=== PATIENT | female | born 1945 | race Caucasian/White ===

== ENCOUNTER 2023-02-15 13:32 | Outpatient (OUT) | payer MEDICARE, SELFPAY ==
--- NOTE | 2023-02-15 | XR_ITS ---
The [address] [address] Patient Name: ALVARADO ROMERO MRN: [id number] date: 1945 Sex: F Assigned Patient Location: [facility] Current Patient Location: [facility] Accession/Order Number: [id number] Exam Date: 02/15/2023 14:03 Report Date: 02/15/2023 22:37 At the request of: RICHA FIGUEROA Procedure: XR foot RT min 3V PROCEDURE: XR foot RT min 3V HISTORY: RIGHT FOOT TOE GROWTH ; gross on second toe which rubs third toe COMPARISON: XR foot bilateral 05/25/2021 FINDINGS: BONES:Prior osteotomy and screw repair of first metatarsal and first proximal phalanx; no fracture or change in hardware alignment. Moderate degenerative changes of the second through 5th tarsal-metatarsal joints. Moderate degenerative changes of the first metatarsophalangeal joint. Moderate degenerative changes of the majority of the interphalangeal joints. SOFT TISSUES:Thickening medial to the first metatarsophalangeal joint. EFFUSION:None visible. OTHER: Negative. XR/XR foot RT min 3V IMPRESSION: 1. Stable surgical changes. 2. Multifocal degenerative joint disease. 3. Degenerative osseous spurring along lateral margin of the second distal interphalangeal joint which may contribute to a palpable lump of the second toe as described in patient's history. Electronically authenticated by: SMITH ORTEGA Date: 02/15/2023 22:37
== END 2023-02-15 13:33 | disposition home or self-care (01) ==
LOC: RAD 13:33
PROVIDERS: Visit Provider Podiatrist Foot & Ankle Surgery
DX: M79.674 Pain in right toe(s) (principal); M19.072 Primary osteoarthritis, left ankle and foot; M19.071 Primary osteoarthritis, right ankle and foot
CPT/HCPCS: 73630

== ENCOUNTER 2023-03-15 12:25 | Outpatient (OUT) | payer MEDICARE, SELFPAY ==
--- NOTE | 2023-03-15 12:28 | MR_ITS ---
The [address] [address] Patient Name: ALVARADO ROMERO MRN: [id number] date: 1945 Sex: F Assigned Patient Location: MRI Current Patient Location: MRI Accession/Order Number: [id number] Exam Date: 03/15/2023 12:40 Report Date: 03/15/2023 21:47 At the request of: RICHA FIGUEROA Procedure: MR foot RT wo con EXAM: MR foot RT wo con HISTORY: Second digit pain. COMPARISON: X-rays 02/15/2023 TECHNIQUE: Multiplanar, multi sequential MRI sequences were performed. FINDINGS: IMPRESSION: This study is limited as the only fluid sensitive fat saturation sequence was performed in the sagittal projection. Additionally, since this study was to evaluate for a neuroma, the patient should have been imaged in the prone position. The patient is status post first metatarsal head medial eminence resection. Screw is present within the first metatarsal and first proximal phalanx. The screws result in metallic susceptibility artifact through this region. Better visualized on the prior x-ray is approximately 5.74 mm of the first proximal phalanx screw threads within the medial subcutaneous soft tissues. Chronic lateral subluxation of the sesamoids. Poorly evaluated moderate degenerative changes tarsometatarsal articulations. No visualized fracture, dislocation, subluxation or osseous lesion. No joint effusions. Evaluation of the metatarsophalangeal joint plantar plates is nondiagnostic on this study. No abnormal intermetatarsal bursal fluid collections. Poorly evaluated thickening of the distal plantar aspect of the second metatarsophalangeal joint capsule (axial 14). This is not a location for a plantar intermetatarsal neuroma. The remainder of the intermetatarsal spaces exhibit no gross abnormality. The superficial subcutaneous soft tissues are free of edema, hematoma, mass or cyst. The visualized tendons exhibit no discrete thickening, tear, edema or tenosynovial collections. No abnormal bursal fluid collections. No muscle atrophy or fatty infiltration. Electronically authenticated by: ROLANDO CONTI Date: 03/15/2023 21:47
== END 2023-03-15 12:26 | disposition home or self-care (01) ==
LOC: MRI 12:26
PROVIDERS: Visit Provider Podiatrist Foot & Ankle Surgery
DX: G57.61 Lesion of plantar nerve, right lower limb (principal); D36.13 Benign neoplasm of peripheral nerves and autonomic nervous system of lower limb, including hip
CPT/HCPCS: 73718

== ENCOUNTER 2023-04-17 09:08 | Outpatient (OUT) | payer MEDICARE, SELFPAY ==
--- NOTE | 2023-04-17 09:12 | ECG_ITS ---
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
--- OUTSIDE RECORDS SUMMARY | 2023-04-17 09:12 | XMS_ITS | CCD ---
Author Name Unknown Address [address] [place] [address] Organization [facility] Care Team Providers Care Sales And Retail Management Recruiter Name Role Phone Jason Mcclelland Unavailable Steve Ortega Unavailable Della Vera Unavailable ALONDRA, DR PEGGY Turner Primary Care Unavailable RICHA FIGUEROA Consulting Unavailable RICHA FIGUEROA Attending Unavailable RICHA FIGUEROA Admitting Unavailable AMADO, DR ROLANDO Hemphill Consulting Unavailable SAMSADAYNA Attending Unavailable SAM, DAYNA Admitting Unavailable ALONDRA, DR PEGGY Turner Primary Care Unavailable RICHA FIGUEROA Consulting Unavailable SAMSA, DAYNA Consulting Unavailable AGUBOSIM, CLIFF Consulting Unavailable RACHEL, BRAD Consulting Unavailable DORKOSKIE, ESTEFANIA Consulting Unavailable KAMILLE, AMAR Consulting Unavailable JORDAN, DR SMITH Stearns Consulting Unavailable RICHA FIGUEROA Attending Unavailable RICHA FIGUEROA Admitting Unavailable RICHA FIGUEROA Consulting Unavailable JORDAN, DR SMITH Stearns Consulting Unavailable LESLYE GUIDRY Attending Unavailable CHAO, LESLYE Admitting Unavailable CHAO, LESLYE Consulting Unavailable ZIEBER, DR SMITH Stearns Consulting Unavailable CHAO, LESLYE Attending Unavailable CHAO, LESLYE Admitting Unavailable CHAO, LESLYE Consulting Unavailable CHAO, LESLYE Admitting Unavailable CHAO, LESLYE Attending Unavailable WEST, DR ROLANDO Hemphill Consulting Unavailable CHAO, LESLYE Consulting Unavailable CHAO, LESLYE Attending Unavailable CHAO, LESLYE Admitting Unavailable CHAO, LESLYE Admitting Unavailable ZIEBER, DR SMITH Stearns Consulting Unavailable CHAO, LESLYE Attending Unavailable CHAO, LESLYE Consulting Unavailable YUEER, DR SMITH Stearns Consulting Unavailable RICHA FIGUEROA Attending Unavailable RICHA FIGUEROA Admitting Unavailable RICHA FIGUEROA Consulting Unavailable HIGHLANDER, PETER D Attending Unavailable RICHA FIGUEROA Admitting Unavailable WEST, DR ROLANDO Hemphill Consulting Unavailable RICHA FIGUEROA Consulting Unavailable RICHA FIGUEROA Consulting Unavailable RICHA FIGUEROA Attending Unavailable HIGHLRICHA SINGER Admitting Unavailable Eisenstein, Ansley Attending Unavailable Eisenstein, Ansley Primary Care Unavailable Eisenstein, Ansley Admitting Unavailable Thomas CROSSBAR SWITCH ADJUSTER-TIMBER SPOTTER, Kary Mendoza Attending U namita Steele MD, Vee Sarabia Attending Sylwia lablaurel Thomas CROSSBAR SWITCH ADJUSTER-TIMBER SPOTTER, Kary Mendoza Attending U namita Steele MD, Vee Sarabia Attending Sylwia Steele MD, Vee Sarabia Attending Sylwia lable Thomas CROSSBAR SWITCH ADJUSTER-TIMBER SPOTTER, Kary Mendoza Attending U navailable Thomas CROSSBAR SWITCH ADJUSTER-TIMBER SPOTTER, Kary Mendoza Attending U navailable Thomas CROSSBAR SWITCH ADJUSTER-TIMBER SPOTTER, Kary Mendoza Attending U navailable Eisenstein, Ansley Primary Care Unavailable Eisenstein, Ansley Primary Care Unavailable NataprawiJune oconnell Attending Unavailable Triaprawira June Admitting Unavailable Eisenstein, Ansley Primary Care Unavailable Enrike Rosado Attending Unavailable Enrike Rosado Admitting Unavailable DebenedettiRomina Admitting Unavailable Eisenstein, Ansley Primary Care Unavailable Romina Vizcaino Attending Unavailable Eisenstein, Ansley Primary Care Unavailable ThomasKary M Attending Unavailable Thomas, Kary M Admitting Unavailable Eisenstein, Ansley Primary Care Unavailable Thomas, Kary M Admitting Unavailable Thomas, Kary M Attending Unavailable Eisenstein, Ansley Primary Care Unavailable Thomas, Kary M Admitting Unavailable Thomas, Kary M Attending Unavailable Eisenstein, Ansley Primary Care Unavailable Thomas, Kary M Admitting Unavailable Thomas, Kary M Attending Unavailable Eisenstein, Ansley Primary Care Unavailable ThomasKary M Attending Unavailable Eisenstein, Ansley Referring Unavailable Thomas, Kary M Admitting Unavailable VEE STEELE Attending Unavailable Eisenstein, Ansley Primary Care Unavailable VEE STEELE F Admitting Unavailable KINDVEE De Guzman Attending Unavailable VEE STEELE F Admitting Unavailable Eisenstein, Ansley Primary Care Unavailable Eisenstein, Ansley Primary Care Unavailable Nixon Rosas Attending Unavailable Nixon Rosas Admitting Unavailable Eisenstein, Ansley Primary Care Unavailable Heather, Ziad Attending Unavailable Heather, Ziad Admitting Unavailable [facility] Er, [place] Primary Care Unavailable ThomasKary lambert Admitting Unavailable ThomasKary lambert Attending [facility]available ThomasKary lambert M Attending Unavailable ThomasKary lambert M Admitting Unavailable VEE STEELE Attending Unavailable VEE STEELE Admitting Unavailable [facility] Primary Care Unavailable Allergies Allergy Classification Reported Allergen(s) Allergy Type Date of Onset Reaction(s) Facility (8 sources) Codeine; Translations: [codeine] Drug Allergy Unknown [facility] Repository (8 sources) Erythromycin; Translations: [erythromycin] Drug Allergy Unknown [facility] Repository (7 sources) penicillAMINE Drug Allergy Unknown [facility] Other (8 sources) predniSONE; Translations: [predniSONE] Drug Allergy 1 Unknown [facility] Repository (2 sources) Codeine Drug Allergy [facility] Repository (2 sources) Erythromycin Drug Allergy [facility] Repository (2 sources) Penicillin Drug Allergy [facility] Repository (2 sources) predniSONE Drug Allergy [facility] Repository (1 source) Penicillins; Translations: [penicillins] Propensity to adverse reactions to drug (disorder) [facility] Repository Medications Current Medications Medication Drug Class(es) Dates Sig (Normalized) Sig (Original) alendronic acid 70 mg oral tablet (7 sources) Bisphosphonate Alendronate Sodi um 70 MG Oral for 84 Days Active amLODIPine 5 mg oral tablet (7 sources) Dihydropyridine Calcium Channel Drake amLODIPine Besylate 5 MG Oral for 90 Days Active carvedilol 12.5 mg oral tablet (7 sources) alpha-Adrenergic Drake, beta-Adrenergic Drake Carvedilol 12.5 MG Oral for 90 Days Active clopidogrel 75 mg oral tablet (7 sources) P2Y12 Platelet Inhibitor Clopidogrel Bisulfate 75 MG Oral for 90 Days Active enalapril maleate 20 mg oral tablet (7 sources) Angiotensin Converting Enzyme Inhibitor Enalapril Maleate 20 MG Oral for 90 Days Active levothyroxine sodium 0.025 mg oral tablet (7 sources) l-Thyroxine Levothyroxine So dium 25 MCG Oral for 90 Days Active LORazepam 0.5 mg oral tablet (7 sources) Benzodiazepine LORazepam 0.5 MG Oral for 60 Days Active meloxicam 15 mg oral tablet (7 sources) Nonsteroidal Anti-inflammatory Drug Meloxicam 15 MG O ral for 30 Days Active nortriptyline 25 mg oral capsule (7 sources) Tricyclic Antidepressant Nortriptyline HCl 25 MG Oral for 90 Days Active ondansetron 4 mg oral tablet (7 sources) Serotonin-3 Receptor Antagonist Ondansetron HCl 4 MG Oral for 10 Days Active simvastatin 20 mg oral tablet (7 sources) HMG-CoA Reductase Inhibitor Simvastatin 20 MG Oral for 90 Days Active Simvastatin 20 M G Oral for 90 Days Active Completed/Discontinued Medications Medication Drug Class(es) Dates Sig (Normalized) Sig (Original) triamcinolone acetonide 40 mg/ml injectable suspension (5 sources) Corticosteroid Start: 09-20-2021 Kenalog-40 Sep, 40 mg Problems Active Problems Problem Classification Problem Date Documented Date Episodic/Chronic Acquired foot deformities (10 sources) Hallux valgus (acquired), left foot; Translations: [Other hammer toe(s) (acquired), left foot] Onset: 04-04-2021 Chronic Asthma (1 source) Unspecified asthma, uncomplicated; Translations: [UNSPECIFIED ASTHMA UNCOMPLICATED] Onset: 04-23-2021 Chronic Diverticulosis and diverticulitis (7 sources) Diverticulosis of sigmoid colon; Translations: [Sigmoid diverticulosis] Chronic Essential hypertension (2 sources) Essential (primary) hypertension; Translations: [ESSENTIAL PRIMARY HYPERTENSION] Onset: 04-23-2021 Chronic Hemorrhoids (7 sources) Internal hemorrhoids; Translations: [Internal hemorrhoids] Episodic Other nervous system disorders (6 sources) Chronic pain; Translations: [Other chronic pain] Chronic Other nervous system disorders (4 sources) Other chronic pain Onset: 09-20-2021 Resolved: 11-29-2021 Chronic Spondylosis; intervertebral disc disorders; other back problems (12 sources) Cervical spondylosis without myelopathy; Translations: [Spondylosis without myelopathy or radiculopathy, cervical region] Onset: 09-01-2021 Resolved: 11-29-2021 Chronic Spondylosis; intervertebral disc disorders; other back problems (19 sources) Cervico-occipital neuralgia; Translations: [Occipital neuralgia] Onset: 09-01-2021 Resolved: 11-29-2021 Episodic Thyroid disorders (1 source) Hypothyroidism, unspecified; Translations: [HYPOTHYROIDISM UNSPECIFIED] Onset: 04-23-2021 Chronic Unclassified (1 source) CONTACT W/AND (SUSP) EXPOS COVID-19; Translations: [CONTACT W/AND (SUSP) EXPOS COVID-19] Onset: 04-15-2021 Past or Other Problems Problem Classification Problem Date Documented Da te Episodic/Chronic E Codes: Adverse effects of medical drugs (1 source) Adverse effect of other opioids, initial encounter; Translations: [ADVERSE EFF OTH OPIOIDS INITIAL ENC] Onset: 04-23-2021 Episodic Other aftercare (1 source) ocean transportation intermediary (current) use of antithrombotics/a ntiplatelets; Translations: [HALFWAY ANTITHROMBOT/ANTI PLATLETS] Onset: 04-23-2021 Episodic Other aftercare (1 source) Other usp (current) drug therapy; Translations: [OTH HALFWAY CURRENT DRUG THERAPY] Onset: 04-23-2021 Episodic Other circulatory disease (1 source) Personal history of transient ischemic attack (TIA), and cerebral infarction without residual deficits; Translations: [PERS HX TIA AND CI NO RESID DEFICIT] Onset: 04-23-2021 Episodic Other connective tissue disease (5 sources) Pain in left foot; Translations: [PAIN IN LEFT FOOT] Onset: 05-31-2021 Episodic Other connective tissue disease (4 sources) Pain in right foot; Translations: [PAIN IN RIGHT FOOT] Onset: 05-25-2021 Episodic Other gastrointestinal disorders (1 source) Drug induced constipation; Translations: [DRUG INDUCED CONSTIPATION] Onset: 04-23-2021 Episodic Other non-traumatic joint disorders (1 source) Other specified joint disorders, left ankle and foot; Translations: [OTHER SPEC JOINT D/O LT ANKLE FOOT] Onset: 04-23-2021 Episodic Results Test Name Value Interpretation Reference Range Facility Outside Recordson 03-22-2023 Outside Records [id number]-08-2023 Outside Records [id number] [facility] Progress Note - Provideron 1 05-09-2022 Progress Note - Provider [id number]#[id number] [facility] Coding Summaryon 03-01-2023 Coding Summary HTMLBase 64 CumhhlvmTDj6aSw+PGhlYWQ +TG0GWPGkL22ufBSpfQ8iN8 NMTElOSywgQVBQTElOSyIgb wHxLA2apHWcEBLt IC8+QK5vRLQiAtzrvOXrv0H 5yQM6O67kka7oYSvgbEV9YP NqOuLhkmvjb0xtoRq2XBmjH mluOyBt UAKlrV03MJA7yT83Ix35lFX xdVWwd4usbOg4XmNlRGPoQB C8zClxQVcla9KqFJCtH94tt XIuj3R2 UEYlpRlrePSsYiRkrYV8zX2 bSEkborxgz9pqasjnEhx7cb 46vBQvp2A2nBX8A8WvjhS0N GJvbGQg TflzoZXInY7qnqhgd4sxjqp rCaGmPZUxLGc6NJj7GMJrwA erNoCrKJ97ZSN2BXKwbvPmI 2FsLWFs pHbeOdQ8i0U7Sh3SF5XJXwz tT4WWHWWDSJedlJU+PC90cj 16M0ImHnpkNoc1URNqLZM5v JS1dX8z OOXbCTtqs5I3qJR3J8ZnvtB yol6fz1aaFLEwVDhlI71ohL Qep1L3EZWudMA8LHJvhDoxO iBzaG93 Oyc+ZXIioMzjl0BoOqqkh5g et7fdpGh1FzucRJQynyYaiN zjUTH8n3JtBo7eYCIprJU3j AH6sA6f IhRwBpV9AUcuS494SgEplTX oNwmyW52xE2EiaUL+PHRyPj d5PFZkfBpaKC3fD9PnCIWfr mctbGVm wRgsWV1yLDSxygosYPQayV1 qYCUgD7a6BgGaGhR4VNzvG4 BpZMTqmqojSa43yS1yIdObI jT2MAtm S4KcegN6FOFvwMJfWUheXQH 7J17pb5V6JMVvJKDbTXV8aK I7mN0gbEkbingdqDHlyIcpf mVydGlj SUriZImwX338YUXxrOahUvC vZGluZyBEYXRlOiAgMTEvMj kvMjAyMzwvdGQ+TWIaYPB5i WxlPSAn fWYkKUvhMv0nxDxenJqeAX1 kPCFkyugbQTPaaU1lABIwmJ QpzZefEU4qKSXwwqnxc037M iAxMHB0 JLOctGZxJ5GimH9uJyCyRNR sLJUpH4OzuHChZQuxP883TA qmCpF9HOUugfSdL6WpOTOsc WduOiB0 y3N1Gz1Oo4ZdlizvE9VjuJW xBxJxDcppHVz2I0OgFsbokN I+OI26UMSqOG33QEd2BCG7r WxlPSdi IPHuB9VldL6gHxGySXEfGCQ kOyc+PHRhYmxlIHdpZHRoPS fpCCChOqJqtRqkZN3gEi4bL GVyLWNv zHwdiWSeXfTpx0lhHBDsUSu tWR5hdVopI2SksDH1CXElt1 n2St46H64kJ1DznRA+PGNvb GE7kTO3 nF1cRjPxWnJ8PHuyE311PcR abHBqTfimk1xuy8pkaZe4Rx O8PTKikiRrxPvhBIW1l5QeC b72C04u IHdpZHRoPSIxNSUiIHZhbGl pxm6wfB1eWj6+LZPuoWP0xR Q7zY3tNuCoFvQ7USirN434I nRvcCIv Fishm7chl9rruOj7NdKvIWC zhnFraAruFIF8n9DyFh93P5 NsdUdev7XdBqq1rr80bLXvk 6K2pJD4 R8GoNLDsytvacZSisRmlNG7 gVQRmydtaLYBdzW3sLREqS7 v2YyBhMtC8AWvcI3VezyB6V GJvbGQg WHWjrSDDhQ4aodwdj5ziugm dCaOyCSAuQTk4DKk5VHMpvR jmJxZiBLE5KzH6UMG0dQGhi K9ciNcp jwjmvC9gUkw+OEQ3sZCimAX QYR7vFrhspYM+KUPlIOB9wQ hjGVwbKDPiwF2hEJCzS5u1K iAwLjA1 XUsoI3JkzpQ7HGZmyIPiLME keLUFyH5bhwqkc4nztubfIi DjMYKbXJs4JHx4QKNteWqoE iBsZWZ0 QrX6XLF7gKSerB9wpKavoav umT9zNbf+ChottNuhXAF1DS m8A4PyYhc4ATKhoAcqAS5xj GFkZGlu Pi6ndQbxqBiiAU6zLXEwaob sv461JwCsy9dhYSXgnSCbPK xdZPK0E86wq9B4UCPgRSIoN XY4kCZ0 bN0giEyjptlaiYPrdGryrbM tqGufAUtuCEepM622DBUeuJ jvXzZxZUx0G6RmPxr1XZSwe FfdQK3d qQRuIUxoXh2dnXlyrOzoHH1 oWPWpmtupi592BaFyx4dsCK BplXBjHJlxKRI7Z58jv9J5U CMwMDAw WLP4uQP1dC7syFbpdwtxfMR mdDsgdmVydGljYWwtYWxpZ2 92YXBisZpxVuIuePw0W8FsA pk2OFCl mAzpXH4cyFOkOYssNd5ioXq ihMpcDI4oDHYnawxpu482Iq Zud2diRKXbvYLvMNrzKBC9M 48rv2W6 QNBzIFBiKAZ1rRU8gX2fuEx nbjogbGVmdDsgdmVydGljYW dlIJylQ907DVOqgNryLwCbc GllbnQg VXfeKRz0C9CjWmzedDJ+PC9 3VEJtDV70ySSzoREdl3pupJ o3SeUeLRYpKJH8bIomXSoso 3JkZXIt B58cdOEot8J7RHWzfHloyJT iCmSmmJY3bJ6nDBqmvfhvy0 vilmcmSwrjv6lnlf25pU58K 29sIHdp ZHRoPSIzMCUiIHZhbGlnbj0 zgG3nWk3+ENOzrFR0sYQ7pD 0cZOVoThW2RQcmK885GkYeo CIvPjxj p0abw4iguMt3ZuI9CNMpdnI uiEklKGR1g4FjWq78X57tOD dpZHRoPSIyMCUiIHZhbGlnb p5tpC8x Ii8+FBEcnSG2cFA3iV6lJrR jMiT6UZncL812DeMwfBJePh niR31nQ2DrqBB+UXHnKyh5H CBzdHls MH7ezUVnXGfrVs1cGAY9FyL uVeDgHEfsP5TmFIXhxbdyua vhpJE1KBMkHOTxeA18Fv1fl DogMTBw sSFNqK7gkktqm3jwtkaaUkR vKQDdQGc7UUu1BRWmkZsfBe PqMSZ4OeW6IIV0lQBtaY4ol Glnbjog bY8bS8YvCXXiowdcAr42tU3 rMyXcKyS4YEkpTwh+V0hJVF QaMSIYYSjEIFABQRi7M4DxH aw9XDHr xZmqFF4rhFOeOKbrPa4iqBn fgPffCQ8rBUCgqedlCXQbpY 7pRUEuyXZafPewML5wDMIik dyja376 VaNiSVV2WQPapUDxR6MiaT7 dWkMwCRBhHYCmL8UsdKToTK snW329ZKtdCuJ5NBDgsbPfC 2FsLWFs wAyaOsC7n1K5Bk7fQY0kOM8 kMGX2HS88ED76uZLug9G3tY H5W7KwHXWikzaodyiawEQ3Z DAuMDUw oA77fYFbOJcjFe1rf1Y9h43 4BXIjCOKtfO10Wx0ovTbqDM WagHQXtM5jdavvg6tzyvkrH zAwMDAw BXv1HIu7FDZtyYayHyEmCRQ 0OfB0PTC5tUOzhN0bdIiofw tkuX5nUjx+DoQjQPExnvM4I 0IvOyg7 WLTnbGkvMS7sbPQwZEpqSb5 coNgklUgmOW2xAVUejqowIQ HrvH3hDUHyrCGcaYggDZ8iQ TBpbjtm v430GfQhNCU5JAVmfZVgU9D zwR0wNoEgCJRlXHPuN5PfaO VtOOnbC483YNakAwM1UHMdr vEsH3Qc NQEptTohZkC2f1M2Jt2ORN0 KSHU7T9YaAma8AEKhiOdxBP 6puWEuGKwhLx0woXsmoGndA N5kMFHb znxiDJDixG7dXJOedEWuwCy pWZ0tDFZciiosf570MgLeSQ S9ASXxjEIzH1HmaK4oCdUmI DAwMDAw M2ZseTByJUurY971SNwlGtR 0NFRknbCwA2JeAAWqxCpkWv H0o1Q7Ve5PBJnweUI+PC90c r16P4Pc MmorRju4SYSzQGE0oDD3oG9 fXBYeWPuxs3C8rAE3O8Wcvx Axpn4pz7ueXWHkXQidB64hi OKyy1T8 OFRptFO0ZHNpeQriLjWgoT5 3Oyc+IJFsyPjvn5UbJmahm3 uln8warUk4VjUbPHOxshScz WduPSJ0 w6MaIy23U22dINujLYXrCPI rIEFjMTRjhIpmav3vtZ5xTd 8+JNRndZC0xYG7kV0zXwFyM xW9NCeh W435HjUinFZfSzmyx0zoc3e lsVn1QuWnREBbtjZdySaeEH G3b5BjDw65C8LbiHdkl8DbV tc8th51 tWOfu7N4kQS6F5JuUVYudne icNNejSanLH6pUMFcvkakFU QvzY3kGACgL5z7GeGaSfQ7G IkwI6Sw mbI5VAEyfOCpMJXsgNIAiZ1 zxgsux3hmhkcsUtQfZVZeIN c1NJd5QBScpFeoSfKaDMM3B iM8UGJ5 cYCxnV8nnKlrbrcyuR0zAzd +VSz3f3sapBNcKV9idJC6ZF 90CL66fQGqh2K2mSN1O1AjV GRpbmct hhtkxKC4VAGxCKLokX03Eu4 aaWwoPc8dEGXnRZQ7SNVljM KrN9QalQ8lKgOvKOBdWGIqP 3RleHQt MShsA336CCuhJcP3LNLxdyQ iV3EbQDBhjChvTsR2l9I6Jk 2EBW34TQ78GZ15nEHuu3D9p BG9H3Tw RWNqupbddfetzSO7LEGcTTP zcA76Ib3wmPpbLg4sWWNyDQ C2PQLmeKSsQ9WnlQ7wWyWoY DAwMDAw A6FvyZYhEUeaE870GRjqUqE 6HTLkkxLcL6DxEVLkoIxmWr D8f4Z2La0XWm50BJ69GZ02o LSeg6S8 hWR6D5LoUOHuwzvpiaduqPI 9ANByHRFofF28Iq1jcZguXe 7mUDHzIDI8WGJvfXPaI1Svf W3hUcOs EBRuYWEoL5DbrYTsPYjgL13 6KMzxZqU0CEHrjwZkW3LnWS FauWfyUjG4c1J3In2XGAlne ws5S3Wq PjwvdHI+HZ85NPToBI20iNP xvVHld7nvhYn2OsVuGLVtGA J2cIemAErxz4JgMJMqY83wt HWmd0K9 IGN (more content not included)... [facility] Coding Summaryon 02-08-2023 Coding Summary HTMLBase 64 WieqworeKOc2aNs+PGhlYWQ +IF1YLJQfG53jvOPdfH5jT7 NMTElOSywgQVBQTElOSyIgb oUvXM2gvOZgYBFu IC8+FF6xPWBaIregwUZjx0Q 7bPT6F46obt5oNNrxwSE9PE PjCrLrgnuiy8vciOj8VDrpF mluOyBt CNXtuR20QSX7hE17Lh02wYU qgKEjx9ddmXi3BgTwWLKaJA E5lYahMCdft7RbHPTxD51cv DFya5X1 RIWgxGqbcOKpKsBpeUR8iP4 gKSlaxdksr9gttmrrVfs7wr 92xQKef0K6jHH9K4FiacT2H GJvbGQg UpsaiKEEiI8uvaldu7yovzc nZjNeIKKjXPi8ZLn7BKShcV yrYcFzDJ91PZF7XOKpiaHyN 2FsLWFs jNjyDgR0n5Z6Al4NJ3AXEnh cF7FHMGXEDRnwqIS+PC90cj 64Y8EoHxqpCgc3SJHzHGZ5t GP3pH2y THYzCKjbn6I4uPC6C6JhzjM tap3wm5ceEUCtGUpdO84xdQ Bme6U3QTRchCL9KUQreSwyS iBzaG93 Oyc+EYNrkKjhg5KpKjvxg6n nx0ixvXm1KzqtTOFotuMhmS yuMMQ7m2DkNv5gGSMrcRU0p NX6dG3u SyQnCjI8BVxpA408ChFrgGS wDegoJ74sL5PyxUT+PHRyPj v8GKOytJqzOG9tA3JbNBXkr mctbGVm kAwwMF0aMPJxqbxwPJCzsO4 vIWFjW2t8DuSeBjV6QTbwG1 PjUTHumjxhAe36qU1fOoAmP xE7MXgk A8FymgU7BDQrfISxGWrxAXH 8T61cg4V1HTGwQKCzNAH3bB R6zX4esWtdwfxarMIblZdln mVydGlj YWpnOIyvK527FPCdvMclCiK vZGluZyBEYXRlOiAgMTEvMD gvMjAyMzwvdGQ+DFYwHPZ3r WxlPSAn dEJbUUgnKy2xkNgieVqeTM8 rVMHjistlHUPxtF8qQIPqjD KbwUfgGE6wVQPqslhvq178E iAxMHB0 DKVsgBWxW0TpxN1bMdIuHKI kIFSpA5AsbTImAWrsJ651CI piSzR8LNYulvDpO4PuRTCek WduOiB0 n7F0Gp9Jg4LvueduM4FmcYE yAfYpDgcaWCt3Z6IeOejvrH I+JF36KKCbRU34CSn6BOF4h WxlPSdi OHOzX7JuoG0cZdWjNDMeUCG kOyc+PHRhYmxlIHdpZHRoPS abZLGnKvDweSllTC4eQu2tN GVyLWNv zSjclFOaJtYfo1qvSHJbORg wQR2qgBlvL7MhxKC3UAQdk3 v7Cr66A35iF0FfoLJ+PGNvb HN2jJK6 iQ1kAnBsGbW5XXknI595HfL meYNtTijmk4yhn1vcfDe1Ur X5RINokoAmwMvpDHJ3d5QvL l63P26m IHdpZHRoPSIxNSUiIHZhbGl ozf9quO5tTu4+UFQuwXI7nW I2sZ2gKiOpNaN0QHpjQ283V nRvcCIv Zyfue8kge4gumVe7NaRhBWN sqhFfeJbiWDL2a5PqYk05H0 KpjLsmp6MgXsg8bc90nWVvg 3X5zFO6 H3FfUNFnqbfraWHgxDkhXP9 sHCYvpjxfARYtpI6pKJNyP7 x3SaKgGoW0IUlkV0PnvbU3H GJvbGQg WJBbdTKXdO2yhqblc7wmurp pUcNvSIVbOOm9GFz1TUVmdG wtMtWnUDY5ScS7SDN5xIGqg W0tyMrl qynqmA9qMuj+UHR6vJZzcLR SQE0kDvdsyUB+FAMkOYQ1aN ggDNbhTRSaaL0aXQJyE6k0A iAwLjA1 SRhwG0ZzfnI8WABggXVnJAA mzISRxV9ljadid6wtndgiQz BzMVNoLPd3JHt5NMBdpYgyB iBsZWZ0 GiK9THS0tAVrbK6ywIwfeka osA2cYum+YwgwiTgvPWC1VW w7K8DsGih3IGRmaVgsNZ6ik GFkZGlu Do5vnQoipAcwUB2eNBArnuf hq539XtWgo6wiTMJsoYHhGT okSKE0S92qp3J2XRCuUTIyQ GI4sKS1 oK5moCuqvvuunHUnqSspnhU boZxxFFndJJlfS992MHNnbT hyRaHrGYl9K8TcTbw4YSZcb RmoFV7r zXInFOmvQx0ztHyfvVhvXI9 sUNNyvjwuz623QhJdo5dgVA FivRYaBGopGEN5Y11aq3Y0D CMwMDAw YMW5vQS3hF9hsBeofgukzCF mdDsgdmVydGljYWwtYWxpZ2 86YHGtsEfzUyDgrLr6S4EsQ vu3VIGs fYtoOO6qcKQsURvmBs2vnAe gtCmdHB1iPQDxxkddq854Dq Kzc6klHOLcbKNqKBacKLM5A 53ro8Q4 FNMaGFAiLIA7cPZ4cM2fhAu nbjogbGVmdDsgdmVydGljYW naDXylX137AYMqpMffBjWmy GllbnQg KCqdOMd9P1KxVhbshHI+PC9 7WOLhQV22jYWxmTRig4pvaO d0SgNtKKTpSBW4rTdvPAfie 3JkZXIt J97rbMKey2A8TNTavOyxjSY qBgUayVH4jP4hJJpieflld9 tnuyxzQtvbp5uglo58wS59S 29sIHdp ZHRoPSIzMCUiIHZhbGlnbj0 rzV9nYz6+YJMvxVN2nXM5tA 4rKVHpNdF4PIrvQ065AuAvp CIvPjxj w7osw8aefMi0ZsN6SLPjejG gqUvlTMP3o1YqQe60W19dFN dpZHRoPSIyMCUiIHZhbGlnb q3blP1s Ii8+NABszIE9oRW8hB8uTeH lCxZ7GSusD118QyVjgVJgCf etU98lG2DllAG+NKBzRez9I CBzdHls UL5iiZMtZFxbEv3jMEX3UbM fJdUqGVerS1ZiCJPkcwfglz csaRT2ALEsOMOocQ03Bv9vd DogMTBw bFJQcD5orwedq0gtjlqcOzJ eJCKdAGl7BNb9LMAdjAniDf QbEXP6AfN1GRG0oYDmhA1rg Glnbjog hQ6cQ3RiBQGbxvckOl09rS2 lHbErCqS9SDuvKzq+V0hJVF NkSQGMKZlSYRFZAEa1Q0CaG zk4ACKs iIgiQB2bxTZuWEavNv7gqIe ueNnkSF1iVZKnijyvEFOfoF 1dBZIbiXFngCzlPC1fLJTfm ndtf985 PgKcDVF5NIPfnKVcX4BatT1 zRuXtGGYaEEWcG6RhzRFvRD zyS485YNzjZnK8ZDWjpzFeU 2FsLWFs fVhxVeX2z2U6Pu0iIS0pVO9 aBGI2HX36HS67uIZhj4X2aA U1D2CnDTNsdrjicdxwqNV3Q DAuMDUw vT62yDHvHYujAz6lq9H9n72 8MZYxCOPqdZ28Dq5fzCmaRU EegEVAjJ5afqwov7runjcsV zAwMDAw FZs1QGv3NZUqqUnbEyUcMXX 3EzQ3PVM3aJHipL2qeShsio qdmT6uWee+ZqXhGAArmiP8O 4JgUyi4 CXCzmKapPF8slVMtNRvgYe9 luHcqoEfqUO7hXGKfcrqeYL VssW6dVXBziUYkhTksMT8kE TBpbjtm t444GtSqKDF7DPPnmREhJ8I taR0mRhJcSCRlOMEmF4WdiT NlDKxpQ599VUiuXyI0GNFgl lOoN7Xj FLImiJxhYkX9h3B8Ue9RFN4 NNTK1N2SbOkv3KPNpvCjlFI 1arLSfDKwmAy8ltFkijBcdT H3oVVQc rmusSHGnsU9iKAHkiRUaqKk zGO9lSKAvkhnqz419XcYoYK F7VNWzfTNmA8TphB7yHeDbK DAwMDAw N9CrpXJqSHkyQ129DAakUkH 6QEFxtlNvC1LbOSFjwIdmXr N9y5P3Hd7IOUcdhDX+PC90c z33T5Dg JbnsXmy5RSZqLMN9iDC9tT6 gZTIfIEaob3Y4xFZ2Z6Owqt Rgtc5kp0wfEXNbXGabZ34ac WHlc9S0 UJHvnEN8CAXrhQcvEhFrqP1 3Oyc+WEGgsYykl8BoQvctc9 xji4ujhIh8WuUxRLLdjtZje WduPSJ0 z2FoOj64L92mVYoqDVVzGUY rNSWlJMMkiUxnep0jmL2iEl 8+IMFgcMQ5bOV6uD6mOrFnY gF1HDjh F617WdGrcKKwCvreq3yxw6m xuGb0FmFcTOQmvlIfmRdjPM K8p2UbEj80D6DpyCjqm9KrB om7ud09 dFUrw7I8cYL0Q3DdDWBvtuq hgAOoxWdkOC7yOQKdfmzrOH ZkoG5vXAPsV7a5JeSlIyI5X HkwC0Ot nkF0GCIfqUZgWYXugTCZrD1 lrsxmx3nlzpniKsLbTKRiKY m3HCh0AKNjgXdjMcEkICL2V zS7BPX1 wQIlwH2njEzmawxajA6pJpm +CWk2d2kifKXqGX4ofNB7YL 89TS15lATxo7J2nJM3K4EtX GRpbmct ultwzHW3FZUbYFDfuA15Bp8 quPpcFz1rGQCeMBM3RJGubK ApT4YvqN8fHnNkYJLuQIUhB 3RleHQt AFdtI397FPvuWtT9RFTndxI aF8QjPQWsjZkhSdS0w8N1Gz 5UQN50HI57KG16zQDrf4C4q LY1C5Ms NBUnzipqajwgySI5HNLfHAP vbR71Wh3plLksBf5oYTLqOG T5QFLopNIaQ7OesD9sHeLhI DAwMDAw I6VmwLPuJAvcL533QTdcXkS 0UWQqevEuD1MtPREdsWorUy B2n5S8Yt0GZe14IE58MD51m MMfm7D4 lSM6O3QtWIUqiqeyvrrbsDV 9JVIsZEHdiS01It4psYxyUl 9rYQDjEKJ7PMPoaFTaD0Mnv V0lZhEw QPUcRZOkT3AyuWGyESrjU44 6BLlpEdH6WGTflaYaU9XlZG AogUgfWfI1g7U7Ht0DKVjzp dp7N5Yh PjwvdHI+OF40ENEuUI68fOT aqNGlf1bpqDm7NfLkJCVtHO G5fLrqIWais3AuLQHoB05ow SUuc4U0 IGN (more content not included)... Normal [facility] .Auto Diff 02-07-2023 Auto Coles % 4 % Normal 04-14 [facility] Comment on above: Performed By: #### 7 [id number] ####[facility] (DEFAULT)[address] [place] [id number] Baso Abs# 0.0 x10 Normal 0.0-0.2 [facility] Comment on above: Performed By: #### 7 [id number] ####[facility] (DEFAULT)[address] [place] [address] [id number] Basophils/100 WBC (Bld) 0.6 % Normal 0.2-2.0 [facility] Comment on above: Performed By: #### 7 [id number] ####[facility] (DEFAULT)[address] [place] [address] 98210 Eos Abs# 0.1 x10 Normal 0.0-0.4 [facility] Comment on above: Performed By: #### 7 [id number] ####[facility] (DEFAULT)[address] [place] [address] [id number] Eosinophils/100 WBC (Bld) 3.6 % Normal 0.9-4.0 [facility] Comment on above: Performed By: #### 7 [id number], [id number] ####[facility] (DEFAULT)[address] [place] [address] Lymph Abs# 0.7 x10 Low 1.3-2.9 [facility] Comment on above: Performed By: #### 7 [id number] ####[facility] (DEFAULT)[address] [place] [address] Lymphocytes/100 WBC (Bld) 19 % Normal 14-48 [facility] Comment on above: Performed By: #### 7 [id number] ####[facility] (DEFAULT)[address] [place] [address] Coles Abs# 0.2 x10 Normal 0.0-0.8 [facility] Comment on above: Performed By: #### 7 [id number], [id number] ####[facility] (DEFAULT)[address] [place] [address] Neut Abs# 2.8 x10 Normal 1.5-9.2 [facility] Comment on above: Performed By: #### 7 [id number], [id number] ####[facility] (DEFAULT)[address] [place] [address] Neutrophils/100 WBC (Bld) 72 % Normal 44-88 [facility] Comment on above: Performed By: #### 7 [id number], [id number] ####[facility] (DEFAULT)[address] [place] [address] CBC w/ Auto Diffon 3 Erythrocyte distribution width (RBC) [Ratio] 12.6 % Normal 11.5-15.0 [facility] Comment on above: Performed By: #### 7 [id number], [id number] ####[facility] (DEFAULT)[address] [place] [address] Hematocrit (Bld) [Volume fraction] 34.0 % Normal 33.7-40.4 [facility] Comment on above: Performed By: #### 7 [id number], [id number] ####[facility] (DEFAULT)[address] [place] [address] Hemoglobin (Bld) [Mass/Vol] 11.7 g/dL Normal 11.3-15.9 [facility] Comment on above: Performed By: #### 7 [id number], [id number] ####[facility] (DEFAULT)[address] [place] [address] Man Diff? Auto Invalid Interpretation Code [facility] Comment on above: Performed By: #### 7 [id number], [id number] ####[facility] (DEFAULT)[address] [place] [address] MCH (RBC) [Entitic mass] 32 pg Normal 24-34 [facility] Comment on above: Performed By: #### 7 [id number], [id number] ####[facility] (DEFAULT)[address] [place] [address] MCHC (RBC) [Mass/Vol] 34 g/dL Normal 26-37 [facility] Comment on above: Performed By: #### 7 [id number], [id number] ####[facility] (DEFAULT)[address] [place] [address] MCV (RBC) [Entitic vol] 95 fL Normal 81-100 [facility] Comment on above: Performed By: #### 7 [id number], [id number] ####[facility] (DEFAULT)[address] [place] [address] Platelet 216 x10 Normal 138-427 [facility] Comment on above: Performed By: #### 7 [id number], [id number] ####[facility] (DEFAULT)[address] [place] [address] Platelet mean volume (Bld) [Entitic vol] 8.1 fL Normal 6.3-10.2 [facility] Comment on above: Performed By: #### 7 [id number], [id number] ####[facility] (DEFAULT)[address] [place] [address] RBC 3.58 x10 Low 3.70-5.30 [facility] Comment on above: Performed By: #### 7 [id number], [id number] ####[facility] (DEFAULT)[address] [place] [address] WBC 3.9 x10 Normal 3.5-10.5 [facility] Comment on above: Performed By: #### 7 [id number], [id number] ####[facility] (DEFAULT)[address] [place] [address] Provider Orderson 02-07-2023 Provider Orders [id number]#[id number] OTGTIFF Normal [facility] Coding Summaryon 02-03-2023 Coding Summary HTMLBase 64 XxunmbfqNFn8dHd+PGhlYWQ +TK5ZQHShR32geBXhrR6uM1 NMTElOSywgQVBQTElOSyIgb jHiBJ8doHWaVZWe IC8+AF6aHXAfVnzaqBHbp6T 4aMF3Z17kgk5aOIavtHS5CU RzXbEgpzbnp5euzZc0XEnaJ mluOyBt OTBgfK18QKQ0wQ02Qr33hZW hdJXqd0jlcQf7PbGpONOrMC K3iTduFKgbu6FmAKYtV84an AXui7X5 SQGblZbnmCNaJhVxfRF8zC0 wUUdccqusn6onacgiJij5om 83cAYgo7W1hDR6I1OyqwU1C GJvbGQg MptfsCIOkH8wdxggo2ymjkw wPnMkKZRoLOg4DCc0JVTohE vjZsWwZI31QPK7BVSwgvFoZ 2FsLWFs xPcvWqZ5b5F4Xh8MM4LGJdu bQ0EKAKWRPLtdzAE+PC90cj 41R4BaWlhaAqw0LYRpQGK2w ND7nO2s UQOvDZtpk6I9sRG4Z2RgbkN wjp9gl1dbBCHbFJsaF56cxM Iff9M1DWLohLE8YCOuoYvkU iBzaG93 Oyc+ISDrzSjnb0HfYpcrl1y ql5cloZg8QgkbKNIysyDsjJ jjWHV8d6OeEy9bJHNrkKG9f CO9xC4t SpAxNuI8QZnfC960HpQsgNL vKikmX23rW3PtdPJ+PHRyPj u3OFEzjGnoEC0gO5HuNCBkg mctbGVm qHqgPD6iZCRctrtfOLIrpB3 wQUTfJ8q8JkXhGqK6DSilS7 WtBQSrctkgYy73rT8gNvQzV pF5CQlx I0ZzkuE4KQBvgPQxGYauSET 5Z36eo5M2ECTcDLPiBVB3zG A1iL7qhNlhbovypXKzaRvzz mVydGlj YWnqPSsnS686EPNmqBtbLkH vZGluZyBEYXRlOiAgMTEvMD MvMjAyMzwvdGQ+ZNIlWEJ8p WxlPSAn hQWbNEmoAq4uzKwmjCkwZW1 tHFFkhajwQAPvmS5gUABtsH JslFldGS8bWZQpapbwg282O iAxMHB0 PGNpjSTtO6VcqF5oLeWsAZG gTJRjO5EfiFAyJMhxO299EV wbZgE8LKZtejYhS1RcPZDfi WduOiB0 o9R3Vy8Un0GmhqfaN4AsiCO iChHuLaagJVs3D7AhXweptK I+KK00OUUfRO81JMo4GJJ3g WxlPSdi CQEkY2EfqS6iWbTsFIBxZYQ kOyc+PHRhYmxlIHdpZHRoPS odLGUoVxKcwKreKM4oKm2tG GVyLWNv bAyviUCtEnLoe7xcXEMaVZx jCE5wvRbkZ4WczHB1HWCvt1 j8In97N50pN5CxyIW+PGNvb VP4gNT0 aZ9xIpNhOyG1RWpqN748XqH ixMQbSlgrs2nli0gnwGe9Gb Q6MDKogaCigDrjIWV7n0WaC b04O39d IHdpZHRoPSIxNSUiIHZhbGl biq7stW3tHh5+VHKvkTD4aA E8wK7zUvBvXkR6BNmbS448F nRvcCIv Occtc5svv0qoxQs9TiRbOCG cjbAtdIsySXI8j3CjSb70C0 SsyOhth4DoFex5xi22nFKxr 5V7pNG8 V6TmRMUmzqypiIVcuDpmRM8 aVDQynfxcQWKvpB1hATCcM0 x9OsZbJuC2EOsmH5VgdeS6A GJvbGQg USUsyAICmM2zfceqs3bvpvc gDkTsBJOfYQl9CBw8AKDkvY gdDwGqTRV9KxE7GLK6xAVbq L3hbMbo qnwqdI8qHsa+GJH6zIWbsQG LKJ8vBanpeBN+AQTlZVK5qF smOBoaRMItyZ7bLXCvU6b2W iAwLjA1 NAfnH9QopvY8LFLxoMRpQTK doWIHvI4riclfn6nopruvRf ThYYZmBXu7XQb9HMUdhPweJ iBsZWZ0 PhZ0HDV7zETobT2tlCtpcap bhI0pCjy+GvymsIdzPSS0GP t5G1JjJwq4KXKmfOuyPB7tg GFkZGlu Fp9qlKvxdMceJW0jFVJyzbw rh339QbRea9hbZCVhmQOwDH cdBZR6R51ia4Z4MAGeOFUxE DZ4kKP6 fR9vnQpdwudewUItwOcwshS lmSqbCZyhERrbQ662VZGuaZ sdBjEjEGg0F7TcPxj8NJZgf ZglAF1p vHNmCDbbSq0kqZdgmSdmOQ5 cARGeyzqgx755KcYzq5guZH LbxHGvJUngZWD4W81nk5J2P CMwMDAw XPL9fFB7uR9iiVygphvvlDH mdDsgdmVydGljYWwtYWxpZ2 49IDOumIktHvHxtFb7O6MyY cp0UGDv oNbrQN8xvSIzOWooUi0vcDk cpDimOD8mKFNwhvwlr657Rw Guf6nmMGJavMRnBEebTOM8K 63qe9Y5 PIYqYVVoHSZ1aDG4bI5bhLj nbjogbGVmdDsgdmVydGljYW hnPIeiJ840HVLbdPloPsFsv GllbnQg YKufXTm1J4VbTaczwNP+PC9 1ZARlXF20uAQfbLZop3fdbM k6GdTdYMOoIGH9oEmkSVfsf 3JkZXIt K51kdWWkc5I8CKDsoFxlaJA gOtMiuPB2dD1pLRzhfauvo2 akxyifMyhay8hteu37hZ98T 29sIHdp ZHRoPSIzMCUiIHZhbGlnbj0 doF2uUs5+PTLasOX4kKE9zT 1mQESrPrP5SIcmE696OzXjj CIvPjxj n5fpt6dqePs0ElZ1VFSdfwY iqTbpNMK2j0CiCh60Q83mQK dpZHRoPSIyMCUiIHZhbGlnb y6hzO3a Ii8+ONApdPH0nIE0aH2iNsB tObM4AXyoE350FfWisBUyDj pkV38cG6BndLP+NORgNwe3P CBzdHls EP3taMXdXRcwYb8uFXG0MlG iOoOgZPmpF2ExBXQppwhdiv oljVV3CVYgVQQyeB05Nq5ac DogMTBw yXYZpF2mzzvpl3kyultfByJ nZDLvDFg3YMd5JVWprPtwPu MbIDS4KuF5NUI1gQCdeA4jl Glnbjog wQ9fQ9JxMZLdhngxQj01zJ8 xKmIjUiW5XPbqVfe+V0hJVF FaWVMTBOlHETNUJSr2A0VzE aq2IJXg xXayBN7wgPCeZCunHz3hkAj luQpoCC3wVJXrudcxRPMmnZ 2pWZHenHUtdPcwEN4dIKUny jmav173 GjJgZWE4PPRzxPLjE5GqeQ5 eAgJeIAGgXCOxX7YncFPjTJ ijF635QXplTjB9SZUvecKbR 2FsLWFs gIfoFoI8x4E0Jv2xDQ9vDQ9 yIAH7JC74UL88nSIne6B5nA Y6X0BpYXBoetbrbrqjqPB8H DAuMDUw qY10xBRbQDsmVq1jm7H2s71 0ZYRzOUWbpN82Si5rqIgaEZ NclYYHpC2xwhduh8sfdacrC zAwMDAw WYk6IMx6PELanKxpKkPjPEZ 5NyN9IVV3uXTmvO5rvFgvog obdW6ySec+ErBnUAIdjdF3V 4FpJnn5 XBSxzOeiVC1adBYiUMfkWy8 kaZdlcFefEJ6eBHNakmnyUG WdqW7aCHKvwCJtwDdsOC9xX TBpbjtm n918YgJzGNK4BKBheIPwS1U piM2gKtViKHDgKBMkX5AelY QsQUqtN117XCuiMgQ3WFSab fXiE1Au ASCzcBteCfW0a2N0Lv3DDA5 AIQG0Y4NmWdt3WEFaxAbeDW 2bpANuXSxkZb7cuPqmbLykO P5aRNSa izwgTXLmcM2jECQhgAQjlDz tQC2xCSTnxrhal026KuUjXA X4SBCuuUXwI8YlnP2lGlDzY DAwMDAw Q1RvuZSvCKwtT392JEtmUlX 9KWRbxvThC1KwVNDlrLriGx E4s6R0Lg3SVJhrkFU+PC90c j79A7Xn GrfbHvp3GNTeXSA0rFV0yM8 wIXHoOCdxo9A1iYX7A0Btim Jssa6mh4noGRAdOGmpG48nl PHvu4B5 JIVwkPO8RONrmCsmCwVebW8 3Oyc+GWLknLeni0XcZgaez5 qxj4fxwBv7WdCsDKQowgDst WduPSJ0 t4UgQt91H68zCKghLVBwIJV uAXJnJWGimHcypl7ifX7kQk 8+UIHwiFR0eVX9zG3cXsMcU fA6PHyx X417BrFedIRaKcdgu2kun8a teNm3WoHyROIngwBesLavRU V0q9NtCr28J3CwlPhmy8GuQ pd1ng83 nBPsn6R9lDP8V6UnAWBdhhw zwBAbqSksOO6mLKJitacrVR LynO3yDHFbP0a9JnDnFoV8M HaaV3Sh saK8NMTzmGTxWURzfOBRsF5 bwjden8sdonpdYuTkWNWyUQ w6ATc8UZNnaUdsPsYnOGU7W mN9XUI4 kJSgpV0jfAuubzhifZ6dQph +ROi4l9wdoCYxGP3kbXV5PX 11SI20lULbk6S6gGA8H2HiW GRpbmct jifrfKM6WAImKUPquO40Dw6 kfCqcQw2lFCMqLKQ8PUDpmB PuL9RluE3jMtUrOHYvOPDiH 3RleHQt WMnoC707MQqiWeC0HJHboqD bE3XyTFFxvQxgLrI5j5C4Sm 7JNS83KN15DE56bCPfh0Q9g MS5Q1Ec CXBhhfmhsnjwqIB3ZLYeUSB fyP12Xa8tnSlsOw8iRJSbQT L9BOZdaMBoL4AeuQ9rXhMhL DAwMDAw T7IaxNEpNZiaF932KGsbFvQ 3FTIscfPyE7ZtZDWgoMkbYr R0e3T5Ms1THm91AJ02LG93r OOck6Y5 xSH9Z4ZmZYZkfzbyvtuhcZE 2UNRyVTZfgF15Io6ciMseGi 0fPKDnOFQ5SVTxdSBbQ2Pid H9gQkWb PDYtSLHdY4JzkOCkMTurH59 4QHlmDoT2ZHZdysTdG0OpIQ SivAtoLnT1d0K1Gw2KWRxkk qy8M1Lz PjwvdHI+ZQ92VUTmNH62tMX ntNNkb4qmpPz5SrXlLWDqOV T8wTsgZJkqg8NbYUWuL82rq JMzs0F4 IGN (more content not included)... Normal [facility] ED Clinical Summaryon 2022 ED Clinical Summary [facility] ? Urgent Care [address] [place] [id number] Clinical Summary PERSON INFORMATION Name: ALVARADO BRITT Age: 77 Years Sex: FEMALE : 1945 MRN: Acct#: Visit Reason: Skin problem; HIVES Arrival: 01/28/2023 15:18:39 Discharge: 01/28/2023 15:53:00 LOS: 000 00:35 Check In: 01/28/2023 15:18:39 Checkout: 01/28/2023 15:53:00 Address: [address] [place] [address] PCP: Ansley Houser [employer]ER PROVIDER INFORMATION Provider Role Assigned Unassigned BALJIT ALBERTO ED PA 01/28/2023 15:19:52 Leslye Apple TEACHERS AIDE Nurse 01/28/2023 15:21:58 VITALS INFORMATION Vital Sign Triage Latest Temperature Tympanic Temperature Temporal Artery Pulse Rate O2 Sat 96 % 96 % Respiratory Rate Blood Pressure /80 mmHg /80 mmHg MEDICAL INFORMATION Medications Given: Allergy Information: penicillins; predniSONE; erythromycin; codeine PHYSICIAN DOCUMENTATION DISCHARGE INFORMATION: Discharge Disposition: Home Discharge Location: Home PATIENT EDUCATION INFORMATION Instructions: Drug Rash Follow-Up: With: Address: When: Ansley Houser [address] [place] [address] [phone] [facility] (1) Within 1 to 2 days Comments: Follow-up next 1 to 2 days for reevaluation of rash. If you have any swelling of lips, tongue, throat go directly to the emergency department. Continue with loratadine over the next 7 days. May make you drowsy, do not drink alcohol or drive while taking. Do not take any more penicillin. DIAGNOSIS: Drug rash Patient Understands: Yes - Patient/family/caregive r verbalizes understanding of instructions given Comment: Normal [facility] ED Patient Summaryon 023 ED Patient Summary [facility] ? Urgent Care [address] [place], [place] [id number] PATIENT DISCHARGE INSTRUCTIONS Patient Information Name: ALVARADO BRITT Age: 77 Years Date of : 1945 Reason For Visit: Skin problem; HIVES Arrival Time: 01/28/2023 15:18:39 Primary Care Physician: Ansley Houser [employer] Attending Physician: Comment: Patient Education With: Address: When: Ansley Houser [address] [place] [id number] [facility] () Within 1 to 2 days Comments: Follow-up next 1 to 2 days for reevaluation of rash. If you have any swelling of lips, tongue, throat go directly to the emergency department. Continue with loratadine over the next 7 days. May make you drowsy, do not drink alcohol or drive while taking. Do not take any more penicillin. Drug Rash A drug rash occurs when a medicine causes a change in the color or texture of the skin. It can develop minutes, hours, or days after you take the medicine. The rash may appear on a small area of skin or all over your body. What are the causes? This condition may be caused by one of these three conditions: ? An allergic reaction to the medicine. ? An unwanted side effect of a certain medicine. ? Extreme sensitivity to sunlight caused by the medicine. What increases the risk? If you take any of these medicines that make your skin sensitive to light and are exposed to sunlight, it can make you more likely to develop this condition: ? Antibiotics, including tetracyclines and sulfa medicines. ? Antifungals. ? Antihistamines. ? Diuretics. ? Retinoids, such as isotretinoin. ? Statins. ? NSAIDs. What are the signs or symptoms? Symptoms of this condition include: ? Redness. ? Tiny bumps. ? Peeling. ? Itching. ? Itchy welts (hives). ? Swelling. How is this diagnosed? This condition may be diagnosed based on: ? A physical exam. ? Tests to find out which medicine caused the rash. These tests may include: ? Skin tests. ? Blood tests. How is this treated? This condition is treated with medicines, including: ? Antihistamine. This may be given to relieve itching. ? NSAIDs. These may be given to reduce swelling and to treat pain. ? A steroid medicine. This may be given to reduce swelling. The rash usually goes away when you stop taking the medicine that caused it. Follow these instructions at home: ? Take mwwo-jwp-wgcxzop and prescription medicines only as told by your health care provider. ? Tell all your health care providers about any medicine reactions that you have had in the past. ? If your rash was caused by sensitivity to sunlight, and while your rash is healing: ? Avoid being in the sun if possible, especially when it is strongest, usually between 10 a.m. and 4 p.m. ? Cover your skin with pants, long sleeves, and a hat when you are exposed to sunlight. ? If you have hives: ? Take a cool shower or use a cool compress to relieve itchiness. ? Take zjsm-bph-nrtatsb antihistamines, as recommended by your health care provider, until the hives are gone. Hives are not contagious. ? Keep all follow-up visits. This is important. Contact a health care provider if: ? You have fever. ? Your rash is not going away. ? Your rash gets worse. ? Your rash comes back. ? You have high-pitched whistling sounds when you breathe, most often when you breathe out (wheezing) or coughing. Get help right away if: ? You start to have breathing problems. ? You start to have shortness of breath. ? Your face or throat starts to swell. ? You have severe weakness with dizziness or fainting. ? You have chest pain. ? Your skin starts to blister and peel. These symptoms may represent a serious problem that is an emergency. Do not wait to see if the symptoms will go away. Get medical help right away. Call your local emergency services (911 in the [place] Do not drive yourself to the hospital. Summary ? A drug rash occurs when a medicine causes a change in the color or texture of the skin. The rash may appear on a small area of skin or all over your body. ? It can develop minutes, hours, or days after you take the medicine. ? Your health care provider will do various tests to determine what medicine caused your rash. ? The rash may be treated with medicine to relieve itching, swelling, and pain. This information is not intended to replace advice given to you by your health care provider. Make sure you discuss any questions you have with your health care provider. Document Revised: 08/30/2021 Document Reviewed: 08/30/2021 [employer] Patient Education ? 2022 [employer] Medication Information: The exam and treatment you received today in the [facility] Emergency Department were for an urgent problem and are not intended as complete care. It is important for you to follo (more content not included)... Normal [facility] Urgent Care Note- Provideron 01-28-2023 Urgent Care Note- Provider Patient: ALVARADO BRITT Age: 77 years Sex: FEMALE : 1945 Associated Diagnoses: Drug rash Author: BALJIT ALBERTO Subjective 77-year-old female presenting to urgent care with complaint of cat bite to her right hand treated with amoxicillin now having a rash on her skin. Patient indicates approximately 10 days ago she was bit by her cat, this started to look a little red and 2 days later she saw her primary care provider who put her on Augmentin. Patient indicates that she is allergic to penicillin but they tried her on Augmentin anyways. She indicates that she has been taking this over the last 8 days and 2 days ago developed a rash. She states is a full body rash and itchy. Denies any swelling of her lips, tongue, throat. Denies taking anything for this xzhz-ixf-bmiohst. States that she has had a rash such as this in the past when taking penicillin. She also states that she is allergic to prednisone and gets a rash such as this with steroids. Denies any spreading redness from the cat bite or red streaking up her arm. Health Status Allergies: Allergic Reactions (Selected) Moderate PredniSONE- Eruption. Severity Not Documented Codeine- No reactions were documented. Erythromycin- No reactions were documented. Penicillins- No reactions were documented. Problem list (past medical history): All Problems Depression / SNOMED CT 16859023 / Confirmed HTN (hypertension) with goal to be determined / SNOMED CT 2406824683 / Confirmed HLD (hyperlipidemia) / SNOMED CT 07355027 / Confirmed Essential hypertension / SNOMED CT 83367457 / Confirmed Non-rheumatic mitral regurgitation / SNOMED CT 952741108 / Confirmed Objective CONST: -Well-developed well-nourished. -Acute distress: No -Vitals: reviewed. SKIN: -Gross abnormalities: Maculopapular type rash over the patient's entire body, EYES: -EOM intact, KELLY: -Sclera conjunctiva: Unremarkable. ENT: -Loiza and moist, uvula midline tolerating oral secretions without any problems. No tripoding or hot potato voice appreciated NECK: -Supple (bvvp-os-bubhh): non-tender. CARD: -Rate and rhythm: Regular RESP: -Respiratory effort and chest excursion with respirations: Normal -Breath sounds equal bilaterally: Clear -Wheezes: No -Rales: No EXT: Gross appearance and use of all four extremities: Unremarkable NEURO: -Patient: alert -Oriented to: person, place and time. -Appearance and judgment: appropriate. Impression and Plan Assessment and Plan: Diagnosis: Drug rash ([id number] L27.0). Orders Orders Pharmacy: loratadine 10 mg oral tablet (Prescribe): 10 mg = 1 tab(s), PO, Daily, for 7 day(s), 7 tab(s), 0 Refill(s). . From the appearance of the rash I indicated the patient that my impression is she is having a reaction to the penicillin. States she stopped taking this 2 days ago when the rash appeared. I indicated the patient I do not believe she needs antibiotic at this time secondary to cat bite appearing to be healing nicely, no signs of worsening infection, purulent drainage or any other problems. I indicated that she can keep this clean with soap and water and continue using mupirocin ointment. I also indicated that I would place her on a antihistamine over the next 7 days and if she is having any swelling of lips, tongue, throat worsening symptoms go directly to the emergency department. Patient indicated she understood and was in agreement. Indicated she should follow-up closely with her primary care provider next few days for reevaluation. Patient indicated she understood patient stable will be discharged [Electronically Signed on: 01/28/2023 16:00 EDT] BALJIT ALBERTO [Verified on: 01/28/2023 16:00 EDT] BALJIT ALBERTO [facility] [place] 023 Urgent Care Record [facility] ? Urgent Care [address] [place] [address] PATIENT DISCHARGE INSTRUCTIONS Patient Information Name: ALVARADO BRITT Age: 77 Years Date of : 1945 Reason For Visit: Skin problem; HIVES Arrival Time: 01/28/2023 15:18:39 Primary Care Physician: Ansley Houser [employer] Attending Physician: Comment: Visit Diagnosis: Diagnoses This Visit Drug rash (L27.0) Skin problem ([id number]) If you received any narcotics, sedation, or any other medication that causes drowsiness for the next 24 hours, unless otherwise directed: ? Do not drive a car. ? Do not operate machinery such as power tools, lawn mowers, drills, sewing machines, or stoves ? Avoid alcoholic beverages and drugs for allergies, nerves, or sleep ? Do not make important personal or business decisions or sign any legal documents With: Address: When: Ansley Houser [address] [place] [address] Business (1) Within 1 to 2 days Comments: Follow-up next 1 to 2 days for reevaluation of rash. If you have any swelling of lips, tongue, throat go directly to the emergency department. Continue with loratadine over the next 7 days. May make you drowsy, do not drink alcohol or drive while taking. Do not take any more penicillin. Medication Information: The exam and treatment you received today in the [facility]gent Care were for an urgent problem and are not intended as complete care. It is important for you to follow up with a doctor, nurse practitioner, or physician?s medical office assistant instructor for ongoing care. If your symptoms become worse or you do not improve as expected and you are unable to reach your usual health care provider, you should return to the Emergency Department, we are available 24 hours a day. For those patients who have received Radiology results, the interpretation of your X-ray as given to you by our Urgent Care physician is only a preliminary report. The Radiologist will review your films and if there is a change in the diagnosis you will be notified by phone. Please make sure you have provided a working phone number so we can reach you if necessary. In the event that you had a lab culture while you were a patient in the Urgent Care, you will be notified by phone if there is a need to change your antibiotic. Please make sure you have provided a working phone number so we can reach you if necessary. [facility] has provided you with a complete list of medications post discharge. Please inform your electronic typesetting machine operator/provider of your visit and for further instruction on these medications. Any specific questions regarding your chronic medications and dosages should be discussed with your primary care physician(s) and/or pharmacist. New Medications [id number], [address], [place] [id number], [phone] loratadine (loratadine 10 mg oral tablet) 1 tab(s) Oral every day for 7 Days. Refills: 0. Additional medications on your home medication list not specifically addressed. Please contact the ordering physician if you have questions about these medications. buPROPion (buPROPion 150 mg/12 hours (SR) oral tablet, extended release) 1 tab(s) Oral 2 times a day. carvedilol (carvedilol 12.5 mg oral tablet) 1 tab(s) Oral 2 times a day. clopidogrel (clopidogrel 75 mg oral tablet) 1 tab(s) Oral every day. cyclobenzaprine (cyclobenzaprine 10 mg oral tablet) TAKE 1/2 TO 1 (ONE-HALF TO ONE) TABLET BY MOUTH THREE TIMES DAILY NEEDED. DULoxetine (DULoxetine 20 mg oral delayed release capsule) 1 cap(s) Oral every day. (do not crush or chew). enalapril (enalapril 20 mg oral tablet) 1 tab(s) Oral 2 times a day. isosorbide mononitrate (isosorbide mononitrate 30 mg oral tablet, extended release) 1 tab(s) Oral once a day (in the morning). levothyroxine (levothyroxine 25 mcg (0.025 mg) oral tablet) 1 tab(s) Oral every day. LORazepam (Ativan 0.5 mg oral tablet) 1 tab(s) Oral 3 times a day as needed as needed for anxiety. meloxicam (meloxicam 15 mg oral tablet) 1 tab(s) Oral every day as needed pain. menaquinone (Vitamin K2 100 mcg oral tablet) 1 tab(s) Oral every day. multivitamin (One-A-Day Essentials) 1 tab(s) Oral every day. multivitamin with minerals (TheraLith XR oral tablet) 2 tab(s) Oral 2 times a day. naltrexone 2 tab(s) Oral every day. NIFEdipine (NIFEdipine (Eqv-Procardia XL) 30 mg oral tablet, extended release) 1 tab(s) Oral every day. simvastatin (simvastatin 20 mg oral tablet) 1 tab(s) Oral once a day (at bedtime). Visit Information Allergies: Substance Reaction Symptoms Type Comments codeine Drug erythromycin Drug penicillins Drug predniSONE Eruption Drug Vital Signs: Vitals and Measurements this Visit (last charted value for your 01/28/2023 visit) Vital Signs This Visit Peripheral Pulse Rate: 81 bpm Respiratory Rate: 18 br/min Systolic Blood Pr (more content not included)... Normal [facility] Progress Note - Nursegloria 10-2 Progress Note - Nurse Called patient and left voicemail requesting a call back. Notified patient was calling to clarify the relief that she had from her previous injection. [Electronically Signed on: 01/27/2023 13:08 EDT] Yelena Small RN [Verified on: 01/27/2023 13:08 EDT] Yelena Small RN [facility] Outside Recordson 01-18-2023 Outside Records [id number] [email or web address] [facility] Coding Summaryon 01-16-2023 Coding Summary HTMLBase 64 VfcwhejwBDw4zAs+PGhlYWQ +WP9IHBOzS17njCIaxZ4eV9 NMTElOSywgQVBQTElOSyIgb vAlBK8oeOJuJCIu IC8+EJ8gFIRnPebpsYDwt5B 1aGS1K21vsy1zZCnhlYL7EK DvCjDdwinai0kgmCz1UXbsZ mluOyBt JBHefQ90IRO7oC76Cg25pPF jlHAvz5lofVd7SzHuTRRmOJ R6lRvdSOiiz5GvZWGxU14qm AIqn0Z9 JTLeqKvojTIeAxNleFC3kU6 rHHgudqgsm0kvjvbrBme8dn 97wQLht1D9jPF9U8DnttU7Y GJvbGQg XahekLDFaV3domxvh3kzapf yDkEqXGKqFHw0XYw6PJClcG xeRrAoCV05YSA7FXYnmvRgS 2FsLWFs aFsxDuB1j7E9Dr9RG6ZHMyb lP8RABCTGXNoeiRO+PC90cj 24W9HxCxhhZke5LMJiYSJ4s TT8kJ5u OJDiQDobl7T9zBM4O2OajgU dxq5xq3ybJUAxNHhjX25ezL Xdz2F5JNWmnGU6LLVsvKmnU iBzaG93 Oyc+IRQrpRshu3ZoKlwzr2o fx0qedKz5SyjuGIOuchQfuT htKHH1z9PxFb4gYXQkyVV9z NL0wO7y IaHdUwT0BBwaB738GiOafMW dSdimU29oE0WtwBM+PHRyPj z8FEOpfDyxSQ0rA2BgKWNxv mctbGVm tUotHD0aPRAmgoedBIRweT1 tACTeS8k6PhArQsT8ZPcxJ3 XrWVOumckwQo60hB4hDrPoW zC1QDml W0DiseT2RSHhpGHtUZhdESU 7J21zf4D4UARgIRKeMTK6cH C9sE2umCihipvfgMLenMzok mVydGlj NEbfIZpsT737ZONlpHpkKiB vZGluZyBEYXRlOiAgMTAvMT YvMjAyMzwvdGQ+GAXdDSR5i WxlPSAn sSWxQRmfCk3duPcxiCctZP1 lVDPhvereIOVuuZ2hNNUoqL QrdIgqDG4yDQBrtmceb245W iAxMHB0 ADVpkLOxD7PsgK9rZdDoAKH yBMXcL7EmpCBxLJlcN659RO rdQlV5HLCtsyJnO3UtGPVfm WduOiB0 y4K7Ws3Wz8TrsqhjI4OtsFT aDgJmFxejPUe2L4LtVzyjwX I+WX80ZURrAG65NDf4LHW5f WxlPSdi KYKxE1TeoD5wPhVeVVNaWPW kOyc+PHRhYmxlIHdpZHRoPS flGTBrRwZxmWsnSL0oTk8iY GVyLWNv vTivgAKmQtUhj4lkBNWmDWf mNQ4wyXouN3RdkXS6KDTon4 h9Wy93W03dG5SgdCQ+PGNvb XN3bSE3 jM8uRbEcVsV7DIgqV916VmV fpKTgApnvx2mwy1bkaCt4Ve A2DYVigcGeeDfjXLD0f3NmC f36C65n IHdpZHRoPSIxNSUiIHZhbGl uix2ucF4zSd4+YSMriBX6kT A0qA8jGdBwBxV8YRdoO957I nRvcCIv Gismg5tfy5dajDy0DaVfWWF srhZcxDzvGDA7k1ZvAf06Y2 QdzCdck4HbBby6of64vXNgx 9A0zTI3 S0LtPJNvhfvwjJQvkAfkJI0 ePHMqmsvoUERhrZ0yNPXwZ2 w0MwVhLzT1GWanQ7TydyK6A GJvbGQg JBIqdVCMvU8ravloz5vgvki oAgYrZAVfDPd5WXi9TDTzrP icUfWpGSJ6XnW3KXZ8hDRze Z5bnQap hqfkaB1cMnu+JLG7nBNpxHE BMF7sFezrgXS+VDYfUGQ9dZ fgCXrtGTPusZ5lSTTpI7e0S iAwLjA1 AWecN7IwdiW5VAKevQXpPVT dwIMIlD1lbngfd0yosmodTh PiGPExODn1EOv4DFVjsOdmL iBsZWZ0 CzO7BNV0nLGjsY8rqBblkqm biE1gLrk+TkxkaFhoWFV7PO p5K3EiFaf6CFGljQdnAL8pc GFkZGlu Ds4zyBvpgIloEX1bJUClldt gt271IlIqc5pkIUJtjLEmDR hnUXK2P59xl2J2UJBfDTRxG NQ8bVE3 vD8cpGgbzratsEUwzOzekmM ykKihHKbvUVchI948FJEofJ zsQlIcUBe5L2ZsVzs4LKPzn XeaAU3l jRKpKZcnYn8loAbplQnfWN3 rWQXqcywei789HuIds6nvAS BqiPLkFCnbNQP0N40sd9V7M CMwMDAw NGX4pLP1zH9sdLwwjjiwpAE mdDsgdmVydGljYWwtYWxpZ2 65LBQtmQpiIgNpjGx9B6PhX in5QNRp tSeiJW0yzLQkZKpaGe7jiGa ijCayAJ0sJSEaofmdy647Ig Cdv7elMHOklDOuDDzqMGV7I 44nr5Q5 LURuPQOjSRB4bQZ9uA8wdBz nbjogbGVmdDsgdmVydGljYW zvTWgmK741MQGtyNidMvZdg GllbnQg JRyjOWx5A9UfIcguoTV+PC9 7HDRdSR75bJZffTQky9vxbP j0XgTgSGYoDUB2gJgjCJyzi 3JkZXIt P48baEEua8F8PJNxsPqdjIB sLwEztUY9jU8sSJkgjcnfw0 hfgwqcAgcrm2ttci52cF89Y 29sIHdp ZHRoPSIzMCUiIHZhbGlnbj0 jiX4gPg6+JOZxhHS3iPT5cW 7wSYFpCnO1TQiyA455BtXii CIvPjxj c2zqq4pkqXu7GjL1JLAvbnL aoHprKKE8p3BmOk87Y00tWH dpZHRoPSIyMCUiIHZhbGlnb b8npY7n Ii8+ANWbrDT3aNR9mD9gGzW rGfK0GIzuC512JuKjmWTaAd omM96nK9IxnQD+UCCkAbo1D CBzdHls GH8wrAQuEBzzNx3nMWC6JiY hBzGkXMlhD4XkWUDzgtzims zxbIT8HYNlOOOsbG20Le6sk DogMTBw mLCNdC9bxpoup0gnptkwDzK eTDGoZGw1FVq0SZNksNslBh GgHSM6HgM6XZV0fBFqpT1zq Glnbjog tB9mA0VqMGFkdfetMk27sR2 rCeWdXzG8XRowSzj+V0hJVF FtUHLSDZbENCQTAJb9Z1WfR qq8UEFp fUgcAO8luMDqBUyoGa0inEe wgRbgFA8nCKPetbrhBQGguC 0zEOBgoMIizUzpMS9jGTVnr uklf971 GaEsLCS8OVOoyHSoS3LhbB1 dWdKvTWYxQLPkP1JhjVMvAU quV074KZgiWkR5SCYuomXkI 2FsLWFs yGarGsE5k7S6Ep3pTU6zFD2 hPNR9JH17FG42wDXma8Z4wI S2M2YmOIBmpvdinkkrtPI4T DAuMDUw wQ89kBJsVIspAf5ul2G6t17 8TKMvINJdlJ38Uf6pvDccGW GbaXBVaU3hkwehx8seztxbP zAwMDAw MBd1FRn5AEWlqSjgXfYgSVM 3DuR1MSW1aXAzdN9nrCyihl ytaB6zAzl+IzMsOFWzzdD2S 1TuLlv4 HMJakTeoWZ1ghBTqJPexXc5 nvNuudTdtCK5aTACnnadxHB SlmL2rKHBlnDCegLylIJ1qI TBpbjtm b537DsHiQQQ9NYFddMUpX5F pcE9nEvSwOGVdSETtI0QbtP RqHVqrI640JUghBjE0SXXzp hNaX9Cj LGXjvLtvEsC6k7R9Pb5AEP9 OQLP0G6RyTkl2XDOuxVfvEG 7dkYTmOSnbXb4wlNzlaMfzR Y3aGFPl brwqDUOniF1oPFXuqXKcaYh fTZ8bZZByarlbt052NoCiVD H1JVJqqIPwW2BqnA4cKjPqN DAwMDAw D4RffQOyGBuuF762PJnaTxV 3RVButrVqF2IxUDWebKpyEx A7w2D4Tg6LYVedU8WpS5Lgf TwvdGQ+ RR95sv16L6KbMvjoIpy7PNS hFXY6yEI5hZ7rNZMlZFlai2 R9rIE9K7QsmsBqfn5zq3auK XBzZTog J54siBNaw8N0LPWsuEM4QSJ vsVrhUeDmiH44Mbk+PGNvbG hza7AiOcslr8aav7bufVc9J jMwJSIg seEqeFjcNVB6i5TlGn24O44 sIHdpZHRoPSIzMCUiIHZhbG jexe8roZ6oTq2+CZOkzXH8f FY4zL4w UeAkEmA4MOswT694JuZtlUA mQxciz1vrs9dgoGa9BsZkIA DuzfMfzRhyRGQ9d9PeRc61D 2NvbGdy u6ApFlo1dr35lPDoo4E1rUX 7E6QePEAvtktliNFweIepVN 3zTKXdmqokTNRqiE9pGJIxM 3t1FhBm DmO4TTodZ3OckpR2BAPgwIM uIIQbvSHMnZ7dcnxrr1onun oeBpYqMASlVDs7OKu6BYLur WduOiBs OYY7MrZ6UAT4vRZniR0uqFt umfmzhH7lZew+WNo8m2ggxP WmDU8qmCJ4CZ14GO64lVNux 0W9rWI8 W7NiSCVxesxhijlypAP4ZHP hLHJeaC30Ct2fkJfyUa8dBJ ZjWHY0YUSkoZFvX8IoyR1kA iAjMDAw FQOhU7FjoBGzTZmsV439SJf sAkU5MHBszxFkF2ZdFUQndE ddFuL4j3R4Pp0XRH00KH66P Q46aSDm i8A9gOY6C4MqUDYfhfwiowu ssGK9INUbAFIvhH58Lv9fcN vjSs7qUVDfIEF4MCMftUItO 4NbbU5z IqXjRMVnIZGcM1PaiYCkYLo xZ762VAcoEqE1AQBogyAlP0 UgXKOlpSulIkO9b9J7Xi5IV f33BY94 HO77bKQxk8O6mMF1L8GaTXU hvgqlibnynPE2IJGoZXEroE 05Bn1qaBxvUn4mLHTzINK1U FRpbWVz X6WurX4iGfAyYGSnDJQwR7G wyTMyAPogA306ISzmLaJ8UN DuxjMzH0AsBHAawVplOhE9y 5K3Ez5D LQsnspr4G6HhLwshzER+PC9 3XFWwOE80kMEjlVEpf4pzxZ p9RmSjSMFiULN4vIyaWRjrm 3JkZXIt Y29 (more content not included)... [facility] Consent Formson 01-16-2023 Consent Forms [id number] [facility] Progress Note - Nurseon 01-01 Progress Note - Nurse Pt called monday afternoon stating some relief from injection earlier in the day but not alot, neck muscles remain tight, pain above ear is gone [Electronically Signed on: 01/16/2023 06:55 EDT] Leslye Naranjo LPN [Verified on: 01/16/2023 06:55 EDT] Leslye Naranjo LPN Normal [facility] Inpatient Patient Summaryon 01-13-2023 Inpatient Patient Summary [facility] [address] [place], [place] [id number] Patient Discharge Instructions Name: ALVARADO BRITT : 1945 Patient Address: [address] [place] [address] Primary Care Provider: Name: Ansley Houser NP After you are discharged if you find you have any questions, please, call [phone] ext [phone] to speak to a nurse. Discharge Diagnosis: Prescription Information: If you have been given a prescription for narcotics, seek immediate medical attention if you have any difficulty breathing or any sudden status changes such as confusion and sleepiness. If you or anyone you know is experiencing suicidal thoughts, mental health, alcohol and/or drug addiction problems; contact the [facility] 24/10 Crisis Hotline -Text 4HZIJ kl 405170. If you received any narcotics, sedation, or any other medication that causes drowsiness for the next 24 hours, unless otherwise directed: ? Do not drive a car. ? Do not operate machinery such as power tools, lawn mowers, drills, sewing machines, or stoves ? Avoid alcoholic beverages and drugs for allergies, nerves, or sleep ? Do not make important personal or business decisions or sign any legal documents [facility] would like to thank you for allowing us to assist you with your healthcare needs. The following includes patient education materials and information regarding your injury/illness. ALVARADO BRITT has been given the following list of follow-up instructions, prescriptions, and patient education materials: Follow-up Instructions Medications During the course of your visit, your medication list was updated with the most current information. The details of those changes are reflected below: Medications to Continue That Have Not Changed Other Medications buPROPion (buPROPion 150 mg/12 hours (SR) oral tablet, extended release) 1 tab(s) Oral 2 times a day. carvedilol (carvedilol 12.5 mg oral tablet) 1 tab(s) Oral 2 times a day. clopidogrel (clopidogrel 75 mg oral tablet) 1 tab(s) Oral every day. cyclobenzaprine (cyclobenzaprine 10 mg oral tablet) TAKE 1/2 TO 1 (ONE-HALF TO ONE) TABLET BY MOUTH THREE TIMES DAILY NEEDED. DULoxetine (DULoxetine 20 mg oral delayed release capsule) 1 cap(s) Oral every day. (do not crush or chew). enalapril (enalapril 20 mg oral tablet) 1 tab(s) Oral 2 times a day. isosorbide mononitrate (isosorbide mononitrate 30 mg oral tablet, extended release) 1 tab(s) Oral once a day (in the morning). levothyroxine (levothyroxine 25 mcg (0.025 mg) oral tablet) 1 tab(s) Oral every day. LORazepam (Ativan 0.5 mg oral tablet) 1 tab(s) Oral 3 times a day as needed as needed for anxiety. meloxicam (meloxicam 15 mg oral tablet) 1 tab(s) Oral every day as needed pain. menaquinone (Vitamin K2 100 mcg oral tablet) 1 tab(s) Oral every day. multivitamin (One-A-Day Essentials) 1 tab(s) Oral every day. multivitamin with minerals (TheraLith XR oral tablet) 2 tab(s) Oral 2 times a day. naltrexone 2 tab(s) Oral every day. NIFEdipine (NIFEdipine (Eqv-Procardia XL) 30 mg oral tablet, extended release) 1 tab(s) Oral every day. simvastatin (simvastatin 20 mg oral tablet) 1 tab(s) Oral once a day (at bedtime). It is important to always keep an active list of medications available so that you can share with other providers and manage your medications appropriately. As an additional courtesy, we are also providing you with your final active medications list that you can keep with you. buPROPion (buPROPion 150 mg/12 hours (SR) oral tablet, extended release) 1 tab(s) Oral 2 times a day. carvedilol (carvedilol 12.5 mg oral tablet) 1 tab(s) Oral 2 times a day. clopidogrel (clopidogrel 75 mg oral tablet) 1 tab(s) Oral every day. cyclobenzaprine (cyclobenzaprine 10 mg oral tablet) TAKE 1/2 TO 1 (ONE-HALF TO ONE) TABLET BY MOUTH THREE TIMES DAILY NEEDED. DULoxetine (DULoxetine 20 mg oral delayed release capsule) 1 cap(s) Oral every day. (do not crush or chew). enalapril (enalapril 20 mg oral tablet) 1 tab(s) Oral 2 times a day. isosorbide mononitrate (isosorbide mononitrate 30 mg oral tablet, extended release) 1 tab(s) Oral once a day (in the morning). levothyroxine (levothyroxine 25 mcg (0.025 mg) oral tablet) 1 tab(s) Oral every day. LORazepam (Ativan 0.5 mg oral tablet) 1 tab(s) Oral 3 times a day as needed as needed for anxiety. meloxicam (meloxicam 15 mg oral tablet) 1 tab(s) Oral every day as needed pain. menaquinone (Vitamin K2 100 mcg oral tablet) 1 tab(s) Oral every day. multivitamin (One-A-Day Essentials) 1 tab(s) Oral every day. multivitamin with minerals (TheraLith XR oral tablet) 2 tab(s) Oral 2 times a day. naltrexone 2 tab(s) Oral every day. NIFEdipine (NIFEdipine (Eqv-Procardia XL) 30 mg oral tablet, extended release) 1 tab(s) Oral every day. simvastatin (simvastatin 20 mg oral tablet) 1 tab(s (more content not included)... [facility] MAGR Intra-Op Record Summary Primary Physician: VEE STEELE MD Finalized Date/Time: 01/13/23 14:00:06 Pt. Name: NICKALVARADO/Sex: 1945 FEMALE Med Rec #: [id number] Physician: VEE STEELE MD Financial #: [id number] Pt. Type: D Room/Bed: / Admit/Disch: 01/13/23 11:52:04 - 01/13/23 12:51:00 Institution: Case Times MAGR Entry 1 Patient In Room Time 01/13/23 12:38:00 Out Room Time 01/13/23 12:44:00 Anesthesia Start Time 01/13/23 12:40:00 Stop Time 01/13/23 12:43:00 Surgery Start Time 01/13/23 12:40:00 Stop Time 01/13/23 12:43:00 Last Modified By: Aimee Grijalva RN 01/13/23 12:43:21 Case Attendance MAGR Entry 1 Entry 2 Entry 3 Case Attendee Ellyn Bustillo CST, CST, THOMAS F MD Kokinda, Diane RN CSFA Role Performed Scrub Personnel Surgeon - Primary Diesel Locomotive Engineer Time In 01/13/23 12:38:00 01/13/23 12:38:00 01/13/23 12:38:00 Time Out 01/13/23 12:44:00 01/13/23 12:44:00 01/13/23 12:44:00 Procedure Medial Branch Medial Branch Medial Branch Block(Left) Block(Left) Block(Left) Last Modified By: Aimee Grijalva RN, Diane RN Kokinda, Diane RN 01/13/23 12:44:00 01/13/23 12:44:00 01/13/23 12:44:00 Entry 4 Entry 5 Entry 6 Case Attendee Leonila Saxena RT (R) Ana Molina RT Keysha House RN CT ARRT (R) ARRT Role Performed Vascular Surgery Physician Vascular Surgery Physician Diesel Locomotive Engineer Time In 01/13/23 12:38:00 01/13/23 12:38:00 01/13/23 12:38:00 Time Out 01/13/23 12:44:00 01/13/23 12:44:00 01/13/23 12:44:00 Procedure Medial Branch Medial Branch Medial Branch Block(Left) Block(Left) Block(Left) Last Modified By: Aimee Grijalva RN, Diane RN Kokinda, Diane RN 01/13/23 12:44:00 01/13/23 12:44:00 01/13/23 12:44:00 Entry 7 Case Attendee Nikia Warren MA Role Performed Diesel Locomotive Engineer Time In 01/13/23 12:38:00 Time Out 01/13/23 12:44:00 Procedure Medial Branch Block(Left) Last Modified By: Aimee Grijalva RN 01/13/23 12:44:00 Surgical Procedures MAGR Pre-Care Text: A.20 Verifies operative procedure, surgical site, and laterality Im.150 Develops individualized plan of care Entry 1 Procedure Medial Branch Block Primary Procedure Yes Primary Surgeon VEE STEELE MD Modifiers Left Surgeon Comment LEFT CERVICAL MEDIAL Start 01/13/23 12:40:00 BRANCH BLOCK C4-C5, C5-C6 Stop 01/13/23 12:43:00 Anesthesia Type Local Surgical Service Pain Management Wound Class Clean Technique Details Closure Technique N/A Entire procedure No was performed via laparoscope or robotic assistance Last Modified By: Aimee Grijalva RN 01/13/23 13:58:36 Post-Care Text: O.730 The patient's care is consistent with the individualized perioperative plan of care General Case Data MAGR Pre-Care Text: A.350.1 Classifies surgical wound Entry 1 Case Information OR MAGR OR 02 Case Level None Wound Class Clean Specialty Pain Management ASA Class N/A Diagnosis Preop Diagnosis CERVICAL PAIN Postop Same As Preop Yes Postop Diagnosis CERVICAL PAIN Blunt or No Is the procedure No penetrating injury considered occured prior to Emergent/Urgent? the start of the procedure: Last Modified By: Aimee Grijalva RN 01/13/23 12:35:16 Post-Care Text: O.760 Patient receives consistent and comparable care regardless of the setting Time Out MAGR Entry 1 Time out date/time 01/13/23 12:40:00 All team members Yes have introduced themselves by name and role Surgeon, Yes Surgeon reviews Yes anesthesia, nurse critical or confirm patient, unexpected steps, site, procedure operative duration, anticipated blood loss Anesthesia team No Nursing team Yes reviews any reviews sterility patient-specific (including concerns indicator results) and equipment issues/concerns Antibiotic Antibiotic N/A prophylaxis given within the last 60 minutes Last Modified By: Aimee Grijalva RN 01/13/23 13:58:52 Patient Positioning MAGR Pre-Care Text: A.280 Identifies baseline musculoskeletal status Im.40 Positions the patient Im.80 Applies safety devices Entry 1 Procedure Medial Branch Body Position Prone Block(Left) Left Arm Position Resting at Side Right Arm Position Resting at Side Left Leg Position Extended Right Leg Position Extended Feet Uncrossed? Yes Press Points Checked Yes Positioning Device Pillow, Safety Strap Outcome Met (O.80) Yes Last Modified By: Aimee Grijalva RN 01/13/23 13:59:02 Post-Care Text: E.290 Evaluates musculoskeletal status O.80 Patient is free from signs and symptoms of injury related to positioning Skin Prep MAGR Pre-Care Text: A.30 Verifies allergies Im.270 Performs skin preparation Im.270.1 Implements protective measures to prevent skin and tissue injury due to chemical sources Entry 1 Skin Prep Syntegrity Prep Agents (Im.270) 2% Chlorhexidine Prep By Keny DEVOPS CONSULTANT, Ellyn DEVOPS CONSULTANT Gluconate and 70% CSFA Isopropyl Alcohol Prep Area (Im.270) Neck Prep Area Details Left, (more content not included)... [facility] Preoperative Record MAGR Pre-Op Record Summary Primary Physician: VEE STEELE MD Finalized Date/Time: 01/13/23 12:46:09 Pt. Name: ALVARADO BRITT./Sex: 1945 FEMALE Med Rec #: [id number] Physician: VEE STEELE MD Financial #: [id number] Pt. Type: D Room/Bed: / Admit/Disch: 01/13/23 11:52:04 - Institution: Pre-Op Case Times MAGR Pre-Care Text: Patient will be optimally prepared for surgery. Patient is free from s/s of injury. Provide information to patient/family related to plan of care. Verify patient allergies. Confirm identity and verify consent before the operative or invasive procedure. Entry 1 Patient Arrival Time 01/13/23 11:58:00 Preop Departure 01/13/23 12:19:00 Last Modified By: Zehra Chau RN 01/13/23 12:46:07 Post-Care Text: Patient is prepared mentally and physically and is ready for surgery. The patient remains free from s/s of injury. Patient/family express understanding of plan of care and participate in decisions affecting his or her perioperrative plan of care. Allergies documented appropriately. Patient identifiers and consent correct. General Comments: Denies chest pain, shortness of breath or illnessess. Denies pacemaker/defib. deines sleep apnea. Finalized By: Slauterbeck, Zehra RN Document Signatures Signed By: Zehra Chau RN 01/13/23 12:46 [facility] Patient Handouton 01-13-2023 Patient Handout [facility] Outside Recordson 01-06-2023 Outside Records [id number]#[id number] [facility] Progress Note - Provideron 1 Progress Note - Provider [id number]#[id number] [facility] Coding Summaryon 01-05-2023 Coding Summary HTMLBase 64 DhmhfzpxOJy5zZu+PGhlYWQ +YA7AOZGsX49pmYKtvJ4qY3 NMTElOSywgQVBQTElOSyIgb hUfEK8nfLCkURPj IC8+KK5sQPSrXhtarPDwb1L 8bQZ8O61yub9lGFglpUH7FM RqHuZxqlpaz5yxpVg5BXbqD mluOyBt FTFxaS38UIJ8zP11Ss56cRU dvFCxz3gfzYy9GfShVLNkWK S6kRnmDEmvz3VvNSShK50pi GPvj7D7 YJCpfFtuaPClBaTpySX5zY1 kGCgxgwdci2ilaiocJtq6jr 46jBUhi6R2aTD2J8PtgvX9W GJvbGQg KmcicBOVaC6uqohcu4xctny mFhOsPYDbBTw4ROy8VCPaeV wuSmWiYQ08JUF2SBCadrNoU 2FsLWFs yYnbAxN7t6I1Sf0MV2SSKmg eZ5VNWGBSXBfxfMY+PC90cj 69V5JqZfvvHge8DAVrWRK3q PQ9sQ6e KEReKUpeu4I9kJZ5G7YeudH nbr8lw9rzQPWxHQepO37xmN Ilk4S7JHWwiRW1WUGvzSebK iBzaG93 Oyc+TERyvQuis1UfQybse8l zw6navAi0JqazUQPsvdMvqW kqALP3m9IwSz1gGKHtzTA7a ZL8jL0q RzItXtL4ZSwbH244CzXagYX bPwlnK41hB1DbvUF+PHRyPj p3GJYbjZzjWZ9nV5HeWFSzh mctbGVm yOufEK0tNPUmdbmdMXXlgX7 fWWFwI8m6OqFsZtG0HIqtO6 TbYDSwsdpoUx98aB8hYpVxL yG8RImv N1SmwwS1EFZpoJIzMEyoEAR 7U02bx5Z9JNFaMESbHCJ5qJ M9bG2udAsykeuofYPiyGqfw mVydGlj JRkfTKsrQ034LADsiUdsJaH vZGluZyBEYXRlOiAgMTAvMD UvMjAyMzwvdGQ+ZZMmXZX6o WxlPSAn iPZvFWmwLo8tiQauiJjeYL3 mLMCqatuuUUYuoB5yHADxsZ YucLdvER6vFQXruivin314M iAxMHB0 ZYXevODoK0BajW2rKbXzRBX xRTYsA1PypJBbVQxbT930RV sgUdE7SLNnefFdU9MnQQGiw WduOiB0 b1L7Wn8Bz5BbjacrN5NawKZ fGwBbNyolVRh8R8KjCqheoZ I+QE57LMIvVX29VGu3KAI4k WxlPSdi UYKnW2XoaF7jDtBfIDMzKRI kOyc+PHRhYmxlIHdpZHRoPS ueIBDtUkIzsBqaXD5dSs9yI GVyLWNv cKamnWJfYsEyp3dzIRZiRNj xUH8egPnoW6ScfJM0FNKlc6 o0Fp07C80sX2KetGL+PGNvb IW9rZW0 oN3mVcXhUjD2MBmvF660AiM uvGKyHzqxx7tno1wkwXq5Oa O7WOOqogUyoKsxKIG5k8BsT l68Q79o IHdpZHRoPSIxNSUiIHZhbGl qkt5hpB1uQv4+EKIdtMJ2tL Y7fF1kJuQlRoT7NGhwL749O nRvcCIv Uamrz0lrq7dlwTw8GkBiSTC uodDnvMqdKTO1r6FeYb70D2 WzhBkxn8JuZqb9qn51qUUef 5M4kCK2 A3VePMOpnffzyLFmmFvoST4 uGAEvzgtmUTVydI9mUGDtS2 v3QrQvQnF8IMghA8ZjtmB6F GJvbGQg HRJliVHUyL0dmhmgr4utaos iOmVcLSAjEIi6IBg6WISyjT kxNqEgOTX3WrJ3WZT6oAWre W0gaAim wdyxsI1uPcr+IQA0aRKfpCX IWX5lKrawhHZ+FDGlNTC1rU meXIdxYCBozA9dPNAhZ5s8V iAwLjA1 FVbbG0SorsX0PYOwoUTrMFF lrDYKwB7pzzfyx3bkqioyAk UjWMOeWPn0IZj2WLVowLekA iBsZWZ0 TvH6LZM6tVAsqV3adVrdijo ihR5aPhw+ExstfAfyJFF4BI t4T2ZlLej5VZQxlAocNQ3bd GFkZGlu Lo2whJhawStdNS7sBWJyjnw dl396IrSji9rbGBSruSGwHI ifTKN2Q08ly2G2QQHyVAIfK JL8iSZ4 zM6lgSxqmgdvlOEbnQhqijY sbXeoOLssEZrxQ455MCDetB emPsBsWSz6F2HpQpb1CIQup UavTL5c uAPrOPwwQv3vjSlpqDqrQO1 oGVEqcwaly096WiBxw6qaET OlhIQjMLraJBL6E96ji2I0B CMwMDAw TTI1nGW8sL0avMvqkdejzRA mdDsgdmVydGljYWwtYWxpZ2 14PKFwgErlMhOmwGr2Y9BfW ge1BTRq bEylIV7irYKvWNzxZx6jdFx twTvcXH1gTDYgmxxxd542Nu Pgv5tqAGOkzPTgXQnvWJJ9E 43bm2O0 QTStOFDwPBT2oNA4pJ0uvBq nbjogbGVmdDsgdmVydGljYW yyIUnqS083CLRrzQayXgGyx GllbnQg WDsqCSf8E2WsJpjkfGD+PC9 7OQXeMH41gXBxoMMnv0rxoP w7JvTaJMCvBQI0kCkpMLidg 3JkZXIt Z04pyTAdu6Y6WZFlkKjhnKT iFsEmaZD0mD6nKEeyhpvtk2 wbfjeeVdedp3gyot36xX39G 29sIHdp ZHRoPSIzMCUiIHZhbGlnbj0 raX0wNp9+IYXxeAY0yCE6hO 2nUZSpIcK9JCtaS261AbJfr CIvPjxj c2blk8rmuIi5ExK3WHMihyN rrRzfQHN5h8IcKo38Q71eGY dpZHRoPSIyMCUiIHZhbGlnb l6yeW9i Ii8+IBPsjGZ3iTT5wE1uHuC aAgV6MLdkA678CvZtzFWkCm blB50aT8SbfQI+ZASwPrk6U CBzdHls TC5lpTGsTLksVq8zKHQ1ZdK nUhGyBDvtY8QkMQVggeajfy rizLF9XKOhWAZloN35Kc1sp DogMTBw eOZDvZ8hmcljs3psexmeCiD eLZMgEXh1NHe3EHZyfPiqZo TrZDV5XqL7UDL1mQGdlA7hp Glnbjog wA9eB6KcHMJdgehdKr44lF5 xTcOiUnB5MEzeGzp+V0hJVF JkINZYEQoMIUSZQTk1Z4DlH nl8HHOj pWxiYQ7vfJWwMVuaPz4xvUx fsEpjMI1cKUEtaiamMLYsgJ 8rLXXipUUciQniRX5aRTTjl jsgz945 BhTiXXX4BKXsuGCwY8PlcR0 qDqImQFTzWUIbF8NfeSMwPU rqM245XVuwXxY7UEFvyhHnR 2FsLWFs gGvzVnH0t6W5Nq7bPC3qJV2 cVES1KO16ET89fUEac1E9yS D5T3JjKMQsitdzihjpnBK2R DAuMDUw jE11lKQjAFavQw9vr9M9x74 3WWRdSGFimS24Pw4krKqqXH QhkERAlE3saexwc8hfhlxmU zAwMDAw ATt1HRs0ORPybDegYgNjHCP 8NiE4JWW0cKCvwB5vrMgzth nllF6lVtf+BfMjKTJxrqS8L 5UeAqr4 NMOlaXtzJC3eyPPiGNuzDz0 heFqybZyrPH6iCCObodpaLW JusU5zQCGzePQurVlrJG0sI TBpbjtm a261VrWoMWU8KCMdcVZcC6J mvC3zTnIsLEEaQEIhK9CdqN RiAJviJ399WNsqQbX3NXCxo tKuG6Sf UMMaoDjeUeU8v9Y6Hb7JPP0 HSXR0U6MuDpd9SUNflBloIM 5cxDEpWGgkHm2yvRsssLlmF D1zNUVn dhqyFPIolN5aOWHjhGOfxUr ySU3dHBGtbnjah011DqPlDB V5FTHkyBDtU7PdmG5kIhFzW DAwMDAw R8SxdLXeOTuxG242KBczQaC 5PQVhskPxD8HhHVGkjEdkYw Q7z0E1Ab4ZRTfzkGG+PC90c m94K4Zs NakhMhc9UTGqSES5eYA8eN9 kWWGrHOoqb5J1fCR5M9Istd Btki6ey0wbRAMdPYsoQ15ha MDcl9N2 XZHdgSA3KSNlyTpfDcJcsJ5 3Oyc+CXHgrCrhl9ThVnkje1 ftt6cesJw5JjOjQKEajoFkn WduPSJ0 x3GmMu18W63tOIwrYPInWAC nOIUoRHLdjYpuqn4ybL1bQm 8+QOMjdFE3tNK2qH7qCwTdS jT4MCgg U284ZoKbmRXbGxurf0qeg4a yoSq0ZjOgOUKterCstJuyEA Y1e7AgMj92H0WmgRteh0DoU rm1uj26 dRZjo8D3cXF3U1NfFLTugzw bjNAztNqsNM7vOXAhyflgUH LnqD6mYGZuY6q8ZgUuEsG1V XamS5Yd eiT3SQMrbOWxKIIstKNJlA7 cziwjf5reawelDkBeHAVoAX k7MHb7SUYviCdfFiZkTZJ3U dG2IBT9 gYSgcS1rzVulayclwQ2xHrf +DIb8d2kmdGAaJW1qlLN5EM 70PP76uPBgk1C4lBZ8W3YkV GRpbmct ovodsXK4OVQrGIYrvH73Hu1 roFldLf2oAOYhZFM3IOAasF NaZ8IstT1gYaNkWRGjVHBeI 3RleHQt PBkgU438ZNfnIzC8TIVemsL wD2MmLNAybPdxRdQ5e2N3Bn 9CLJ41GW18IE86dOIzd0L5v ML1W9Oc PYHgnzrwjxhctOY0VBIoGTM usP51Aj3laQmtHc1uKMEkYM O6KBAgeOFsH1XeyM7jUcJwC DAwMDAw T8MarNUwUSnfM775GYavGwH 4OCMxhsIpI2FvHYIsrQddSg E6t2D7Iv1XHi92ZZ55DO60s WXtc8J3 zTP3Y2VsPYVtddfobfatsMC 3OMAkOAZgoR63Ww6kdFbgQx 5oODZbFTL3DPEqsZWzB8Mtc M7dAyMo EOQzWKWdD9WtmNHsFScsI09 4QGvlNaQ6QWSjbeQmU0XmPC LlsLulWhI2m4Q1Gp1NMNqjv oz5H7Ah PjwvdHI+UQ74JFEmDP64tUT fbYXpw2oxjAa7OcMiKVAdJK S4iFqrGPayo3NcVTAxG27vl CSlw7O6 IGN (more content not included)... [facility] Coding Summaryon 12-27-2022 Coding Summary HTMLBase 64 OnfwwtgcBBv6mGl+PGhlYWQ +FP7HCLBsU17uaJNibW3dN9 NMTElOSywgQVBQTElOSyIgb cOkCQ7ssRXdDGPv IC8+RL3kTJHgOwzkdSNcm6V 0jNS6X36zvv6mRItzyUZ5CY McUgJwumoeo1fltAf4DBjbH mluOyBt MXTacA39FBO9wV48Ss78vEJ laPUhh3tknZk5QoYsHXPmMN Z2kAshRJakk0RzUGNpV44ym VBlt4M4 RGQdfFeqwJTrGmEwtJE4nF1 lLHqepurie1iniowcZme4tw 17vWMov0P5sTI7K6GnmgB4Y GJvbGQg TdbpvCNQyC5wkieaf1nsedu kUgAtOTFeBLx8RHh5UAJhnQ toCyQwCN58IGT1OFFyqsIjI 2FsLWFs rXskRqK0i1W8Fq9OM9FEBgd pQ7MQSSLDJMfnyQH+PC90cj 96H4JmSycgIty3RGOrVJD5j FY9qE7g PLDyBOdiq9C0wXQ9I9VsmkD zys9zu7jtFULfOKwuD03bmE Cfl6F6NHXzsBV5LWRckIunD iBzaG93 Oyc+UQQwrDdtl8UvTsbvl8m bn9vjfRt7ZhwgDPQhwkZmbG hbTMG5x5FaZz6lYRZarNF4v IV6xC1x DmRtWaU7XTdcO328DdYquHG qIkkrZ11pI9QfiVB+PHRyPj r1MPFlkQjhGB2fF6PhGRTob mctbGVm yCfdIY0mLYAjknvaMAZflM4 uLSNjG8s4LfEiXuV4GQfmN2 TaDIJdpzhoKr65jP8jZuQfK lX3OMlx B5JxcmX1FGFcaIGxCXgdXUV 7C68yc1E7ZLLwAUQaMMX8nH S4eB7eoNdzvxjnvMPdaWigx mVydGlj BDmkTRtsU785WXSiyRyiRyF vZGluZyBEYXRlOiAgMDkvMj YvMjAyMzwvdGQ+RKWcKZW0a WxlPSAn dPOcPNarHj1mmNkdaWtaDL2 vLLNlayjrWUSjvN5xMEGtyU VjqSdyOF7sODOrfthwi452G iAxMHB0 BARtcFPhL0HsgM9cByKyNTJ xCESeA1PkmEHzFBvcR677EU fkBqK7KAMudsJjM8WdPHEoy WduOiB0 h0N8Gr4Fb5XatbosN3FhgTE tJnRzNsrkDMt9Q7RuTzridV I+BY05VHExJQ27TEd8VBY6d WxlPSdi GHHfJ4ZvwB7pDlKfWFMyVOB kOyc+PHRhYmxlIHdpZHRoPS gqWCIbQxBmzLteXH5eYw0xV GVyLWNv fZwfmLWqKuBoc9imNYOdRHw rOY9dnZmcH0VzvZH7DUEkj9 v0Zp45G38yY6EngPO+PGNvb GE6tEK4 nU5lSyIsBnH5FGppE106QtX irTOvUdykt3xtw5tkmUf3Tf Z5ZPWpueKwzMraNDX5k7QvS w98B19s IHdpZHRoPSIxNSUiIHZhbGl fsz2ejO6rAl6+HWQqoHU5dF E2gV2eCsOtFjJ9BWszL370U nRvcCIv Czdcs7gqh5buqUb4MzEmDBU ajuApbNrtAJL0e0HzDs41L7 QgqOuva0IcIlb3tb69yANqr 9H1hBQ3 H8VuGEJetupmqXGldUzqCN5 rVJHitfekDGQhrH5tMCChU5 m3ZcJlLhX6MSuxU4MdlyU6Y GJvbGQg ZRVjoSWKpJ8zjpqno7gmnay vZgEuBTEaNZx1OWe7HCIbdA egAwJfOCK7NcB8USM2nWJgk J1vsDie enaqpO7lOui+XPB6uBDonGV DWM5mKtfliUP+BPCuYFL9vX fhSMxzXZYetH4qZHJnO3u8E iAwLjA1 TJurA4ZaejT6PXBcxUPcACE pyOKPmR7fnirxc0uwzxkpNk FnCTPeFGx0KMc6CFFuhKbmE iBsZWZ0 ZiE7RRL4lDHihA8acHzroiy usY0eAsa+CqbesYrmHGS1RG p3B7WcDgs2OSCmaQvxXP8kp GFkZGlu Ne3wfYbocWjuZC9gDVUxqea hi296UxAbu2fyNYEtvQEuKP lxIAP1Q30nd7P6NZAxCIIiL RR0lEZ6 hM7cbSfsbogozOVfeIsqptD nrTmsTRfnJHmyZ506VOXbhG jcIpXoMOw5D1OhQcl8UERcw YtqOG9p cIYhTKwxSe4phHezfPdnCT4 iYOQbykbie090TzTow5zlQM XpbKNeGCcuNPR8A30is6J2M CMwMDAw LSZ8cSA9uX0sgZoeucwiaPX mdDsgdmVydGljYWwtYWxpZ2 55LOJfxIeyLfWptFx4T4RiH iy4ZXYw oJbrTP4rcZZcFEbgAd1rdMp hnVmvZF0jWDIzaizaz113Kh Naq4mcYZStfFDfJHdrMYA4A 73yx1K0 PJDyOEOxROK5oHO3yL3utYd nbjogbGVmdDsgdmVydGljYW yjEDgsM853ONRrtZucEuQqd GllbnQg LNbkSNq6F2WbVygxdMF+PC9 3QDWmJB81zUGzhSGlv5yanF p8FfJzNKZwCRO5pAqdGRwfy 3JkZXIt G28txZAkk9O1DYQylFhatVW iKtBqdWZ7xJ4oLUmaffxsg5 jrulnqYhctd4mrrm12zQ83D 29sIHdp ZHRoPSIzMCUiIHZhbGlnbj0 tcP8jOj3+XIHnrVU3pNJ1hW 0jOKEtZsK1DVhtO828GkQgv CIvPjxj t3atk6zyoLh3TxQ5WIQvliA lyGlmHPV9d6JoZd84Z68fDU dpZHRoPSIyMCUiIHZhbGlnb k5wzL5o Ii8+GCZxlNK7mFS6zX2vLcH pYpV4YBtsW232HoFkzNNdKg zvQ71oT2RdwVA+SWTjDyy5K CBzdHls AW3mtIVsASzjFl5eIQC8ImA pNjLeIKfqR7UrNXBohvgpvd lsfYR4NZInOSArqB31Cf7zm DogMTBw qICVoF6vhkcud0ddgvykApO sHTIkQCk1HTk5JWPltEepWe QwDFY3SbK1IXL1mRNwwN1dg Glnbjog hO0zJ9XbMNKzupaoAx58iK7 kUsVwXgY9MQqtDzh+V0hJVF NxKCJZLSvRANDMCJt1P7GgQ na4HVLf iIcqFL0bxNWjOZxaWn3dwHk siPcvQS3bKKCfvgvqDEFfrH 0bCGJcuLXksRdbVW5nRJAez gndt034 PpXeSWZ1CPLncNWnH3YbjI3 zKzVmVGNdNGIxM9VbvCReTF zwT377IXngQvZ1NHCptbDoR 2FsLWFs mWecNpJ4v1L7Sp7eUU5cQX1 cBQP3BY76GL83lBVru3F4zR A0Q3LdMQLshrgjdvxxjSX1T DAuMDUw aH12zUGvWQarDk9nk3E8i80 9JPRdCSCfhH19Zx6zxSvgZW HtkBWRnY4qfmoqm2tvnlghM zAwMDAw STh3JFt4BEIieIbvNsOiPSO 9MkO1ZEJ4uUZfpR7bcQgelg vrwP4qRoc+UhIjEUGcaaG4V 7UyZnn2 SHRohCxdCP1wbAZsMWrrSx0 ryCrwcBqnRR7lSTEvrtwvOO BhlS8hJJTnwEQswVqeXC4hY TBpbjtm x858FzKtHDP7DOXlgFLpC8C cbN8iOlYkYOUkCNFxO2CmdR XbELezT221MBxfBiU4NUEvs aCsK5Nq ZHSbdWfeOgW1r1A1Lu5BQE5 PWGB1H8CaFii8ZGGxsIwmHO 8mwKJuHVrsXy6ruRdxeRuvT G2yQRQf whcwLWWfsR0jEOBmkVThmSv rGF8wXVPthsmex490LuXrTE F9MCCgqTUbI8SgiC1kOcRmT DAwMDAw U1ZyhXIfXIvyR866QQkyXaJ 3FDExjiIzZ8AeQHQvhNnpSw G8d7W9Gs0WLOjerEF+PC90c d13F1Iw BpejPkm3UFBwWGB5tLX0oF9 gDYSjFIuuv1N9wYX4J7Cjmm Pzdx8ig0pfTNDeGYzsH67pm PUdq5G7 PPEpnYD7WGJqjCvvAbInaI7 3Oyc+AJMkmQbnj3XiDjuuy7 ahx5lvfRt7OjLmSLLtlpOkv WduPSJ0 u0ZfKq96Q66eMFahKDAvQZE mYNLaSSAotOswyj3qdN7pNa 8+NGUriKB1iKJ7wW7vKgPjF wF8JZuz Q236JrDtdVMvBngqz9nyq2p ckMf9SvWlOWVyajRwnLckTA J7m1EhUi62U0HvdOrlc1VnG je0ze91 jZChy6X4aNS8C5TlORExxzd hzMVjsZpsIY8rPKPairyvUT XipZ0kGKVhV6k3BfOoSxL2Z HthI2Vy sfG1OWVatUSdWYVpzXVFqC1 xcbobw4xzmrlaGuNlSFJgTC m5ZFs9ENDtaQhaHtQqCXC8C hI1GUL7 qUMljH5epPpauhorqM2bXdq +KOj3k8mspJTyMV6ejBF2FR 89EK05fXXhr1D9jNY1R7CwL GRpbmct qkljfHF2XOTrVNNzoR19Xf6 diJunDa2jYAFhHUU5RZOwnC BmM8BjeW5nCrWkRMLpVAAfE 3RleHQt GPcbC901HKdgMhG6VFWslgQ mF0SjGYUseWprEqY4s6E5Pj 6YQX34LU45KQ16gBRcp5E5b KS5U4Xr NVWsbqdtwjdkiFM1LZGtNHC tbQ55Xz1abRwyGj5dIKZwJQ W2RRCtvHFzG1TskM9oZkIsA DAwMDAw Y9YcjDRvQEpnJ160WRgjKxD 6SEVocdFxV5JlGQZryGqrPv P6g9D8Ip4IQg17IG68TH64o LYph0I5 iCV3Y7NzTJLhaowwnteuiIC 6CTYbWKPhpY05Uk9rjUjmOf 4fOOScKVO8GBSdeYKdA7Atp O7jIdUz VWJdINTaE9PntGXpJPldC75 0AByaPaJ6WTQlbfSuX0WwZW EgnHazGiD9a6C6Pt7FVZydx kt3T0Gc PjwvdHI+GR34QMNmVO73lKR igPLfx2jgtJh4SlMrIVYtPR V0yTakJPdwr9DkGFZqK13tc DQgi9F3 IGN (more content not included)... Normal [facility] Rad - MRI Reporton Rad - MRI Report [id number]#[id number] GTIFF Normal [facility] MRI Spine Cervical w/o Contr essence 12-23-2022 MRI Spine Cervical w/o Contrast CLINICAL HISTORY: Cervicalgia. Neck pain behind left ear. COMPARISON: MRI of the cervical spine 11/23/2020 TECHNIQUE: Multiplanar multisequence MRI of the cervical spine was performed without contrast. FINDINGS: The craniocervical junction is within the limits. No cervical spinal cord signal abnormality. No acute fracture or malalignment. Straightening of the cervical lordosis. Cervical vertebral body heights are maintained. Disc desiccation and mild to moderate intervertebral disc height loss throughout the cervical spine. Degenerative changes at the C1-C2 articulation again identified. C2-3: No significant disc bulge. Moderate right facet arthropathy. Mild uncovertebral perjury. Moderate right neuroforaminal stenosis. No spinal canal stenosis. C3-4: Minimal anterolisthesis of C3 on C4. Small disc bulge. Moderate uncovertebral perjury. Moderate facet arthropathy. Moderate to severe left and severe right neuroforaminal stenosis. Mild spinal canal stenosis. C4-5: Small disc bulge. Mild left and moderate right uncovertebral hypertrophy. Mild left and advanced right facet arthropathy. Moderate to severe right neuroforaminal stenosis. Mild spinal canal stenosis. C5-6: Small disc bulge. Moderate uncovertebral hypertrophy. Moderate facet arthropathy. Moderate bilateral neuroforaminal stenosis. Moderate spinal canal stenosis. C6-7: Small disc bulge. Mild uncovertebral hypertrophy. Mild right and moderate left facet arthropathy. Mild bilateral neuroforaminal stenosis. Mild spinal canal stenosis. C7-T1: Minimal anterolisthesis of C7 on T1. Small disc bulge. Advanced facet arthropathy. Mild bilateral neuroforaminal stenosis. No spinal canal stenosis. Paravertebral soft tissues appear grossly unremarkable. Hyperintense T2 signal within the aliyah is again identified and likely due to chronic small vessel ischemic changes. IMPRESSION: Degenerative changes of the cervical spine as detailed, progressed when compared to prior MRI. Final Signed (Electronic Signature): Dwaine Marinelli DO 12/26/22 10:38 a Technologist: [facility] Outside Recordson 12-21-2022 Outside Records [id number]#[id number] TGTIFF [facility] Coding Summaryon 12-15-2022 Coding Summary HTMLBase 64 OalrrtnqKUs9iAt+PGhlYWQ +ZF2JJSMrN41omIZfbA2cR1 NMTElOSywgQVBQTElOSyIgb gIiSS6jxCZjREPd IC8+WT4uLNVwKrtpcHOjf5Y 0zVS1E20gwi1vLHqrdVA0TB EiNePxniswg2onbVj9KLcuY mluOyBt KGLapG25HFF2kO19Cf16eWX zzZGft6qcxUj6ClWsMMMiIP K1hPuoXFdxo6KjCTAeD01vu RLmu1S6 TDWndLuyxVPgPzFnrOP0lI7 sJZabakqzm5mofbghOlv0us 18hZSlt2U3eVK4D7GfhaZ0B GJvbGQg YvuorKTSqP9vahcko8shbrl dItEqJPAwFTv5TSc7HWKogX ocCuBaDN80AVB7CMYplwMoD 2FsLWFs rFqoLzC7f4V3Yd5JR1UNSxt sJ8FAZRZKMJiqvWY+PC90cj 35C1SvTijvLbx6ZCRxTMG9x AU8xB6r BLHxKCcor4F5aIZ4J1TqjaO lfn4oi8ssUXPjHJyxY38ynN Aqv7L8ISPgwWG4CAQztHywJ iBzaG93 Oyc+ATFrzSnkz1BdJxxta2n nx3bkcRi6KsuqCXYhdkImrV oxMQN8f2EnRn9nZVTfuXY5f CW3oX8r MhXwSaM7UXfnF598ByClvPV cRxaxN22rQ1DpjWB+PHRyPj i4DWAuxFczZX7eF9PjKXKdi mctbGVm sOmzBF9dOVFrovnbQAMheH2 tJAJxD3n6QsZtFxO6IUtfK7 QaNCEpoaooXi62vN0gFnNkJ sX4SFxb K6KspgV5YZUatHJfYDtlBLZ 7U96za0U1RMSeIUEsWZK4pU Y1kA0gxWlpwbdbuACvvShgl mVydGlj NLarNMpiZ704ZSLxvHllDrI vZGluZyBEYXRlOiAgMDkvMT QvMjAyMzwvdGQ+TCXoZVP0d WxlPSAn zZQyRNbaRm8eqHrnbBleGE7 jNVVaebdfSHLdjP7tBNItmQ WwuCwoOB8iEQKzbbtia861Z iAxMHB0 QYEhbBQoJ8OjiK0jJiZnSDG yCODbH3JzwLVvMHrbI184FE paFvS6DPZezlShS8EnMLWxw WduOiB0 q4S2Sd9Zc6DvilxqX1UesBK oImXjSzxjTNg6P5RxIrpzeM I+OV92YHWkTB77SSn8PTD1y WxlPSdi CLLfW3DmbR1bCeVlUWCwVFV kOyc+PHRhYmxlIHdpZHRoPS hwVVCmMcYpzJnrXG2xFo3zI GVyLWNv nUesyMPtBhDpp6bxYSVnRFq oIM8qwDmpU3KdxHM5BQHiu1 s1Zy46Y95kM2VbdVY+PGNvb YP0uTN6 aY7lIpFfMfF2DKteT215BvF hpWVgRvlbx7vhs3kqnNz0Fi O9ILSbzqOraZjxXTU7h8LsK m63R82t IHdpZHRoPSIxNSUiIHZhbGl pno8ryR2mGg4+ZJZmoGJ5sF L0aM7nJfMmFwL6IPrhM959D nRvcCIv Jkfjn8ene8escFr8SfYsFCY tiiPlaDsjYBV7u9CzNu75O4 TlpElhg0UoHzt2ew27tJWaq 3N2pJX1 N4VjEIWmslzhuZCliSlnDS9 fBCWzelciJOEzmJ4fZHZzL6 j3ZtGdAjE4BDqzV8BlwrC9U GJvbGQg HBZcsEBNzH7diuquc9rdzcx qAgWdYKWzELs3RNd7QDZyvK llXiGfVIX8FaK5BOW1rTThf Q2ukSrh cimoeD1yApq+YLT5jXVlrQI ILV4dFvticUL+MTZdVEP4bH ikXAsrPDEcwI8lYWOsD3k3N iAwLjA1 LIoqS5HoerB3LEWxoPUiRXL caAWDeO9ixgggu7rtshtmSz QsXJAcZLi8DLm5BXHicMhzN iBsZWZ0 AeL9FSP5rDYoxT4wlHsnrnb mqQ5yTaa+EblqzHtkJCO2HO l6D4CyJkl7AGUbdKyjLO0sm GFkZGlu Jg8vjViurSvbOI5pNFNgofl cp434JtShe9jeDVVbbKWmQQ baRQH6J90qb9I4VXGxPDGyU CO9zQB3 mW6ftKppzdzvyAGucGpavbQ xpVhyMRkeZQraQ736BVLlqP vdGxNeKRr8Q9SyZsh3MIUsy FjeZK1v lPLwHPjkLe3jxHjanYhbYZ0 kAMAwbaqix422BnZnx5aiBJ CifRIxRPodETL1F15sg8Q6P CMwMDAw DAS3bVH4tF3htQsutqodmRZ mdDsgdmVydGljYWwtYWxpZ2 34IOCccSusJcMdvQk5B9VyL sg2XYRj sCwxIS2iaUPrWUcqBz9vuMz jmVdqYQ0dQWMpqdlzv766Ne Djy5vlQYBwoNLvLTlhDJQ2L 41qe0W5 LHNyLDKwSRJ6xYC3lO8caFc nbjogbGVmdDsgdmVydGljYW caRVrpJ813DWBymPxwHaJep GllbnQg QNenVHe6M3LlAndmzGO+PC9 7TZTnKO98iDTgrDEgk3ggsR k1YcLzLNWjXRH0tXniXOcam 3JkZXIt C50siRCwh4T7UMVvyBxlbVJ dIaGrgBF9iO5aZAehkxlev6 tyvbxfLexmn6tqoo44zB60F 29sIHdp ZHRoPSIzMCUiIHZhbGlnbj0 ziK5yXa3+UURhgKH0bER6yK 7hIIVlSlM0ZOjhN275CkVuf CIvPjxj l8iem4paqQn1RtI3LDHnueM kkDvyZRM6y6UfFo80Z38nNL dpZHRoPSIyMCUiIHZhbGlnb j3cfG5k Ii8+RZStuRB1rXW1kT4oGdB uYvJ9DGwcA825EvAvmBPyId ulT27fE9GjqCF+ZLCjXqy7T CBzdHls SM5uhEYkKNpwOn4hLXS7QpG mPpIlSUegX4UbJEMotaukys dwkOO0OWIpIBWfkB74Kg8tj DogMTBw pKXUgM1vixity7ffjaewHuR xIPDvZTz3BHq1PLCblHplCd PyFDO0CcO2FLW3vWIbjZ3tz Glnbjog sX4kW2UkWKZilukyDk91jT5 xBmOyZkW2XCxlQaq+V0hJVF XrMQUFVAeWMGEBFVs7K7GeV dy6HVBt xMfeKH0elDDgMXspHw7ywCb odBixYT9gDMGxpmnsLHLxxS 7kCRQghUAxmHwbHZ8nJNPiy oviw613 KsGcLZQ9CYPsnFTaZ6PbsS1 jDuIeWKMxGUDlY2FszRMuWD twN918IOfnAiI1UUAbomInV 2FsLWFs xBazQaI2x8N0Us3dGY5jSR0 uSJY0JU83SJ03uVAme4A8lD H3S8KbPCUcvdhfxgetrTD8T DAuMDUw hG82nGPaCOrdGr6nv6E9d16 8YMSoNLHadP42Hd2jiAcmTU OraKEOcJ9ogxvlx7xpwfiyR zAwMDAw FTf2ZWd6FSOkyHytWhLfZSO 5WuA0SCQ2kVVzgC9cbTvjfp ryqG6jMiu+XzRiCMOkcoM0K 9RyFqi9 JLTmpIxaEB6hiWCuHFxqAw5 tvQpeyDtlRS0sYAIuejplIO UfmA8lJYNfkHMpgGusTM1kR TBpbjtm j552JxRnZYN9OODpoZTuC2T jtR6fNxLgBKUnKDUwK4FnlJ AoNHtoB064ASrwEbX6WABav aKpC4Al AXNkzBqgOkY5y7N8Ie3XGG8 FLEX8M8LzFcf3PNVhhOaiQO 0jaEPnJHkaYp0kcTivfTzpX W5yHSPf wzixQFGvtS1vSRMbiUUqjQi tAR2mJCImrqonp786YkHwDV L2VCAopBGsL6XivA5tEsTjX DAwMDAw J7TbxCEzWXebB437ILbnBfM 0WBOzioIrW6InVPXjaOrpSn Y4m1D3Rb3EYUficLQ+PC90c o65R8Uv TmqeCgs0AJJoUQO6nWP0tC6 qLKRxHIvwl6N9iON5R8Swwg Ltfk7as0izMPApQWnfL06ep YDac0M8 GTWvdKS2FVEwnCntEyQvoK8 3Oyc+RRGxjNniv8RrUhokk6 tlb5vttNq1IhIlHZJtpzVre WduPSJ0 p9TlOm61G85aRKohXGDhUXR tAKAtHYDbuGucri6fgP9aOd 8+KZNtxQF8qKG1sT8kHnPvD cS5XYbo A212DvFlnDVwGwpde5wxo7w lbRl4WjPdJTMrbuTobJusUI P2r0QxTw67V9JaeGfyd0GpN qj7kl17 kLZto5N2pMK7Z7GnFTEfxwh nqGGzoOglFI1pUVWqsckvHD JpuC3dTTWwL6j0KkAqUeH6K BmgO6Xn gjR5ONAdrDAuMEEmjILOkG4 eflxec7sswnzfYpGmJXDnCZ c1NKu0EFNwdFpeUxIfJYA1Q cF6JHT9 tNOkuT3sjDbsnmriuD6iWhh +VFa7o3bvrGKjCA7tnNZ0HU 23UJ10uTLdl6C0tQK2O3PsS GRpbmct lkgtiWL0KXTrNJGcnE92Jv5 igAqkQh5qGEFcWWQ1MPLzoX CiJ4CwvZ2kXtGzWAKfPYWqN 3RleHQt GUrcP196ZFopKmV5XTQjigA aX7KvGNQowRpzYlY7h9B6Kp 6SIT65NC21ZH72tQDlb7U5p AV4P1Bi CFVcdddcdjfscBR3CFFhGBJ phI64Ij2xaFewCn5lRCUbKE U0LHBsoRFcQ1GldB5bEpZuR DAwMDAw D7LkbLObINidV643RFooVaC 9FNHxzwBwH4SnPTLpaHkvXw O6z1T3Rm0RRe45SW21QI46j KLsi0C4 jCO0X5WaTWVhhtuxzfepvYN 9RQOkEZCobD22Mq4cbSlqLx 0iNBItTFZ3RGHfxGClY1Yet Z7fVsDs KSNoQASnT4QnqUGlDIsdB74 9AOryFeX3KTIibaOqM3HdQM EhiWhbOlE8w2A2Yo7WZNmaj ui1A0Mz PjwvdHI+WV80EDElDX19lLK tbAPwi6uqmIt9HlCrGIWpRY G2gSmaYEaoa1SyXXAhF60tn QEsv2X2 IGN (more content not included)... [facility] Progress Note - Provideron 0 9-11-2023 Progress Note - Provider [id number]#[id number] [facility] Coding Summaryon 12-08-2022 Coding Summary HTMLBase 64 LslydjgqLQe3eNs+PGhlYWQ +QK8GRXOxL85jpHHzyT4pX1 NMTElOSywgQVBQTElOSyIgb vEdOQ8guXMoVIZg IC8+XB6wRXMsVqwbnEUyf8W 6xQB8A14wtk9oAJsobUB1QT NlZcGosrcwi2fzbHp5XFjoC mluOyBt MUHglO64HMD4qH56Ao40zUC qjUQdm0endWm1AgVoMGXeQN B0hBzmWHhdg6DsBOPtV17ly TKeg3A3 BJMrbLgcrNWpSrJogAA4vI1 zSVzsbylxm4mgrsunSsz3fh 48gXXsm1B3dLF8M4UgstJ0E GJvbGQg KhlfyTTPwY3muxnbz1zqsbb cYzXgCEZzVBp3FNz0QOCutM pxDgScTB86JER7TVWvcqOqK 2FsLWFs oFlmNiG9s8I5Ry7EB5XBMni lI1ZCHYHYVSrfdVP+PC90cj 13X9JcQwtuDdm2CRZvBJC0y FU0kI3i AUKvWGhxt9O9iPC4I6DolhU iuj8hl6bmNSOpPLleG14chI Xqy0G8NEWzfID2DLLvvRhiF iBzaG93 Oyc+QMIrpWwjz2NpGqnqt7m wq5oumTh5WeszQOHakyNcsH lmQIC7y6BhLl1zRVMecBG4h GT7sA8v PbBxLbF9FHjgZ774RyEysAA rBdswA28rS2QexKP+PHRyPj r4WPEreVksIW0tM6LtULBfc mctbGVm wBozTU6uXHUjmhhsJGCnwM9 aUCJvU7y6YgMyHkG9CVgnG2 DkCAEqqjxfOg97eO0xFvRrC wR0CPcs C0CuweL6IDTyjUByUGopWYE 1S63kw3F2KYDhEDWvHIF5uN I8dE7edDyinpsftGFpqJpcb mVydGlj MRdxMZiiT677CMUlnUarFmT vZGluZyBEYXRlOiAgMDkvMD cvMjAyMzwvdGQ+QDTjBZV7o WxlPSAn tOGeACohUe8gvYgpcCepBV7 kALVpzrpfTNForE5eZORdgZ QnjPmuOE9lOJCbigbgr298D iAxMHB0 SKOnqLDzO2ZuuA3sMqMlIST tCHBbL6WkcCAvZCwuE103PF jdFmK4XOMlbtCeL6SoYWJcq WduOiB0 l8S1Xc6Gi9ShyrlzN2IouAT nOqWjYswjZOo9P4DdLwzakN I+GK77RSYwQZ57WDe8OKZ4v WxlPSdi GSDtW0LcrX7eWrIwBSUsYKP kOyc+PHRhYmxlIHdpZHRoPS xgNUYzTcWcaJucTY9aIb8eE GVyLWNv qKbyvOKaEySzj0kiABQtCTa gXX3wsDgtI9ZexCK6DHXrz2 t2Rv43N24oG8GrwLL+PGNvb XV6sKW3 eT6wNrIdSsF4RXemQ084LiP htWWzXibtn0xjo4zioIu6Ud G7CNTevcPqvMshMIV4a1DhM c92A00v IHdpZHRoPSIxNSUiIHZhbGl vux7scT5zCt6+RYYvuOA4wS X1lJ6aZcDqHlU1RYcbS507Z nRvcCIv Bcqox0qcc8amyQr5AeWnTVB uxqQouHqdSNW2g6QhXv43H9 UdeCikw6LsDiq6ls41lBBxc 7X5fMF7 D3YvLPAexnzlyUKsiHgwMR8 vZESecdvcHEGdlU3rDSRfL6 e5PiBdGcU6LUbcR8RrznT0D GJvbGQg JGYseWGQdB0beemwq7bhbsi hGgNcQHSvXFc5BRs8NMWwxY mqLcLdSWA6MlN6NCJ0kTZnq E7srBfy bcuthP9iDuo+OPB8oTDrcVG HDH9fVopxbTB+YBFnRKV6cM lfUWxxBAYfpS5hEVJdS5y5J iAwLjA1 WQkhZ9LcghH1JCLoiPBfKFV bwGNOqT3ekfdqt0icwoniZs SvKNKtHUj5NIb0CEInwXpwJ iBsZWZ0 ArI9KVE1bATbgZ2nxRlvcli vbC2oBru+VhwezTduROJ7UX j8Z8UeQtc5YXFruYzyLA8qs GFkZGlu Xe7tfYmuzMevML6wSDRlfgc mn925BjUjt0xuZTAjcZQjJY gxYLV7M90id2O1WLIdSEDlD FY1wGO5 nA2nzHmdaxktgOCcjYmhtnW rcKgqCItpTLndC089MGPcsH adPzFiOZc9A3PdKhh1WGGll XxnFX2n uDFoXObmOa2tvUgofFhfOV4 aRMWbcrmoq023MdDqf1ihMQ AsvDXeJAdzBDH8D47xr0E4C CMwMDAw JBC3jHC4uW6chBrowqdwkZU mdDsgdmVydGljYWwtYWxpZ2 86CGSflIqyToHqwWl1N1BuL st1AZIi fBivDU2zuYPnCSlkFc8lnZh ynIetAX3jBSOspwncx100Lt Cjp2nuWWYvmFWtTBenRQW8A 46xe5M6 WWLdQGIpSHC2vXM1rN9pvHl nbjogbGVmdDsgdmVydGljYW rqCAoxA526AIVlaJbrIkSgj GllbnQg WNmeDSq9O4YhVpuivRI+PC9 7LPYaQD97sAAmlYUrw1jkgG t8IyMbIPBcXCA4rEfxZLbes 3JkZXIt V91avGVrc7Q6CAIuxUphiDD yKmOdxEL2uX7vRCrszclzf0 urfclqArcev2daaw31cI56E 29sIHdp ZHRoPSIzMCUiIHZhbGlnbj0 emG9gWs3+KEDulRC0qIA7eF 5aKNHcVaX0KSzrV760DlZlu CIvPjxj l5mwd1xbyVr6UyO4YAGxafF jiDlpQLF4l6MfQx57C06uGT dpZHRoPSIyMCUiIHZhbGlnb b3qdC6n Ii8+GIFbmFL6wDG9qG7dZxT oXcM9RChiI344HyBdxHZaQt vrO64aE1XkbKQ+FWAbJii0D CBzdHls SD6fqXQiLAmfQz0sEOV7FqE wCtDmRGggT5WyWHHutifpdw hlsXU6XYBeZAJetV99Wi2by DogMTBw hXVQgR5jfpelc5rhdmdqTpN qZVJxXWq1QAe9UHRuaYbwZm TjLCX4SkT0NZF3eAEgmE3pe Glnbjog iB5nX2LsMRUypvkzUl46lA9 oJyLgQcK9CRtbHpl+V0hJVF HbQFEXFWgBBGABZUd7G0RbU rs3YUWr kHosDU9oeEJlYRawGi4szKw xsBipJG8eJFAgnoraDGNpqD 1mTZNfqCOfvNnlEX2cNXYru ityg273 LaLiRQK5GTIkwBPoX6DyaQ4 eEmUsSMFpVRJpZ0JlpNNhSE yaY905CMxhSeR9HDEmnaGvB 2FsLWFs uVkmFqF5m8E1Io2hBT2eYX9 jNMQ6GU31YC77wMKpl5O7fQ X3K3RkOHMxiwzeqfpbnLI4E DAuMDUw yD00vXYaAYltPl0ar4Z2d20 6AMRtVIZhaU29Cr8zuVkqAL SktYRLhP8gbdfjv7lobnbwE zAwMDAw FNh0ZRl1NMPhzQmuNgDhFIR 1RzD5ZQJ1eNOxuH8czJvmgb epjC7eLgy+AjMhYDCmmwX6T 5DlBxm6 KNIclRhxBQ3uaWSkPSikOa6 gpYifpLfzTP8rKHIsefwcNL ZicH5hVZMddXCxwTmaHS7qV TBpbjtm a919SeBxCJK2XQNzlOFaJ8F ntX2cCkLfHTCnNCNkG3DrpZ YlDTwtM207YIfuMvW2ULCrg nZoD0Hy ZQTqoOlpHiY6k4O4Cn6PJN0 TVCN6P7IhYda0CHGghMxxAI 9gdOXwGAqaVs8gxIpuaFggP P6tNOKg cerbWYOqdC2pSYEozAWqsJt zGB8cGVUicddfn035LfQnEO D9RFDfaSLtE9EphC4oQtYkC DAwMDAw J5NboLDbUEgxY423KSnuXsC 8APAlnkCwG6JlDDZarNtmOf S5u3S1Eb7ZPFhwW1IvG0Wyi TwvdGQ+ TG96ez25I5VeDmfoZrw2TPM zHYU7qTL3mU8zHIKwAAshg3 U1aOJ6M4OstzWsap9vf2srB XBzZTog V62aoPBpk3D2QZHgzPX2XZX xxIgtIxSsnJ67Isx+PGNvbG hqe9HdPyekg6fao2ovtFq1N jMwJSIg exKerDdoXXQ0y3WgVx94G28 sIHdpZHRoPSIzMCUiIHZhbG uloc3gxV1qHq1+DJOqmTJ7b IR3fQ6w KiBvZpM6JBbeW564QfBcmVT aWkviy8ojq0uwuPt8KxCzDJ UyagYkaIurTUS5h5FdZi92K 2NvbGdy m6CxRff8nb23bTIyp0F2lQX 9H3SgGTTchresoFPfoFrsTN 5rUTWwgiscPGTloR4jDCPoO 5r0FxBw MmW5CTshX4WzhdG7OFMtbCW rUNBqkOVYkU9wejsez2khhh olZdSuVOKhRNb6PZs6JTKlh WduOiBs IYL1XqD2MUP3cFYseI7koWa fzvxhkZ0fZzj+DTi0g2rqjP XfVU0ddAN0PW69MK60uRYpq 9Z0zYQ7 I5NpHWTgzxyrfstzlNP2TPE hQZJoaI36Ur9vsTdqOi8yHR KsJDI4GYOkbCMrG5WrnA8iW iAjMDAw YMCdR5ZnlROxFPkjV161XIy vIdO5GQSiuyGqX3HqYKCvgC dsPgD4t0F7Fo9NRK18LH57G K59qAVh j2S6qQX1A4XqQIEviuvxigd tsBS3ZRTkRFFyhZ31Mx5jwJ mvFr8tUZYiMHN1XNHamSAuU 5CkvX9v MhBbIMTgATDlA9WvmRLaSYn kG573VZjcRtB0WXMweeEhT6 YfWXAcsNjmLkA3m9U3Ed1HI b19VA98 NM25lRIma0W7fGO9D5VjWCI aksnfpzlgtCW6GQZgQKQevQ 74Pr9zsZrmRh4cYCNeSTY8R FRpbWVz G4TenS0aEdElGWPiDQVtX5C rsVHvJElfO730CNlmQsI4QL OodpGsE9EmXENteWdqXcO3g 9K3Ub2U QAdxihn7W8FtJvgmtTI+PC9 7XOUpSZ84wGLhyBLwv0jntF e4QhZsYZSqPSJ1sHzxLLigm 3JkZXIt Y29 (more content not included)... [facility] Progress Note - Nurseon Progress Note - Nurse Pt called because she is having increased pain in her neck, appointment scheduled for 12/08 @ 9:45am [Electronically Signed on: 12/07/2022 09:40 EDT] Leslye Naranjo LPN [Verified on: 12/07/2022 09:40 EDT] Leslye Naranjo LPN [facility] Consent Formson 12-06-2022 Consent Forms [id number] [facility] MAGR Intraoperative Recordon 12-06-2022 MAGR Intraoperative Record MAGR Intra-Op Record Summary Primary Physician: VEE STEELE MD Finalized Date/Time: 12/06/22 07:44:41 Pt. Name: NICKALVARADO/Sex: 1945 FEMALE Med Rec #: [id number] Physician: VEE STEELE MD Financial #: [id number] Pt. Type: D Room/Bed: / Admit/Disch: 12/02/22 08:03:51 - 12/02/22 09:29:00 Institution: Case Times MAGR Entry 1 Patient In Room Time 12/02/22 09:14:00 Out Room Time 12/02/22 09:23:00 Anesthesia Start Time 12/02/22 09:16:00 Stop Time 12/02/22 09:21:00 Surgery Start Time 12/02/22 09:16:00 Stop Time 12/02/22 09:21:00 Last Modified By: Zarina Chacon RN 12/02/22 09:21:08 Case Attendance MAGR Entry 1 Entry 2 Entry 3 Case Attendee VEE STEELE MD, Erica RN Long, Barbara RN Role Performed Surgeon - Primary Diesel Locomotive Engineer Diesel Locomotive Engineer Time In 12/02/22 09:14:00 12/02/22 09:14:00 12/02/22 09:14:00 Time Out 12/02/22 09:23:00 12/02/22 09:23:00 12/02/22 09:23:00 Procedure Medial Branch Medial Branch Medial Branch Block(Bilateral) Block(Bilateral) Block(Bilateral) Last Modified By: Zarina Chacon RN, Erica RN Baumer, Erica RN 12/02/22 09:21:13 12/02/22 09:21:13 12/02/22 09:21:13 Entry 4 Entry 5 Entry 6 Case Attendee Nikia Warren MA, Regina CSFA DEVOPS CONSULTANT Keny DEVOPS CONSULTANT, Ellyn DEVOPS CONSULTANT CSFA Role Performed Diesel Locomotive Engineer Scrub Personnel Scrub Personnel Time In 12/02/22 09:14:00 12/02/22 09:14:00 12/02/22 09:14:00 Time Out 12/02/22 09:23:00 12/02/22 09:23:00 12/02/22 09:23:00 Procedure Medial Branch Medial Branch Medial Branch Block(Bilateral) Block(Bilateral) Block(Bilateral) Last Modified By: Zarina Chacon RN, Erica RN Baumer, Erica RN 12/02/22 09:21:13 12/02/22 09:21:13 12/02/22 09:21:13 Entry 7 Entry 8 Case Attendee Jessica Howell Kellie N RT (R) ARRT Role Performed Vascular Surgery Physician Vascular Surgery Physician Time In 12/02/22 09:14:00 12/02/22 09:14:00 Time Out 12/02/22 09:23:00 12/02/22 09:23:00 Procedure Medial Branch Medial Branch Block(Bilateral) Block(Bilateral) Last Modified By: Zarina Chacon RN, Erica RN 12/06/22 07:44:35 12/02/22 09:21:13 Surgical Procedures MAGR Pre-Care Text: A.20 Verifies operative procedure, surgical site, and laterality Im.150 Develops individualized plan of care Entry 1 Procedure Medial Branch Block Primary Procedure Yes Primary Surgeon VEE STEELE MD Modifiers Bilateral Surgeon Comment BILATERAL CERVICAL Start 12/02/22 09:16:00 MEDIAL BRANCH BLOCK C2-C3, C3-C4 Stop 12/02/22 09:21:00 Anesthesia Type Local Surgical Service Pain Management Wound Class Clean Technique Details Closure Technique N/A Entire procedure No was performed via laparoscope or robotic assistance Last Modified By: Zarina Chacon RN 12/02/22 09:21:39 Post-Care Text: O.730 The patient's care is consistent with the individualized perioperative plan of care General Case Data MAGR Pre-Care Text: A.350.1 Classifies surgical wound Entry 1 Case Information OR MAGR OR 02 Case Level None Wound Class Clean Specialty Pain Management ASA Class 2 Diagnosis Preop Diagnosis CERVICAL PAIN Postop Same As Preop Yes Postop Diagnosis CERVICAL PAIN Blunt or No Is the procedure No penetrating injury considered occured prior to Emergent/Urgent? the start of the procedure: Last Modified By: Zarina Chacon RN 12/02/22 09:21:46 Post-Care Text: O.760 Patient receives consistent and comparable care regardless of the setting Time Out MAGR Entry 1 Time out date/time 12/02/22 09:15:00 All team members Yes have introduced themselves by name and role Surgeon, Yes Surgeon reviews Yes anesthesia, nurse critical or confirm patient, unexpected steps, site, procedure operative duration, anticipated blood loss Anesthesia team No Nursing team Yes reviews any reviews sterility patient-specific (including concerns indicator results) and equipment issues/concerns Antibiotic Antibiotic N/A prophylaxis given within the last 60 minutes Is essential N/A imaging displayed? Last Modified By: Zarina Chacon RN 12/02/22 09:16:00 Patient Positioning MAGR Pre-Care Text: A.280 Identifies baseline musculoskeletal status Im.40 Positions the patient Im.80 Applies safety devices Entry 1 Procedure Medial Branch Body Position Prone Block(Bilateral) Left Arm Position Resting at Side Right Arm Position Resting at Side Left Leg Position Extended Right Leg Position Extended Feet Uncrossed? Yes Press Points Checked Yes Positioning Device Pillow, Safety Strap Outcome Met (O.80) Yes Last Modified By: Zarina Chacon RN 12/02/22 09:16:39 Post-Care Text: E.290 Evaluates musculoskeletal status O.80 Patient is free from signs and symptoms of injury related to positioning Skin Prep MAGR Pre-Care Text: A.30 Verifies allergies Im.270 Performs skin preparation Im.270.1 Implements protective measures to prevent skin and tissue injury due to chemic (more content not included)... Normal [facility] Inpatient Patient Summaryon 12-02-2022 [place] [address] Patient Discharge Instructions Name: ALVARADO BRITT : 1945 Patient Address: [address] [place] [address] Primary Care Provider: Name: Ansley Houser NP After you are discharged if you find you have any questions, please, call [phone] ext [phone] to speak to a nurse. Discharge Diagnosis: Prescription Information: If you have been given a prescription for narcotics, seek immediate medical attention if you have any difficulty breathing or any sudden status changes such as confusion and sleepiness. If you or anyone you know is experiencing suicidal thoughts, mental health, alcohol and/or drug addiction problems; contact the [facility] 24/10 Crisis Hotline -Text 3PJDE yi 359007. If you received any narcotics, sedation, or any other medication that causes drowsiness for the next 24 hours, unless otherwise directed: ? Do not drive a car. ? Do not operate machinery such as power tools, lawn mowers, drills, sewing machines, or stoves ? Avoid alcoholic beverages and drugs for allergies, nerves, or sleep ? Do not make important personal or business decisions or sign any legal documents [facility] would like to thank you for allowing us to assist you with your healthcare needs. The following includes patient education materials and information regarding your injury/illness. ALVARADO BRITT has been given the following list of follow-up instructions, prescriptions, and patient education materials: Follow-up Instructions Medications During the course of your visit, your medication list was updated with the most current information. The details of those changes are reflected below: Medications to Continue That Have Not Changed Other Medications buPROPion (buPROPion 150 mg/12 hours (SR) oral tablet, extended release) 1 tab(s) Oral 2 times a day. carvedilol (carvedilol 12.5 mg oral tablet) 1 tab(s) Oral 2 times a day. clopidogrel (clopidogrel 75 mg oral tablet) 1 tab(s) Oral every day. cyclobenzaprine (cyclobenzaprine 10 mg oral tablet) TAKE 1/2 TO 1 (ONE-HALF TO ONE) TABLET BY MOUTH THREE TIMES DAILY NEEDED. enalapril (enalapril 20 mg oral tablet) 1 tab(s) Oral 2 times a day. isosorbide mononitrate (isosorbide mononitrate 30 mg oral tablet, extended release) 1 tab(s) Oral once a day (in the morning). levothyroxine (levothyroxine 25 mcg (0.025 mg) oral tablet) 1 tab(s) Oral every day. LORazepam (Ativan 0.5 mg oral tablet) 1 tab(s) Oral 3 times a day as needed as needed for anxiety. meloxicam (meloxicam 15 mg oral tablet) 1 tab(s) Oral every day as needed pain. menaquinone (Vitamin K2 100 mcg oral tablet) 1 tab(s) Oral every day. multivitamin (One-A-Day Essentials) Oral every day. multivitamin with minerals (TheraLith XR oral tablet) 2 tab(s) Oral 2 times a day. naltrexone 2 tab(s) Oral every day. NIFEdipine (NIFEdipine (Eqv-Procardia XL) 30 mg oral tablet, extended release) 1 tab(s) Oral every day. simvastatin (simvastatin 20 mg oral tablet) 1 tab(s) Oral once a day (at bedtime). It is important to always keep an active list of medications available so that you can share with other providers and manage your medications appropriately. As an additional courtesy, we are also providing you with your final active medications list that you can keep with you. buPROPion (buPROPion 150 mg/12 hours (SR) oral tablet, extended release) 1 tab(s) Oral 2 times a day. carvedilol (carvedilol 12.5 mg oral tablet) 1 tab(s) Oral 2 times a day. clopidogrel (clopidogrel 75 mg oral tablet) 1 tab(s) Oral every day. cyclobenzaprine (cyclobenzaprine 10 mg oral tablet) TAKE 1/2 TO 1 (ONE-HALF TO ONE) TABLET BY MOUTH THREE TIMES DAILY NEEDED. enalapril (enalapril 20 mg oral tablet) 1 tab(s) Oral 2 times a day. isosorbide mononitrate (isosorbide mononitrate 30 mg oral tablet, extended release) 1 tab(s) Oral once a day (in the morning). levothyroxine (levothyroxine 25 mcg (0.025 mg) oral tablet) 1 tab(s) Oral every day. LORazepam (Ativan 0.5 mg oral tablet) 1 tab(s) Oral 3 times a day as needed as needed for anxiety. meloxicam (meloxicam 15 mg oral tablet) 1 tab(s) Oral every day as needed pain. menaquinone (Vitamin K2 100 mcg oral tablet) 1 tab(s) Oral every day. multivitamin (One-A-Day Essentials) Oral every day. multivitamin with minerals (TheraLith XR oral tablet) 2 tab(s) Oral 2 times a day. naltrexone 2 tab(s) Oral every day. NIFEdipine (NIFEdipine (Eqv-Procardia XL) 30 mg oral tablet, extended release) 1 tab(s) Oral every day. simvastatin (simvastatin 20 mg oral tablet) 1 tab(s) Oral once a day (at bedtime). Take only the medications listed above. Contact your doctor prior to taking any medications not on this list. Diet & Activity Patient Activity Level: Patient Diet: Patient Activity Restrictions: (more content not included)... [facility] 12-02-2022 [facility] Preoperative Record [facility] Pre-Op Record Summary Primary Physician: VEE STEELE MD Finalized Date/Time: 12/02/22 12:53:24 Pt. Name: ALVARADO BRITT /Sex: 1945 FEMALE Med Rec #: [id number] Physician: VEE STEELE MD Financial #: [id number] Pt. Type: D Room/Bed: / Admit/Disch: 12/02/22 08:03:51 - 12/02/22 09:29:00 Institution: Pre-Op Case Times MAGR Pre-Care Text: Patient will be optimally prepared for surgery. Patient is free from s/s of injury. Provide information to patient/family related to plan of care. Verify patient allergies. Confirm identity and verify consent before the operative or invasive procedure. Entry 1 Patient Arrival Time 12/02/22 08:10:00 Preop Departure 12/02/22 09:05:00 Last Modified By: Eleni Hu RN 12/02/22 12:53:20 Post-Care Text: Patient is prepared mentally and physically and is ready for surgery. The patient remains free from s/s of injury. Patient/family express understanding of plan of care and participate in decisions affecting his or her perioperrative plan of care. Allergies documented appropriately. Patient identifiers and consent correct. General Comments: pt arrives to [facility] ambulatory. denies CP,cough,cold, COVID like symptoms. denies diabetes, pacemaker/defib, sleep apnea. 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 She does state some neck stuffiness noted but pain is better [Electronically Signed on: 12/02/2022 12:35 EDT] Leslye Naranjo LPN [Verified on: 12/02/2022 12:35 EDT] Leslye Naranjo LPN [facility] Controlled Substances Agreem entson 11-23-2022 Controlled Substances Agreements [id number] TIFF [facility] Progress Note - Provideron 0 11-23-2022 Progress Note - Provider [id number] TIFF [facility] Coding Summaryon 11-21-2022 Coding Summary HTMLBase 64 PgqdrovbLJb0zUk+PGhlYWQ +YN9FKBUhM37ccPFwiK0rC5 NMTElOSywgQVBQTElOSyIgb lPpDI0icBGtCMQr IC8+DC5fAKCfCmhcyDIzr0R 0sRB2C43czz7tXPqwgJY4CF PsRmMumwvnu3jyoBq8XGscZ mluOyBt HRYzlH59CWH4aT32Oa53uRG brIZnm0xrzLa3UvNsMEDhJX Y4yIynLXdnx8PrWYGmS33nb XXii2P7 LLAuqOtwvRReYjCstNO3iB1 wVYtnsasww7zvfqoqZce0gh 34rDVlm4U3cWC2S0DgdpX8K GJvbGQg FhoolBNVpP7lngvtk0skzrn uHvUxBKCiEXb5MZh8OZBvsH tzGfNsLT20KJB3ESPrzzMoJ 2FsLWFs eSmvEfM2k8X3Cb2ZK5XWHdp fJ4VDQXUAOEpaiAZ+PC90cj 12F9NfGiluLbn9YAPuFMU6o MX9aC2m KUXuFQryr0F8yUK7W4CmpwR edn6de8xwCSMrDJqlJ34uwK Vbr4Q6KKVebZK6MONgxAfwB iBzaG93 Oyc+HJBdpDkxa4EfYdhhl2q pu1ituXa8UffnUCSpfpCqyJ umXTR4m0CnZa3nEELebLE3b PN7lR3q EeWhNkC1KSlpE948XkDjhYW mYlwuJ17cN2UdhYB+PHRyPj a3DLUxgCbaCU6kQ8GyUCKhc mctbGVm jBymPE5fNIYsoztcWNJlzK8 cYWTaK4j4ZzSjOoR6ZCabP5 KvURSxfpziAr50xB4tAgRlB lG2ATnc C1FdrlF5BVNxfDYuYTbyQVW 8W87dj3C7FTQeJYYpAKD3xS M4hF3nqAebhzrvkCAusJlcf mVydGlj MUclQHdmC164HOVirZbuVtK vZGluZyBEYXRlOiAgMDgvMj EvMjAyMzwvdGQ+KQMrRIZ1i WxlPSAn zCYhFTxwIt4qfJxusXpgSZ3 eEOQqylgrAHRngO8iTHExnY VvkCfxNC5lOIIgljeis261Q iAxMHB0 YZPsgYQxS7UdaP4uHsOoNJR bVTTjE1OcrQPkTHeoQ555IJ vjCrL7FSIbndQrR6SmOBZeu WduOiB0 y8L6Fv4Wk3NmztsyH0NllYM sDcStTsljIQk1F4ZuKjhziF I+JD44EZNrTG02ONf9NZN5s WxlPSdi BUVcK1QytX5kUoVwECBrJTF kOyc+PHRhYmxlIHdpZHRoPS jyEWVfXpMdoJiqJI8yVt8iT GVyLWNv xTdhdQGbNqPoh5oyXSMmAXr kVT7xpHadU0MelTT3LJPtq7 p4Hi78Y65kT1CbiMA+PGNvb BJ3rXL8 gO2vYeOzTaO4AMmdA329WmX msYJoOcmyf1inr7hbvYo7Fr P2QTXjiaRceMwxYWU7l1EcS e55A13c IHdpZHRoPSIxNSUiIHZhbGl fth4jpC8qBh1+HDDriSD7xE K6eC9pXaToOeA9ZVppI599H nRvcCIv Pvbdr2hwl5herAp8LxPvJIE yynNqcIsjSXB0y4PiWd44Q3 McgBmrb9GuYxm9or97yPPeo 5K0rDA2 Y3GoMZOuqkmsdPOasDohBK3 hJNOpjxpxIWExuM1tHBSpX1 p2RxMnFlA5JMygH3IlhjW1K GJvbGQg XABleMPOnE6ndjbnr1hlftd rVvMfLJOjPYw5CKz8WUSpwG egNiKyQIV6BcS7YKJ9hMHvj U7cvEod vnluzZ4mAgl+JWU7bNByjUI XYR8nUxcbdFM+ZIKzQJE1vH rfHQxyPJVywD7hWPXsA2h3T iAwLjA1 ADxwU4PtixL9AXHbaEGqJJZ mvNAVcW1pytptq2iogtqdKd KtYQQwDTy5DMj8WWJqvPtjW iBsZWZ0 LmL2GHI9zCGacW8cqZjiiua auQ5dFyk+XdkikRgdFMW4HH i3Z9AhDuk8VSIpqTflVR4jn GFkZGlu Aa7dyOulzDfaVE8uFRRtbbr wh574ApIyu6ptCQUvaUHcGV rjXIA7V73uk1P3WVQaFUQuY ZJ4nKW7 sA1oyLmtqtywgDNufCekkkO roFysQCewCAkkH117ZCVyqL obYkTlQGi7P1TnFsh4HVOvj RaeAQ0n lNGbUAasTr6kaMcvoMmyEN1 vCGAovamtb787NpNls4vwBB UseNCnRXajIHU2J08kv5B9O CMwMDAw NNR6aCW8cI2uhWgmuszoxDQ mdDsgdmVydGljYWwtYWxpZ2 48IVOldEhhOeDppDe1Q6YqT ra6PNVq yCrvJG4dwEHwMVtkXy9izOl tpLifXL5kSQZoxhmij489Qj Hcy4mdULLvaXFjIKvvXVY6H 86fz8W7 BEZlAZDmPOS0eCE0lO3eyHn nbjogbGVmdDsgdmVydGljYW ryYTfbZ973SIInnXxqQdNba GllbnQg YVwrWHu2X1KqDvbrnNN+PC9 2EWKmLR80iJXcfTGsq4xerH s3GhRsRFEaGOR0sLehUHfkb 3JkZXIt F94eoKPis1E9JBYbvEqngQJ zVbVsrRP8rX6nAQwhftixp6 qpvwvkYgfdi3fgxi61iA94O 29sIHdp ZHRoPSIzMCUiIHZhbGlnbj0 deC4mDm0+PWFrzFI1oFN7wM 2mIZCnZzG1TGyfK417ViCrm CIvPjxj k8cdt8gzmSb9VmT8AOFlbwC lsWlvIGF5u3CcCd75M81gQQ dpZHRoPSIyMCUiIHZhbGlnb b3fyY7b Ii8+ESMawRZ7mFL6mE2xToJ oBeV1UZwrH437KtQuaEDmZd tdU60mG2OuiFD+AAPxWqx3O CBzdHls XM5zkRHfRVulUj9rHFR9XnE aEyKoTVinW9PzELEyclmppk ynwAI8PPWkLEWuiQ80Ze4aw DogMTBw iQBCiM9opewkc0rknkrhAuY fWNAzYGv3VOz1PUHtjIneIg WnJQI9LwC4ZXN4eCHqcI4or Glnbjog gH4wO3MpZGQzveywZn93fO2 yBoNxQrA1KBvdEzg+V0hJVF XsLSEZZDjHLYCFNOq4V8OvP fo5MGRq jUmwZB1boVHwWSfsVm9pmFj uaNjgXR7pHVJdiuvrNPJikG 3cYRImsMCqfHbdUV6lVYHom uefs961 HtOgUQK3SKNfyVGhW8BcmD2 dQlUeCCYcPDQtB3FimSBeFV jsS277COzjEhX1VXBzyyJcZ 2FsLWFs sRkyMqS9m2I4Gc9qGF3tGZ1 cTZN6QX92CY50gBCwb9F1sI S2M2MnQNSbmhghwhlztIF0U DAuMDUw aO91oDXpTQqdHa1tp8J2s60 0ZKAvCOJxyT27An2zvQhoRW PdbUPKsZ4nvmrlu8kivdnmU zAwMDAw KFl9MGk5ZHZqfLooAhEvFGO 7OjQ5FFD3aVGaaZ2hfNhbpc pirK2dPtx+TwWkTUCpysT1H 3JyBwv7 WLThcEimOJ1xqDUcQUbwMd8 aqJhqdCzbBP1pVIExpuenRP EpfF2jIBCkfTGhbYntLT3kM TBpbjtm q285NmRhGBK3XUTzvLHsM5G ntH5dVyPbZLMcYIHgJ8KytW BuPVjyO762XUohEqG4UHLwr eLvZ8Qj GCJorZlhGoE7z6E2Cp8HBB7 IITQ6I4CvMpj8HKEelNbhBT 2pvYYhRDqzAd0kmCdnnDuvM H9hMBBl xgsgYDEhpV1yFIGyhHEjjYa pZR5bWROzqtmhq795HzRyPR I8ZSDtvNRsF0NefJ3kNhNqK DAwMDAw F6AzoYTgXAoiR869YYaaEzT 8WCBhroCxK1ZjZZQarLkdNc U8g3H2Si6IHBbxlHE+PC90c p78N2Nj SsrmTqu5KMZiACN0nQK2hN5 sEODxCFgqp8T3zIN8J1Tihn Svti7pw9hbSJRsBVqeY63iv CRsx0Z7 DVEweNR8UKWdpSoqUtCnmW4 3Oyc+QLFiiKbwg2UrUsqzy7 nps9iabHt6OlSlGWXoivIsj WduPSJ0 k3PhQb97M00oONeaAAAhOIR nMIBtMCEpwIqfaj4ghE7xEz 8+LLVctVN8zJO6nG0yAkZuW vL6OIqb I207EmYrgWJiEflsj4qhs6e kwKu6HxVnSGJiloCvfMvzJM Y0s1IuKr33G2IakRlul0MqG gr8dj29 eGXrx4S1jRG3H2XdEOPdoqc sbGEniNgbWK8jHWJvyaoqCQ JfjB1lKMKdN1q0ZmJaTvT3I YdtG9Tt ezC1VCUdhXRdYEFpcERBaF7 fohqys6agavlwMhKcSKUjYA z0KCv3UPQxoPgaZjEmCKT5M nD9LUB5 xSOfeQ5gaIhndfapxR3tVyo +VPs3t6bzkSNdZU1zhKM6AU 77BC69iSJob0C4gZZ7H0BbJ GRpbmct ctbtxEE2BFZcHBErjX58Iz2 goPnzWw3fFOJhGSL5PCIneF EvQ9FonI4gRzLxWRHsGKCbY 3RleHQt LVdmI639QBulRqX0KIWqttX mY3MqBHPzxYrqJvK4p3C2Gu 6GLF13PD71HF46lGIoz2J0g AN8S0Ty ZPAmlytgkezfpLK4ZUCcBHY frJ15Co2yvOiwSu6hDKCsMB G5TOHsmLNzV7QqrI8zUjIfH DAwMDAw F8LkbSWiVMbyG806UPxbYfL 3XDHkehHdX6XvTIJsfEnkYa V4q7P5Qy6OTd23PZ46FD07i DBbc3Q0 gDX7U4PyYBHagwgkalntyTL 8MJSwPIRwdY07Ry3ubEkuRn 8mISDcLIE5HEDwfKJgI0Vyj K1rMuZf OLRwCPNwH5LpwFWrFMlsF96 4AXteViM7NMJrofVsZ8QhRD GjlIkdZrO0t6X3Va8NLVadg mx3S3Kd PjwvdHI+XW11DXAsVL91mTK okYEly8yncQv0VtAcSJKcAV M7dElqKFoiz3XwHKKmC67tu HEth4N1 IGN (more content not included)... [facility] Coding Summaryon 11-03-2022 Coding Summary HTMLBase 64 FzskdvctYEd4hVt+PGhlYWQ +VV8VTNEfE17yoVGtnK3zU5 NMTElOSywgQVBQTElOSyIgb rDbPU4ruQZxRBTp IC8+YK2kMHSyPvpzjCEcz2K 4sNT3H10lzf8eKLseeVN1QE DgAhQzxotlk7dmzGw2FNisE mluOyBt EYPrrL77POJ6oI04Ra37qNK peHKqn9qvqBh6KjXxIQRbZS X1jWsyBMxgl6ApMXEyD73nc WYwd8F2 AVLkcWneuHVnLnFjtGB8wB5 zNKugiejjv4nllmjfKzh2dq 67bGVrm2T3wOQ1I6RwzeD1O GJvbGQg IswpxVKMfG2rsgjqx7teomx hKhSsRRXhQQk2DJl8ICFhjV ecXbTeOP93QVB3VWNpfvQbX 2FsLWFs uXdrJtV4r1Q5Hf9ON3CWZtw aE9CHYSJBZZbvuOS+PC90cj 79N4JfPzntRxw6AOCaBHS0x CO3zQ2t RAXuKOlfv0Q7vPO1Y2OjsmW tqu0nl2dkPLOlMDhiH45mmY Vot8N4KSCfjPC1NXGrfFnkX iBzaG93 Oyc+MRSuhAcrd8OkLahra7m yo7yklFp5YmiaYATkbsHapO wyAOK8t3IeYz9rXTQfdZR0d KN0qB5j TaAzZvN3QZlqP475IzRozMC hJlltE03rG9BppIF+PHRyPj n5EAEujDgkBT9bF2QcAZFdr mctbGVm kKjnIP6zKFWpscntDKUkvT9 bAPPtU1u5DaLbWiI8IPjlI6 QtURLeqomgNi00bS5jKnZcY uV8YMpi W1CvzpV0EIEzzSQvZQqiVAR 0S79rm2Q9JMPpXEXgHVM4gA G6bX2biPerdmhatQEjvFake mVydGlj XMfhLXlyB157MPWemUnrRuQ vZGluZyBEYXRlOiAgMDgvMD MvMjAyMzwvdGQ+MBDvLGS4m WxlPSAn oOKmXPxxCr2kvBrbtLlpXQ5 uQAIsgxbjZEYckF7yMSWhxJ TyvBfdKP8kVDKxvhquq645J iAxMHB0 TBUjtQXwV7KzsM2zHdRbWCV bBCHqY8UzbFDgZAcqN852HI arMnT9IQCcaiJiD6InLKMrv WduOiB0 c7E2Wa5Fv1XdvbrbT0FnpNO kSgKyNxtbKZq5U3QcIiqjaC I+EG30TORtZM77HLi9ZUS4d WxlPSdi ENWeE2ObnR5jMvSlAYLyNBM kOyc+PHRhYmxlIHdpZHRoPS pnURZlTwRqaAzrQA4hQm7qZ GVyLWNv zIxlrTEwTzMut2wcLOXkPMt iKA6jkZufD1VycSN3OMGbf6 e8Xo67G38sB6IkmKU+PGNvb HW5tTX6 hA6zQbTyZiY8PJsvJ045QjW oaQHvOoufy5aeg2tcuNg1Ph P1TFPrkyIyuNrfXSU7f5LtP z46N54h IHdpZHRoPSIxNSUiIHZhbGl uul1cxZ2mAx4+VWMywXU6tN X0qE7hPtLxEuR0EMhcI942V nRvcCIv Dceqt2gcm5rigZy7HvLxGVZ efnWiiHerQDB0a0QuSk85Q0 QvcWzig6GwMws9kd90mAZpo 5X5iFI1 G7MdKPRnzetycZBskLbwOM9 rMGThnxpbIURzeX0mEEDcC5 n4DrLxXoU8EKseB0AsrhF0H GJvbGQg MNNzfRLAcL2mvbgig6bnngm dZpSoIHFxPBw2GDa8YBWxxY soYlGpZEJ1XcA6OZY9zBSac B5umKiy dxblnK7dRmz+YVG3tYQyqNS TWK9rXnlcjDR+XQLjNGJ8wJ woZOohJBEjpR2hDVQuT0m1G iAwLjA1 PIueR8QehgL5LVPeeATsEDG rxNDJaO5tusivp5hkyzchAu LeSLRjOKy8NKu0QHTjkGfwE iBsZWZ0 PxD6SGZ6rVTymC8rmSpdcek ysU7gAbt+NkbtkDicMLO0QG m2H0WvJgo9OEHppDmpVB5nn GFkZGlu Lc5oqXqgmZacLZ5aPSYvybx ex574BfXfu2bvQEXxzPLpHE qyRGR0E58pb6A8FXLaYREyT VN1dDN3 tW1diHwqnwxrzBYayYzqpvU ztGpsRBreWGedJ258LKBvdS moEnGuFMl2P7CqEiy8LOEmq NbbRC7w mRXgIHwiEe7qdXcywVffKM0 oTWRsxylxo007GhZwr0bjBR NlgDKeIVvvAZU7I73zr2N9D CMwMDAw AAJ3bQU6nX4saPxjowlnfSM mdDsgdmVydGljYWwtYWxpZ2 33UURosFwbKfBvuLd0M4KfL nn1PCCw sWxfSB3paENtIVgxSr2mhFl idTpvKL9gWLGhityko889Kl Fye6rvMRCogRKoCQafQHL2I 53ro5J5 KHQvLNYsONR0zCG5zN2rdYv nbjogbGVmdDsgdmVydGljYW vbMQvsL206FIRazOgeIvBef GllbnQg LDhyQRc2U3NlVglqjJX+PC9 0XKTjYK13xYBsoTNyl0fezU g2OtDeGNXmXSL6tStcOKcgv 3JkZXIt S65isYNfa1E8WWXapJmgkEU oJpPwzQF9yB6sSUteauvbj4 djclnnDrqoc4wpjq01zQ03T 29sIHdp ZHRoPSIzMCUiIHZhbGlnbj0 mvK7uCf2+IYWydMK2vVI2fU 4lHDBzXwU1FIagD968QzOln CIvPjxj o0fbf3vzoIx7ZsU5FEGgpsE klFreFCK4c4YpLu47G46uTC dpZHRoPSIyMCUiIHZhbGlnb o2wrQ3u Ii8+SZAryIZ4iFC7cZ0lLsY gBnZ7LBvpG939KvYzuJIvRe gjG01lF2NgyON+GCPqHhb5T CBzdHls MO0wnJWwDQlbRw5bOCE3NwT gQsRsOKdbM2KeDETxadrkjl yhoGA9PNBmUNQknV44Io9eh DogMTBw uARUjE2oiokpr9yggzqmTxH iLNCmMOl0AMw5RFVvvFmcFt VgZJS4YnQ3MOE7tZNkpD4vj Glnbjog pP7xP1WsXSYnbdlvYk17zM5 hFdUgNhT5UDxuWzy+V0hJVF NkGURGIWtJUSMKLOe6O3WvQ hs6VEXm fMyyBN5hfVXqJFcjIu1elCh ioVpzGH1jAHBiwkjuNLZilF 0zBLSfiAOafDkkIH7rPRXhb wgbk417 XaPuFBR3KEUegWHiC3JhoA5 yUyZbHGCbPCSbM0HleNEtQL pvI346QJthOuK1AVWrbiGbY 2FsLWFs pBemRdS5g8W3Rw6pJP1bON5 kKXO8PS94BI69pUYzn3C7dQ N6O0XfVPWxakfngxqtzMU1M DAuMDUw oQ87yBEwAXueEn7kk4Q1g20 3MDEgCDEtwU70Bs7eoTamVR DjsJTEiV0kmbbjg0ikkszcZ zAwMDAw IRd6SHe5RIBxvJuzJtUuULQ 7LbZ3MXW2zEWrgZ2lzDqjdj wvzP6aHko+UgFnORXazmV4Z 6GcQfy9 BYJksYfaHO6rsYOiJOigAj2 bhUkofNkxBA7aEZStpmpfMT XfnX6cSZTrdGYamPdeSY2qF TBpbjtm k629TtGaBMS3PIUmuUClV9M qoJ2cLxGzCRDfQEWhY5NkhZ VmJWetD423GCazKfK9XWDcw xGnH0Po HKDtkMnpMaP3v5H8Ku8EDE9 TVAT2K8EfZqg0GYUyhUpvNX 2edYQiORhsQq9htWjryVioE K6lBQEt yhitEHCviB9xFFBdvNXgrUx hXF4bKPOoglufs524CmCcOM P5ZOGdwFPzY8QjoO1pCsSkQ DAwMDAw F0KpjBPzHMeyS205PQvkHqX 5FCVatkHyV3XlALWieYpsEm E1p5F2Rx0AAZmxdNG+PC90c m68Q7Th ArrtJfu5GVOwQTQ7aLO5oP0 zHQFuCDtjr9Z8aDD8C7Lysl Hmwy1ln5mjLQAkKUmnZ26yr JToj2C2 CDXesSI1BOUpuTukYlHwcK7 3Oyc+GRIugVrez3FySkzli6 jmx4svwEj7RsKuPCPoqmTvx WduPSJ0 l1NxFt92R03vHDxaZWUgCMR sSGSzKAMahEglri7wbV6gWo 8+YVZmfTX6dAN9hN1sLyGaO dA9AUiy R735AhPinKXcHefbf9evq2l nqYj7BrIeABCvthWetYtxDG N8z0KeAp29A9QpeCqge0JbG ot2jx38 nYEed6D7kOF9T5QuIEMhnoz kcBDruWxwZC2jWLYppwtjCD YsgY3zEFGrV5b4TzHtEhZ1K SehU6Vz ekW6XLXxaYLsPBDfhQHYdA8 xhqwnk1rjqzttKdFkNOUvUT x8EOr6EMXrwBahQhKfGFI4A zR6RII6 dBFgoP3ykOxdigznsB3aNps +RVa6g0zjzAIxGN6bxAQ5TH 81KM03xFTfj0L5vVR9C7OzY GRpbmct matloIF3ZCXoAOTpuQ39Fd1 ijLibWj4tQCBtMIK2RVIlcX CxA1OwbL7gBhEgRHQjKVJhV 3RleHQt XOtoU486PFeaHcD3IAHqdyO lS4EcLEDqrFmsZmV4p8T7Vj 0VOL64MV13YX10iNHtq0Q8l HZ8P8Tv KLBrljsaxitfpNU9JOFpGRP gaR22Sy5mtFvjAf8cRBNjOH V8LZKqhFYgC2UpzP1aOlRvN DAwMDAw G5XusPHkOByxT571URazIjJ 0XJVbvnQhU7KrDJPkrOolUx C3t0W9Rx0AWd21VO61NE60d NZge1V8 bIB4C1TaGXQqecvzehufhGZ 1EPJyTYNdfV90Qn2fuNgbSo 7lCAObAAF3VSHzlSSkQ5Jlf E5sTuKm UEYzMWPaQ0VwqXFqOMtcH12 8PGmcVzJ5OJNukaVlX7WaTG QmnVcjIgQ9b8V2In2SCBozo uc7J1Qy PjwvdHI+FN47CIEaIJ45mOB phTHtt2rxeXg8MjJpCCVtFN S2pVwpPQasz2YwEJVeP06br KYhx4C6 IGN (more content not included)... [facility] Coding Summaryon 11-02-2022 Coding Summary HTMLBase 64 XegfngliIYm6gWl+PGhlYWQ +MP7RMBEpU18oxWHudJ8sO1 NMTElOSywgQVBQTElOSyIgb vLjDK6tyVXhAOEu IC8+ZX1rLSGuEhpatENvq1H 0rJM0J61fpl7jDDvlrZS9LY LnSiNamqzmq7lilKq1YGxwT mluOyBt BXYbiK91ZQG1nS46Gs02cKT rnFInm5cjjQe3JhUhNLYvYR T3vAxnDKdxg8JqGUIdH62xb MVmr3L5 EYOdxJdgzWDdPrYdyOH7sH8 kVRctmpjnk7hzgvjgNpw2ee 17tLPzc7A3xFG5V8NcieC4U GJvbGQg TkcynNJYvO0ghkkqq4qexmc iMbTcAHSgKIx6YSk5OGSvvL utWqBxJG91HHH6BYGeooVuN 2FsLWFs rDcxJbS3r0G9Ap5OR5SBAbt pU5BZUNXAMYxepDM+PC90cj 37X2VvSqduKvc2ZAGvPFU8b CF4qY3b SUYsWYvrr2Z3aUJ6H6DeabD bsf2ax3tlCRNrCYusM83opI Daa9E2CNWhaCR5EFZleUyjE iBzaG93 Oyc+ZGSpqDzfh7DsUidvb5v in7uedQk4TmvxHAPeydWvjE mwKIZ4l7GkJw7eUPUrwKN7o YW1yS7x NcSjHiU9FCigU359OsAwsHB wFwxqE53eC4NofXY+PHRyPj o1FWAslDnoOR9gD5AcPKIzm mctbGVm lIqiUJ2bOPBimlpdQBMdmQ1 vUPBcP3y7GwViDaP7VCpnB8 FkPJLbmnjyHy31vE5vHhCaV dV1BXli D5QqbaJ6GKOjqWPaAHheOSO 6T44ni8B4QECwVTPxCAS4wF S2hK4haWjoocygoISedUjev mVydGlj VFegWHlgG650RKTaeFtpIsG vZGluZyBEYXRlOiAgMDgvMD IvMjAyMzwvdGQ+NVMoOTG1o WxlPSAn rZHnJFttMl9kyGrgwTsyJT3 bEMYhruawADHedO4cTVZuqO XqjWeiKZ6aQGKbfcbgx470S iAxMHB0 LYBclMPaX4SuaI1mGkAnTOT oTUWeG9GinLDhVXiqY080OH qjWlV6RRSrotCmI0ZtONCzy WduOiB0 n8O1Xm8Rb1MtpbtbK5DtvLR xShZrRfvpDQe1K8PpEidhlP I+ZU16XYKrVB26CDj6PIA3l WxlPSdi YTAcE7FjyG5oWdWeOYSiPKQ kOyc+PHRhYmxlIHdpZHRoPS gkXBDrRiAzqXjxUB7xTe1mX GVyLWNv bCdrfTMlPkFiy0mkOIHzHMd iWA0kuQinQ5KllSD4YZPaz3 t2Fn67X32dQ1IxgBO+PGNvb VG6uDE8 nU1iKwDnIvD8YQmxV536GhQ jhCUyEkzji4aku2ylbBh4Au D1BFAhljWyoYclCXW4m3NcK p47T87p IHdpZHRoPSIxNSUiIHZhbGl mhb7grI6jEs9+GSOzgCA6hQ J4eN5xLzAvQcM3GZjvM735L nRvcCIv Spqsn2uhs4nbuWu8RpSgTDJ xswQwxDlkZPD9g9VoYk22O9 ZqvDtnx1DpXkv9bc56uGFak 2J6jVM3 X5BfGFJfstpofGKwfJcqGT6 hQHAmkdsnASFcuK4wDFPzX9 d3SyGwPdF6WWkaA3YlmfW2Q GJvbGQg YTNueITEkH9uswehz2tjsag zAkAnVKLlUPc8AXd7XXGahT fzGzQoSBY3AiP0HYU8nUXuq H5shJlq pbwftY1xYlc+QFV2aLHhxQV DJE1lYvqopDX+ZHShHHH3mT sgMFiqENMyoI9cYSQzX7a9G iAwLjA1 MVmpM5JptdA8FSOjcINqOCA vuRJElV9vbrraa0xakiyjMl QfLGIaIHf4DJu5TNBbzArsE iBsZWZ0 DdR1XAR2tZYepS0tpDcvcuo fbG5uWis+OczltJbaXYF1BB g1A0YjWeg1EMIkkPzmQO0kk GFkZGlu Cp3avYtdaKygAA2oWRLjwwo yn159PrTkq1nkHQUaeCQgOZ fjLVX8C23ik5X0WCRjOSOyD BQ1cOK3 dB6kjMletmfzmONhjMcxjzQ tjNmnJSgqWVewC527CEWchN zePjPpGWc8V8LiPwm2BMGqw HzgZC4z vELuCFitEl6ygAdidLucIB0 aAYDcugogt912DuFep4uqXA DcwZNePZizQSG5D94cn0V6O CMwMDAw DUB2aCU5tE6daVkzsqviqXP mdDsgdmVydGljYWwtYWxpZ2 02YNZgbVkrCyYeoDq5H4BuN vu0FWAm tZrgMV0lySTsKWchIq5mhFu cmHgqJV6vVONxhqxab769Ne Oqn3beEUHheGYbFBxuUID3M 12ro7B2 MXYwKLPpTSX2zXP2dJ0tuIi nbjogbGVmdDsgdmVydGljYW cvZAmeE108ZGAnyScqZuZec GllbnQg BNleVPr0P7NxOtauiOR+PC9 5BHJgME14yDDqhUXfj2jweT t7GrUmPEAfQQM5nRrcFAjfx 3JkZXIt Y27hcCAqe4B7GDRspBwivLN fWpJnvIB7nO9bEOjzgepnu7 tmsamcDhdrz8imfv45gR33L 29sIHdp ZHRoPSIzMCUiIHZhbGlnbj0 kgD8aQv7+JMDlrMI4aGH5uU 2dFAKiVrC7CNixA312UkLpy CIvPjxj q6aha8ekbRc8ThP3ZWLpufG xrFscKSA1f2FkCw15W41rKX dpZHRoPSIyMCUiIHZhbGlnb q4dyQ4j Ii8+VMZquDG9bQK5oA2hHiV rVfL5IUisY159FiTqbPTmFi gmL78xY7YsvXM+UBMmTgg0J CBzdHls IB8tmHVsWZvzNt0oGPH1JbP qWiJmNGvmD5KvRZLsaczirr nphZD1BXKsCTHooR88Gq9uz DogMTBw nLDOkA8ddpcjp2ffgiwdGtA fVAUcZIy2LDj9CKAqzXzgKn ZmPDP6BkJ7HVO9sWDfjO6fa Glnbjog nP7tT3XvMDKogphzOm86nI7 eGzQhLnH3EPgdQfm+V0hJVF SkHMLOIYtJOHBDQCb8H2HtQ tu5MHSy kUdsIP3ztQTvQRikNc5ddEe xyLzbES8cNVMkwwahCBTarE 7wWGUxdGIvmZcwVI5wPJCap mnem240 AkEdRCM0TEHvxYCsV6SlbX6 jNzVfDYJuDYOyW1NibKJdSF wiM633LFmiPcE2SJNgeyZhQ 2FsLWFs vAseEhM1s7Q0Fy5lAW2jIT0 zWGC4QZ82FA21hRJer8L7kR V8A0FqHOXdflbioqwmsAQ2H DAuMDUw zS73wRMvEVzxWd7al1Y0r30 8HSQdVJUneH06Fz8nnPjcBN LcoKXZiD0aaxajg7vnpecbK zAwMDAw GXh9YIh8WOAuyLuxWwAzUHQ 2ZrD3FCS1dPLysD0ioTaeru zcjH7nFig+UjTiPHRugaP2O 2EeMgo0 ZCOjpTpkJA5czFPeRSgtFj1 alWdcgPgmUY7oRQDhyxrmBW UymE7mVSYrhQZisOoiHG5nR TBpbjtm n091UnGkYCH3SKQctWAvY8T eiA1aGlScLKZrCIMmE4HutB NbWSeqE512SQrrSeQ7IEOsi gTbZ8Ev KBYuaPlrZmF5r1G9Ms2ENH8 JVTP4D4EcEis9DGTyvNibQD 3fyALqTUpuJm5rcPdolLuyA O8jEDXx njoeYXRbbT3oWKQqzOGgbZs pMO9bKQYblddvv038LbTzAQ X1IYRxaASpG1FyeU1vNrNeM DAwMDAw C7RmlHAgPYhsI689JZdtKpL 7KJChpmKzV5TlZBDcoQbfXf X0s0F0Vp3WCBbpeXK+PC90c y21U2Si ZillZmc8RDVwQXU5fJR4rA8 tRBIrTBygi8L8lWG8K4Kypf Xlgp1bv3vdDFAgXMdrL28dn SWaf1D7 OQPgiNU9GRVyjPisUwWcmR9 3Oyc+SENkcIdim3FlAfppl4 uhu5gkuTx0XcAtZJEgbmUwb WduPSJ0 e9WpRj03S81cIAlzKTRrXSQ bNNSgJIFtmOasmp7xgA1pYz 8+KPHbmMW9tLF6zL0rNaUyS yJ6XNvu T842NcItsSSyHuppm2byo9j ywHt3NzOdXYMzmeGbvQqzEO H2b6FjQj27M6ViyIomw2JqR ez1nj55 hBEiv1S1aOW6F3RuHAJsofg ceOXyeYuxEX9bAQJrwyxwSN KicL0fUXOmD9n9GzScMhV3Y JrcL3Ov vtV4KKJmwNDnYPVrmROWpP1 ulgzzt2rzbugxJmYrORKzUQ j0XGy2HGNjxEcqMlAsUSC3N xY4UCZ4 jEPejB3shNpatnxsbG2tLfc +EQg1x0qwvQIyOE6akQS4GT 70ST83vAOfl7T0qZQ4Y9VwN GRpbmct bsrfkUV5VGUdWSJmgK17Bh7 rmJxbLh1sRGSwGCV9NUVwiU DbP2HniS4jKgPgXBFmPJNsU 3RleHQt ZTovX608QPraYdH3ZKQnieE zN5GnUVZthUyeUaR7l6P1Co 7KON79EQ60VN49fHOmd6C4a MS7A1Tw TUIwukbefwaqoQE0SHUdEYL roF65Hh1nlUqrYe9gXHFqGK S9THIudPGyD1IgyZ5lQwYmY DAwMDAw P5PndANgTHacI797GYvoNuE 8BOXzpmFiQ1DdUQExwTyzOa S3e3L5Dl4QHq93FI89AU51x JHsm1T5 fEH2H3VfUSIehzrafsajfMO 5LWBhCPIiaW51Pb4hfEmsHp 1cGLVlDWU5UDCxfUByR2Tnz F5hOuJw XCZnOWMmD0VjpMNsCXimB24 4RKluBqS3RHGidyZgY0RhVM RbdGgnPmO7w9X7Yj5AQRrgz jw4D5Gh PjwvdHI+LC00MSWdDS26eBU qdQHnm8sbfUv9KfNqFEZgZY V9kGfeCHvfu0SqNEYaR17qs ZCal5T0 IGN (more content not included)... [facility] Coding Summary HTMLBase 64 BkuxgcdcCBu5jYr+PGhlYWQ +FK8ZFEWkI49tkSUdeA6xN6 NMTElOSywgQVBQTElOSyIgb wVnQE1wiHRsJOAh IC8+EW3iSHGbWxlpaSAuv8T 0qRG3O83daj6yNKtpkRU6XO MpRuVnwkspd1meoMk5YYptM mluOyBt QRXvxP54GMA2xK67Ux69iEX pqRQgp0ljkMz5AxKbJPPuGS K3lGddPQzfd9ZhGVKqB80qb STwx6L5 AMWerOzvqJGmOyPleHC0rX2 mFDwddcuic8vfpbxcPkz7pu 05jUEjg7P5qWV2A8StnoU0P GJvbGQg TsymcMIVtB6zpfnxf0xwqap uBdWmUWNeDUj7IYu3EHNpeR mcBkXtFP62DMX5DOFamfNuT 2FsLWFs pGcaQbI5a2B3Ja2NI5BJPuc pJ8HPFLEPQCpubEF+PC90cj 31D3FyOsxfOhe8SKIpOPB6b YW0yA6d SCVmLKcfs4I6pMN8G0NnpxY qij9eh2uhANIgSHzrI59hxF Liz2F0PAOqsQF7WFBceLygK iBzaG93 Oyc+ZAWimJzzu4XiKuqfu8g cp9kwfZl3VufrNAUjppVwyA clNWO7s6HlHa6lUQFskFV0h KS5sK3j TwWyKxJ3PXdiB610ZyVdwUX qBigdT74mZ3ZdiIX+PHRyPj b2DBWvoSubTO7tW5OsYZHij mctbGVm bKbvNN5iZGZpfqtkTMBwpC7 iEIZoA3t4WnQmWzZ9IHcuI0 YjLHGalyohVw76zW8kAeTsB vX8XRad U5YgfbT5ISSrlPDeTXvqIWV 2X66xi7Z1URJxPUSuQGK0iB L6kU5arTquqywaiDFwlHyya mVydGlj ZLddZSutG596JUYcbAhpTuM vZGluZyBEYXRlOiAgMDgvMD IvMjAyMzwvdGQ+MJKbFCA1q WxlPSAn wKYqJNkcNr2aaLmdbOizCF2 oFDAgiqnxQMIluZ7aWSXyjV MyqUntLS7gTLCziiwcj382E iAxMHB0 WGZylFYpR0YmmB6lAxUuMMU mZFBtN3KysBHhCWzvZ864OV zkCoC3QMTqmtUaR7CnQVWwa WduOiB0 k8S9Zi5Nn9IzlpwwD5DtwBK iLaBkBhcbSMq9D7ReExxpcZ I+LH58AFRkZT83UUi2SCQ6z WxlPSdi ZDVlS4JpiN3eCaCmGHBgGXZ kOyc+PHRhYmxlIHdpZHRoPS flSVJfNyMrnNaeXA3wTk0wC GVyLWNv rFujkOGqOaWup6wxVEClMNz eHG6dkPdrI1LtlNR1EPLdp8 j3Yj27C14dF7YxqZG+PGNvb QC0pQE3 yM9fYrJbNdZ3YGrdY837QsW cvPYkJjejd7bbl5ekcOs0Ob Q8PYRmckEybRlgCNY5a3WkX v15L67k IHdpZHRoPSIxNSUiIHZhbGl hxm9ibQ3iId6+TCPikUR2dF H5uA7mCdNaYkB4QHokC010H nRvcCIv Akpvo5mhh0niuFf1BbUhZOA zfbPdyRupQLO1t1MxDk19N0 SjpHxyp1DpGqw6cn83aHGov 4G5lJY2 O2VuENZyxfcdsWWlvHsrGF5 bGKHitezvCFSrkU5lXACpP9 g4ZxAxJhZ9JYndG8DmfkJ5I GJvbGQg TVWuxPXAkX5qbjbte5mobrs wTwNpHZHzCBd1SRg8KHWddW xkCcFsPPJ4EiE8OKD0jFKdx R8uhIyo wjfstW8zEwe+REY4uBPzcAF ECJ6jKwtfxKL+KFBaYCI6qS aiUKqfRCXsbK2dSJUyS3c3B iAwLjA1 WBjfP6UrurU4TLWyjHSuUCE njPNZbQ8ewfnim6gswukjMr HlDJReQIf8FAz2HTNbqKtgT iBsZWZ0 MxN3OCQ0cASjlY6pzBywura ysT3hDde+HlunpVmrYTB0NZ i0L2YfWob1BZWlgNsoFJ6fq GFkZGlu Ff6nxDoyrKxkSW1gDKQrfeb vo807RwNwc7wsVQWpiTHhZH vyDIN6C57wp8E4HNGfDZCtM UC5gOG5 zC1fzWstrcmweATfjZtmtiU bdHtmDWsbNWpiN099BZRjoQ jfOrLnERo8V9FrCgc8AJGjx VpdVL8k nXZnOOnaUl4phZooeCuuRL0 cHFYpgeghh479VzZie8byPB RqiNLdMXubSSO6X02et1X4A CMwMDAw WVA0hYQ2kQ3maIlpxtwrtUH mdDsgdmVydGljYWwtYWxpZ2 84VQHjfBguCpCdeXx1I0TsX zd9STDi yZooCT2wdWRnPJqfMj2fvGs pvDfgVW7wVQXkknver040Np Wnn4alSKNxjNSdXNxiFQO7A 24es3F1 LLDdUWUwVSN4mZI3sS3psIl nbjogbGVmdDsgdmVydGljYW wrGLjrL225ZJLqpKjtGmHrq GllbnQg KDwzWLw2F0KoDrghbVX+PC9 6GEYjUR79jIWswHBcs2dlcL p6XiXyZCFvYCG9wWpzZCype 3JkZXIt J89tiMGzp0F0HGCxuZvrvBD xVcTwiUI0aZ6uBPfulsgcd8 hmiaxxVmact9hchd86zQ12T 29sIHdp ZHRoPSIzMCUiIHZhbGlnbj0 ltI3tLg1+SSTyfAL1sAO5oV 9uSNKySrF3IMsuB138OyMhe CIvPjxj f7qyl4emzGh8GfW0UJGtpdF nbLmeRMA4a8PgKw21G96kRK dpZHRoPSIyMCUiIHZhbGlnb d5xkH9b Ii8+FYSasBY7yFI2gW3gNgX sHhM7DUmzV221KcQpuBBgAm evN42kD4RtuOF+VDBpEar0G CBzdHls DU1auKMpEDbmYa8aZCS2XqC sRkIeYPzvL2ZgYBWgyezrwg rxiKV2XBZrLASygE75Nt1xp DogMTBw hZLAbR1ieukup4qdelacIgI rIQEnXHw5GId8ZWAoxUczRn DxMXD9FsG3KFR2qGHqdO7ag Glnbjog yU6kV5CaAXYafaqsUv72kC5 yGtZwMxT5QXmsMtm+V0hJVF GtAPNKVZnSBJEKZVu2L6OkY dz4JPVo gNxeKI7gqIQgRPjjAl9toGw gyBzhON9dZLToeyceVPQrdF 0cTAAbnJDdzLscIB8fLEYhi lzuv344 WpOjNNI1EXLnuDTnX8DwbN6 tErBwORMfTCVtU3SxjYUfYC clH217VUabAxS2EQWptoKvW 2FsLWFs eUoeOfM9i6Q1Eo0yBI4jUD2 gWML1OF48HN96jNAll1N7pX M4W0MgBFDxksrcigqkeTL1H DAuMDUw fS99xOShUBuxQu5tm7P3m63 3GWAgYZIgfZ03Od6ciGsjYD GveYJCaX0vfxrwq4ddppfcT zAwMDAw WAz8SVb9CLFujAroHuGxJDW 9BwS7ZIL2uWVidY2vfNblgy ugtB4lEfj+FhYrGQEgugO9S 1YcKxo6 JGZuiNbjEU0qwAElMAruQz0 tkCluvUyqGD1vWCMounqyNG NaiC0gKYHstDSorZrjHX8gR TBpbjtm o914JvRaTRD9JSDzpFHbL6R agL6cTfMkCUNvEFFoD5UdaP ItRDnrW695GDezHkJ2VRUte oAaI2Jp JPWwjKpfPtO5a4I7Dg0AHJ2 OXZB4K2WlUdo7HKTrhRiwVI 4wnKLwPZqeDz3vzRxtdAbuM R8xIUFb kpxrBJZyoU4zWOKyzUSorRy rCC3oHLXarkbmu345ObAmBG L1XDRctBCpZ9PmdR1wAuMaB DAwMDAw E3VsmEUeUYbxF845HIjeQdZ 8PPOmqmAzQ5JiODPbmWwiJb B2e6J3Wc9WHUdcY4GeH1Qit TwvdGQ+ GP22gs86Y5SmAjbmCro9YLU mIMB3xOM5iO0sYNCoFLkgp1 F0yVR5S6IhpjVsdu4ru6zkA XBzZTog N98waSWrn9Q7GYEimSU0ZTA edYalCcOceG89Khs+PGNvbG lnw7GcBebne5qbe8lafXp1X jMwJSIg ovUxcOjsEKU8a2XxEb66J67 sIHdpZHRoPSIzMCUiIHZhbG gssu0mcL2fFa3+UIWcpEU3a II6zC4n OtMfDoH0SJteW839PoNrsGA aGznbj2hvx4dnkKj5CzMvXT ZxnvTfmVsbREB9j6IgOl51P 2NvbGdy z2OnPko1rh42kSWvc7T1qNT 4R5QhLQAytgwvsEAziEyxNT 1oRQDixyktSDEqcF5cFHTaH 4u0GlDb ZyN7HQtyS7PpefI7ZOVxvZY cEEPraPNSqD6dijgmm4ador xbNgLsWUIpIOu7CKq5OHJpp WduOiBs ZRH2OaF5JBO0yIYxnV9ntOp zwqhpzJ7aNhh+JYo3z1lwwP ElKI6ncGN1RR37BX65zOLnu 1S7pDI0 D4IuCGWggabushncrBJ5HVA tBPTezU71Xh7xcObiQp5uYX CgSHM4TWVzyTTyB8LngR3gT iAjMDAw LPCrQ2OzeWLdUSlcE557HGv hEtE8DTQpviGwK9PwZBUcfD uzPyC9k5X8Rz1UOM87ZV17Z E90rPYy f0I4aNJ1J5LsWNPggnpbmlx kmYY1NGCnVVVlfG52We1yvP fhFw6pTZWhKCO5URExyMBkV 4QntQ2e UqHhHQIhJVBiH1QnnVKyNWq eM869PPxwDeD3AIEajmLwH6 RaMWJvaQrgRzY5v9F9Xs9ID r29NG89 LS58hYRkv8C5sNA3L3PlZTL ilwtnaxtuqBU2FHKjOJZyhV 34Pt5leItyQl0cEKRqJOE5P FRpbWVz V7DpkC4rNfCiKJVrPMRvW2S ieGVlJGzvH493IUyuKvV5OQ IdsoQvZ8FhQDGrfDjcZsD8k 2P1Td5T XNxcljf7S4ZoRqpseBN+PC9 7JDMxWU06lSUkjUPlz8vjsN y6OlZkLNZfILJ9jCavNDkys 3JkZXIt Y29 (more content not included)... [facility] Consent Formson 10-31-2022 Consent Forms [id number] [facility] Coding Summaryon 10-28-2022 Coding Summary HTMLBase 64 FmcyfeigXBq9kIq+PGhlYWQ +LV3SOOOeY42okFPtiO0wV8 NMTElOSywgQVBQTElOSyIgb qMvOW8xfALpUGXm IC8+XT4vGRFnKkjrvFSiw1Z 6vWY4Z77qjd6vGCpnnFW0IE NdNiEoizliz2rhoIb6VMrxZ mluOyBt WURvjI76FCV9wW94Is76pUT nzMJks0lxiKj9YlMnOKGbTR A4kHidJKybh7WgNXOsG27zg VSye8S0 IDDsgTqazYUbKtFveYT0xA8 eSWhejapoq6rzepxzXot1pf 55xUCkq3F7oEV0D3YvxnD3T GJvbGQg EtismGJVuJ3qturxh3wxygx nTqEoJKUzZSp5CPs4SBToqM dxLrIeOY74QKK3CTHnsfAvW 2FsLWFs jEqePrP5f6C2Je0PY0BCXch gB8KQKTMDXSdtsZR+PC90cj 16H1EnQwydCgn3KRLnJJG3g BW5vI4b LCWjLYxrn8D6zIE0P4FmmdO agp5rt7pxBBOyXHgbI94sfX Zyy3G6ACYwgFJ5WWIukBuyQ iBzaG93 Oyc+DSZqzTurh7KxCymdz2s ii3lrxJu6JpmdJTFtcsNieG ijBWT4d1ZcCs3tMZOnlNQ2a QJ5jA5j FjErApF6XQmeR064KbOuzTX kAqaeL97wU4OxaGJ+PHRyPj o5IPFjdOgiYW1yB9NoNQMqy mctbGVm kRgoJK4dHFEvgnsdUXQwuQ4 cZDMpU3h3TxMpRcZ2DHirH5 HuRILjklxsDb46fZ0lVzBjG wM5JYow Y5JucmJ9DPVcuJYpEZxvXMI 0U09ua0H3JVHmNLEvRTC1iN P8mB0twAsapfcgmLCatGgsu mVydGlj LKbrLUcmC315PSYqjStuLhY vZGluZyBEYXRlOiAgMDcvMj gvMjAyMzwvdGQ+VFFuSUZ0z WxlPSAn pNJjMVtzAr0ruAxzyLhdSL0 oVMCenhnwCXXbdH5zAIXtwC ZdvTboNJ3wOMWagsulh236J iAxMHB0 WPKecTHtU7AxqJ6wQfQsRQQ tRFQoE9WokYMrCSsxP073EF qtZdX3DBTliuVmB0KsGIErs WduOiB0 b4K8We0Co9BhlnvgN5UgoQC sCbZiFkshWHk9P1ImHpqnqL I+AL60ESFtNA36BSd6DRS5y WxlPSdi EUFaQ0HpqO6dZyCgWEPeNUZ kOyc+PHRhYmxlIHdpZHRoPS bsUAErXzQuwIyoYP9jIp5eB GVyLWNv uArdrSGvTeDko3wxDPTtRKq sNJ9pdLyqB8PyzQW8GINbt2 a3Rj14T00vJ5SorFK+PGNvb YQ9jXA2 cH0lBsKkGrL7XUnoY825WyU siQGsZvjhh3mye7vgmLf9Oa K4FFJvsjEqeAxwMJG8g0OiS l36P76v IHdpZHRoPSIxNSUiIHZhbGl mkc4xeT8zAi3+XUWiaCC9nW Y7dY9tHtHiVzR2UPtwY839R nRvcCIv Yyfmn0jap2dweTs0SjPwVDL kfpOpkLcxOAT4b2ZvJh64Q0 ZhnUzdm0UkOcq8sl13rLEof 9D8iKJ7 G3VlJGXgdxagwKEkbCwaIT5 lKZZocnbsJLQslB8qRCKnL7 q7FdGsFhQ2WMryI1VzijX3W GJvbGQg HLApdLSEdQ5byziiv1tjucw nOvSwTVUpJPr7HWe7GFWebT zpIhXlUHR2LbI5FMW9zTFst B0hcYyt wqszfZ0tYqe+COH8fKCpjXJ WTT8cAbmujLC+TCZzYUY6uY cnJHfvWEVceW1uWOVdG8p4R iAwLjA1 PHesK1WuteN2ISRncXKbAIL lhRFDwU0mdkrzn5qmaqygJj FiQIWhDPn4GSx3ZZPstCcdL iBsZWZ0 MkI9UUP4zAPzdX2jfToppqh nuG6jJph+NuovuBdvBSW7NZ q9N9IjCni9PAOnuCryVR0vd GFkZGlu Oy7rgAabgEjiOR2xHFSxiis kj314VpUxw6rwYHSdfHVpBI diEYC5Z89rh7Z5HBYqSREnV FN4uYQ8 wV2vqLcyjenfwQThvVydgbR cgFuiXXpsFNkyS441XIMckZ tfVuQsRIi2X9LaIog7EMYjx LedFC2y hFTrOOoaHg4ykGbneBbmTB2 dFTLxabulm592AgMdz8kxIY AjeTLnRVisPVU9A32nl6W3S CMwMDAw FOI5tVC6aS2zlMymjerqfJS mdDsgdmVydGljYWwtYWxpZ2 36XVIvcTtxVoSxuPu8W4IqR is9LQBy oHqxIC3qvEQhBBlxIv6deUs ouKjtZA8lSJNvyqjhi314Rq Net0hrYUChtMPiKHjsWFJ5G 45nw8A8 FBKrAUAjSAE9wEM5hI4kqXi nbjogbGVmdDsgdmVydGljYW goCKlxY416MPPqdTcdNyCuy GllbnQg IRopIOs0V7GfQmfqwUF+PC9 9JYQzZN69vAQpxANbb2oskW e3SrDmIQDlLFT2lQtdCAgak 3JkZXIt Z25shSCtr1S7FBPvfEbgiDA wYhDgfUQ4fQ1rGPhkoziqm4 pdrpywFsskk8uiii74sQ99I 29sIHdp ZHRoPSIzMCUiIHZhbGlnbj0 pxW5lMa1+PRDosSO5nXW1iW 1tWOSzFeN4MAxcR369NwVdt CIvPjxj j5aeb0plxIe1IoD8IEQjufV chNgwKLO0y1YrKe43L75dIV dpZHRoPSIyMCUiIHZhbGlnb e8fvJ0p Ii8+RWQdcYV0cSN8tS5bDlH hHbV5FUchC090WxGquJZaAp prD67tW6DfiBE+TWWlSyn1V CBzdHls DJ5evEPrDPpvIr7hBKL5WxL yFpNwCNhaP8ZoLIAxfwvdom wraAC0FFWgKPWleU40Wc3aa DogMTBw zYETzL8jknahu5vtuyahDbU tHEBbGBe2QSa6CJNybEjjOu UeZGO4CgL3CJD4xFKveM8nv Glnbjog lA7rH1LcXDVugapbLv86iM5 wZhSeZeO3SCfxLup+V0hJVF TmHFSUEZpRWRXHBMd0C5JpX yg7URXn cEmdLY1hdGEgHZwhTk6qpTz meMxbUH7uGSInofrwPYPulR 1lSLLrlKAtoBgaDZ5tGOBej hckq737 IjFwGZW6LVFeoGNjW9QmhY8 eYlKwHRNhEFZdV2UbwPJdHB hfD365PAgyKtR1PWOosaHhA 2FsLWFs gHhzFwC5e9N7Rr1kOZ1vCY2 xWTE7TH84ON81mXBax1F0lO L0K5SdJNMgkjhhrvftbVG2Y DAuMDUw uQ20uTHxTDagPx5ur8X5c96 0SBInWIYncH13Dh1wvJezCS TzjIBAyY6ipfbww5icziurS zAwMDAw ERi8MGw0NLVsrLhjErDiOQC 3GcV9VAQ2xQRkiW3rtWykcm lqqT7yTkm+NhZeQVRiywM5L 5CrGnd8 GMGfpEffJL3naXWoXAygOf0 zpGucrAvqKA5rKXGbugpcBX SupH6gLSYyyKRqlEhxFG6mQ TBpbjtm j319KqTtMLA1ZWHudSTgC8T zyW9qAzNxZZItNWZyO0YtlZ VsFDlsX194KTnePkJ6NWLgr zFvN7Ze HZFrqXixOfW2v9I9Fj2GWK6 CLCM9I2QdPus7OXVacJoyCR 2alUZzKHiqHc3btPzezZtqR D6oPTQc hedjTCLkcJ6dMJCnhCIobGx bGI6nCHRueufqd237SsIlUX U5KBSgzNSvN2OdsK9yWtSsI DAwMDAw O0RujRTgPXfzZ354HDynDtQ 9AAEbhbUqL4QeJBNvkAioMd S1z4D2Fo8WPGtdcJD+PC90c m03N0Mm LlskTcq5DRAzQDL3xNQ7iL5 vTOIgHPntm7N1nHH1Q9Yhdk Hnuk4at3ytSIYeJAttG42di EIqo7Y2 ZWCnoRK1GRXilMhhKrLwrU3 3Oyc+RQLeyAjxa6VsCqsle6 djo3wpyGg6PwKxJMNrplYog WduPSJ0 n5FbFv41H62iHEqdPZZoHPS uGXOlENFwfOlait4guO7aPw 8+JXMssGL6nBG6jV3yAyGvM cZ7QNbq R807LtUsmFXuCdwwg4iqj5v jlQg3AnApBWGruvKdpRrpJY R4c8TnBr72X5ZihChcs9TvV iu6vf43 cSHyb3E6pDW8S8NjUPLcopy izNUlxWtvCL0eTFRhmygrSW SxpZ6sZBYhI7b0BcFvFmL8Y YyaN9Pb vwN5IZRahCUwEIXvbKXOaT9 kslfgi3zonrhlHlQbSWIjIG i9AKj7RMWxlQwdJqXgQKU8O iI2SIF5 lYVmjW6avMlcsxbwbG4hZej +TWg7j1wviWKjQA9qdAH6DX 56BF83xEIib0D1rUR5J7ZtP GRpbmct lbfoqEB5OLVjBOVteD05Li8 xxRecLe6iCJJmKDD3ADUugC SqF7NtdV3oErGjPODwXVVjB 3RleHQt HMjxL303SJaoXyL1IAJxvvM tF6MbYQEreXbmImK9d8Q1Id 5NKD29QU60CV94gLCuy1G6x MN2P4Wr TLGwwafazrvgfEL9PHYmAST dmJ77Tj1czIstLx4rDZQoHM O1HGJczIBhQ3JomX8pVjQaK DAwMDAw W7MpzPNjUDcgJ068DNxsJzE 8DICgpaGwV4UgLGQhnBtbOq Y2u7V9Is1DRl03CD05GJ70l JIbo0T6 bNV0D8EgNZBjhthqkrgvuMO 5ZUYrYUXupM45Fe2gnYrnDp 5uZCYjGWM3WXWhxFZwU6Hfo Y5uXsVc HSXgNHZmJ5TllYFcPSimN25 5DEaxHfT8UUNukzMjC0RiVQ OwlWtoJdR9j8B4Tb5FIVovu hg1X3Ny PjwvdHI+PZ80WQOmHY54eFQ asYTfh8vcgZp4OrUdCVFmYB F8xVcdIMxia0LnOMLwH56mz VIyu2R2 IGN (more content not included)... Normal [facility] Inpatient Patient Summaryon 10-28-2022 [place] [address] Patient Discharge Instructions Name: ALVARADO BRITT : 1945 Patient Address: [address] [place] [address] Primary Care Provider: Name: Ansley Houser NP After you are discharged if you find you have any questions, please, call [phone] ext [phone] to speak to a nurse. Discharge Diagnosis: Prescription Information: If you have been given a prescription for narcotics, seek immediate medical attention if you have any difficulty breathing or any sudden status changes such as confusion and sleepiness. If you or anyone you know is experiencing suicidal thoughts, mental health, alcohol and/or drug addiction problems; contact the [facility] 24/10 Crisis Hotline -Text 4HOPE to 329695. If you received any narcotics, sedation, or any other medication that causes drowsiness for the next 24 hours, unless otherwise directed: ? Do not drive a car. ? Do not operate machinery such as power tools, lawn mowers, drills, sewing machines, or stoves ? Avoid alcoholic beverages and drugs for allergies, nerves, or sleep ? Do not make important personal or business decisions or sign any legal documents [facility] would like to thank you for allowing us to assist you with your healthcare needs. The following includes patient education materials and information regarding your injury/illness. ALVARADO BRITTH has been given the following list of follow-up instructions, prescriptions, and patient education materials: Follow-up Instructions Medications During the course of your visit, your medication list was updated with the most current information. The details of those changes are reflected below: Medications to Continue That Have Not Changed Other Medications buPROPion (buPROPion 150 mg/12 hours (SR) oral tablet, extended release) 1 tab(s) Oral 2 times a day. carvedilol (carvedilol 12.5 mg oral tablet) 1 tab(s) Oral 2 times a day. clopidogrel (clopidogrel 75 mg oral tablet) 1 tab(s) Oral every day. cyclobenzaprine (cyclobenzaprine 10 mg oral tablet) TAKE 1/2 TO 1 (ONE-HALF TO ONE) TABLET BY MOUTH THREE TIMES DAILY NEEDED. enalapril (enalapril 20 mg oral tablet) 1 tab(s) Oral 2 times a day. isosorbide mononitrate (isosorbide mononitrate 30 mg oral tablet, extended release) 1 tab(s) Oral once a day (in the morning). levothyroxine (levothyroxine 25 mcg (0.025 mg) oral tablet) 1 tab(s) Oral every day. LORazepam (Ativan 0.5 mg oral tablet) 1 tab(s) Oral 3 times a day as needed as needed for anxiety. meloxicam (meloxicam 15 mg oral tablet) 1 tab(s) Oral every day as needed pain. menaquinone (Vitamin K2 100 mcg oral tablet) 1 tab(s) Oral every day. multivitamin (One-A-Day Essentials) Oral every day. multivitamin with minerals (TheraLith XR oral tablet) 2 tab(s) Oral 2 times a day. naltrexone 2 tab(s) Oral every day. NIFEdipine (NIFEdipine (Eqv-Procardia XL) 30 mg oral tablet, extended release) 1 tab(s) Oral every day. simvastatin (simvastatin 20 mg oral tablet) 1 tab(s) Oral once a day (at bedtime). It is important to always keep an active list of medications available so that you can share with other providers and manage your medications appropriately. As an additional courtesy, we are also providing you with your final active medications list that you can keep with you. buPROPion (buPROPion 150 mg/12 hours (SR) oral tablet, extended release) 1 tab(s) Oral 2 times a day. carvedilol (carvedilol 12.5 mg oral tablet) 1 tab(s) Oral 2 times a day. clopidogrel (clopidogrel 75 mg oral tablet) 1 tab(s) Oral every day. cyclobenzaprine (cyclobenzaprine 10 mg oral tablet) TAKE 1/2 TO 1 (ONE-HALF TO ONE) TABLET BY MOUTH THREE TIMES DAILY NEEDED. enalapril (enalapril 20 mg oral tablet) 1 tab(s) Oral 2 times a day. isosorbide mononitrate (isosorbide mononitrate 30 mg oral tablet, extended release) 1 tab(s) Oral once a day (in the morning). levothyroxine (levothyroxine 25 mcg (0.025 mg) oral tablet) 1 tab(s) Oral every day. LORazepam (Ativan 0.5 mg oral tablet) 1 tab(s) Oral 3 times a day as needed as needed for anxiety. meloxicam (meloxicam 15 mg oral tablet) 1 tab(s) Oral every day as needed pain. menaquinone (Vitamin K2 100 mcg oral tablet) 1 tab(s) Oral every day. multivitamin (One-A-Day Essentials) Oral every day. multivitamin with minerals (TheraLith XR oral tablet) 2 tab(s) Oral 2 times a day. naltrexone 2 tab(s) Oral every day. NIFEdipine (NIFEdipine (Eqv-Procardia XL) 30 mg oral tablet, extended release) 1 tab(s) Oral every day. simvastatin (simvastatin 20 mg oral tablet) 1 tab(s) Oral once a day (at bedtime). Take only the medications listed above. Contact your doctor prior to taking any medications not on this list. Diet & Activity Patient Activity Level: Patient Diet: Patient Activity Restrictions: (more content not included)... Normal [facility] MAGR Intraoperative Recordon 10-28-2022 MAGR Intraoperative Record MAGR Intra-Op Record Summary Primary Physician: VEE STEELE MD Finalized Date/Time: 10/28/22 08:19:15 Pt. Name: ALVARADO BRITT /Sex: 1945 FEMALE Med Rec #: [id number] Physician: VEE STEELE MD Financial #: [id number] Pt. Type: D Room/Bed: / Admit/Disch: 10/28/22 07:01:09 - Institution: Case Times MAGR Entry 1 Patient In Room Time 10/28/22 08:12:00 Out Room Time 10/28/22 08:20:00 Anesthesia Start Time 10/28/22 08:14:00 Stop Time 10/28/22 08:18:00 Surgery Start Time 10/28/22 08:14:00 Stop Time 10/28/22 08:18:00 Last Modified By: Regina Shaw RN 10/28/22 08:18:38 Case Attendance MAGR Entry 1 Entry 2 Entry 3 Case Attendee VEE STEELE MD, Debra RN Ayers, Monica MA Role Performed Surgeon - Primary Diesel Locomotive Engineer Diesel Locomotive Engineer Time In 10/28/22 08:12:00 10/28/22 08:12:00 10/28/22 08:12:00 Time Out 10/28/22 08:20:00 10/28/22 08:20:00 10/28/22 08:20:00 Procedure Selective Nerve Root Selective Nerve Root Selective Nerve Root Block(Right) Block(Right) Block(Right) Last Modified By: Regina Shaw RN, Debra RN Myers, Debra RN 10/28/22 08:18:46 10/28/22 08:18:46 10/28/22 08:18:46 Entry 4 Entry 5 Entry 6 Case Attendee Aimee Grijalva RN, CST, Mikaela Mccann CST, CST Role Performed Diesel Locomotive Engineer Scrub Personnel Scrub Personnel Time In 10/28/22 08:12:00 10/28/22 08:12:00 10/28/22 08:12:00 Time Out 10/28/22 08:20:00 10/28/22 08:20:00 10/28/22 08:20:00 Procedure Selective Nerve Root Selective Nerve Root Selective Nerve Root Block(Right) Block(Right) Block(Right) Last Modified By: Regina Shaw RN, Debra RN Myers, Debra RN 10/28/22 08:18:46 10/28/22 08:18:46 10/28/22 08:18:46 Entry 7 Case Attendee Jayant Butts RT (R) ARRT Role Performed Vascular Surgery Physician Time In 10/28/22 08:12:00 Time Out 10/28/22 08:20:00 Procedure Selective Nerve Root Block(Right) Last Modified By: Regina Shaw RN 10/28/22 08:18:46 Surgical Procedures MAGR Pre-Care Text: A.20 Verifies operative procedure, surgical site, and laterality Im.150 Develops individualized plan of care Entry 1 Procedure Selective Nerve Root Primary Procedure Yes Block Primary Surgeon VEE STEELE MD Modifiers Right Surgeon Comment RIGHT C2 C3 NERVE ROOT Start 10/28/22 08:14:00 INJECTION Stop 10/28/22 08:18:00 Anesthesia Type Local Surgical Service Pain Management Wound Class Clean Technique Details Closure Technique N/A Entire procedure No was performed via laparoscope or robotic assistance Last Modified By: Regina Shaw RN 10/28/22 08:18:55 Post-Care Text: O.730 The patient's care is consistent with the individualized perioperative plan of care General Case Data MAGR Pre-Care Text: A.350.1 Classifies surgical wound Entry 1 Case Information OR MAGR OR 02 Case Level None Wound Class Clean Specialty Pain Management ASA Class N/A Diagnosis Preop Diagnosis CERVICAL PAIN Postop Same As Preop Yes Postop Diagnosis CERVICAL PAIN Blunt or No Is the procedure No penetrating injury considered occured prior to Emergent/Urgent? the start of the procedure: Last Modified By: Regina Shaw RN 10/28/22 08:09:52 Post-Care Text: O.760 Patient receives consistent and comparable care regardless of the setting Time Out MAGR Entry 1 Time out date/time 10/28/22 08:14:00 All team members Yes have introduced themselves by name and role Surgeon, Yes Surgeon reviews Yes anesthesia, nurse critical or confirm patient, unexpected steps, site, procedure operative duration, anticipated blood loss Anesthesia team Yes Nursing team Yes reviews any reviews sterility patient-specific (including concerns indicator results) and equipment issues/concerns Antibiotic Antibiotic N/A prophylaxis given within the last 60 minutes Is essential Yes imaging displayed? Last Modified By: Regina Shaw RN 10/28/22 08:14:50 Patient Positioning MAGR Pre-Care Text: A.280 Identifies baseline musculoskeletal status Im.40 Positions the patient Im.80 Applies safety devices Entry 1 Procedure Selective Nerve Root Body Position Prone Block(Right) Left Arm Position Resting at Side Right Arm Position Resting at Side Left Leg Position Extended Right Leg Position Extended Feet Uncrossed? Yes Press Points Checked Yes Positioning Device Pillow, Safety Strap Outcome Met (O.80) Yes Last Modified By: Regina Shaw RN 10/28/22 08:12:17 Post-Care Text: E.290 Evaluates musculoskeletal status O.80 Patient is free from signs and symptoms of injury related to positioning Skin Prep MAGR Pre-Care Text: A.30 Verifies allergies Im.270 Performs skin preparation Im.270.1 Implements protective measures to prevent skin and tissue injury due to chemical sources Entry 1 Skin Prep Syntegrity Prep Agents (Im.270) Povidone-Iodine Prep By Ellyn Bustillo CST, CST CSFA Prep Area (Im.270) Back Prep Area Details B (more content not included)... Normal [facility] MAGR Preoperative Recordon 0 10-28-2022 MAGR Preoperative Record MAGR Pre-Op Record Summary Primary Physician: VEE STEELE MD Finalized Date/Time: 10/28/22 08:28:50 Pt. Name: ALVARADO BRITT/Sex: 1945 FEMALE Med Rec #: [id number] Physician: VEE STEELE MD Financial #: [id number] Pt. Type: D Room/Bed: / Admit/Disch: 10/28/22 07:01:09 - 10/28/22 08:28:00 Institution: Pre-Op Case Times MAGR Pre-Care Text: Patient will be optimally prepared for surgery. Patient is free from s/s of injury. Provide information to patient/family related to plan of care. Verify patient allergies. Confirm identity and verify consent before the operative or invasive procedure. Entry 1 Patient Arrival Time 10/28/22 07:05:00 Preop Departure 10/28/22 08:01:00 Last Modified By: Keysha House RN 10/28/22 08:28:48 Post-Care Text: Patient is prepared mentally and physically and is ready for surgery. The patient remains free from s/s of injury. Patient/family express understanding of plan of care and participate in decisions affecting his or her perioperrative plan of care. Allergies documented appropriately. Patient identifiers and consent correct. General Comments: Pt arrived to [facility]. Pt denies angie recent cold/flu/covid symptoms, SOB, sleep apnea, diabetes, CP, or pacemaker/defibrillator . Pt given Dr Steele's written discharge instructions-gone over verbally- pt verbalized understanding. Finalized By: Keysha House RN Document Signatures Signed By: Keysha House RN 10/28/22 08:28 [facility] Patient Handouton 10-28-2022 Patient Handout [facility] Mammo Screening 3D Bilate ral.on 10-27-2022 [facility] Bilateral. CLINICAL HISTORY: Screening. COMPARISON: 10/21/2021. TECHNIQUE: 2D and 3D Tomosynthesis of the right and left breasts was performed. CAD analysis was performed and used in the interpretation. FINDINGS: DENSITY: Scattered tissue. There are no suspicious masses, areas of suspicious microcalcifications or areas of architectural distortion identified. No evidence of skin thickening. IMPRESSION: BIRADS 1 : NEGATIVE, NORMAL INTERVAL FOLLOW UP. 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 Accredited by the ACR and FDA. MAMMOGRAPHY IS VERY IMPORTANT TO YOUR HEALTH. CURRENT [employer] GUIDELINES RECOMMENDS ANNUAL MAMMOGRAPHY BEGINNING AT AGE 40. THIS FACILITY USUALLY USES A REMINDER SYSTEM TO ENSURE ALL POSITIONS RECEIVED REMINDER NOTIFICATIONS AT THE TIME BASED ON THE RECOMMENDATIONS OF THIS EXAM. Final Signed (Electronic Signature): Smith Paredes MD 10/28/22 2:00 pm Technologist: TRACI Assessment: 1-Negative Recommendation: Normal interval follow-up [facility] Outside Recordson 10-26-2022 Outside Records [id number]#1.00OTGT IFF [facility] Release of Informationon Release of Information [id number]#1.00OTGT IFF [facility] Consent Formson 10-24-2022 Consent Forms [id number]00[address] [facility] Progress Note - Provideron 0 10-24-2022 Progress Note - Provider [id number]#1.00OT [facility] Provider Orderson 10-24-2022 Provider Orders [id number]#1.[facility] Information[facility] Release of Information [id number]#1.00OT [facility] BMP Standardon 10-21-2022 eGFR AA 59 mL/min/1.73m2 Invalid Interpretation Code [facility] Comment on above: Performed By: #### 1 [id number] #### [facility] (DEFAULT) [address] [place] [address] 23839 eGFR Non AA 48 mL/min/1.73m2 Invalid Interpretation Code [facility] Comment on above: Performed By: #### 1 [id number] #### [facility] (DEFAULT) [address] [place] [address] 17025 Anion gap [Moles/Vol] 11.6 mmol/L Normal 5.0-19.0 [facility] Comment on above: Performed By: #### 1 [id number] #### [facility] (DEFAULT) [address] [place] [address] 67818 Calcium [Mass/Vol] 8.8 mg/dL Low 8.9-10.3 [facility] Comment on above: Performed By: #### 1 [id number] #### [facility] (DEFAULT) [address] [place] [address] 44161 Chloride [Moles/Vol] 107 mmol/L Normal 101-111 [facility] Comment on above: Performed By: #### 1 [id number] #### [facility] (DEFAULT) [address] [place] [address] 74693 CO2 [Moles/Vol] 26 mmol/L Normal 21-32 [facility] Comment on above: Performed By: #### 1 [id number] #### [facility] (DEFAULT) [address] [place] [address] 32784 Creatinine [Mass/Vol] 1.10 mg/dL Normal 0.60-1.30 [facility] Comment on above: Performed By: #### 1 [id number] #### [facility] (DEFAULT) [address] [place] [address] 63912 Glucose [Mass/Vol] 91.0 mg/dL Normal 74.0-118.0 [facility] Comment on above: Performed By: #### 1 [id number] #### [facility] (DEFAULT) [address] [place] [address] 05816 Osmolality 280 mOsm/L Invalid Interpretation Code [facility] Comment on above: Performed By: #### 1 [id number] #### [facility] (DEFAULT) [address] [place] [address] 71665 Potassium [Moles/Vol] 4.6 mmol/L Normal 3.6-5.1 [facility] Comment on above: Performed By: #### 1 [id number] #### [facility] (DEFAULT) [address] [place] [address] 40018 Sodium [Moles/Vol] 140.0 mmol/L Normal 136.0-144.0 [facility] Comment on above: Performed By: #### 1 [id number] #### [facility] (DEFAULT) [address] [place] [address] 75346 Urea nitrogen [Mass/Vol] 17 mg/dL Normal 8-26 [facility] Comment on above: Performed By: #### 1 [id number] #### [facility] (DEFAULT) [address] [place] [address] Urea nitrogen/Creatinin e [Mass ratio] 15.4 mg/mg Normal 4.6-16.2 [facility] Comment on above: Performed By: #### 1 [id number] #### [facility] (DEFAULT) [address] [place] [address] Provider [place] 10-21-2022 Provider Orders [id number]#1.00O [facility] Provider [place] 10-03-2022 Provider Orders [id number]#1.00O [facility] US renal BIon 08-17-2022 US renal BI [facility] [place] [address] Ultrasound Report Signed Patient: Alvarado Britt MR#: [id number] 8 : 1945 Acct:[id number] Age/Sex: 77 / F ADM Date: 08/17/22 Loc: Room: Type: [facility] Attending Dr: Ansley LEI Ordering Provider: QUIQUE Virk Date of Service: 08/17/22 US/US renal BI: I10 Copies to: QUIQUE Virk BILATERAL RENAL AND BLADDER ULTRASOUND CLINICAL HISTORY: Kidney stones. COMPARISON: None Estimation of renal size is approximately 9.43 cm on the right and 10.36 cm on the left. No contour deforming mass, shadowing stone or hydronephrosis. The urinary bladder is partially distended with a volume of 432.02 ml. No shadowing stone or focal lesion. No significant postvoid residual. US/US renal BI IMPRESSION: No acute findings. Impression dictated by: Julius Bass Jr., D.ONathan08/17/2022 4:02 PM Dictation Location: [place] [address] Tech: Dorinda Lua Transcribed By: [facility] 08/17/22 1602 Dictated By: Julius Bass Jr, DO 08/17/22 1602 Signed By: 08/17/22 1602 [facility] Coding Summaryon 08-09-2022 Coding Summary HTMLBase 64 KnnfmnjqFQm9bOc+PGhlYWQ +ZJ8JVRVjD02gvBRqbD4AV1 dAJA5RKYVUHQKTWY9RHJ7hd OQ2URotD2FufaTm TqjcsSMzLD05JGx7CBQ9kEt hWZkyvI7rmLWeB7z7HyCkHF 28eD39PWbmVGUkYzI7PbSpj jsgbWFy T7neZeZeuFPjCsp+PHRhYmx lIHdpZHRoPScxMDAlJyBzdH ndQR9yXf9jOJOmXXMrgHnkm HNlOiBj n5gyAJZsCYhgRZ2vkLopL8L zxUO5RHQyc9t2Gr83fWG+PH YkHVB2mGrvBFtqm046CyIza 2tvXFL1 nGSeCOyhBEU9K10qc2Y0JKD jTCDmBNP9pLT1zE5udZmagh nkN7UkoGFdWcU7TDZ7hMIhg Y5waWqv mcairD4eAiq+P98XQD5BIBS AQE5BJnm7U0PvIczpaFL+PC 36ERIjIA13cSQkwXCas8cbr Ne9UjXu KNLwCQK5kBwhOXjjv4IoZOC vR53ufQRux4D1WIWpoCxvaU OoVoUhxQA3dP0nOXogwpach 2hvdzsn Ngejh0gzvf56kE27B75pFSk kVBPaPHA2MRVtLGYpyZkqny 6uqF7aRn1+WHzbh5fcq5ydc Gx3VzBy GQTuqlLvkZdsOTW7u2PfYi1 1R8QxxYbki4ByGdt4on92hL Rtn1R2pKQ1WSpcFUOssH3rQ WxlZnQ6 BTVlOzUnaN18jBEiMKqcHu0 msGlrmKpuVQ3uPWDaqqnoTO CdfU9tDTAhlAWavBseRO7qV TBpbjtm o832JkGsEWB5OPYdrUOmY1H tqE7uJlMuLXOqTBLoH6LibR UrICsvQ009GMncBoX0WQDvu tXxQ7Mx VLZobUvfZwB1k4D9Lk7Ss1S biupgIAN0OTczLZU0HcF7Tb YnRxI7J1OdPzk0OYXquPiaO Z9hO5Co QXAprwaqvgzueJN6GAOlXYR rqC96uQIyLVfcKu9cx8K6x2 95TMEqTGWqzU05Hy7mtPozB TBwdCBU rG4lgdzux1mmhdjoUfQeZVQ eQVp0UEj1HIZtpZfwFaWaFA J5HdT3LPS3zRHmlK9pfMpka oihlQ2d Oyc+L28gqW9dXNV4NPI1bce cDZYyheAgIQ18DL09R5LiWu wvdGFibGU+PGRpdiBzdHlsZ T3pUpDn s4oje1NeJOdgD1EcHWZdNLz zHzg0BVNsANY5yZY4mA7rCV KkROsdl8P4bHE0A9PrytXnc a4uz0hi LNIwSSalK88esOSit3C1FEV tcVU6GANvoQrsHrZhcU48Xd c+ADRttOpla1OjXetyg2qce 6bnrBn4 UjZzQXWxysUufGvqALE9f3F kOh15G99nLWfkFRObVCHtOW PsCBXzdWedye4kbB7rZz6+P GNvbCB3 lQX0bK0wXFXyBrJ4BYjdG84 4GxAxnWDrQjrrp8bbj4olrV t0RrXaWJBqfqQbcHtjMZX3e 6OgAd14 R86dKMlqBYDdCJAzMUShOUR swLaylo4zlB7uEa7+PC9jb2 azlx96aL81kJP+DWJcMCS5m WxlPSdw MHLnjE9jTUdgWeF7JVVeGnC vyT83xZPjKAixCb7pbTjknZ coUT9oKEJsgumtm339BtIox 2xkIDEw zAHhHLfpIYP0A67xy7H0BCW jZUIlTUS7hSH3aN2qoZgjcu ogbGVmdDsgdmVydGljYWwtY WxxC374 IHRvcDsnPlBhdGllbnQgTmF qRAs6C6TeLrf2FYLldJoiOQ 0owGAgLZkmDx4gmZpooKbvI F3mRJHm hpsgg671UlKgp6qcFAHxhHS vJIqhZGY7X58ll7T2MJRuSY DkZEZ1yNB0zL4voPriiceio GVmdDsg yzJfiHdsJKelLNurL663ZGH oaOvmTkSpioTxYKBleZR5EC 45FT95xLBmy4R4gHN8H1UmH GRpbmct uucafDP3QMUhCZExyU89Oj1 ewFftUg4yXQYbGTB0NEFdeZ HxT7ZgiT3aNrRkTDCpDXHuB 3RleHQt PMmtZ049EGvyEmV1DAGsfjM oG0GgHFSslLqyIzN7s1D3Gh 1KM9U7TO01LP89rOXnv6I1b ME2P4Yo GKIzhdvnwsqzqWO9HOBfBDH ehB32Uz4yaYsuSg6yBOWcQL Y3DBWpkWLhG6DofL7iVwXaY DAwMDAw I3OhzGAfQNcoJ398BHwvEtJ 0SOKwsiRtN7FfFJApdBotZi J3e9Z1Vu1COAu4FJ62UJ77u CAdp4B2 eOJ3P8DcFMUargbrggpbsTZ 1AZJvDQQbyT45Ba2qjZeaBx 7qJUSwSXK1CEFpoZWiG1Gjs D8wKlWa UYCmMUWzW8PxiAUgTDckD72 8IVobOwJ8BTOakbPuR2RnYV ZysOymSaU6p6G3Iy6PPBToV P92ZUV0 jKB4GT59AW32A4NgWylxpNV ibGU+PHRhYmxlIHdpZHRoPS wgRRClJwUltAdnMQ6nEs3mU GVyLWNv kAuwmGMcBmMmx7orAWBzMJs mXB8vxKxbR8DtvIF8NZObe0 x7Wf45J06eT5FhgMX+PGNvb JE1yWY7 qA6pAhUnDsN1UKrrS796KwM ijHGuYbdqs4nwp8mdqHu7Ui N5ZTSarsNmyEipPEG0n2WfX i97O17o IHdpZHRoPSIxNSUiIHZhbGl jkj8ixC2xJi6+DNQutSO0iT O1tA2aHtNaMvN3ELqjU522J nRvcCIv Lhfmz8wdf9giaBa2FkMeNYH xitBjrEmpDBM8u7UaLj88N3 XzpXioe7ZbPyh1ie63uLZoa 5Y2wPA7 Y4PqMHXuxkjpdULylRbeRN0 jRTQemplaRYAqvV6uXGZwK4 g2VrVuOpD2FRpvU8KxkcX9A DEwcHQg MIbmQKS4I58mm0R6OBNvTQL lLEX4aJE6yM7caKwjrdpnwA VmdDsgdmVydGljYWwtYWxpZ 246IHRv uIviGMJwgD4cHVHykHEdlBo uPU2vQIRqozjwPkzFLWMHZS MRRICHSDHIFHRGUZ16AH19h TQwc3J9 vGP6P4ZvOCOzuxajkclyeOR 1ZIWzUNKskJ52mUCoAWlrXx 3uo6G2l776XHYrZWWeiV23S o9jzPvd VQEctRNZaR4badihc5cspbk jAvCeLQIlZJs6OHx8VLYeeF koPrZkSWK0VfQ7AOF8oHSpt S7dqDzt zugmsZ6eXen+MTEvMjgvMTk 0NzwvdGQ+AWOuHSL6mCuxNZ jqJEAwfO5zMUJgK6b9SlNjZ mN6ZClc K8RwXDGgeqepOs42aR9eBqL kTrY8CWnlE8ApmiY0TRHskC YbVZfeXNF8F31nm0Z2UMKtG DAwMDA7 uMJ1wP0oiTnpaehpvQXspMp rqdPnqIvnONomZUteT942OT IquTurTgv3WJtnRHAzEQ33V J73vGZh v4F0gWY4V5CbQHCtafdduqy xvLJ4QBKsZKJrmG30hMLxTF huOn1hc2G8f843HZHzTBCxg L50Jp5d bMrfVKFvkSAMoS8ywjpbm1f leutpIwOkPSIbCXy2XOp9HY QjbNhcGwBpZUS0MfM7VJH2p WJsqW5e xJdsloygzP0cVfh+RkVNQUx KKE63PQ51bHBql0B7aJA2A5 VrBVKsnspjtdpsjMQ2EZGlZ DUwaW47 mQRzJWmeLp8dy3J2f723NTM cEHNxcZ78Vm4znZkeRADjaQ UHzG3yzvfib6yntlbrTyVuW DAwMDt0 FQt9JOSiaXgsKyEmZHO6JdV 3VAP2jHAbnY6ppOqeocedbE 9wOyc+HO9vocqgfiY9OP33L Q80X9Yb PjwvdGFibGU+PHRhYmxlIHd pZHRoPScxMDAlJyBzdHlsZT 0fIo6pVKXiHNWglUwbnUGyP pZzm7ns BHHeVCmjTC0wrIqlV5EhuRU 1OHGoy4b1Lw19A12wO6FvgR A+YYSktGC7uRU7uW4vFaRhH uM6MWyh J743JrSdaUDtQbrtw5pmq2t hvKr9GeJnCFPvzhErrYpvSU B0e0ByAa47H30jSWjbPVOoG SIyMCUi TSYjeYfxhj0ksW2dXa7+PGN cqKY0eLO2mN9jNfHbDwX6YX bdR856QwPplYKdKmgfM95yB 3JvdXA+ BBIzKux9MAYvsXrmXZ4cqYL jLDqbZy7kKPN0AlXwRmMaYX toD6PoPOJyhutazddbtZZ1X DAuMDUw rL23Gw3ozVfxRs7nDOKiJEV 5FVCbyXKpG2EizQ6cHbLeQW DdTCSbH4BahJQuGPfqN080L GxlZnQ7 JNAkjfUbH6ZyVSMlhQjeZeE 0i5F8Rn6IqUqvbIJgHO4oBm QaGXe8K8ZcAmt0MZFywHxfJ R1vgBEv VIlaFs3rfMaxqYdjVN7zAAL ofqglt802MhLjp1fwNGNipI UsSDuuNDE2L70hu4F0VEJcY DAwMDA7 fYS6yR7psXixfwbkgNVfuOy qgdEilRdiYVfoYWrqD896BA VafBnhZpWGWxs8O6IzZct6W CBzdHls SS7xcARgKLzjCm4woLjoePx kPM4nHMNcggnur384OkOmy9 kyMQDekCRxLLmyKCF4F38kv 3O9CSNe KTQdZMC5zGV9tJ0knVjtcgg gbGVmdDsgdmVydGljYWwtYW mjU190MHSyvQfyLg2NTnh4H 2MwMda5 ITQfoVgvFO9diOYhLMomZa5 cyWslrUybMV8bAJMwgldqm2 83HeGrh5iuGNUrwKQkIBkdC GQ3K33u k7G3AGLgEBEhYXV3tDN7pQ6 hbGlnbjogbGVmdDsgdmVydG wyOGduDSpeL105RESdrJycW lBheWVy OjwvdGQ+SA90oa07M9BnUoy oGal2ICVnJGV4bVP8jC6fXO YvKIltr9F1kJV2O9ZmjqBuz p7jd6zh YXB (more content not included)... [facility] .Auto Diff 1on 08-03-2022 Auto Coles % 6 % Normal 1-12 [facility] Comment on above: Performed By: #### 7 718108, 18529533, 7359511719, 1148770386, 2262822181, 0933992, 1002570388 ####[facility] (DEFAULT)[address] [place] [address] 60280 Baso Abs# 0.0 x10 Normal 0.0-0.2 [facility] Comment on above: Performed By: #### 7 202840, 80230804, 9441559204, 2179768605, 7084398409, 8234165, ####[facility] (DEFAULT)[address] [place] [address] 92312 Basophils/100 WBC (Bld) 0.5 % Normal 0.2-2.0 [facility] Comment on above: Performed By: #### 7 299204, 89763144, 3857957118, , 1382117226, 9184700, ####[facility] (DEFAULT)[address] [place] [address] 24278 Eos Abs# 0.1 x10 Normal 0.0-0.4 [facility] Comment on above: Performed By: #### 7 732389, 28903892, 6521783310, , 6047998964, 2398543, ####[facility] (DEFAULT)[address] [place] [address] 77643 Eosinophils/100 WBC (Bld) 3.7 % Normal 0.9-4.0 [facility] Comment on above: Performed By: #### 7 918820, 92767088, 8826057299, 3547999859, 1578948250, 6246466, ####[facility] (DEFAULT)[address] [place] [address] 43750 Lymph Abs# 0.8 x10 Low 1.3-2.9 [facility] Comment on above: Performed By: #### 7 321493, 95029355, 2540886939, 2888310455, 7627902779, 2791809, 8304604855 ####[facility] (DEFAULT)[address] [place] [address] Lymphocytes/100 WBC (Bld) 27 % Normal 14-48 [facility] Comment on above: Performed By: #### 7 197915, 85905049, 3782844758, 4099985184, 6377037082, 8364034, 1097925891 ####[facility] (DEFAULT)[address] [place] [address] Coles Abs# 0.2 x10 Normal 0.0-0.8 [facility] Comment on above: Performed By: #### 7 586622, 12947266, 4943011012, 9201034185, 7781277785, 1100476, 3653695997 ####[facility] (DEFAULT)[address] [place] [address] Neut Abs# 1.9 x10 Normal 1.5-9.2 [facility] Comment on above: Performed By: #### 7 104397, 37127282, 5958090525, 2461272493, 8307844553, 7634466, 4635411136 ####[facility] (DEFAULT)[address] [place] [address] Neutrophils/100 WBC (Bld) 63 % Normal 44-88 [facility] Comment on above: Performed By: #### 7 235916, 44909297, 8005569896, 1816797386, 8608820217, 8778982, 4723858596 ####[facility] (DEFAULT)[address] [place] [address] CBC w/ Auto Diffon 3 Erythrocyte distribution width (RBC) [Ratio] 13.6 % Normal 11.5-15.0 [facility] Comment on above: Performed By: #### 7 181899, 84622028, 5500977424, 7487490616, 1815992263, 4322699, 9640943451 ####[facility] (DEFAULT)[address] [place] [address] Hematocrit (Bld) [Volume fraction] 34.3 % Normal 33.7-40.4 [facility] Comment on above: Performed By: #### 7 909666, 87821743, 7474079029, 3486346644, 2691565106, 3774449, 8960780987 ####[facility] (DEFAULT)[address] [place] [address] 25987 Hemoglobin (Bld) [Mass/Vol] 11.6 g/dL Normal 11.3-15.9 [facility] Comment on above: Performed By: #### 7 301519, 29425396, 1592699709, 1279710516, 8068214516, 2310397, 2349743731 ####[facility] (DEFAULT)[address] [place] [address] 72891 Man Diff? Auto Invalid Interpretation Code [facility] Comment on above: Performed By: #### 7 167868, 68577706, 0725801893, 0518173027, 5014302361, 4942570, 1424984808 ####[facility] (DEFAULT)[address] [place] [address] 10428 MCH (RBC) [Entitic mass] 32 pg Normal 24-34 [facility] Comment on above: Performed By: #### 7 881263, 48525135, 5576053927, 3472212907, 1598743649, 5691725, 7986391136 ####[facility] (DEFAULT)[address] [place] [address] 78878 MCHC (RBC) [Mass/Vol] 34 g/dL Normal 26-37 [facility] Comment on above: Performed By: #### 7 732685, 14585008, 9851430214, 6352361468, 2159853182, 9597786, ####[facility] (DEFAULT)[address] [place] [address] 82436 MCV (RBC) [Entitic vol] 94 fL Normal 81-100 [facility] Comment on above: Performed By: #### 7 441911, 48738529, 4348472425, 4904445325, 7370654887, 4727377, 9164075630 ####[facility] (DEFAULT)[address] [place] [address] 80520 Platelet 154 x10 Normal 138-427 [facility] Comment on above: Performed By: #### 7 054241, 64931656, 7990447790, 0976790254, 1114470686, 6274482, 3540723990 ####[facility] (DEFAULT)[address] [place] [address] Platelet mean volume (Bld) [Entitic vol] 7.8 fL Normal 6.3-10.2 [facility] Comment on above: Performed By: #### 7 394416, 16328052, 3407890924, 2052206916, 7061375912, 7374129, 5228591770 ####[facility] (DEFAULT)[address] [place] [address] RBC 3.63 x10 Low 3.70-5.30 [facility] Comment on above: Performed By: #### 7 743615, 56792499, 2733203923, 4141093291, 5775040722, 8453792, 9652380320 ####[facility] (DEFAULT)[address] [place] [address] WBC 3.0 x10 Low 3.5-10.5 [facility] Comment on above: Performed By: #### 7 114427, 32872078, 1108367264, 2699905076, 9118397874, 5378774, 1013443819 ####[facility] (DEFAULT)[address] [place] [address] Standardon 08-03-2022 eGFR Non AA >60 Invalid Interpretation Code [facility] Comment on above: Performed By: #### 7 697639, 15035910, 2747075405, 5039403940, 8930779869, 4919171, 4959561594 #### [facility] (DEFAULT) [address] [place] [address] eGFR AA >60 Invalid Interpretation Code [facility] Comment on above: Performed By: #### 7 120696, 22596025, 8928491547, 9531783703, 5338903592, 4613532, 7227058267 #### [facility] (DEFAULT) [address] [place] [address] Albumin [Mass/Vol] 3.7 g/dL Normal 3.5-5.0 [facility] Comment on above: Performed By: #### 7 250397, 37670139, 9296992145, 9386239376, 9768219069, 3288412, #### [facility] (DEFAULT) [address] [place] [address] 22937 Albumin/Globulin [Mass ratio] 1.2 {ratio} Low 1.4-2.6 [facility] Comment on above: Performed By: #### 7 404180, 21037958, 3684001229, 5548553915, 4757372979, 1194996, 0859840567 #### [facility] (DEFAULT) [address] [place] [address] 12740 Alk Phos 39 IU/L Normal 32-91 [facility] Comment on above: Performed By: #### 7 120364, 89153708, 8523921365, 2317573561, 6190766508, 8521644, 8363106639 #### [facility] (DEFAULT) [address] [place] [address] 00986 ALT [Catalytic activity/Vol] 15.0 U/L Normal 14.0-54.0 [facility] Comment on above: Performed By: #### 7 640305, 56752898, 0583953975, 1706145204, 4570148110, 9017718, 0641185601 #### [facility] (DEFAULT) [address] [place] [address] 85794 Anion gap [Moles/Vol] 15.8 mmol/L Normal 5.0-19.0 [facility] Comment on above: Performed By: #### 7 837958, 83953689, 1405105526, 3101758268, 6205828144, 3388467, 6286814598 #### [facility] (DEFAULT) [address] [place] [address] 45498 AST [Catalytic activity/Vol] 19 U/L Normal 15-41 [facility] Comment on above: Performed By: #### 7 373367, 78972880, 7497041727, 2277465124, 4090247438, 1924596, 2423854132 #### [facility] (DEFAULT) [address] [place] [address] 17714 Bili Total 0.6 mg/dL Normal 0.3-1.2 [facility] Comment on above: Performed By: #### 7 079469, 95745157, 6272466061, 0028532151, 3858480856, 2730267, 1684991664 #### [facility] (DEFAULT) [address] [place] [address] 41113 Calcium [Mass/Vol] 8.8 mg/dL Low 8.9-10.3 [facility] Comment on above: Performed By: #### 7 596350, 91195295, 9095274164, 6119111312, 4756019786, 7854778, 9842190959 #### [facility] (DEFAULT) [address] [place] [address] 74613 Chloride [Moles/Vol] 104 mmol/L Normal 101-111 [facility] Comment on above: Performed By: #### 7 308132, 83438645, 0702130476, 2482958162, 1081266410, 2640376, #### [facility] (DEFAULT) [address] [place] [address] 93962 CO2 [Moles/Vol] 25 mmol/L Normal 21-32 [facility] Comment on above: Performed By: #### 7 435944, 80516690, 1630153275, , 8869543396, 5674969, #### [facility] (DEFAULT) [address] [place] [address] 61723 Creatinine [Mass/Vol] 0.87 mg/dL Normal 0.60-1.30 [facility] Comment on above: Performed By: #### 7 034922, 46910958, 7453106717, 8960032489, 1083722425, 2838477, 9617690636 #### [facility] (DEFAULT) [address] [place] [address] 61661 Globulin (S) [Mass/Vol] 3.0 g/dL Normal 1.5-4.3 [facility] Comment on above: Performed By: #### 7 455772, 99806253, 2430274874, 6517515189, 6395403540, 1835951, 6209556793 #### [facility] (DEFAULT) [address] [place] [address] 63026 Glucose [Mass/Vol] 89.0 mg/dL Normal 74.0-118.0 [facility] Comment on above: Performed By: #### 7 765422, 50716857, 1321630000, 7258251890, 2516428835, 5788670, 6234509847 #### [facility] (DEFAULT) [address] [place] [address] 94024 Osmolality 281 mOsm/L Invalid Interpretation Code [facility] Comment on above: Performed By: #### 7 142820, 93198817, 4615627893, 7048104845, 4143494922, 0238332, 6757533030 #### [facility] (DEFAULT) [address] [place] [address] 03632 Potassium [Moles/Vol] 3.8 mmol/L Normal 3.6-5.1 [facility] Comment on above: Performed By: #### 7 286312, 52355237, 9317525045, , 4135223791, 7721132, 8782990941 #### [facility] (DEFAULT) [address] [place] [address] 36144 Protein [Mass/Vol] 6.7 g/dL Normal 6.5-8.1 [facility] Comment on above: Performed By: #### 7 322596, 13403043, 8024654357, , 3383762688, 4239129, 2775991518 #### [facility] (DEFAULT) [address] [place] [address] 34951 Sodium [Moles/Vol] 141.0 mmol/L Normal 136.0-144.0 [facility] Comment on above: Performed By: #### 7 090287, 82692260, 4321905860, 9494480868, 4740476942, 8970300, 3906232603 #### [facility] (DEFAULT) [address] [place] [address] 96624 Urea nitrogen [Mass/Vol] 14 mg/dL Normal 8-26 [facility] Comment on above: Performed By: #### 7 718653, 06999564, 0941806612, 3920138403, 8637072504, 4061793, 9086178657 #### [facility] (DEFAULT) [address] [place] [address] 18981 Urea nitrogen/Creatinin e [Mass ratio] 16.0 mg/mg Normal 4.6-16.2 [facility] Comment on above: Performed By: #### 7 694556, 83696526, 7737458871, 4961910565, 1658547483, 8534593, 1899356381 #### [facility] (DEFAULT) [address] [place] [address] 44645 CRPon 08-03-2022 CRP 0.5 mg/dL Normal <=0.5 [facility] Comment on above: Performed By: #### 7 540772, 24110216, 9491507980, 8975881799, 9181242072, 9457465, 5802566072 #### [facility] (DEFAULT) [address] [place] [address] 81334 ED Clinical Summaryon 2022 ED Clinical Summary [facility] - Emergency Department [address] [place], [place] [address] ED Clinical Summary PERSON INFORMATION Name: ALVARADO BRITT Age: 77 Years Sex: FEMALE : 1945 MRN: Acct#: Visit Reason: Abnormal diagnostic test; Dizziness; ABN LABS, LOW PLATELETS Arrival: 08/03/2022 12:11:34 Discharge: 08/03/2022 13:37:00 LOS: 000 01:26 Check In: 08/03/2022 12:11:34 Checkout:08/03/2022 13:37:00 Address: [address] [place] [address] PCP: Ansley Houser BAG [employer]ER PROVIDER INFORMATION Provider Role Assigned Unassigned Nixon Rosas MD ED Provider 08/03/2022 12:12:30 Yelena Small RN ED Nurse 08/03/2022 12:25:12 VITALS INFORMATION Vital Sign Triage Latest Temperature Tympanic Temperature Temporal Artery Pulse Rate 73 bpm 63 bpm O2 Sat 99 % 96 % Respiratory Rate 18 br/min 20 br/min Blood Pressure /85 mmHg /85 mmHg MEDICAL INFORMATION Medications Given: Allergy Information: penicillins; predniSONE; erythromycin; codeine PHYSICIAN DOCUMENTATION DISCHARGE INFORMATION: Discharge Disposition: Home Discharge Location: Home PATIENT EDUCATION INFORMATION Instructions: Hypertension, Adult, Mnvn-mi-Pren Follow-Up: With: Address: When: Ansley Houser NP [address] [place] [address] Within 3 to 5 days DIAGNOSIS: 1:Elevated blood pressure reading Patient Understands: Yes - Patient/family/caregive r verbalizes understanding of instructions given Comment: Normal [facility] ED Note-Nursingon 08-03-2022 ED Note-Nursing Patient arrive [facility] ED via private vehicle. Ambulated with a steady gait to ED room 4. Alert and oriented X4. C/O feeling dizzy. Patient reports she followed up with her PCP's office yesterday after a hospital admission for hypertension. States she had labs drawn at that time also. States she received a call this morning with instructions to go to the ED for abnormal labs. Normal [facility] ED Patient Summaryon 023 ED Patient Summary [facility] - Emergency Department [address] [place] [address]17 PATIENT DISCHARGE INSTRUCTIONS Patient Information Name: ALVARADO BRITT Age: 77 Years Date of : 1945 Reason For Visit: Abnormal diagnostic test; Dizziness; ABN LABS, LOW PLATELETS Arrival Time: 08/03/2022 12:11:34 Primary Care Physician: Ansley Houser NP Attending Physician: Nixon Rosas MD Comment: Visit Diagnosis: Diagnoses This Visit Abnormal diagnostic test ([id number]) Dizziness ([id number]) Elevated blood pressure reading (R03.0) The Pharmacy at [facility] is open Monday through Monday from 9A to 6P and Monday and Monday from 9A to 5P Prescription Information: If you have been given a prescription for narcotics, seek immediate medical attention if you have any difficulty breathing or any sudden status changes such as confusion and sleepiness. If you or anyone you know is experiencing suicidal thoughts, mental health, alcohol and/or drug addiction problems; contact the [facility] 24/10 Crisis Hotline -Text 3VKUG lv 241321. If you received any narcotics, sedation, or any other medication that causes drowsiness for the next 24 hours, unless otherwise directed: ? Do not drive a car. ? Do not operate machinery such as power tools, lawn mowers, drills, sewing machines, or stoves ? Avoid alcoholic beverages and drugs for allergies, nerves, or sleep ? Do not make important personal or business decisions or sign any legal documents With: Address: When: Ansley Houser NP [address] [place] [address] Within 3 to 5 days Medication Information: The exam and treatment you received today in the [facility] Emergency Department were for an urgent problem and are not intended as complete care. It is important for you to follow up with a doctor, nurse practitioner, or physician?s medical office assistant instructor for ongoing care. If your symptoms become worse or you do not improve as expected and you are unable to reach your usual health care provider, you should return to the Emergency Department, we are available 24 hours a day. For those patients who have received Radiology results, the interpretation of your X-ray as given to you by our Emergency Department physician is only a preliminary report. The Radiologist will review your films and if there is a change in the diagnosis you will be notified by phone. Please make sure you have provided a working phone number so we can reach you if necessary. In the event that you had a lab culture while you were a patient in the Emergency Department, you will be notified by phone if there is a need to change your antibiotic. Please make sure you have provided a working phone number so we can reach you if necessary. [facility] Emergency Department has provided you with a complete list of medications post discharge. Please inform your electronic typesetting machine operator/provider of your visit and for further instruction on these medications. Any specific questions regarding your chronic medications and dosages should be discussed with your primary care physician(s) and/or pharmacist. Additional medications on your home medication list not specifically addressed. Please contact the ordering physician if you have questions about these medications. buPROPion (buPROPion 150 mg/12 hours (SR) oral tablet, extended release) 1 tab(s) Oral 2 times a day. carvedilol (carvedilol 12.5 mg oral tablet) 1 tab(s) Oral 2 times a day. clopidogrel (clopidogrel 75 mg oral tablet) 1 tab(s) Oral every day. cyclobenzaprine (cyclobenzaprine 10 mg oral tablet) TAKE 1/2 TO 1 (ONE-HALF TO ONE) TABLET BY MOUTH THREE TIMES DAILY NEEDED. enalapril (enalapril 20 mg oral tablet) 1 tab(s) Oral 2 times a day. levothyroxine (levothyroxine 25 mcg (0.025 mg) oral tablet) 1 tab(s) Oral every day. LORazepam (Ativan 0.5 mg oral tablet) 1 tab(s) Oral 3 times a day as needed as needed for anxiety. meloxicam (meloxicam 15 mg oral tablet) TAKE 1 TABLET BY MOUTH ONCE DAILY. multivitamin (One-A-Day Essentials) Oral every day. simvastatin (simvastatin 20 mg oral tablet) 1 tab(s) Oral once a day (at bedtime). Visit Information Allergies: Substance Reaction Symptoms Type Comments codeine Drug erythromycin Drug penicillins Drug predniSONE Eruption Drug Vital Signs: Vitals and Measurements this Visit (last charted value for your 08/03/2022 visit) Vital Signs This Visit Temperature Oral: 36.6 DegC Peripheral Pulse Rate: 63 bpm Heart Rate Monitored: 63 bpm Respiratory Rate: 20 br/min Systolic Blood Pressure: 192 mmHg Diastolic Blood Pressure: 97 mmHg SpO2: 96 % Oxygen Therapy: Room air Measurements This Visit Height/Length Dosin.000 cm Height/Length Estimated: 149.000 cm Weight Dosin.000 kg Weight Estimated: 61.000 kg (more content not included)... Normal [facility] Extra Pinkon 08-03-2022 Tube Collected Yes Invalid Interpretation Code [facility] Comment on above: Performed By: #### [id number] #### [facility] (DEFAULT) [address] [place] [address] Coding Summaryon 08-02-2022 Coding Summary HTMLBase 64 OfybjpfyMTu2iQl+PGhlYWQ +CO5UFDJjW08huMRovP2BI1 hJKW4QTDGXMGXBJL6HDZ9zc LR9XFddY0RxkdIq HfjpiWDoUM55FEg8WSP1nXo qVQlmsK9vgVEmN2p0DsTgKQ 67tW83ZAvnZHUfJpI1UeDij jsgbWFy R0irYyPcvKJgPxa+PHRhYmx lIHdpZHRoPScxMDAlJyBzdH bhMC4qHl6hNUApQZDlrQaek HNlOiBj b0arENFoWZtiXV3dxYlbZ1T igIP4WYJei5s3Ud87lGW+PH MiCIE7kEpmXHacw912EuArc 5leBEN8 oOQfBLqrBFY7G87oh3T2ABK jSEFmKHT1aTV6pF5baOtvyv lcC5WdjWGfIgN7AKY4zEUzz D1ppAmb cshxdG1kNdz+O03TZI9BQWM WVH2EQft5F7GcDrrhkTD+PC 27KNPtPU73rXLtjYMkv8peg Xf6XwWl HPObYIB2sLrxEKdpk6QgNCR zW84obRQng9D8KJDjaYcabN IpXlXepYS6nN8zVRznkiuww 2hvdzsn Capzv5kkmw23uG49P87wDCn oGXJmQEJ2UCJoPCJntDqktd 5lcP4jLe0+QYxod5uge7tjh Ir6AuPo QWGyzjRliVdlXTR0v4QpJw5 0E6LblUwth1ZuZab7fb10uI Dbd8T7pOR3QMdlDIYzfX3fF WxlZnQ6 VKIeEhHxzM27rOUgHVzyKe2 ftQxksVqfBD2fJWYivgxsSR QxvC0zYLRffRAdiTwdQD9vE TBpbjtm q371QtMkQSQ0LCXtlDEgX4M krP4uVhNyVOJuSLBtY4QhgT BrEZkcW608VIxmThO5FZSqz oYmS3Pn DOCnuYyhDvZ1y9X0Xc3Lz2A exsmkAXS5WAoaMFH5VpJbOl PiMoI2R6CnRhp6XVPxqWjgF R4pL7Ga NBCqeaipdfzwfAS2OBMhATO loF46vUZkKIeiJm6tu8R7l3 89TNLqTBRapS01Dj7daTbiQ TBwdCBU oY9cyduqu8dktvsqFjKjQKU uWTq3PBe5TIFiyVhuPjJrVQ M6AoL0AQN7bGGdzZ3eiWoyd nxqlB6a Oyc+J61kwC9ePTP9RJS5xjk hTFSkuwTlGN59GD77E1HsDy wvdGFibGU+PGRpdiBzdHlsZ Y9fUaSe e5qzc0KhJNugS5CyXEKcPWo rVbz0PFWtYKY3zTD4jC7qQT HbKTgnv7O9nBT8X9QqwqQrv z7dn1ai RFTfYOnaJ12cmPRkz2K8ANE ymZX3LYAdtDzkTfUthA88Jn c+PCWltZslo3RwAjwkv0ifl 7cwgZa9 TdFiKMLbbbNuyMerBTB0m6U nAq80F20zNAhhZTOgVGKjYP WwJRWdmDkpzc5mgI0rUa8+P GNvbCB3 qAV8wS0fEXYrBxG1XPwzU18 5FoKgdNHeRajpw2pog2dihD j3BtTiOSJbzuSqwPfuTNJ2o 9PpVd55 M72lVHflYPStBOTdKHAaYZJ eyHcxwq2vrV9fCn7+PC9jb2 zsrf07dB99fKC+HHXdIIJ0v WxlPSdw GIBkuK8uTDltJjM1OAYrJzV wrQ15tRTgSDvgEz1mdUiydM mkDB1bZDLatmdqy605PhWnk 2xkIDEw yFBkGGdfDOC0M26wq8L8YET vBIMhHSB9hQR4dM8vgLafww ogbGVmdDsgdmVydGljYWwtY TheI006 IHRvcDsnPlBhdGllbnQgTmF uWOv7K7RvMtq1KCPevTuuEV 1ohBPwUUkgEq9ggZvopYmcL V1aEYBn hvdsq064BcYxv3woLFJflWF bKVymVCQ9N32wt8J6SEVdHQ ZmKJN4bBS3eU5moLxqvppye GVmdDsg naCrfXvbEAjtECxgC470TMN gvSnyUpKspbGqTDDzzXC6EM 78YN27sMIoy0T4nCW8Z5XpR GRpbmct chnvoCQ1TMHjKUWpyK67Du7 ywOalMf1qDPNzKGQ7EYPiyF IvO2BdjQ0aEzWvSPXaUHIyV 3RleHQt BEcgU928QGxdMrW6NKHgtzK rR9UlOQWjpZabSmH5e7D3Vw 0QP4G9YR99AQ73tSUqv5B4v NI6G8Sb BEDhpzsoztyyvYN6SLNiTTH ghU85Ei5jdQffJe7oEKLzMZ K0IQStsWUtL8UgyE3pOlRsP DAwMDAw T5HgmZHnXRhsK980YRioMbZ 1VNYlleRlH0MgBPVyoNzoRh K2f8M3Ge5BYVr9FE94BS35p IXql0H0 tZV0P5XmVIMgovdbjudxtIO 7MKFrVSPljY09Gq6nlLtgRm 9zYNBqHET6FUCrvADpQ5Agh S0uMfMh CSEzXLJpH6NeaQOoATebE77 2IXiwOmD5JNMmhoMuD0NiEW HrfRmsZpN0p4A6Lt3FYKYtZ J30RBC9 iCA1XI95OP87D3NbOazxhDU ibGU+PHRhYmxlIHdpZHRoPS oxZIBrHsElqYvsYW8qHw5oJ GVyLWNv oOyncLTiHfQqg8huKCSaMXx sMK8bbFjbV3NxyCR5MIPke9 j7Hj88S73cQ2MtrGI+PGNvb CC1sNL6 qE4nBdJzWlV5JWhhC199PfK xrOHwAwjxq6unq8mlkWd0Sj S5OMVdptYufIncAEC4x1AsJ c71P14t IHdpZHRoPSIxNSUiIHZhbGl ris4jjF8vLv1+WXYhvGL2zG W2wP4fIaRnTwC1TIzrX480U nRvcCIv Itary4alc9biqTw5MuOnKJZ wfsOgrGgnRXH4a9PlOq90G8 WwkEysx7YoCcz8gn84iQEfm 9L1wYI2 O7QwBEIknyxmlARhcQhsFJ0 kPJIewjquXQBshO0rQIWeV5 w0PxNwNeU0VKdnR5AljjW3R DEwcHQg VZgcQXL5D97is1Y4XYUyFZK qRYR3qSQ6yN7gxAhceaaxhB VmdDsgdmVydGljYWwtYWxpZ 246IHRv uLwvLCBvzD8lEZDwvDFvfNq mZP4vSMKcddykXwaQRAENBL CNSUFDBCSBOQIRIH12HR56w TVfc1X1 dWB6Y9QpKNPslqjedevseJH 2DXEtWPVlaX91nPXlVKgzRi 1vl9K4g630SUCwPVKhiF71A o1mzZte QZJegSDPhT2azevfi6livhs pOxSiLPIsHHd5ZHe9VAHilP hkZeUfOUB0NbA1ONR9wEBmq F6drNrc rkygnQ7xHtw+MTEvMjgvMTk 0NzwvdGQ+LSRiEMX9oPjkHW ieUMPokP3yNBGbP2u8KtOjA vR0IDdh A5PwMRXlehfkPq90nT8mUnK qUkU7VObkA3CrjxD9YTBpnA RhQJrgSFM1O79rm9Z7VUWkG DAwMDA7 qQB5mR0hrIfjmdnrsTMkhUw mdzUusZqqWWzsAAauQ433GP MhpSplSgy9MRznRFKbVI13V R18eSCh o0S8lGC8T3ElRVFrqapqlah ehIY0JKXrHEOrcV47hGJjUX czDw3wd6Q0t216WXLvFUJzw H07Yx5n qUmsGBZlaNHXxO2adodez7e ujxemZoBqTTIeEYf8NFg7AP JblBgxVtElOUK5IdQ5DPB6b DJwuG8e qUslrytvsC9iCqa+RkVNQUx YXV64WZ15wBTwn3O8pGO7O0 AxBDPevfaszjnyqJH3UOOsG DUwaW47 fVOsQStyNz4wm8N2l060KIV uCQWosZ64Vl4gcQliRVBigY KDfL1mbczuu9gobsjtLuNuW DAwMDt0 IGd6BXQcxWogTaIlWUL3LxU 0MGU9wKEmfJ8poWikljkrhM 9wOyc+W6XcLGE7PUNcz630K 3RkPjwv dHI+OM72LEOsVG29vIWhcEN gd2mtbEn3BuHxFGDzISE6lI rrGWjbm2OtAZSwA19lkXGce 1R2LHJe nMmvdGPiDnSzyFW9uS9iKAr azmxfg6heieodTiuyf4hmqj 25nK89Z49cZNhzAGBkRBUdT CUiIHZh hJrirk4fsX5oUs7+PGNvbCB 4mOA4iZ4nDjAjQcO1MFxpN1 76BdLufCBqSevgc2ufw0rmc Oo6WrSe GSMlygPmfQtaFOJ6a3FwRn4 2D80pVDepUKUhSVMoGPYnAQ XjlWtjnu3htL3hNh3+PC9jb 7ypjk79 sV56xIO+SAFvXYF2vEjtCZy yXGHwzD5kVPkeUeM6UKAsYl BloJ74kFGjFJcvHr1glHaph TyhGL8f ECXdtzeiy392XaPzb5yzIUY ssJIsTApnKSD9I01ol3O4TJ NtNPLjFFU3hKI8jE9srNinb jogbGVm vIhcwlImeTgmPGttLWlxD48 2PFMatEinMjNrrSYtB4qydf DIIU5eKgefhZM+MMDpCNO3t WxlPSdw DVOsbS9dAQNkC0l9WcKvVtC 5YRsyO2FzceI6KJQpzQOjRG HizVDQlB1lcqmka5rkllfqB zAwMDAw YSb5IFp7VYDhdNonQtGrKLQ 4JcH4NOX4uGTneT3ouJgcag xoyV6nOww+RklOOjwvdGQ+P HRkIHN0 nBpyVXgvGANmmQ1nCHUzN2r 4AgLoWhY3RDkiD5XcojV4BJ ZuuYXcVTUcdMSVfT6azvtoe 2xvcjog MiYuGOWaRTy8GKu6QGWcvQg fIeErRFO8UoQ2BNY8rFSgjH 4njAayndfdwY9kUkh+TVJOO jwvdGQ+ UQQeZWO4sChbZAydVSZupN9 nEWFeT1l4RrOwQiK6KJmkW2 ImmvW8TXPveIMuWGSuuWIHx S9iadhe v0ktgcbmYaKwKGKxEVb6OFm 3HDGkuUlyQuPsDXM0SgA2JD S9fNSiiF7fcCpylybpnY8oJ yc+UGF5 HNH1GZ78VM67G8ZgDpwuyJC ibGU+PHRhYmxlIHdpZHRoPS yaZCRyOeZwmXumXL7rBs1lW GVyLWNv bGx (more content not included)... [facility] Consent Formson 08-01-2022 Consent Forms [id number]#1.00OTG TIFF [facility] Telemetry Stripson Telemetry Strips [id number]#1.00OT GTIFF [facility] .Auto Diff 107-29-2022 Auto Coles % 6 % Normal 04-14 [facility] Comment on above: Performed By: #### 1 [id number], [id number], 5771096003, 9051855, 7040875326, 7946528 ####[facility] (DEFAULT)[address] [place] [address] 21677 Baso Abs# 0.0 x10 Normal 0.0-0.2 [facility] Comment on above: Performed By: #### 1 2574842, [id number], 7791533424, 8690163, 5191606814, 8988653 ####[facility] (DEFAULT)[address] [place] [address] 82956 Basophils/100 WBC (Bld) 0.5 % Normal 0.2-2.0 [facility] Comment on above: Performed By: #### 1 3234527, 8320704727, 6719846352, 3836659, 4059472857, 0584853 ####[facility] (DEFAULT)[address] [place] [address] 68528 Eos Abs# 0.1 x10 Normal 0.0-0.4 [facility] Comment on above: Performed By: #### 1 5951082, 6264912496, 4758286748, 4989886, 4881880818, 1155835 ####[facility] (DEFAULT)[address] [place] [address] 27774 Eosinophils/100 WBC (Bld) 2.7 % Normal 0.9-4.0 [facility] Comment on above: Performed By: #### 1 2379691, 8514747594, 8102195261, 4028689, 3216464666, 6128720 ####[facility] (DEFAULT)[address] [place] [address] 14660 Lymph Abs# 0.9 x10 Low 1.3-2.9 [facility] Comment on above: Performed By: #### 1 2041542, 0571883400, 7959799371, 5179016, 4857705257, 2091593 ####[facility] (DEFAULT)[address] [place] [address] Lymphocytes/100 WBC (Bld) 28 % Normal 14-48 [facility] Comment on above: Performed By: #### 1 1330500, 3400121672, 3990895498, 3119687, 0851688820, 1984162 ####[facility] (DEFAULT)[address] [place] [address] 52249 Coles Abs# 0.2 x10 Normal 0.0-0.8 [facility] Comment on above: Performed By: #### 1 0973476, 8102731103, 9131505796, 0588853, 1469072084, 8559551 ####[facility] (DEFAULT)[address] [place] [address] Neut Abs# 2.0 x10 Normal 1.5-9.2 [facility] Comment on above: Performed By: #### 1 0797106, 2981671268, 5687589514, 7691583, 2315253008, 3628832 ####[facility] (DEFAULT)[address] [place] [address] Neutrophils/100 WBC (Bld) 64 % Normal 44-88 [facility] Comment on above: Performed By: #### 1 8289184, 8489524759, 5229329251, 7041727, 6495668268, 3536579 ####[facility] (DEFAULT)[address] [place] [address] BNP.on 07-29-2022 Natriuretic peptide B (Bld) [Mass/Vol] 446.0 pg/mL High 0.0-100.0 [facility] Comment on above: Result Comment: BNP results greater than 100 pg/mL are considered abnormal and suggestive of patients with CHF. Higher BNP concentrations measured in the first 72 hours after an acute coronary syndorme are associated with an increased risk of , myocardial infarction, and CHF. Performed By: #### 1 8429275, 3705800400, 8392840554, 9980319, 6410348499, 5085192 ####[facility] (DEFAULT)[address] [place] [address] Natriuretic peptide B (Bld) [Mass/Vol] 401.0 pg/mL High 0.0-100.0 [facility] Comment on above: Result Comment: BNP results greater than 100 pg/mL are considered abnormal and suggestive of patients with CHF. Higher BNP concentrations measured in the first 72 hours after an acute coronary syndorme are associated with an increased risk of , myocardial infarction, and CHF. Performed By: #### 1 [id number], 2775966, 99284245, 4726482, 5145442952, 3221922482, 5782197 ####[facility] (DEFAULT)[address] [place] [address] 18579 CBC w/ Auto Diffon 3 Erythrocyte distribution width (RBC) [Ratio] 13.5 % Normal 11.5-15.0 [facility] Comment on above: Performed By: #### 1 0318578, 5509173191, 1350460339, 3118140, 3547167066, 1442345 ####[facility] (DEFAULT)[address] [place] [address] 08110 Hematocrit (Bld) [Volume fraction] 32.4 % Low 33.7-40.4 [facility] Comment on above: Performed By: #### 1 7755609, 8574992372, 4375470335, 4737921, 7198029545, 2308262 ####[facility] (DEFAULT)[address] [place] [address] 20772 Hemoglobin (Bld) [Mass/Vol] 11.2 g/dL Low 11.3-15.9 [facility] Comment on above: Performed By: #### 1 5936602, 9227852836, 2566351006, 0505973, 1663612516, 5285319 ####[facility] (DEFAULT)[address] [place] [address] Man Diff? Auto Invalid Interpretation Code [facility] Comment on above: Performed By: #### 1 3756512, 1790650854, 0185759672, 1326543, 2697499374, 8470730 ####[facility] (DEFAULT)[address] [place] [address] MCH (RBC) [Entitic mass] 33 pg Normal 24-34 [facility] Comment on above: Performed By: #### 1 3867085, 0259973534, 8407307245, 4641804, 6031992801, 0497727 ####[facility] (DEFAULT)[address] [place] [address] MCHC (RBC) [Mass/Vol] 35 g/dL Normal 26-37 [facility] Comment on above: Performed By: #### 1 2359886, 5043077565, 9728982618, 4799950, 1491893114, 1115331 ####[facility] (DEFAULT)[address] [place] [address] 23426 MCV (RBC) [Entitic vol] 94 fL Normal 81-100 [facility] Comment on above: Performed By: #### 1 8521668, 6719575743, 4011416611, 3870741, 7388255207, 3895878 ####[facility] (DEFAULT)[address] [place] [address] Platelet 145 x10 Normal 138-427 [facility] Comment on above: Performed By: #### 1 7925029, 1846811793, 0985395407, 3131466, 9063745288, 0166362 ####[facility] (DEFAULT)[address] [place] [address] Platelet mean volume (Bld) [Entitic vol] 7.8 fL Normal 6.3-10.2 [facility] Comment on above: Performed By: #### 1 0211347, 7687546984, 5485108182, 4970537, 1569359619, 1802253 ####[facility] (DEFAULT)[address] [place] [address] RBC 3.43 x10 Low 3.70-5.30 [facility] Comment on above: Performed By: #### 1 8341688, 7090529224, 7265905411, 3950225, 4530686019, 2680430 ####[facility] (DEFAULT)[address] [place] [address] WBC 3.2 x10 Low 3.5-10.5 [facility] Comment on above: Performed By: #### 1 0252908, 1076302485, 3957898090, 4003631, 8201382930, 3395856 ####[facility] (DEFAULT)[address] [place] [address] CMP Standardon 07-29-2022 Breakpoint Chem Normal [facility] Comment on above: Performed By: #### 1 5797263, 7017095941, 9218013967, 7283334, 8952774165, 1515683 ####[facility] (DEFAULT)[address] [place] [address] 87845 eGFR Non AA >60 Invalid Interpretation Code [facility] Comment on above: Performed By: #### 1 1369957, 7122545647, 2562626258, 9356834, 8158749666, 1755630 ####[facility] (DEFAULT)[address] [place] [address] 59132 eGFR AA >60 Invalid Interpretation Code [facility] Comment on above: Performed By: #### 1 0547960, 4705132160, 3922378168, 1776557, 4268727087, 4252883 ####[facility] (DEFAULT)[address] [place] [address] 21729 Albumin [Mass/Vol] 3.5 g/dL Normal 3.5-5.0 [facility] Comment on above: Performed By: #### 1 5068136, 0042057262, 4828406990, 0315012, 0655649487, 1863681 ####[facility] (DEFAULT)[address] [place], [place] [address] Albumin/Globulin [Mass ratio] 1.4 {ratio} Normal 1.4-2.6 [facility] Comment on above: Performed By: #### 1 5161540, 3509078773, 5284853175, 6625244, 7337890243, 6433254 ####[facility] (DEFAULT)[address] [place] [address] 28003 Alk Phos 39 IU/L Normal 32-91 [facility] Comment on above: Performed By: #### 1 1922872, 9083642102, 9013846657, 6820729, 0891252667, 3941926 ####[facility] (DEFAULT)[address] [place] [address] ALT [Catalytic activity/Vol] 19.0 U/L Normal 14.0-54.0 [facility] Comment on above: Performed By: #### 1 1889148, 2020144083, 4702256358, 6787414, 4312806542, 5365461 ####[facility] (DEFAULT)[address] [place] [address] Anion gap [Moles/Vol] 12.2 mmol/L Normal 5.0-19.0 [facility] Comment on above: Performed By: #### 1 9990093, 4443755912, 1071154132, 1504466, 6445286457, 5728485 ####[facility] (DEFAULT)[address] [place] [address] 21014 AST [Catalytic activity/Vol] 22 U/L Normal 15-41 [facility] Comment on above: Performed By: #### 1 0246415, 4626604924, 4683589226, 3318012, 7955131585, 6716964 ####[facility] (DEFAULT)[address] [place] [address] 83178 Bili Total 0.9 mg/dL Normal 0.3-1.2 [facility] Comment on above: Performed By: #### 1 7540332, 0243718332, 8463424914, 1849625, 3928044583, 3471817 ####[facility] (DEFAULT)[address] [place] [address] 63697 Calcium [Mass/Vol] 8.4 mg/dL Low 8.9-10.3 [facility] Comment on above: Performed By: #### 1 9024951, 2116231410, 7754371667, 0258821, 4892778187, 3623265 ####[facility] (DEFAULT)[address] [place] [address] 61738 Chloride [Moles/Vol] 104 mmol/L Normal 101-111 [facility] Comment on above: Performed By: #### 1 5637211, 7272829344, 1349058545, 5453958, 4651779913, 9647976 ####[facility] (DEFAULT)[address] [place] [address] 50538 CO2 [Moles/Vol] 28 mmol/L Normal 21-32 [facility] Comment on above: Performed By: #### 1 8984197, 5441829377, 3457901221, 2976058, 7655804422, 6041991 ####[facility] (DEFAULT)[address] [place] [address] 68911 Creatinine [Mass/Vol] 0.90 mg/dL Normal 0.60-1.30 [facility] Comment on above: Performed By: #### 1 9190905, 8976150299, 9156549571, 0904535, 8005711334, 4625060 ####[facility] (DEFAULT)[address] [place] [address] 16240 Globulin (S) [Mass/Vol] 2.4 g/dL Normal 1.5-4.3 [facility] Comment on above: Performed By: #### 1 8584174, 4617907654, 1556456217, 5561763, 5425675934, 6709458 ####[facility] (DEFAULT)[address] [place] [address] 41158 Glucose [Mass/Vol] 123.0 mg/dL High 74.0-118.0 [facility] Comment on above: Performed By: #### 1 1120003, 9056623139, 1880019000, 3646330, 7230284115, 1440189 ####[facility] (DEFAULT)[address] [place] [address] 26701 Osmolality 283 mOsm/L Invalid Interpretation Code [facility] Comment on above: Performed By: #### 1 0994469, 7839553133, 5017728644, 9566988, 7531669157, 4589866 ####[facility] (DEFAULT)[address] [place] [address] 33609 Potassium [Moles/Vol] 3.2 mmol/L Low 3.6-5.1 [facility] Comment on above: Performed By: #### 1 0678483, 1664509988, 1036944307, 0332737, 5631462296, 4488552 ####[facility] (DEFAULT)[address] [place] [address] 51395 Protein [Mass/Vol] 5.9 g/dL Low 6.5-8.1 [facility] Comment on above: Performed By: #### 1 7161442, 1772628927, 9645313823, 1846042, 3685706865, 0352332 ####[facility] (DEFAULT)[address] [place] [address] 61776 Sodium [Moles/Vol] 141.0 mmol/L Normal 136.0-144.0 [facility] Comment on above: Performed By: #### 1 4282443, 7635084045, 0637234051, 7236178, 5537336924, 0747320 ####[facility] (DEFAULT)[address] [place] [address] 98447 Urea nitrogen [Mass/Vol] 14 mg/dL Normal 8-26 [facility] Comment on above: Performed By: #### 1 1190312, 8359884145, 2222452521, 4084917, 4271380611, 4747115 ####[facility] (DEFAULT)[address] [place] [address] 26693 Urea nitrogen/Creatinin e [Mass ratio] 15.5 mg/mg Normal 4.6-16.2 [facility] Comment on above: Performed By: #### 1 3734824, 3776864207, 6474196979, 0669287, 5330388454, 1185716 ####[facility] (DEFAULT)[address] [place] [address] 37028 ED Clinical Summaryon 2022 ED Clinical Summary [facility] Emergency Department [address] [place] [address] ED Clinical Summary PERSON INFORMATION Name: ALVARADO BRITT Age: 77 Years Sex: FEMALE : 1945 MRN: Acct#: Visit Reason: Chest pain; Chest pain; Trauma; CHEST PAIN, HYPERTENSION Arrival: 07/28/2022 19:18:28 Discharge: LOS: 000 04:45 Check In: 07/28/2022 19:18:28 Checkout:07/29/2022 00:03:43 Address: [address] [place] [address] PCP: Ansley Houser [employer] PROVIDER INFORMATION Provider Role Assigned Unassigned Jessa Jernigan RN ED Nurse 07/28/2022 19:27:53 Marco Jones DO ED Provider 07/28/2022 20:13:33 VITALS INFORMATION Vital Sign Triage Latest Temperature Tympanic Temperature Temporal Artery Pulse Rate 95 bpm 80 bpm O2 Sat 97 % 99 % Respiratory Rate 16 br/min 25 br/min Blood Pressure /99 mmHg /99 mmHg MEDICAL INFORMATION Medications Given: Medication Dose Route aspirin 162 mg PO ketorolac 30 mg IV Push LORazepam (Ativan injection) 0.5 mg IV Push labetalol 2.5 mg IV Push labetalol 2.5 mg IV Push nitroglycerin (Nitro-Bid 2% topical ointment) 0.5 in TOP ondansetron (!-Zofran) 4 mg IV Push LORazepam (Ativan injection) 0.5 mg IV Push HYDROmorphone (Dilaudid) 0.5 mg IV Push Allergy Information: penicillins; erythromycin; codeine PHYSICIAN DOCUMENTATION DISCHARGE INFORMATION: Discharge Disposition: Admitted as Observation Discharge Location: PATIENT EDUCATION INFORMATION Instructions: Follow-Up: DIAGNOSIS: Chest pain; Hypertension Patient Understands: Comment: [facility] ED Patient Education Noteon 07-29-2022 ED Patient Education Note Education Materials [facility] ED Patient Summaryon 023 ED Patient Summary [facility] Emergency Department [address] [place] [address]2019 PATIENT DISCHARGE INSTRUCTIONS Patient Information Name: ALVARADO BRITT Age: 77 Years Date of : 1945 [facility]: [id number] Reason For Visit: Chest pain; Chest pain; Trauma; CHEST PAIN, HYPERTENSION Arrival Time: 07/28/2022 19:18:28 Primary Care Physician: Ansley Houser NP Attending Physician: Layla Romero MD Comment: Visit Diagnosis: Diagnoses This Visit Chest pain (R07.9) Chest pain ([id number]) Chest pain ([id number]) Hypertension (I10) Trauma ([id number]) The Pharmacy at [facility] is open Monday through Monday from 9A to 6P and Monday and Monday from 9A to 5P Prescription Information: If you have been given a prescription for narcotics, seek immediate medical attention if you have any difficulty breathing or any sudden status changes such as confusion and sleepiness. If you or anyone you know is experiencing suicidal thoughts, mental health, alcohol and/or drug addiction problems; contact the [facility] 24/10 Crisis Hotline -Text 2TFEJ [place] 60[address]29. If you received any narcotics, sedation, or any other medication that causes drowsiness for the next 24 hours, unless otherwise directed: ? Do not drive a car. ? Do not operate machinery such as power tools, lawn mowers, drills, sewing machines, or stoves ? Avoid alcoholic beverages and drugs for allergies, nerves, or sleep ? Do not make important personal or business decisions or sign any legal documents Medication Information: The exam and treatment you received today in the [facility] Emergency Department were for an urgent problem and are not intended as complete care. It is important for you to follow up with a doctor, nurse practitioner, or physician?s medical office assistant instructor for ongoing care. If your symptoms become worse or you do not improve as expected and you are unable to reach your usual health care provider, you should return to the Emergency Department, we are available 24 hours a day. For those patients who have received Radiology results, the interpretation of your X-ray as given to you by our Emergency Department physician is only a preliminary report. The Radiologist will review your films and if there is a change in the diagnosis you will be notified by phone. Please make sure you have provided a working phone number so we can reach you if necessary. In the event that you had a lab culture while you were a patient in the Emergency Department, you will be notified by phone if there is a need to change your antibiotic. Please make sure you have provided a working phone number so we can reach you if necessary. [facility] Emergency Department has provided you with a complete list of medications post discharge. Please inform your electronic typesetting machine operator/provider of your visit and for further instruction on these medications. Any specific questions regarding your chronic medications and dosages should be discussed with your primary care physician(s) and/or pharmacist. Medications to Continue That Have Not Changed Other Medications buPROPion (buPROPion 150 mg/12 hours (SR) oral tablet, extended release) 1 tab(s) Oral 2 times a day. carvedilol (carvedilol 12.5 mg oral tablet) 1 tab(s) Oral 2 times a day. clopidogrel (clopidogrel 75 mg oral tablet) 1 tab(s) Oral every day. cyclobenzaprine (cyclobenzaprine 10 mg oral tablet) TAKE 1/2 TO 1 (ONE-HALF TO ONE) TABLET BY MOUTH THREE TIMES DAILY NEEDED. enalapril (enalapril 20 mg oral tablet) 1 tab(s) Oral every day. levothyroxine (levothyroxine 25 mcg (0.025 mg) oral tablet) 1 tab(s) Oral every day. LORazepam (Ativan 0.5 mg oral tablet) 1 tab(s) Oral 3 times a day as needed as needed for anxiety. meloxicam (meloxicam 15 mg oral tablet) TAKE 1 TABLET BY MOUTH ONCE DAILY. multivitamin (One-A-Day Essentials) Oral every day. simvastatin (simvastatin 20 mg oral tablet) 1 tab(s) Oral once a day (at bedtime). Visit Information Allergies: Substance Reaction Symptoms Type Comments codeine Drug erythromycin Drug penicillins Drug Vital Signs: Vitals and Measurements this Visit (last charted value for your 07/28/2022 visit) Vital Signs This Visit Temperature Oral: 36.6 DegC Peripheral Pulse Rate: 80 bpm Heart Rate Monitored: 83 bpm Respiratory Rate: 25 br/min Systolic Blood Pressure: 179 mmHg Diastolic Blood Pressure: 87 mmHg Mean Arterial Pressure, Cuff-Calculation: 118 mmHg Mean Arterial Pressure Cuff-Monitor: 92 mmHg SpO2: 99 % Oxygen Flow Rate: 2 L/min Oxygen Therapy: Nasal cannula Measurements This Visit Height/Length Dosin.860 cm Height/Length Estimated: 149.860 cm Weight Dosin.690 kg Weight Estimated: 61.690 kg Problems List: Problem Onset Comments No Problems found Patient Education Viruses or (more content not included)... Normal [facility] Inpatient Patient Summaryon 07-29-2022 [place] [address] Patient Discharge Instructions Name: ALVARADO BRITT : 1945 Patient Address: [address] [place] [address] Primary Care Provider: Name: Ansley Houser NP After you are discharged if you find you have any questions, please, call [phone] ext [phone] to speak to a nurse. The Pharmacy at [facility] is open Monday through Monday from 9A to 6P and Monday and Monday from 9A to 5P Discharge Diagnosis: 1:Anxiety; Chest pain; Hypertension Prescription Information: If you have been given a prescription for narcotics, seek immediate medical attention if you have any difficulty breathing or any sudden status changes such as confusion and sleepiness. If you or anyone you know is experiencing suicidal thoughts, mental health, alcohol and/or drug addiction problems; contact the [facility] 24/10 Crisis Hotline -Text 4HFSY dz 741195. If you received any narcotics, sedation, or any other medication that causes drowsiness for the next 24 hours, unless otherwise directed: ? Do not drive a car. ? Do not operate machinery such as power tools, lawn mowers, drills, sewing machines, or stoves ? Avoid alcoholic beverages and drugs for allergies, nerves, or sleep ? Do not make important personal or business decisions or sign any legal documents [facility] would like to thank you for allowing us to assist you with your healthcare needs. The following includes patient education materials and information regarding your injury/illness. ALVARADO BRITT has been given the following list of follow-up instructions, prescriptions, and patient education materials: Follow-up Instructions With: Address: When: [place] [employer] [address] [phone] Comments: GAVE PATIENT BLUE CARD TO MAKE APPT TO F/U WITH HER PCP Medications During the course of your visit, your medication list was updated with the most current information. The details of those changes are reflected below: Medications That Were Updated - Follow Below Instructions Other Medications Updated: enalapril (enalapril 20 mg oral tablet) 1 tab(s) Oral 2 times a day. Medications to Continue That Have Not Changed Other Medications buPROPion (buPROPion 150 mg/12 hours (SR) oral tablet, extended release) 1 tab(s) Oral 2 times a day. carvedilol (carvedilol 12.5 mg oral tablet) 1 tab(s) Oral 2 times a day. clopidogrel (clopidogrel 75 mg oral tablet) 1 tab(s) Oral every day. cyclobenzaprine (cyclobenzaprine 10 mg oral tablet) TAKE 1/2 TO 1 (ONE-HALF TO ONE) TABLET BY MOUTH THREE TIMES DAILY NEEDED. levothyroxine (levothyroxine 25 mcg (0.025 mg) oral tablet) 1 tab(s) Oral every day. LORazepam (Ativan 0.5 mg oral tablet) 1 tab(s) Oral 3 times a day as needed as needed for anxiety. meloxicam (meloxicam 15 mg oral tablet) TAKE 1 TABLET BY MOUTH ONCE DAILY. multivitamin (One-A-Day Essentials) Oral every day. simvastatin (simvastatin 20 mg oral tablet) 1 tab(s) Oral once a day (at bedtime). It is important to always keep an active list of medications available so that you can share with other providers and manage your medications appropriately. As an additional courtesy, we are also providing you with your final active medications list that you can keep with you. buPROPion (buPROPion 150 mg/12 hours (SR) oral tablet, extended release) 1 tab(s) Oral 2 times a day. carvedilol (carvedilol 12.5 mg oral tablet) 1 tab(s) Oral 2 times a day. clopidogrel (clopidogrel 75 mg oral tablet) 1 tab(s) Oral every day. cyclobenzaprine (cyclobenzaprine 10 mg oral tablet) TAKE 1/2 TO 1 (ONE-HALF TO ONE) TABLET BY MOUTH THREE TIMES DAILY NEEDED. enalapril (enalapril 20 mg oral tablet) 1 tab(s) Oral 2 times a day. levothyroxine (levothyroxine 25 mcg (0.025 mg) oral tablet) 1 tab(s) Oral every day. LORazepam (Ativan 0.5 mg oral tablet) 1 tab(s) Oral 3 times a day as needed as needed for anxiety. meloxicam (meloxicam 15 mg oral tablet) TAKE 1 TABLET BY MOUTH ONCE DAILY. multivitamin (One-A-Day Essentials) Oral every day. simvastatin (simvastatin 20 mg oral tablet) 1 tab(s) Oral once a day (at bedtime). Take only the medications listed above. Contact your doctor prior to taking any medications not on this list. Medication leaflets, if any, will display below Diet & Activity Patient Activity Level: Patient Diet: Patient Activity Restrictions: Patient education materials, if any, will display below Generalized Anxiety Disorder, Adult Generalized anxiety disorder (GERRI) is a mental health condition. Unlike normal worries, anxiety related to GERRI is not triggered by a specific event. These worries do not fade or get better with time. GERRI interferes with relationships, work, and school. GERRI symptoms can vary from mild to severe. People with se (more content not included)... Normal [facility] Magnesiumon 07-29-2022 Magnesium [Mass/Vol] 1.97 mg/dL Normal 1.80-2.50 [facility] Comment on above: Performed By: #### 1 [id number], [id number], [id number], 9181927, [id number], 2354278 ####[facility] (DEFAULT)[address] [place] [address] Nutrition Noteon 07-29-2022 Nutrition Note Pt admitted with russ[address] [facility] pain, HTN. Pt placed on full liquids; uncertain why. No abdominal pain, N/V noted. H&P pending. Pt seen by cardiology, meds adjusted with OP f/u recommended. K 3.2L, BNP 446H, BS 106-123H. Per medical rounds, CP/HTN possibly anxiety related. Admit wt 61kg. Last wt on file from 2019 at 62.1kg, stable. Pt appears at low nutrition risk at this time. Once diet advanced, recommend 2g Na. Pt appears at low nutrition risk. Will monitor wts, intake and labs. [facility] Pharmacy Noteon 07-29-2022 Pharmacy Note I have personally reviewed the patient's medication list upon discharge including, prescription medications, OTC products, vitamins and supplements. Below are the following medications the patient is discharged on. Medications That Were Updated - Follow Below Instructions Other Medications Updated: enalapril (enalapril 20 mg oral tablet) 1 tab(s) Oral 2 times a day. Medications to Continue That Have Not Changed Other Medications buPROPion (buPROPion 150 mg/12 hours (SR) oral tablet, extended release) 1 tab(s) Oral 2 times a day. carvedilol (carvedilol 12.5 mg oral tablet) 1 tab(s) Oral 2 times a day. clopidogrel (clopidogrel 75 mg oral tablet) 1 tab(s) Oral every day. cyclobenzaprine (cyclobenzaprine 10 mg oral tablet) TAKE 1/2 TO 1 (ONE-HALF TO ONE) TABLET BY MOUTH THREE TIMES DAILY NEEDED. levothyroxine (levothyroxine 25 mcg (0.025 mg) oral tablet) 1 tab(s) Oral every day. LORazepam (Ativan 0.5 mg oral tablet) 1 tab(s) Oral 3 times a day as needed as needed for anxiety. meloxicam (meloxicam 15 mg oral tablet) TAKE 1 TABLET BY MOUTH ONCE DAILY. multivitamin (One-A-Day Essentials) Oral every day. simvastatin (simvastatin 20 mg oral tablet) 1 tab(s) Oral once a day (at bedtime). [Electronically Signed on: 07/29/2022 15:03 EDT] Isabella Hamilton [Verified on: 07/29/2022 15:03 EDT] Isabella Hamilton [facility] Progress Note - Nurseon - Progress Note - Nurse patient discharged to home with via private vehicle. AVS provided and reviewed. [Electronically Signed on: 07/29/2022 15:44 EDT] Keyla Silva RN [Verified on: 07/29/2022 15:44 EDT] Keyla Silva RN [facility] Telemetry Stripson Telemetry Strips [id number] [id number] [facility] TnI HSon 07-29-2022 Troponin I High Sensitivity 8.4 pg/mL Normal <=15.0 [facility] Comment on above: Performed By: #### 5 [id number] ####[facility] (DEFAULT)[address] [place] [address] 89684 Troponin I High Sensitivity 10.2 pg/mL Normal <=15.0 [facility] Comment on above: Performed By: #### 1 [id number], [id number], [id number], 3615433, 6223922599, 7184506 ####[facility] (DEFAULT)[address] [place] [address] 68136 Troponin I High Sensitivity 7.9 pg/mL Normal <=15.0 [facility] Comment on above: Performed By: #### 5 [id number] ####[facility] (DEFAULT)[address] [place] [address] US Echocardiogram Completeon 07-29-2022 US Echocardiogram Complete DATE OF STUDY: 07/29/2022 US ECHOCARDIOGRAM COMPLETE Aortic root: 3.1 IVSd: 0.9 LVPWd: 0.9 A 2D M-Mode echocardiogram Doppler study was performed. The study is technically adequate. The aortic root is of normal size. The aortic valve leaflets open adequately. The left atrium is mildly dilated. There is adequate diastolic excursion of the mitral valve leaflets. The left ventricle is of normal size with normal left ventricular systolic function. Estimated ejection fraction is 55-60%. There are no segmental wall motion abnormalities. The right atrium appears to be mildly dilated. The right ventricle is of normal size with normal right ventricular systolic function. There is no evidence for intracardiac mass or pericardial effusion. Color flow and conventional Doppler interrogation reveals mild to moderate aortic insufficiency. There is mild mitral insufficiency and mild tricuspid insufficiency. There is evidence of flow across the intraatrial septum consistent with a patent foramen ovale. Estimated right ventricular systolic pressure is 35 mmHg. CONCLUSIONS: 1. Normal left ventricular function. 2. Mild to moderate aortic insufficiency. 3. Mild mitral insufficiency. 4. Mild tricuspid insufficiency. 5. Evidence for patent foramen ovale. Alfredo Zhang DO JOB #: [id number] bk Final Dictated by: Alfredo Zhang DO Dictated DT/TM: 08/02/22 11:54 Signed (Electronic Signature): Alfredo Zhang DO 08/03/22 8:30 am Technologist: [facility] XR Chest 1 View Frontalon XR Chest 1 View Frontal EXAM: XR Chest 1 View Frontal HISTORY: chest pain COMPARISON: Chest x-ray 12/11/2018 TECHNIQUE: Single frontal view chest x-ray FINDINGS: Mildly enlarged cardiac silhouette. Mild bilateral lower lung streaky opacities reflect crowding of pulmonary vessels/atelectasis. No lung consolidation, large pleural effusions, pneumothorax, or acute bony adenopathy. IMPRESSION: Mildly enlarged cardiac silhouette, reflecting cardiomegaly. Final Dictated by: Dwaine Hanna MD Dictated DT/TM: 07/29/22 1:29 Signed (Electronic Signature): Dwaine Hanna MD 07/29/22 1:30 am Technologist: [facility] .Auto Diff 1on 07-28-2022 Auto Coles % 4 % Normal 1-12 [facility] Comment on above: Performed By: #### 1 [id number], 6394488, 22979464, 8426060, 9521240195, 4237168316, 0294784 ####[facility] (DEFAULT)[address] [place] [address] Baso Abs# 0.0 x10 Normal 0.0-0.2 [facility] Comment on above: Performed By: #### 1 [id number], 6612282, 93338899, 5373184, 1147627593, 3335403351, 6787288 ####[facility] (DEFAULT)[address] [place] [address] Basophils/100 WBC (Bld) 0.7 % Normal 0.2-2.0 [facility] Comment on above: Performed By: #### 1 [id number], 0968476, 30314984, 7493084, 9463697973, 3123097308, 9634045 ####[facility] (DEFAULT)[address] [place] [address] Eos Abs# 0.1 x10 Normal 0.0-0.4 [facility] Comment on above: Performed By: #### 1 [id number], 1019456, 37274634, 9117699, 2461348398, 0510746783, 4905579 ####[facility] (DEFAULT)[address] [place] [address] Eosinophils/100 WBC (Bld) 2.9 % Normal 0.9-4.0 [facility] Comment on above: Performed By: #### 1 [id number], 5035675, 45834295, 4883873, 5135021794, 6366917802, 0487874 ####[facility] (DEFAULT)[address] [place] [address] Lymph Abs# 1.1 x10 Low 1.3-2.9 [facility] Comment on above: Performed By: #### 1 [id number], 8045963, 42733476, 6195671, 8142650527, 6540453996, 9048740 ####[facility] (DEFAULT)[address] [place] [address] Lymphocytes/100 WBC (Bld) 30 % Normal 14-48 [facility] Comment on above: Performed By: #### 1 861234251, 4192324, 78028938, 0080817, 3493907391, 2893514517, 5211998 ####[facility] (DEFAULT)[address] [place] [address] Coles Abs# 0.2 x10 Normal 0.0-0.8 [facility] Comment on above: Performed By: #### 1 082668263, 8140920, 97329935, 6494816, 2275303363, 8648199206, 1056246 ####[facility] (DEFAULT)[address] [place] [address] Neut Abs# 2.3 x10 Normal 1.5-9.2 [facility] Comment on above: Performed By: #### 1 126473255, 0697054, 12941849, 6820305, 9992073483, 2856697249, 0721487 ####[facility] (DEFAULT)[address] [place] [address] Neutrophils/100 WBC (Bld) 62 % Normal 44-88 [facility] Comment on above: Performed By: #### 1 [id number], 6315532, 85219516, 2971296, 3200280932, 1065765156, 1231501 ####[facility] (DEFAULT)[address] [place] [address] CBC w/ Auto Diffon 3 Erythrocyte distribution width (RBC) [Ratio] 13.8 % Normal 11.5-15.0 [facility] Comment on above: Performed By: #### 1 [id number], 6520163, 09589153, 7849125, 6595066629, 0426821328, 5169987 ####[facility] (DEFAULT)[address] [place] [address] Hematocrit (Bld) [Volume fraction] 37.9 % Normal 33.7-40.4 [facility] Comment on above: Performed By: #### 1 [id number], 3251482, 14779249, 1388262, 7749857860, 5825920659, 0627950 ####[facility] (DEFAULT)[address] [place] [address] 06062 Hemoglobin (Bld) [Mass/Vol] 13.0 g/dL Normal 11.3-15.9 [facility] Comment on above: Performed By: #### 1 336123053, 1647676, 68007368, 2397252, 0456425132, 9391146721, 0440537 ####[facility] (DEFAULT)[address] [place] [address] 71479 Man Diff? Auto Invalid Interpretation Code [facility] Comment on above: Performed By: #### 1 356447787, 9135039, 09021235, 0406931, 8718447119, 4349954769, 9257421 ####[facility] (DEFAULT)[address] [place] [address] 45678 MCH (RBC) [Entitic mass] 32 pg Normal 24-34 [facility] Comment on above: Performed By: #### 1 [id number], 2290762, 96394490, 5114678, 7282625672, 5712377119, 2359993 ####[facility] (DEFAULT)[address] [place] [address] 04895 MCHC (RBC) [Mass/Vol] 34 g/dL Normal 26-37 [facility] Comment on above: Performed By: #### 1 725469509, 0584134, 67535796, 8997180, 5075944114, 3181744101, 4069143 ####[facility] (DEFAULT)[address] [place] [address] 78672 MCV (RBC) [Entitic vol] 95 fL Normal 81-100 [facility] Comment on above: Performed By: #### 1 956203652, 7039983, 98429511, 9762276, 5550496968, 6309778930, 2638832 ####[facility] (DEFAULT)[address] [place] [address] 93738 Platelet 183 x10 Normal 138-427 [facility] Comment on above: Performed By: #### 1 759312496, 2817979, 80261819, 2203822, 2115592770, 6821424058, 9692443 ####[facility] (DEFAULT)[address] [place] [address] Platelet mean volume (Bld) [Entitic vol] 8.0 fL Normal 6.3-10.2 [facility] Comment on above: Performed By: #### 1 [id number], 3319426, 63856015, 4183244, 0634282206, 4614546195, 1450797 ####[facility] (DEFAULT)[address] [place] [address] RBC 3.99 x10 Normal 3.70-5.30 [facility] Comment on above: Performed By: #### 1 622153588, 8897828, 37094088, 9768072, 3625005891, 1726451935, 8200973 ####[facility] (DEFAULT)[address] [place] [address] WBC 3.7 x10 Normal 3.5-10.5 [facility] Comment on above: Performed By: #### 1 708471447, 8749077, 46282967, 8012419, 3093083911, 6985021314, 1254980 ####[facility] (DEFAULT)[address] [place] [address] CMP Standardon 07-28-2022 Breakpoint Chem Normal [facility] Comment on above: Performed By: #### 1 [id number], 3606675, 90957119, 7114717, 1267340955, 8474267237, 9853030 ####[facility] (DEFAULT)[address] [place] [address] eGFR Non AA 55 mL/min/1.73m2 Invalid Interpretation Code [facility] Comment on above: Performed By: #### 1 [id number], 6031853, 66644393, 2023940, 4884910662, 5373276780, 9950945 ####[facility] (DEFAULT)[address] [place] [address] eGFR AA >60 Invalid Interpretation Code [facility] Comment on above: Performed By: #### 1 138965733, 5348557, 47150389, 7150618, 1170977519, 8397038358, 1406632 ####[facility] (DEFAULT)[address] [place] [address] Albumin [Mass/Vol] 4.0 g/dL Normal 3.5-5.0 [facility] Comment on above: Performed By: #### 1 411795564, 0548913, 56839592, 7949258, 8878153790, 1308901450, 6892504 ####[facility] (DEFAULT)[address] [place] [address] Albumin/Globulin [Mass ratio] 1.2 {ratio} Low 1.4-2.6 [facility] Comment on above: Performed By: #### 1 565935962, 1318325, 97180545, 0190955, 7035263395, 5956147751, 1477499 ####[facility] (DEFAULT)[address] [place] [address] Alk Phos 45 IU/L Normal 32-91 [facility] Comment on above: Performed By: #### 1 643832844, 6856129, 25420607, 4126544, 0080731611, 6939030992, 0764328 ####[facility] (DEFAULT)[address] [place] [address] ALT [Catalytic activity/Vol] 22.0 U/L Normal 14.0-54.0 [facility] Comment on above: Performed By: #### 1 428791304, 9242760, 18565534, 0380907, 7694851577, 0241226559, 9210304 ####[facility] (DEFAULT)[address] [place] [address] 75173 Anion gap [Moles/Vol] 16.5 mmol/L Normal 5.0-19.0 [facility] Comment on above: Performed By: #### 1 500578135, 9572553, 29318864, 2130847, 4843249942, 5030778291, 4403389 ####[facility] (DEFAULT)[address] [place] [address] 41920 AST [Catalytic activity/Vol] 28 U/L Normal 15-41 [facility] Comment on above: Performed By: #### 1 726269372, 9565459, 90518100, 1354854, 2086683116, 7225552603, 8173217 ####[facility] (DEFAULT)[address] [place] [address] 45583 Bili Total 0.5 mg/dL Normal 0.3-1.2 [facility] Comment on above: Performed By: #### 1 989127151, 2370697, 36841209, 6768631, 1930867698, 4586200527, 9012957 ####[facility] (DEFAULT)[address] [place] [address] 15000 Calcium [Mass/Vol] 9.3 mg/dL Normal 8.9-10.3 [facility] Comment on above: Performed By: #### 1 402620816, 9249183, 91487845, 3342402, 8190910749, 0397303266, 1238139 ####[facility] (DEFAULT)[address] [place] [address] 94327 Chloride [Moles/Vol] 102 mmol/L Normal 101-111 [facility] Comment on above: Performed By: #### 1 088949561, 0881618, 00591381, 7182632, 4943902650, 4109070990, 9564854 ####[facility] (DEFAULT)[address] [place] [address] 56689 CO2 [Moles/Vol] 25 mmol/L Normal 21-32 [facility] Comment on above: Performed By: #### 1 146830705, 0628071, 14911065, 3674366, 0331135624, 4392483415, 0524592 ####[facility] (DEFAULT)[address] [place] [address] 44769 Creatinine [Mass/Vol] 0.99 mg/dL Normal 0.60-1.30 [facility] Comment on above: Performed By: #### 1 549628625, 6900062, 74269904, 6201751, 1790185897, 2608627197, 4629247 ####[facility] (DEFAULT)[address] [place] [address] 25098 Globulin (S) [Mass/Vol] 3.1 g/dL Normal 1.5-4.3 [facility] Comment on above: Performed By: #### 1 217150986, 5274581, 35505639, 1346875, 3597133996, 8725694302, 8174144 ####[facility] (DEFAULT)[address] [place] [address] 27276 Glucose [Mass/Vol] 106.0 mg/dL Normal 74.0-118.0 [facility] Comment on above: Performed By: #### 1 839598172, 0426142, 06286539, 0146182, 3461879755, 2844945858, 8239569 ####[facility] (DEFAULT)[address] [place] [address] 75020 Osmolality 281 mOsm/L Invalid Interpretation Code [facility] Comment on above: Performed By: #### 1 526173225, 2465147, 96067464, 0275199, 4974982230, 1231502494, 5176956 ####[facility] (DEFAULT)[address] [place] [address] 58634 Potassium [Moles/Vol] 3.5 mmol/L Low 3.6-5.1 [facility] Comment on above: Performed By: #### 1 892196767, 9642821, 69341760, 8882978, 5137522696, 4652430593, 2003292 ####[facility] (DEFAULT)[address] [place] [address] 13480 Protein [Mass/Vol] 7.1 g/dL Normal 6.5-8.1 [facility] Comment on above: Performed By: #### 1 839631968, 2754080, 10502850, 0627977, 5677574173, 5042178482, 9344128 ####[facility] (DEFAULT)[address] [place] [address] 78326 Sodium [Moles/Vol] 140.0 mmol/L Normal 136.0-144.0 [facility] Comment on above: Performed By: #### 1 796865798, 2668413, 36225491, 7475814, 3709167040, 7732527351, 8118072 ####[facility] (DEFAULT)[address] [place] [address] 46432 Urea nitrogen [Mass/Vol] 15 mg/dL Normal 8-26 [facility] Comment on above: Performed By: #### 1 153810180, 4037554, 54139374, 9887566, 5260733915, 1624281984, 6461360 ####[facility] (DEFAULT)[address] [place] [address] 02222 Urea nitrogen/Creatinin e [Mass ratio] 15.1 mg/mg Normal 4.6-16.2 [facility] Comment on above: Performed By: #### 1 637699158, 5170537, 45637024, 0109710, 9314344221, 9471237395, 9873908 ####[facility] (DEFAULT)[address] [place] [address] 38221 D-Dimeron 07-28-2022 D-Dimer 0.29 mg/L FEU Normal 0.19-0.50 [facility] Comment on above: Result Comment: The INNOVANCE D-Dimer assay (Cutoff Value of > 0.50) is intended for the use as an aid in the diagnosis of venous thromboembolism (VTE) deep vein thrombosis (DVT) or pulmonary embolism (PE). The measurement of D-Dimer should not be used as an aid in the diagnosis of VTE in patients with: ? Therapeutic dose anticoagulant therapy for >24 hours ? Fibrinolytic therapy within previous 7 days ? Trauma or surgery within previous 4 weeks ? Disseminated malignancies ? Aortic aneurysm ? Sepsis, sever infections, pneumonia, severe skin infections ? Liver cirrhosis ? Performed By: #### 1 [id number], 7084424, 06472976, 4709008, 4438106415, 8613916286, 8814020 ####[facility] (DEFAULT)[address] [place] [address] 16215 ED Note - Physicianon 2022 ED Note - Physician Patient: ALVARADO BRITT Age: 77 years Sex: FEMALE : 1945 Associated Diagnoses: Chest pain; Hypertension Author: Marco Jones DO Basic Information Time seen: Date & time 07/28/2022 21:24:00. History source: Patient. Arrival mode: Private vehicle. History limitation: None. History of Present Illness The patient presents with This patient presents to the emergency room for evaluation of high blood pressure, followed by chest pain. The patient states that she has been watching her blood pressure very closely for several days when she noted a small subconjunctival hemorrhage to the medial left eye, and thought that it was her blood pressure causing this problem, and she has been taking her blood pressure every 2 hours for several days. Prior to that time her blood pressure was normal, on medications. She has not missed any medicines. She denies any trauma to her eye, states she can see well; today however, she states her blood pressure was higher, and she took an extra pill, and it would not come down, so then she decided to come to the emergency room and coincidentally that is when she developed chest pain. She states she had had an otherwise good afternoon out shopping. 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 She believes she has had an echo in the past, she denies ever having a heart catheterization; She states that now that she is here to the emergency room she is feeling some better she still has some chest discomfort is worse to take a deep breath, she notes also that her blood pressure still very high. On exam, she is pleasant, well spoken, and anxious. She continually looks at the blood pressure monitoring device, she is not tachypneic, she is warm and dry, her heart rate rhythm is regular, and her EKG was slightly irregular on the first 1 and almost totally normal and the second 1, and I told her that her EKG did did not demonstrate any NC at this time. She was visibly relieved to know that her EKG was satisfactory, her face was symmetric speech precise, pupils equal round reactive 2 mm, she had a very small what appeared to be older subconjunctival hemorrhage to the medial aspect of the left eye, there is no foreign bodies, there is no hyphema, pupil was equal round and reactive. She states her vision was normal. Pharynx is symmetric without any stridor or hoarseness, her lungs were clear, there was no expiratory wheeze or rales or paradoxical chest motion, she did not have any splinting on respirations, her heart rate rhythm was regular PMI left chest she had good radial dorsalis pedis pulses she had an occasional PAC on the monitor. Extremities are nonswollen nontender skin was warm and dry her abdomen is soft without any discomfort in the area of chest discomfort was vaguely reproducible at 1 spot on the left sternal border. Because of slight changes on EKG, I anticipate an admission. She is not experiencing a STEMI at this time, we will check her labs and provide medication for her blood pressure.. Health Status Allergies: Allergic Reactions (Selected) Severity Not Documented Codeine- No reactions were documented. Erythromycin- No reactions were documented. Penicillins- No reactions were documented.. Medications: (Selected) Inpatient Medications Ordered Ativan injection: 0.5 mg = 0.25 mL, IV Push, Once Nitro-Bid 2% topical ointment: 0.5 in, TOP, Once labetalol: 2.5 mg = 0.5 mL, IV Push, Once labetalol: 5 mg = 1 mL, IV Push, Once Documented Medications Documented Ativan 0.5 mg oral tablet: 0.5 mg = 1 tab(s), PO, TID, PRN: as needed for anxiety, 0 Refill(s) One-A-Day Essentials: PO, Daily, 0 Refill(s) buPROPion 150 mg/12 hours (SR) oral tablet, extended release: 150 mg = 1 tab(s), PO, BID, 0 Refill(s) carvedilol 12.5 mg oral tablet: 12.5 mg = 1 tab(s), PO, BID, 180 tab(s), 0 Refill(s) clopidogrel 75 mg oral tablet: 75 mg = 1 tab(s), PO, Daily, 30 tab(s), 0 Refill(s) cyclobenzaprine 10 mg oral tablet: TAKE 1/2 TO 1 (ONE-HALF TO ONE) TABLET BY MOUTH THREE TIMES DAILY NEEDED enalapril 20 mg oral tablet: 20 mg = 1 tab(s), PO, Daily, 30 tab(s), 0 Refill(s) levothyroxine 25 mcg (0.025 mg) oral tablet: 25 mcg = 1 tab(s), PO, Daily, 30 tab(s), 0 Refill(s) meloxicam 15 mg oral tablet: TAKE 1 TABLET BY MOUTH ONCE DAILY simvastatin 20 mg oral tablet: 20 mg = 1 tab(s), PO, Once a day (at bedtime), 0 Refill(s). Past Medical/ Family/ Social History Medical history: No active or resolved past medical history items have been selected or recorded.. Surgical h (more content not included)... Normal [facility] ED Note - Physician Patient: ALVARADO BRITT Age: 77 years Sex: FEMALE : 1945 Associated Diagnoses: None Author: Marco Jones DO Basic Information Time seen: Date & time 07/28/2022 20:15:00. Medical Decision Making Orders Launch Orders Radiology: XR Hand Complete Left (Order): 07/28/2022 20:15 EDT Stat, inj to fingers, Allow Modification Per Radiologist, Transport Mode: Wheelchair. Impression and Plan Diagnosis This chart may be deleted, it was not used, it was an errant entry. Hien JONES< 0001 hours, 01 AUG 2022 [Electronically Signed on: 07/31/2022 23:59 EDT] Marco Jones DO [Electronically Signed on: 08/01/2022 00:00 EDT] Marco Jones DO [Electronically Signed on: 08/01/2022 00:00 EDT] Marco Jones DO [Verified on: 07/31/2022 23:59 EDT] Marco Jones DO [facility] ED Note-Nursingon 07-28-2022 ED Note-Nursing Dr. Jones gave writt en orders for medications and labs as ordered. Verified with Tosin Garcia RN. [facility] Lipaseon 07-28-2022 Lipase Level 36.0 IU/L Normal 22.0-51.0 [facility] Comment on above: Performed By: #### 1 [id number], [id number], [id number] ####[facility] (DEFAULT)[address] [place] [address] TnI HSon 07-28-2022 Troponin I High Sensitivity 7.1 pg/mL Normal <=15.0 [facility] Comment on above: Performed By: #### 1 [id number], [id number], [id number], [id number], [id number] ####[facility] (DEFAULT)[address] [place] [address] UA [id number] 07-28-2022 UA Bacteria None [facility] Comment on above: Order Comment: Urina lysis Microscopic order added on by [employer] Expert Rules system. Performed By: #### 5 [id number], [id number] ####[facility] (DEFAULT)[address] [place] [address] UA RBC 3-5 [facility] Comment on above: Order Comment: Urina lysis Microscopic order added on by [employer] Rules system. Performed By: #### 5 [id number], [id number] ####[facility] (DEFAULT)[address] [place] [address] UA Squam Epi None Seen [facility] Comment on above: Order Comment: Urina lysis Microscopic order added on by [employer] Rules system. Performed By: #### 5 [id number], [id number] ####[facility] (DEFAULT)[address] [place] [address] UA WBC 0-2 Normal [facility] Comment on above: Order Comment: Urina lysis Microscopic order added on by [employer] Rules system. Performed By: #### 5 [id number], [id number] ####[facility] (DEFAULT)[address] [place] [address] UA w Culture if Ind Standard on 07-28-2022 Breakpoint UA [facility] Comment on above: Performed By: #### 5 [id number], [id number] ####[facility] (DEFAULT)[address] [place] [address] Color (U) Yellow [facility] Comment on above: Performed By: #### 5 [id number], [id number] ####[facility] (DEFAULT)[address] [place] [address] Culture? Not Indicated Invalid Interpretation Code [facility] Comment on above: Result Comment: Resu lt created by rule GL_MAGR_ADD_UA_CULT Result created by rule GL_MAGR_ADD_UA_CULT Result created by rule GL_MAGR_ADD_UA_CULT1 Performed By: #### 5 [id number], [id number] ####[facility] (DEFAULT)[address] [place] [address] Glucose (U) [Mass/Vol] Negative [facility] Comment on above: Performed By: #### 5 [id number], [id number] ####[facility] (DEFAULT)[address] [place] [address] Ketones Ql (U) Negative [facility] Comment on above: Performed By: #### 5 [id number], [id number] ####[facility] (DEFAULT)[address] [place] [address] Micro? Indicated Invalid Interpretation Code [facility] Comment on above: Result Comment: Resu lt created by rule GL_MAGR_ADD_UA_MICRO Performed By: #### 5 [id number], [id number] ####[facility] (DEFAULT)[address] [place] [address] UA Bilirubin Negative Normal [facility] Comment on above: Performed By: #### 5 [id number], [id number] ####[facility] (DEFAULT)[address] [place] [address] UA Blood TRACE Abnormal NEGATIVE [facility] Comment on above: Performed By: #### 5 [id number], [id number] ####[facility] (DEFAULT)[address] [place] [address] UA Clarity CLEAR Normal CLEAR [facility] Comment on above: Performed By: #### 5 [id number], [id number] ####[facility] (DEFAULT)[address] [place] [address] UA Leuk Est Negative Normal NEGATIVE [facility] Comment on above: Performed By: #### 5 [id number], [id number] ####[facility] (DEFAULT)[address] [place] [address] UA Nitrite Negative Normal NEGATIVE [facility] Comment on above: Performed By: #### 5 [id number], [id number] ####[facility] (DEFAULT)[address] [place] [address] UA pH 7.5 Normal 5-8 [facility] Comment on above: Performed By: #### 5 [id number], [id number] ####[facility] (DEFAULT)[address] [place] [address] UA Protein Negative Normal NEGATIVE [facility] Comment on above: Performed By: #### 5 [id number], [id number] ####[facility] (DEFAULT)[address] [place] [address] UA Spec Grav 1.015 Normal 1.001-1.035 [facility] Comment on above: Performed By: #### 5 [id number], [id number] ####[facility] (DEFAULT)[address] [place] [address] UA Urobilinogen 0.2 mg/dL Normal 0.2-1.0 [facility] Comment on above: Performed By: #### 5 [id number], [id number] ####[facility] (DEFAULT)[address] [place] [address] Urine Source Clean Catch Normal [facility] Comment on above: Performed By: #### 5 [id number], [id number] ####[facility] (DEFAULT)[address] [place] [address] XR FOOT RENETTA MIN 3 VIEWSon XR FOOT RENETTA MIN 3 VIEWS EXAMINATION: XR FOOT RENETTA MIN 3 VIEWS HISTORY: Pain in both feet ; postop left first metatarsophalangeal joint; right second toe pain without injury COMPARISON: XR foot left 05/04/2021 FINDINGS: RIGHT FINDINGS: BONES: Prior osteotomy and repair of the first metacarpal and first proximal phalanx without evidence of hardware fracture or loosening. Moderate degenerative changes of the second through fifth tarsal-metatarsal joints. SOFT TISSUES: No visible soft tissue swelling. OTHER: Negative. LEFT FINDINGS: BONES: Mechanical fusion of the first metatarsophalangeal joint and prior osteotomy and repair of the head of the second metatarsal; no evidence of hardware fracture. Moderate degenerative changes of the second through fifth tarsal-metatarsal joints. No bone fracture or dislocation. SOFT TISSUES: No visible soft tissue swelling. OTHER: Negative. IMPRESSION: RIGHT CONCLUSION: 1. No acute bone abnormality with specific attention to the second toe. 2. Moderate degenerative changes of the tarsal-metatarsal joints. LEFT CONCLUSION: 1. Stable surgical changes without evidence of hardware failure. 2. Moderate degenerative changes of the tarsal-metatarsal joints. Electronically authenticated by: SMITH ORTEGA Date: 2021-05-25 15:58 Normal [facility] Covid[facility]19 PCR [facility]on SARS-CoV-2 (COVID-19) RNA DILIP+probe Ql (Unsp spec) Not detected Normal NOT DETECTED [facility] Comment on above: Result Comment: This test is not yet approved or cleared by the [place] FDA. When there are no FDA-approved or cleared tests available, and other criteria are met, FDA can make tests available under an emergency access mechanism called an Emergency Use Authorization (EUA). The EUA for this test is supported by the Career Development Counselor of Health and Human Service's (HHS's) declaration that circumstances exist to justify the emergency use of in vitro diagnostics for the detection and/or diagnosis of the virus that causes COVID-19. This EUA will remain in effect (meaning this test can be used) for the duration of the COVID-19 declaration justifying emergency of IVDs, unless it is terminated or revoked by FDA (after which the test may no longer be used). When diagnostic testing is negative, the possibility of a false negative should be considered in the context of a patient's recent exposures and the presence of clinical signs and symptoms consistent with SARS-CoV-2. Performed By: #### [facility] #### [facility] [address] [place] [address] Dr. Ricardo Mary PROF CHEM 8 (BAS METB)on Anion gap [Moles/Vol] 9.1 mmol/L Normal [facility] Comment on above: Performed By: #### B MP #### [facility] [address] [place] [address] Dr. Ricardo Mary Calcium [Mass/Vol] 9.1 mg/dL Normal 8.4-10.2 [facility] Comment on above: Performed By: #### B MP #### [facility] [address] [place] [address] Dr. Ricardo Mary Chloride [Moles/Vol] 105 mmol/L Normal 98-107 [facility] Comment on above: Performed By: #### B MP #### [facility] [address] [place] [address] Dr. Ricardo Mary CO2 [Moles/Vol] 32.3 mmol/L Critically high 22.0-30.0 [facility] Comment on above: Performed By: #### B MP #### [facility] [address] [place] [address] Dr. Ricardo Mary Creatinine [Mass/Vol] 0.99 mg/dL Normal 0.52-1.04 [facility] Comment on above: Performed By: #### B MP #### [facility] [address] [address] [address] Ricardo Mary EGFR-AF KENYAN >60 Normal >=60 [facility] Comment on above: Performed By: #### B MP #### [facility] [address] [address] [address] Ricardo Mary EGFR-NON AF KENYAN 55 mL/min/1.73m2 Critically low >=60 [facility] Comment on above: Performed By: #### B MP #### [facility] [address] [address] [address] Ricardo Mary Glucose [Mass/Vol] 96 mg/dL Normal 74-106 [facility] Comment on above: Performed By: #### B MP #### [facility] [address] [address] [address] Ricardo Mary Potassium [Moles/Vol] 4.4 mmol/L Normal 3.4-5.0 [facility] Comment on above: Performed By: #### B MP #### [facility] [address] [address] [address] Ricardo Mary Sodium [Moles/Vol] 142 mmol/L Normal 137-145 [facility] Comment on above: Performed By: #### B MP #### [facility] [address] [address] [address] Ricardo Mary Urea nitrogen [Mass/Vol] 16.0 mg/dL Normal 7.0-17.0 [facility] Comment on above: Performed By: #### B MP #### [facility] [address] [address] [address] Ricardo Mary Urea nitrogen/Creatinin e [Mass ratio] 16.2 mg/mg Normal [facility] Comment on above: Performed By: #### B MP #### [facility] [address] [address] [address] Ricardo Mary Vital Signs Date Time Vital Sign Value Performing Clinician Facility 11-29-2021 12:30-0400 Body height 151.13 cm Steve Ortega Other [facility] Other 11-29-2021 12:30-0400 Body mass index (BMI) [Ratio] 26.21 kg/m2 Steve Ortega Other [facility] Other 11-29-2021 12:30-0400 Body weight 59.88 kg Steve Ortega Other [facility] Other 11-29-2021 12:30-0400 Diastolic blood pressure 80 mm[Hg] Steve Ortega Other [facility] Other 11-29-2021 12:30-0400 SaO2% (BldA) [Mass fraction] 97 % Steve Ortega Other [facility] Other 11-29-2021 12:30-0400 Systolic blood pressure 148 mm[Hg] Steve Ortega Other [facility] Other 10-28-2021 12:00-0400 Body height 151.13 cm Della Vera Other [facility] Other 10-28-2021 12:00-0400 Diastolic blood pressure 81 mm[Hg] Della Vera Other [facility] Other 10-28-2021 12:00-0400 Respiratory rate 18 /min Della Vera Other [facility] Other 10-28-2021 12:00-0400 SaO2% (BldA) [Mass fraction] 98 % Della Vera Other [facility] Other 10-28-2021 12:00-0400 Systolic blood pressure 171 mm[Hg] Della Vera Other [facility] Other 10-07-2021 16:15-0400 Body height 151.13 cm Steve Ortega Other [facility] Other 10-07-2021 16:15-0400 Body mass index (BMI) [Ratio] 27.2 kg/m2 Stevemoo Ortega Other [facility] Other 10-07-2021 16:15-0400 Body weight 62.14 kg Steve Ortega Other [facility] Other 10-07-2021 16:15-0400 Diastolic blood pressure 72 mm[Hg] Steve Ortega Other [facility] Other 10-07-2021 16:15-0400 SaO2% (BldA) [Mass fraction] 99 % Steve Ortega Other [facility] Other 10-07-2021 16:15-0400 Systolic blood pressure 134 mm[Hg] Steve Jordan Other [facility] Other 09-20-2021 17:00-0400 Body height 151.13 cm Steve Ortega Other [facility] Other 09-20-2021 17:00-0400 Body mass index (BMI) [Ratio] 27.44 kg/m2 Steve Ortega Other [facility] Other 09-20-2021 17:00-0400 Body weight 62.69 kg Steve Ortega Other [facility] Other 09-20-2021 17:00-0400 Diastolic blood pressure 80 mm[Hg] Stevemoo Ortega Other [facility] Other 09-20-2021 17:00-0400 SaO2% (BldA) [Mass fraction] 98 % Steve Ortega Other [facility] Other 09-20-2021 17:00-0400 Systolic blood pressure 150 mm[Hg] Steve Ortega Other [facility] Other 09-01-2021 10:30-0400 Body height 151.13 cm Jason Mcclelland Other [facility] Other 09-01-2021 10:30-0400 Body mass index (BMI) [Ratio] 27.6 kg/m2 Jason Mcclelland Other [facility] Other 09-01-2021 10:30-0400 Body weight 63.05 kg Jason Stas Other [facility] Other Encounters Encounter Date Encounter Type Care Provider Facility Start: 02-27-2023 End: 2023 ambulatory [facility] Facility:[facility] Start: 02-27-2023 End: [facility] Facility[facility] Start: 02-07-2023 End: 02-08-2023 ambulatory [facility] Facility:[facility] Start: 01-28-2023 End: 01-28-2023 ambulatory [facility] Facility:[facility] Start: 01-13-2023 End: 01-14-2023 ambulatory Vee Steele MD Facility:[facility] Start: 12-29-2022 End: 12-30-2022 ambulatory Kary Kelly Wolf [facility] Facility:[facility] Start: 12-23-2022 End: 12-24-2022 ambulatory [facility] Facility:[facility] Start: 12-08-2022 End: 12-09-2022 ambulatory Kary Kelly Thomas [facility] Facility:[facility] Start: 12-02-2022 End: 12-03-2022 ambulatory Vee Steele MD Facility:[facility] Start: 12-02-2022 End: 12-02-2022 ambulatory VEE STEELE Facility:[facility] Start: 11-17-2022 End: 11-[facility] Start: 11-17-2022 End: 11-18-2022 ambulatory Kary Kelly Thomas [facility] [employer] Facility:[facility] Start: 10-28-2022 End: 10-29-2022 ambulatory Vee Steele MD Facility:[facility] Start: 10-28-2022 End: 10-28-2022 ambulatory VEE STEELE Facility:[facility] Start: 10-27-2022 End: 10-28-2022 ambulatory [facility] Facility:[facility] Start: 10-21-2022 End: 10-22-2022 ambulatory Romina Vizcaino Facility:[facility] Start: 10-19-2022 End: 10-20-2022 ambulatory Kary Kelly Thomas [employer] Facility:[facility] Start: 08-17-2022 End: 08-17-2022 [facility] Start: 08-03-2022 End: 08-03-2022 [facility] Start: 07-28-2022 End: 07-29-2022 ambulatory [facility] Facility:[facility] Start: 03-16-2022 End: 03-17-[address] SMITH ORTEGA Facility:[facility] Start: 12-16-2021 ambulatory LESLYE Zuniga y:[facility] Start: 11-29-2021 End: 11-29-2021 ambulatory Steve Ortega Other [facility] Other Start: 11-29-2021 Office outpatient vi sit 25 minutes Steve Ortega [facility] Start: 11-18-2021 End: 11-19-[address] SMITH ORTEGA Facility:[facility] Start: 11-02-2021 End: 11-03-[address] SMITH ORTEGA Facility:[facility] Start: 10-28-2021 End: 10-28-2021 ambulatory Della Vera Other [facility] Other Start: 10-28-2021 Office outpatient vi sit 15 minutes Della Vera [facility] Start: 10-14-2021 (Procedure) Short Steve Ortega [facility] Start: 10-14-2021 End: 10-14-2021 ambulatory Steve Ortega Other [facility] Other Start: 10-07-2021 End: 10-07-2021 ambulatory Steve Ortega Other [facility] Other Start: 10-07-2021 Office outpatient vi sit 25 minutes Stevemoo Ortega [facility] Start: 09-20-2021 End: 09-20-2021 ambulatory Steve Ortega Other [facility] Other Start: 09-20-2021 Office outpatient vi sit 25 minutes Steveomo Ortega [facility] Start: 09-14-2021 End: 09-14-2021 ambulatory Steve Ortega Other [facility] Other Start: 09-14-2021 Telephone encounter Steve Ortega [facility] Start: 09-09-2021 End: 09-10-2021 ambulatory LESLYE GUIDRY Facility:[facility] Start: 09-01-2021 End: 09-01-2021 ambulatory Jason Mcclelland Other [facility] Other Start: 09-01-2021 Office outpatient ne w 30 minutes Jason Mcclelland [facility] Start: 07-08-2021 End: 07-09-2021 ambulatory LESLYE GUIDRY Facility:[facility] Start: 05-25-2021 End: 05-26-[address] SMITH ORTEGA Facility:[facility] Start: 05-04-2021 End: 05-05-2021 ambulatory RICHA FIGUEROA Facility:[facility] Start: 04-15-2021 Encounter for preprocedural laboratory examination [facility] Start: 04-12-2021 End: 04-14-[address] ROLANDO FISCHER Facility:[facility] Start: 04-08-2021 End: 04-09-2021 [facility] Start: 04-08-2021 End: 04-09-2021 Encounter for preprocedural laboratory examination RICHA Lai [facility] Facility:[facility] Start: 04-04-2021 Encounter for preprocedural cardiovascular examination [facility] Start: 04-04-2021 Encounter for preprocedural laboratory examination [facility] Ming [facility] Start: 03-29-2021 End: 03-30-[address] PEGGY CANTU Facility:[facility] Start: 03-29-2021 End: 03-30-2021 Encounter for preprocedural cardiovascular examination DR PEGGY CANTU Facility:[facility] Procedures Date Procedure Procedure Detail Performing Clinician Screening for malign ant neoplasm of colon Jason Mcclelland Other Payers Date Payer Category Payer Self-pay 2022 Unknown [id number] 2022 Unknown 1957 Medicare [id number] 2.1 [id number] 1957 Unknown [id number] . .[id number] 1945 Unknown [id number] 2.16.84 0.1.376879.3.579.2.593 1945 Unknown [id number] 2.16.84 0.1.805402.3.579.2.593 1945 Unknown [id number] 2.16.84 0.1.735460.3.579.2.593 1945 Unknown [id number] 2.16.84 0.1.890902.3.579.2.593 1945 Unknown [id number] 2.16.84 0.1.138672.3.579.2.593 1945 Unknown [id number] 2.16.84 0.1.748508.3.579.2.593 1945 Unknown [id number] 2.16.84 0.1.840650.3.579.2.593 1945 Unknown [id number] 2.16.84 0.1.682679.3.579.2.593 1945 Unknown [id number] 2.16.84 0.1.128758.3.579.2.593 1945 Unknown [id number] 2.16.84 0.1.471420.3.579.2.593 1945 Unknown [id number] 2.16.84 0.1.467784.3.579.2.593 1945 Unknown [id number] 2.16. 840.1.950803.3.579.2.196 1945 Unknown [id number] 2.16. 840.1.893948.3.579.2. 1945 Unknown [id number] 2.16. 840.1.692653.3.579.2.196 1945 Unknown [id number] 2.16. 840.1.607320.3.579.2.196 1945 Unknown [id number] 2.16. 840.1.771835.3.579.2.196 1945 Unknown [id number] 2.16. 840.1.637599.3.579.2.196 1945 Unknown [id number] 2.16. 840.1.037530.3.579.2.196 1945 Unknown [id number] 2.16. 840.1.689862.3.579.2. 1945 Unknown [id number] 2.16.8 40.1.383899.3.579.2. 1945 Unknown [id number] 2.16.8 40.1.728833.3.579.2. 1945 Unknown [id number] 2.16.8 40.1.349528.3.579.2. 1945 Unknown [id number] 2.16.8 40.1.422789.3.579.2 1945 Unknown [id number] 2.16.8 40.1.799000.3.579.2. 1945 Unknown [id number] 2.16.8 40.1.715130.3.579.2 1945 Unknown [id number] 2.16.8 40.1.744457.3.579.2 1945 Unknown [id number] 2.16.8 40.1.009486.3.579.2 1945 Unknown [id number] 2.16.8 40.1.844815.3.579.2 1945 Unknown [id number] 2.16.8 40.1.968803.3.579.2 1945 Unknown [id number] 2.16.8 40.1.446043.3.579.2 1945 Unknown [id number] 2.16.8 40.1.663387.3.579.2 1945 Unknown [id number] 2.16.8 40.1.083860.3.579.2 1945 Unknown [id number] 2.16.8 40.1.832603.3.579.2 1945 Unknown [id number] 2.16.8 40.1.980813.3.579.2 1945 Unknown [id number] 2.16.8 40.1.513377.3.579.2.718 Unknown [id number] 2.16.8 40.1.424205.3.579.2.531 Social History Date Type Detail Facility Sex Assigned At [facility] [employer] Other Clinical Notes 04-12-2021 to 01-28-2023 Note Date & Type Note Facility 01-28-2023 Note Patient Education Ma terials Follows: Drug Rash A drug rash occurs when a medicine causes a change in the color or texture of the skin. It can develop minutes, hours, or days after you take the medicine. The rash may appear on a small area of skin or all over your body. What are the causes? This condition may be caused by one of these three conditions: ? An allergic reaction to the medicine. ? An unwanted side effect of a certain medicine. ? Extreme sensitivity to sunlight caused by the medicine. What increases the risk? If you take any of these medicines that make your skin sensitive to light and are exposed to sunlight, it can make you more likely to develop this condition: ? Antibiotics, including tetracyclines and sulfa medicines. ? Antifungals. ? Antihistamines. ? Diuretics. ? Retinoids, such as isotretinoin. ? Statins. ? NSAIDs. What are the signs or symptoms? Symptoms of this condition include: ? Redness. ? Tiny bumps. ? Peeling. ? Itching. ? Itchy welts (hives). ? Swelling. How is this diagnosed? This condition may be diagnosed based on: ? A physical exam. ? Tests to find out which medicine caused the rash. These tests may include: ? Skin tests. ? Blood tests. How is this treated? This condition is treated with medicines, including: ? Antihistamine. This may be given to relieve itching. ? NSAIDs. These may be given to reduce swelling and to treat pain. ? A steroid medicine. This may be given to reduce swelling. The rash usually goes away when you stop taking the medicine that caused it. Follow these instructions at home: ? Take [id number]-[id number] and prescription medicines only as told by your health care provider. ? Tell all your health care providers about any medicine reactions that you have had in the past. ? If your rash was caused by sensitivity to sunlight, and while your rash is healing: ? Avoid being in the sun if possible, especially when it is strongest, usually between 10 a.m. and 4 p.m. ? Cover your skin with pants, long sleeves, and a hat when you are exposed to sunlight. ? If you have hives: ? Take a cool shower or use a cool compress to relieve itchiness. ? Take jxaq-vtz-gojzarv antihistamines, as recommended by your health care provider, until the hives are gone. Hives are not contagious. ? Keep all follow-up visits. This is important. Contact a health care provider if: ? You have fever. ? Your rash is not going away. ? Your rash gets worse. ? Your rash comes back. ? You have high-pitched whistling sounds when you breathe, most often when you breathe out (wheezing) or coughing. Get help right away if: ? You start to have breathing problems. ? You start to have shortness of breath. ? Your face or throat starts to swell. ? You have severe weakness with dizziness or fainting. ? You have chest pain. ? Your skin starts to blister and peel. These symptoms may represent a serious problem that is an emergency. Do not wait to see if the symptoms will go away. Get medical help right away. Call your local emergency services (911 in the [place] Do not drive yourself to the hospital. Summary ? A drug rash occurs when a medicine causes a change in the color or texture of the skin. The rash may appear on a small area of skin or all over your body. ? It can develop minutes, hours, or days after you take the medicine. ? Your health care provider will do various tests to determine what medicine caused your rash. ? The rash may be treated with medicine to relieve itching, swelling, and pain. This information is not intended to replace advice given to you by your health care provider. Make sure you discuss any questions you have with your health care provider. Document Revised: 08/30/2021 Document Reviewed: 08/30/2021 [employer] Patient Education ? 2022 [employer]. [facility] 01-16-2023 Note [id number] [facility] 01-13-2023 Note [facility] SURGERY Clinical Discharge Summary PERSON INFORMATION Name ALVARADO BRITT Age 77 Years 1945 Sex FEMALE Language Prydeinig PCP Ansley Houser NP Marital Status Med Service Pain Management Surgery Acct# Arrival 01/13/2023 11:52:04 Visit Reason CERVICAL PAIN Acuity LOS 009 02:15 Address: [address] [place] [id number] Comment: PROVIDER INFORMATION VITALS INFORMATION Vital Sign Triage Latest Temp Oral Temp Temporal Temp Intravascular Temp Axillary Temp Rectal 02 Sat 98 % 98 % Respiratory Rate Peripheral Pulse Rate Apical Heart Rate Blood Pressure / 60 mmHg / 60 mmHg Comment: MEDICAL INFORMATION Allergy Info: penicillins; predniSONE; erythromycin; codeine Prescriptions Given: buPROPion (buPROPion 150 mg/12 hours (SR) oral tablet, extended release) 1 tab(s) Oral 2 times a day. carvedilol (carvedilol 12.5 mg oral tablet) 1 tab(s) Oral 2 times a day. clopidogrel (clopidogrel 75 mg oral tablet) 1 tab(s) Oral every day. cyclobenzaprine (cyclobenzaprine 10 mg oral tablet) TAKE 1/2 TO 1 (ONE-HALF TO ONE) TABLET BY MOUTH THREE TIMES DAILY NEEDED. DULoxetine (DULoxetine 20 mg oral delayed release capsule) 1 cap(s) Oral every day. (do not crush or chew). enalapril (enalapril 20 mg oral tablet) 1 tab(s) Oral 2 times a day. isosorbide mononitrate (isosorbide mononitrate 30 mg oral tablet, extended release) 1 tab(s) Oral once a day (in the morning). levothyroxine (levothyroxine 25 mcg (0.025 mg) oral tablet) 1 tab(s) Oral every day. LORazepam (Ativan 0.5 mg oral tablet) 1 tab(s) Oral 3 times a day as needed as needed for anxiety. meloxicam (meloxicam 15 mg oral tablet) 1 tab(s) Oral every day as needed pain. menaquinone (Vitamin K2 100 mcg oral tablet) 1 tab(s) Oral every day. multivitamin (One-A-Day Essentials) 1 tab(s) Oral every day. multivitamin with minerals (TheraLith XR oral tablet) 2 tab(s) Oral 2 times a day. naltrexone 2 tab(s) Oral every day. NIFEdipine (NIFEdipine (Eqv-Procardia XL) 30 mg oral tablet, extended release) 1 tab(s) Oral every day. simvastatin (simvastatin 20 mg oral tablet) 1 tab(s) Oral once a day (at bedtime). Medication List: Medications to Continue That Have Not Changed Other Medications buPROPion (buPROPion 150 mg/12 hours (SR) oral tablet, extended release) 1 tab(s) Oral 2 times a day. carvedilol (carvedilol 12.5 mg oral tablet) 1 tab(s) Oral 2 times a day. clopidogrel (clopidogrel 75 mg oral tablet) 1 tab(s) Oral every day. cyclobenzaprine (cyclobenzaprine 10 mg oral tablet) TAKE 1/2 TO 1 (ONE-HALF TO ONE) TABLET BY MOUTH THREE TIMES DAILY NEEDED. DULoxetine (DULoxetine 20 mg oral delayed release capsule) 1 cap(s) Oral every day. (do not crush or chew). enalapril (enalapril 20 mg oral tablet) 1 tab(s) Oral 2 times a day. isosorbide mononitrate (isosorbide mononitrate 30 mg oral tablet, extended release) 1 tab(s) Oral once a day (in the morning). levothyroxine (levothyroxine 25 mcg (0.025 mg) oral tablet) 1 tab(s) Oral every day. LORazepam (Ativan 0.5 mg oral tablet) 1 tab(s) Oral 3 times a day as needed as needed for anxiety. meloxicam (meloxicam 15 mg oral tablet) 1 tab(s) Oral every day as needed pain. menaquinone (Vitamin K2 100 mcg oral tablet) 1 tab(s) Oral every day. multivitamin (One-A-Day Essentials) 1 tab(s) Oral every day. multivitamin with minerals (TheraLith XR oral tablet) 2 tab(s) Oral 2 times a day. naltrexone 2 tab(s) Oral every day. NIFEdipine (NIFEdipine (Eqv-Procardia XL) 30 mg oral tablet, extended release) 1 tab(s) Oral every day. simvastatin (simvastatin 20 mg oral tablet) 1 tab(s) Oral once a day (at bedtime). Medications to Continue That Have Not Changed Other Medications buPROPion (buPROPion 150 mg/12 hours (SR) oral tablet, extended release) 1 tab(s) Oral 2 times a day. carvedilol (carvedilol 12.5 mg oral tablet) 1 tab(s) Oral 2 times a day. clopidogrel (clopidogrel 75 mg oral tablet) 1 tab(s) Oral every day. cyclobenzaprine (cyclobenzaprine 10 mg oral tablet) TAKE 1/2 TO 1 (ONE-HALF TO ONE) TABLET BY MOUTH THREE TIMES DAILY NEEDED. DULoxetine (DULoxetine 20 mg oral delayed release capsule) 1 cap(s) Oral every day. (do not crush or chew). enalapril (enalapril 20 mg oral tablet) 1 tab(s) Oral 2 times a day. isosorbide mononitrate (isosorbide mononitrate 30 mg oral tablet, extended release) 1 tab(s) Oral once a day (in the morning). levothyroxine (levothyroxine 25 mcg (0.025 mg) oral tablet) 1 tab(s) Oral every day. LORazepam (Ativan 0.5 mg oral tablet) 1 tab(s) Oral 3 times a day as needed as needed for anxiety. meloxicam (meloxicam 15 mg oral tablet) 1 tab(s) Oral every day as needed pain. menaquinone (Vitamin K2 100 mcg oral tablet) 1 tab(s) Oral every day. multivitamin (One-A-Day Essentials) 1 tab(s) Oral every day. multivitamin with minerals (TheraLith XR oral tablet) 2 tab(s) Oral 2 times a day. naltrexone 2 t (more content not included)... [facility] 01-12-2023 Note [id number] OTGTIFF The history of present illness has been reviewed. There are no changes document. [Electronically Signed on: 01/13/2023 09:12 EDT] VEE STEELE MD [Verified on: 01/13/2023 09:12 EDT] VEE STEELE MD [Transcribed on: 01/12/2023 13:28 EDT] [facility] 12-06-2022 Note [id number] TGTIFF [facility] 12-02-2022 Note (Inserted Image. Coral ble to display) Pain Procedure Home Care Instructions For the next 24 hours, DO NOT do any of the following activities: ? Drive a car or operate heavy machinery ? Drink alcoholic beverages ? Make legal decisions or sign any contracts ? Do not remove the bandage or dressing for 24 hours Apply ice to the injection site every 15 minutes at a time with a barrier between your skin and the ice element for protection, repeat as often as needed. There may be immediate pain relief after the procedure. Then 4-6 hours after the local anesthetic wears off, the pain may return. Do not take a shower for the first 12 hours after the procedure, no bath for 24 hours. Call your family physician if your blood sugar is greater than 250 Go to the Emergency Department if you lose control of your bowel, bladder, or legs, or have new severe pain or marked increase in pain Call the office if you have any questions. Pain Scale DAY 1 DAY 2 DAY 3 DAY 4 DAY 5 DAY 6 DAY 7 AM AFTERNOON PM Please rate your pain each day AM, Afternoon, and PM on a scale of 0-10, with 10 being the worst pain and 0 being no pain. Please bring this scale with you to your first appointment after your procedure [facility] 12-02-2022 Note [facility] SURGERY Clinical Discharge Summary PERSON INFORMATION Name ALVARADO BRITT Age 77 Years 1945 Sex FEMALE Language Prydeinig PCP Ansley Houser NP Marital Status Med Service Pain Management Surgery Acct# Arrival 12/02/2022 08:03:51 Visit Reason CERVICAL PAIN Acuity CATALINO Newsome 18:20 Address: [address] [place] [id number] Comment: PROVIDER INFORMATION VITALS INFORMATION Vital Sign Triage Latest Temp Oral Temp Temporal Temp Intravascular Temp Axillary Temp Rectal 02 Sat Respiratory Rate Peripheral Pulse Rate Apical Heart Rate Blood Pressure / / Comment: MEDICAL INFORMATION Allergy Info: penicillins; predniSONE; erythromycin; codeine Prescriptions Given: buPROPion (buPROPion 150 mg/12 hours (SR) oral tablet, extended release) 1 tab(s) Oral 2 times a day. carvedilol (carvedilol 12.5 mg oral tablet) 1 tab(s) Oral 2 times a day. clopidogrel (clopidogrel 75 mg oral tablet) 1 tab(s) Oral every day. cyclobenzaprine (cyclobenzaprine 10 mg oral tablet) TAKE 1/2 TO 1 (ONE-HALF TO ONE) TABLET BY MOUTH THREE TIMES DAILY NEEDED. enalapril (enalapril 20 mg oral tablet) 1 tab(s) Oral 2 times a day. isosorbide mononitrate (isosorbide mononitrate 30 mg oral tablet, extended release) 1 tab(s) Oral once a day (in the morning). levothyroxine (levothyroxine 25 mcg (0.025 mg) oral tablet) 1 tab(s) Oral every day. LORazepam (Ativan 0.5 mg oral tablet) 1 tab(s) Oral 3 times a day as needed as needed for anxiety. meloxicam (meloxicam 15 mg oral tablet) 1 tab(s) Oral every day as needed pain. menaquinone (Vitamin K2 100 mcg oral tablet) 1 tab(s) Oral every day. multivitamin (One-A-Day Essentials) Oral every day. multivitamin with minerals (TheraLith XR oral tablet) 2 tab(s) Oral 2 times a day. naltrexone 2 tab(s) Oral every day. NIFEdipine (NIFEdipine (Eqv-Procardia XL) 30 mg oral tablet, extended release) 1 tab(s) Oral every day. simvastatin (simvastatin 20 mg oral tablet) 1 tab(s) Oral once a day (at bedtime). Medication List: Medications to Continue That Have Not Changed Other Medications buPROPion (buPROPion 150 mg/12 hours (SR) oral tablet, extended release) 1 tab(s) Oral 2 times a day. carvedilol (carvedilol 12.5 mg oral tablet) 1 tab(s) Oral 2 times a day. clopidogrel (clopidogrel 75 mg oral tablet) 1 tab(s) Oral every day. cyclobenzaprine (cyclobenzaprine 10 mg oral tablet) TAKE 1/2 TO 1 (ONE-HALF TO ONE) TABLET BY MOUTH THREE TIMES DAILY NEEDED. enalapril (enalapril 20 mg oral tablet) 1 tab(s) Oral 2 times a day. isosorbide mononitrate (isosorbide mononitrate 30 mg oral tablet, extended release) 1 tab(s) Oral once a day (in the morning). levothyroxine (levothyroxine 25 mcg (0.025 mg) oral tablet) 1 tab(s) Oral every day. LORazepam (Ativan 0.5 mg oral tablet) 1 tab(s) Oral 3 times a day as needed as needed for anxiety. meloxicam (meloxicam 15 mg oral tablet) 1 tab(s) Oral every day as needed pain. menaquinone (Vitamin K2 100 mcg oral tablet) 1 tab(s) Oral every day. multivitamin (One-A-Day Essentials) Oral every day. multivitamin with minerals (TheraLith XR oral tablet) 2 tab(s) Oral 2 times a day. naltrexone 2 tab(s) Oral every day. NIFEdipine (NIFEdipine (Eqv-Procardia XL) 30 mg oral tablet, extended release) 1 tab(s) Oral every day. simvastatin (simvastatin 20 mg oral tablet) 1 tab(s) Oral once a day (at bedtime). Medications to Continue That Have Not Changed Other Medications buPROPion (buPROPion 150 mg/12 hours (SR) oral tablet, extended release) 1 tab(s) Oral 2 times a day. carvedilol (carvedilol 12.5 mg oral tablet) 1 tab(s) Oral 2 times a day. clopidogrel (clopidogrel 75 mg oral tablet) 1 tab(s) Oral every day. cyclobenzaprine (cyclobenzaprine 10 mg oral tablet) TAKE 1/2 TO 1 (ONE-HALF TO ONE) TABLET BY MOUTH THREE TIMES DAILY NEEDED. enalapril (enalapril 20 mg oral tablet) 1 tab(s) Oral 2 times a day. isosorbide mononitrate (isosorbide mononitrate 30 mg oral tablet, extended release) 1 tab(s) Oral once a day (in the morning). levothyroxine (levothyroxine 25 mcg (0.025 mg) oral tablet) 1 tab(s) Oral every day. LORazepam (Ativan 0.5 mg oral tablet) 1 tab(s) Oral 3 times a day as needed as needed for anxiety. meloxicam (meloxicam 15 mg oral tablet) 1 tab(s) Oral every day as needed pain. menaquinone (Vitamin K2 100 mcg oral tablet) 1 tab(s) Oral every day. multivitamin (One-A-Day Essentials) Oral every day. multivitamin with minerals (TheraLith XR oral tablet) 2 tab(s) Oral 2 times a day. naltrexone 2 tab(s) Oral every day. NIFEdipine (NIFEdipine (Eqv-Procardia XL) 30 mg oral tablet, extended release) 1 tab(s) Oral every day. simvastatin (simvastatin 20 mg oral tablet) 1 tab(s) Oral once a day (at bedtime). Medications to Continue That Have Not Changed Other Medications buPROPion (buPROPion 150 mg/12 hours (SR) oral tablet, extended release) 1 tab(s) Oral 2 times a day. (more content not included)... [facility] 12-01-2022 Note [id number] The history of present illness has been reviewed. There are no changes document. [Electronically Signed on: 12/02/2022 08:54 EDT] VEE STEELE MD [Verified on: 12/02/2022 08:54 EDT] VEE STEELE MD [Transcribed on: 12/01/2022 11:54 EDT] [facility] 10-31-2022 Note [id number] GTIFF [facility] 10-28-2022 Note [facility] SURGERY Clinical Discharge Summary PERSON INFORMATION Name ALVARADO BRITT Age 77 Years 1945 Sex FEMALE Language Prydeinig PCP Ansley Houser NP Marital Status Med Service Pain Management Surgery Acct# Arrival 10/28/2022 07:01:09 Visit Reason CERVICAL PAIN Acuity LOS 003 17:48 Address: [address] [place] [id number] Comment: PROVIDER INFORMATION VITALS INFORMATION Vital Sign Triage Latest Temp Oral Temp Temporal Temp Intravascular Temp Axillary Temp Rectal 02 Sat 98 % 98 % Respiratory Rate Peripheral Pulse Rate Apical Heart Rate Blood Pressure / 73 mmHg / 73 mmHg Comment: MEDICAL INFORMATION Allergy Info: penicillins; predniSONE; erythromycin; codeine Prescriptions Given: buPROPion (buPROPion 150 mg/12 hours (SR) oral tablet, extended release) 1 tab(s) Oral 2 times a day. carvedilol (carvedilol 12.5 mg oral tablet) 1 tab(s) Oral 2 times a day. clopidogrel (clopidogrel 75 mg oral tablet) 1 tab(s) Oral every day. cyclobenzaprine (cyclobenzaprine 10 mg oral tablet) TAKE 1/2 TO 1 (ONE-HALF TO ONE) TABLET BY MOUTH THREE TIMES DAILY NEEDED. enalapril (enalapril 20 mg oral tablet) 1 tab(s) Oral 2 times a day. isosorbide mononitrate (isosorbide mononitrate 30 mg oral tablet, extended release) 1 tab(s) Oral once a day (in the morning). levothyroxine (levothyroxine 25 mcg (0.025 mg) oral tablet) 1 tab(s) Oral every day. LORazepam (Ativan 0.5 mg oral tablet) 1 tab(s) Oral 3 times a day as needed as needed for anxiety. meloxicam (meloxicam 15 mg oral tablet) 1 tab(s) Oral every day as needed pain. menaquinone (Vitamin K2 100 mcg oral tablet) 1 tab(s) Oral every day. multivitamin (One-A-Day Essentials) Oral every day. multivitamin with minerals (TheraLith XR oral tablet) 2 tab(s) Oral 2 times a day. naltrexone 2 tab(s) Oral every day. NIFEdipine (NIFEdipine (Eqv-Procardia XL) 30 mg oral tablet, extended release) 1 tab(s) Oral every day. simvastatin (simvastatin 20 mg oral tablet) 1 tab(s) Oral once a day (at bedtime). Medication List: Medications to Continue That Have Not Changed Other Medications buPROPion (buPROPion 150 mg/12 hours (SR) oral tablet, extended release) 1 tab(s) Oral 2 times a day. carvedilol (carvedilol 12.5 mg oral tablet) 1 tab(s) Oral 2 times a day. clopidogrel (clopidogrel 75 mg oral tablet) 1 tab(s) Oral every day. cyclobenzaprine (cyclobenzaprine 10 mg oral tablet) TAKE 1/2 TO 1 (ONE-HALF TO ONE) TABLET BY MOUTH THREE TIMES DAILY NEEDED. enalapril (enalapril 20 mg oral tablet) 1 tab(s) Oral 2 times a day. isosorbide mononitrate (isosorbide mononitrate 30 mg oral tablet, extended release) 1 tab(s) Oral once a day (in the morning). levothyroxine (levothyroxine 25 mcg (0.025 mg) oral tablet) 1 tab(s) Oral every day. LORazepam (Ativan 0.5 mg oral tablet) 1 tab(s) Oral 3 times a day as needed as needed for anxiety. meloxicam (meloxicam 15 mg oral tablet) 1 tab(s) Oral every day as needed pain. menaquinone (Vitamin K2 100 mcg oral tablet) 1 tab(s) Oral every day. multivitamin (One-A-Day Essentials) Oral every day. multivitamin with minerals (TheraLith XR oral tablet) 2 tab(s) Oral 2 times a day. naltrexone 2 tab(s) Oral every day. NIFEdipine (NIFEdipine (Eqv-Procardia XL) 30 mg oral tablet, extended release) 1 tab(s) Oral every day. simvastatin (simvastatin 20 mg oral tablet) 1 tab(s) Oral once a day (at bedtime). Medications to Continue That Have Not Changed Other Medications buPROPion (buPROPion 150 mg/12 hours (SR) oral tablet, extended release) 1 tab(s) Oral 2 times a day. carvedilol (carvedilol 12.5 mg oral tablet) 1 tab(s) Oral 2 times a day. clopidogrel (clopidogrel 75 mg oral tablet) 1 tab(s) Oral every day. cyclobenzaprine (cyclobenzaprine 10 mg oral tablet) TAKE 1/2 TO 1 (ONE-HALF TO ONE) TABLET BY MOUTH THREE TIMES DAILY NEEDED. enalapril (enalapril 20 mg oral tablet) 1 tab(s) Oral 2 times a day. isosorbide mononitrate (isosorbide mononitrate 30 mg oral tablet, extended release) 1 tab(s) Oral once a day (in the morning). levothyroxine (levothyroxine 25 mcg (0.025 mg) oral tablet) 1 tab(s) Oral every day. LORazepam (Ativan 0.5 mg oral tablet) 1 tab(s) Oral 3 times a day as needed as needed for anxiety. meloxicam (meloxicam 15 mg oral tablet) 1 tab(s) Oral every day as needed pain. menaquinone (Vitamin K2 100 mcg oral tablet) 1 tab(s) Oral every day. multivitamin (One-A-Day Essentials) Oral every day. multivitamin with minerals (TheraLith XR oral tablet) 2 tab(s) Oral 2 times a day. naltrexone 2 tab(s) Oral every day. NIFEdipine (NIFEdipine (Eqv-Procardia XL) 30 mg oral tablet, extended release) 1 tab(s) Oral every day. simvastatin (simvastatin 20 mg oral tablet) 1 tab(s) Oral once a day (at bedtime). Medications to Continue That Have Not Changed Other Medications buPROPion (buPROPion 150 mg/12 hours (SR) oral tablet, extended release) 1 (more content not included)... [facility] 10-27-2022 Note [id number] TGTIFF The history of present illness has been reviewed. There are no changes document. [Electronically Signed on: 10/28/2022 08:09 EDT] VEE STEELE MD [Verified on: 10/28/2022 08:09 EDT] VEE STEELE MD [Transcribed on: 10/27/2022 13:25 EDT] [facility] 08-03-2022 Note Education Materials Cardiovascular Hypertension, Adult Your blood pressure was noted to be elevated here in the emergency room. Monitor your blood pressure and follow-up with your primary care physician to review those readings. Return to the emergency department for any worsening symptoms. Hypertension is another name for high blood pressure. High blood pressure forces your heart to work harder to pump blood. This can cause problems over time. There are two numbers in a blood pressure reading. There is a top number (systolic) over a bottom number (diastolic). It is best to have a blood pressure that is below 120/80. Healthy choices can help lower your blood pressure, or you may need medicine to help lower it. What are the causes? The cause of this condition is not known. Some conditions may be related to high blood pressure. What increases the risk? ? Smoking. ? Having type 2 diabetes mellitus, high cholesterol, or both. ? Not getting enough exercise or physical activity. ? Being overweight. ? Having too much fat, sugar, calories, or salt (sodium) in your diet. ? Drinking too much alcohol. ? Having long-term (chronic) kidney disease. ? Having a family history of high blood pressure. ? Age. Risk increases with age. ? Race. You may be at higher risk if you are . ? Gender. Men are at higher risk than women before age 45. After age 65, women are at higher risk than men. ? Having obstructive sleep apnea. ? Stress. What are the signs or symptoms? ? High blood pressure may not cause symptoms. Very high blood pressure (hypertensive crisis) may cause: ? Headache. ? Feelings of worry or nervousness (anxiety). ? Shortness of breath. ? Nosebleed. ? A feeling of being sick to your stomach (nausea). ? Throwing up (vomiting). ? Changes in how you see. ? Very bad chest pain. ? Seizures. How is this treated? ? This condition is treated by making healthy lifestyle changes, such as: ? Eating healthy foods. ? Exercising more. ? Drinking less alcohol. ? Your health care provider may prescribe medicine if lifestyle changes are not enough to get your blood pressure under control, and if: ? Your top number is above 130. ? Your bottom number is above 80. ? Your personal target blood pressure may vary. Follow these instructions at home: Eating and drinking ? If told, follow the DASH eating plan. To follow this plan: ? Fill one half of your plate at each meal with fruits and vegetables. ? Fill one fourth of your plate at each meal with whole grains. Whole grains include whole-wheat pasta, brown rice, and whole-grain bread. ? Eat or drink low-fat dairy products, such as skim milk or low-fat yogurt. ? Fill one fourth of your plate at each meal with low-fat (lean) proteins. Low-fat proteins include fish, chicken without skin, eggs, beans, and tofu. ? Avoid fatty meat, cured and processed meat, or chicken with skin. ? Avoid pre-made or processed food. ? Eat less than 1,500 mg of salt each day. ? Do not drink alcohol if: ? Your doctor tells you not to drink. ? You are , may be , or are planning to become . ? If you drink alcohol: ? Limit how much you use to: ? 0?1 drink a day for women. ? 0?2 drinks a day for men. ? Be aware of how much alcohol is in your drink. In the [place] one drink equals one 12 oz bottle of beer (355 mL), one 5 oz glass of wine (148 mL), or one 1? oz glass of hard liquor (44 mL). Lifestyle ? Work with your doctor to stay at a healthy weight or to lose weight. Ask your doctor what the best weight is for you. ? Get at least 30 minutes of exercise most days of the week. This may include walking, swimming, or biking. ? Get at least 30 minutes of exercise that strengthens your muscles (resistance exercise) at least 3 days a week. This may include lifting weights or doing Pilates. ? Do not use any products that contain nicotine or tobacco, such as cigarettes, e-cigarettes, and chewing tobacco. If you need help quitting, ask your doctor. ? Check your blood pressure at home as told by your doctor. ? Keep all follow-up visits as told by your doctor. This is important. Medicines ? Take [id number]-lhgfkdf and prescription medicines only as told by your doctor. Follow directions carefully. ? Do not skip doses of blood pressure medicine. The medicine does not work as well if you skip doses. Skipping doses also puts you at risk for problems. ? Ask your doctor about side effects or reactions to medicines that you should watch for. Contact a doctor if you: ? Think you are having a reaction to the medicine you are taking. ? Have headaches that keep coming back (recurring). ? Feel dizzy. ? Have swelling in your ankles. ? Have trouble with your vision. Get help right away if you: ? Get a very bad headache. ? Start to feel mixed up (confused). ? Feel weak or numb. ? (more content not included)... [facility] 07-29-2022 Note Education Materials Cardiovascular Hypertension, Adult Hypertension is another name for high blood pressure. High blood pressure forces your heart to work harder to pump blood. This can cause problems over time. There are two numbers in a blood pressure reading. There is a top number (systolic) over a bottom number (diastolic). It is best to have a blood pressure that is below 120/80. Healthy choices can help lower your blood pressure, or you may need medicine to help lower it. What are the causes? The cause of this condition is not known. Some conditions may be related to high blood pressure. What increases the risk? ? Smoking. ? Having type 2 diabetes mellitus, high cholesterol, or both. ? Not getting enough exercise or physical activity. ? Being overweight. ? Having too much fat, sugar, calories, or salt (sodium) in your diet. ? Drinking too much alcohol. ? Having long-term (chronic) kidney disease. ? Having a family history of high blood pressure. ? Age. Risk increases with age. ? Race. You may be at higher risk if you are . ? Gender. Men are at higher risk than women before age 45. After age 65, women are at higher risk than men. ? Having obstructive sleep apnea. ? Stress. What are the signs or symptoms? ? High blood pressure may not cause symptoms. Very high blood pressure (hypertensive crisis) may cause: ? Headache. ? Feelings of worry or nervousness (anxiety). ? Shortness of breath. ? Nosebleed. ? A feeling of being sick to your stomach (nausea). ? Throwing up (vomiting). ? Changes in how you see. ? Very bad chest pain. ? Seizures. How is this treated? ? This condition is treated by making healthy lifestyle changes, such as: ? Eating healthy foods. ? Exercising more. ? Drinking less alcohol. ? Your health care provider may prescribe medicine if lifestyle changes are not enough to get your blood pressure under control, and if: ? Your top number is above 130. ? Your bottom number is above 80. ? Your personal target blood pressure may vary. Follow these instructions at home: Eating and drinking ? If told, follow the DASH eating plan. To follow this plan: ? Fill one half of your plate at each meal with fruits and vegetables. ? Fill one fourth of your plate at each meal with whole grains. Whole grains include whole-wheat pasta, brown rice, and whole-grain bread. ? Eat or drink low-fat dairy products, such as skim milk or low-fat yogurt. ? Fill one fourth of your plate at each meal with low-fat (lean) proteins. Low-fat proteins include fish, chicken without skin, eggs, beans, and tofu. ? Avoid fatty meat, cured and processed meat, or chicken with skin. ? Avoid pre-made or processed food. ? Eat less than 1,500 mg of salt each day. ? Do not drink alcohol if: ? Your doctor tells you not to drink. ? You are , may be , or are planning to become . ? If you drink alcohol: ? Limit how much you use to: ? 0?1 drink a day for women. ? 0?2 drinks a day for men. ? Be aware of how much alcohol is in your drink. In the [place] one drink equals one 12 oz bottle of beer (355 mL), one 5 oz glass of wine (148 mL), or one 1? oz glass of hard liquor (44 mL). Lifestyle ? Work with your doctor to stay at a healthy weight or to lose weight. Ask your doctor what the best weight is for you. ? Get at least 30 minutes of exercise most days of the week. This may include walking, swimming, or biking. ? Get at least 30 minutes of exercise that strengthens your muscles (resistance exercise) at least 3 days a week. This may include lifting weights or doing Pilates. ? Do not use any products that contain nicotine or tobacco, such as cigarettes, e-cigarettes, and chewing tobacco. If you need help quitting, ask your doctor. ? Check your blood pressure at home as told by your doctor. ? Keep all follow-up visits as told by your doctor. This is important. Medicines ? Take zcab-nht-hscereq and prescription medicines only as told by your doctor. Follow directions carefully. ? Do not skip doses of blood pressure medicine. The medicine does not work as well if you skip doses. Skipping doses also puts you at risk for problems. ? Ask your doctor about side effects or reactions to medicines that you should watch for. Contact a doctor if you: ? Think you are having a reaction to the medicine you are taking. ? Have headaches that keep coming back (recurring). ? Feel dizzy. ? Have swelling in your ankles. ? Have trouble with your vision. Get help right away if you: ? Get a very bad headache. ? Start to feel mixed up (confused). ? Feel weak or numb. ? Feel faint. ? Have very bad pain in your: ? Chest. ? Belly (abdomen). ? Throw up more than once. ? Have trouble breathing. Summary ? Hypertension is another name for high blood pressure. ? High blood pressure forces your h (more content not included)... [facility] 07-29-2022 Note [facility] Summary PERSON INFORMATION Name ALVARADO BRITT Age 77 Years 1945 Sex FEMALE Language Prydeinig PCP Ansley Houser NP Marital Status Med Service Observation Acct# Arrival 07/28/2022 19:18:28 Visit Reason Chest pain; Chest pain; Trauma; CHEST PAIN, HYPERTENSION Acuity LOS 000 14:59 Address: [address] [place] [id number] Comment: PROVIDER INFORMATION VITALS INFORMATION Vital Sign Triage Latest Temp Oral 36.6 DegC 36.8 DegC Temp Temporal Temp Intravascular Temp Axillary Temp Rectal 02 Sat 97 % 98 % Respiratory Rate 16 br/min 18 br/min Peripheral Pulse Rate 95 bpm 62 bpm Apical Heart Rate Blood Pressure 211 mmHg / 99 mmHg 163 mmHg / 71 mmHg Comment: MEDICAL INFORMATION Allergy Info: penicillins; predniSONE; erythromycin; codeine Medication List: Medications That Were Updated - Follow Below Instructions Other Medications Updated: enalapril (enalapril 20 mg oral tablet) 1 tab(s) Oral 2 times a day. Medications to Continue That Have Not Changed Other Medications buPROPion (buPROPion 150 mg/12 hours (SR) oral tablet, extended release) 1 tab(s) Oral 2 times a day. carvedilol (carvedilol 12.5 mg oral tablet) 1 tab(s) Oral 2 times a day. clopidogrel (clopidogrel 75 mg oral tablet) 1 tab(s) Oral every day. cyclobenzaprine (cyclobenzaprine 10 mg oral tablet) TAKE 1/2 TO 1 (ONE-HALF TO ONE) TABLET BY MOUTH THREE TIMES DAILY NEEDED. levothyroxine (levothyroxine 25 mcg (0.025 mg) oral tablet) 1 tab(s) Oral every day. LORazepam (Ativan 0.5 mg oral tablet) 1 tab(s) Oral 3 times a day as needed as needed for anxiety. meloxicam (meloxicam 15 mg oral tablet) TAKE 1 TABLET BY MOUTH ONCE DAILY. multivitamin (One-A-Day Essentials) Oral every day. simvastatin (simvastatin 20 mg oral tablet) 1 tab(s) Oral once a day (at bedtime). Comment: Lab and Radiology Results Laboratory or Other Results This Visit (last charted value for your 07/28/2022 visit) Hematology 07/29/2022 4:01 AM Hct: 32.4 % -- Normal range between ( 33.7 and 40.4 ) Hgb: 11.2 gm/dL -- Normal range between ( 11.3 and 15.9 ) MCH: 33 pg -- Normal range between ( 24 and 34 ) MCHC: 35 gm/dL -- Normal range between ( 26 and 37 ) MCV: 94 fL -- Normal range between ( 81 and 100 ) MPV: 7.8 fL -- Normal range between ( 6.3 and 10.2 ) Platelet: 145 x103/mcL -- Normal range between ( 138 and 427 ) RBC: 3.43 x106/mcL -- Normal range between ( 3.70 and 5.30 ) RDW: 13.5 % -- Normal range between ( 11.5 and 15.0 ) WBC: 3.2 x103/mcL -- Normal range between ( 3.5 and 10.5 ) Auto Eos %: 2.7 % -- Normal range between ( 0.9 and 4.0 ) Auto Lymph %: 28 % -- Normal range between ( 14 and 48 ) Auto Neut %: 64 % -- Normal range between ( 44 and 88 ) Eos Abs#: 0.1 x103/mcL -- Normal range between ( 0.0 and 0.4 ) Lymph Abs#: 0.9 x103/mcL -- Normal range between ( 1.3 and 2.9 ) Coles Abs#: 0.2 x103/mcL -- Normal range between ( 0.0 and 0.8 ) Auto Baso %: 0.5 % -- Normal range between ( 0.2 and 2.0 ) Auto Coles %: 6 % -- Normal range between ( 1 and 12 ) Baso Abs#: 0.0 x103/mcL -- Normal range between ( 0.0 and 0.2 ) Neut Abs#: 2.0 x103/mcL -- Normal range between ( 1.5 and 9.2 ) Coagulation 07/28/2022 7:30 PM D-Dimer: 0.29 mg/L FEU -- Normal range between ( 0.19 and 0.50 ) Urinalysis 07/28/2022 9:12 PM UA Bacteria: None UA Blood: TRACE UA Color: Yellow UA Glucose: NEGATIVE UA Ketones: NEGATIVE UA Leuk Est: NEGATIVE UA Nitrite: NEGATIVE UA Protein: NEGATIVE UA RBC: 3-5 UA Squam Epi: None Seen UA Urobilinogen: 0.2 mg/dL -- Normal range between ( 0.2 and 1.0 ) UA WBC: 0-2 UA pH: 7.5 -- Normal range between ( 5 and 8 ) UA Spec Grav: 1.015 -- Normal range between ( 1.001 and 1.035 ) UA Clarity: CLEAR Micro?: Indicated Culture?: Not Indicated UA Bilirubin: NEGATIVE Urine Source: Clean Catch Chemistry 07/29/2022 4:01 AM Creatinine Level: 0.90 mg/dL -- Normal range between ( 0.60 and 1.30 ) Albumin Level: 3.5 gm/dL -- Normal range between ( 3.5 and 5.0 ) Alk Phos: 39 IU/L -- Normal range between ( 32 and 91 ) Bili Total: 0.9 mg/dL -- Normal range between ( 0.3 and 1.2 ) BUN: 14 mg/dL -- Normal range between ( 8 and 26 ) Chloride Level: 104 mmol/L -- Normal range between ( 101 and 111 ) CO2: 28 mmol/L -- Normal range between ( 21 and 32 ) Glucose Level: 123.0 mg/dL -- Normal range between ( 74.0 and 118.0 ) Magnesium: 1.97 mg/dL -- Normal range between ( 1.80 and 2.50 ) Osmolality: 283 mOsm/L Potassium Level: 3.2 mmol/L -- Normal range between ( 3.6 and 5.1 ) Sodium Level: 141.0 mmol/L -- Normal range between ( 136.0 and 144.0 ) Protein Total: 5.9 gm/dL -- Normal range between ( 6.5 and 8.1 ) Anion Gap: 12.2 mmol/L -- Normal range between ( 5.0 and 19.0 ) Calcium Level: 8.4 mg/dL -- Normal range between ( 8.9 and 10.3 ) ALT/SGPT: 19.0 IU/L -- Normal range between ( 14.0 and 5 (more content not included)... [facility] 03-17-2022 Note PROCEDURE: XR FOOT L T MIN 3 VIEWS HISTORY: Pain in left foot COMPARISON: XR foot left 11/18/2021 FINDINGS: BONES:Mechanical fusion of the first metatarsophalangeal joint. Osteotomy and repair of the head of the second metatarsal. Resection of distal end of second proximal phalanx. Moderate degenerative changes of the tarsal-metatarsal joints and flattening of plantar arch. SOFT TISSUES:No visible soft tissue swelling. EFFUSION:None visible. OTHER: Negative. IMPRESSION: 1. Stable surgical changes without evidence of hardware failure or change in alignment. Electronically authenticated by: SMITH ORTEGA Date: 2022-03-16 23:25 [facility] 11-29-2021 Evaluation note Encounter Date Diagnosis Assessment Notes Nov, Occipital neuralgia of left side (ICD-10 - M54.81) 76 y/o female here for follow up status post left greater and lesser occipital nerve radiofrequency ablation under fluoroscopic guidance. Patient reports 80% pain relief following the procedure. She complains of residual pain located behind the left ear. She describes this as a pulled muscle . She states Ibuprofen provides an element of pain relief, which did not help prior to the procedure. Different treatment options were discussed in detail with the patient, overall she appears to be doing well and does not require further treatment at this time. I recommend she follow up with her ENT as her residual pain appears to be mostly in the left ear. 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 No appreciable change in screw alignment or loosening/backing out. Moderate degenerative changes of the tarsal-metatarsal joints of the second, third, and fourth digits. SOFT TISSUES:No visible soft tissue swelling. EFFUSION:None visible. OTHER: Negative. IMPRESSION: 1. Stable surgical changes without evidence of hardware failure. Electronically authenticated by: SMITH ORTEGA Date: 2021-11-19 07:47[facility]08-02-2022 NotePROCEDURE: XR FOOT LT MIN 3 VIEWS HISTORY: Pain in left foot ; acute injury to second toe, bruising and pain COMPARISON: XR foot left 09/09/2021 FINDINGS: BONES:Mechanical fusion of the first metatarsophalangeal joint via dorsal plate and screws. Osteotomy and fusion of the head of the second metatarsal via 2 screws, with possible slight backing out of one of the screws seen on the lateral view. Resection of the head of the second proximal phalanx. Moderate marked degenerative changes of the second third tarsal-metatarsal joints. No acute fracture or dislocation. SOFT TISSUES:No visible soft tissue swelling. EFFUSION:None visible. OTHER: Negative. IMPRESSION: 1. Grossly stable surgical changes without evidence of hardware failure. 2. Questionable mild backing out of one of the screws within the head of the second metatarsal; this could also be due to slightly different angulation. Follow-up recommended. 3. No acute bone abnormality with specific attention to the second toe. Electronically authenticated by: SMITH ORTEGA Date: 2021-11-02 19:51[facility]07-28-2022 Evaluation note* Encounter Date Diagnosis Assessment Notes Treatment Notes Treatment Clinical Notes Oct, Occipital neuralgia of left side (ICD-10 - M54.81) 76 y/o female here for follow up status post left greater and lesser occipital nerve radiofrequency ablation under fluoroscopic guidance. Patient reports minimal pain relief following the procedure. She voices continued complaints of left sided pain to the back of the head. She also voices complaints of left sided neck pain. She states the neck pain feels like a pulled muscle . Different treatment options were discussed in detail with the patient, and I recommmend she give the procedure more time as it can take up to 6 weeks for maximum relief. 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 She is status post left greater and lesser occipital nerve block. She reports 80% pain relief for 2-3 days following procedure. She voices complaints of pain in the left side of the neck and above the left ear. Different treatment options were discussed in detail with the patient, and I recommend we proceed with a left greater & lesser occipital RFA under fluoroscopic guidance. Risks and benefits of procedure explained to patient; patient verbalizes understanding. 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 She voices complaints of pain in the back of the skull on the left. She states her pain comes and goes. Different treatment options were discussed in detail with the patient, and I recommend we proceed with the left greater & lesser occipital nerve block in the office as scheduled. Risks and benefits of procedure explained to patient; patient verbalizes understanding. 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 Sep, Chronic pain (ICD-10 - G89.29) Continue with current treatment plan [facility] Other 06-09-2022 NotePROCEDURE: XR FOOT LT MIN 3 VIEWS COMPARISON: 07/08/2021 HISTORY: Pain in left foot FINDINGS: BONES:Stable fusion the first metatarsal-phalangeal joint with a dorsal plate and multiple screws. 2 screws through the head of the second metatarsal. Remote resection head of the second proximal phalanx. Degenerative changes with ehdd-fl-fzoy articulation of the second through fifth tarsometatarsal joints SOFT TISSUES:Negative. No visible soft tissue swelling. EFFUSION:None visible. OTHER: Negative. 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) Sep, Occipital neuralgia of left side (ICD-10 - M54.81) In addition to focal tenderness in her occipital notch she has the pain behind retromastoid area which would go along with another superficial neuralgia.I think would be reasonable to have her evaluated by pain management for possible focal injections since she is already been through significant course of physical therapy without benefit.Ultimately if it was felt that the lateral mass osteoarthritis was causing a problem we could fuse her at C1 to which she would lose 50% of rotation and that seems pretty excessive and I am not sure it would take care of the pain in the retromastoid region. [facility] Other 04-07-2022 NotePROCEDURE: XR FOOT LT MIN 3 VIEWS HISTORY: Pain in left foot COMPARISON: XR foot bilateral 05/25/2021 FINDINGS: BONES:Mechanical fusion of the first metatarsophalangeal joint with stable appearance of hardware; no fracture or loosening. Moderate degenerative changes at the tarsal-metatarsal joints of the 3rd-5th digits. No fracture or dislocation. SOFT TISSUES:No visible soft tissue swelling. EFFUSION:None visible. OTHER: Negative. IMPRESSION: 1. Stable postsurgical changes and degenerative changes. Electronically authenticated by: SMITH ORTEGA Date: 2021-07-08 12:38[facility]02-01-2022 NotePROCEDURE: XR FOOT LT MIN 3 VIEWS COMPARISON: 04/12/2021 HISTORY: Pain in left foot FINDINGS: BONES:Stable first metatarsal-phalangeal joint fusion with a dorsal plate and multiple screws. Osteotomy with fixation by 2 screws in the second metatarsal. Resection head of the second proximal phalanx. Moderate to severe degenerative changes second through fifth tarsometatarsal joints SOFT TISSUES:Negative. No visible soft tissue swelling. Surgical skin alyx EFFUSION:None visible. OTHER: Negative. IMPRESSION: Stable postsurgical changes Electronically authenticated by: ROLANDO FISCHER Date: 2021-05-04 11:07[facility]01-10-2022 NotePROCEDURE: XR FOOT LT MIN 3 VIEWS COMPARISON: 04/12/2021, 10/22/2020 HISTORY: Acquired left hallux valgus FINDINGS: BONES:Interval reduction of hallux valgus deformity. Fusion of the first metatarsal-phalangeal joint with a dorsal plate and multiple screws. 2 screws through the head of the second metatarsal. Stable degenerative changes most significant at the tarsometatarsal joints SOFT TISSUES:Medial soft tissue swelling with surgical skin alyx EFFUSION:None visible. OTHER: Bone details obscured by a posterior splint IMPRESSION: Interval first metatarsal-phalangeal joint fusion with postsurgical changes Electronically authenticated by: ROLANDO FISCHER Date: 2021-04-12 14:21[facility]01-10-2022 NotePROCEDURE: XR FOOT LT 2V COMPARISON: 10/22/2020 HISTORY: Pain in left foot FINDINGS: 29 seconds of fluoroscopy. 12 fluoroscopic images Images demonstrate reduction of hallux valgus deformity with fusion of the first metatarsal-phalangeal joint utilizing a dorsal plate and multiple screws. Anatomic alignment is demonstrated. 2 screws across the second metatarsal head likely representing osteotomy. Surgical skin alyx medial forefoot. IMPRESSION: Reduction of hallux valgus deformity and fusion of the first metatarsal-phalangeal joint Electronically authenticated by: ROLANDO FISCHER Date: 2021-04-12 14:13[facility] noteNo [facility] Other History general Narrative - Reported* Type Description Date Medical History hypercholesterolemia Medical History Hypothyroidism Medical History chronic depression Medical History stroke Surgical History bunionectomy Surgical History kidney stone Surgical History ear drum repair Hospitalization History See Above Dang Le Other Reason for Referral Reason *Waiting for appt Evaluate and Treat Possible Focal Injections Diagnosis 1 Occipital neuralgia of left side (M54.81) Referral Organization [facility] Ne urosurgery Referring Provider First Name Jason Referring Provider Last Name Stas Referring Provider Specialty Neurosurger y Referred Organization [facility] Pain Managemen t Referred Provider Steve Ortega Referred Address [address] [address] ,[place], [place],[address] Referred Provider Specialty Pain Medicin e Referral Priority Routine General Notes Fore, Kaylin M 022 11:42:33 AM >Received today and sent P2P Summary Purpose Family History No Family History Records FoundNo Family History Records FoundNo Family History Records FoundNo Family History Records Found Advance Directives No Advanced Directives Records FoundNo Advanced Directives Records FoundNo Advanced Directives Records FoundNo Advanced Directives Records Found Additional Source Comments REASON FOR VISIT (unrecogniz ed section and content) Referred Dr Alond[facility] [place] Medicine Office Notesleft occipital nerve blockFOLLOW UP AFTER LEFT OCCIPITAL NBPLAVIX*LEFT GREATER & LESSER OCCIPITAL RFAFOLLOW UP AFTER LEFT OCCIPITAL RFA6 week follow up after occipital RFA INFORMATION SOURCE (unrecogn ized section and content) DATE CREATED AUTHOR 03/25/2022 [facility] DATE CREATED AUTHOR AUTHOR'S ORGANIZ ATION 09/09/2022 [facility] DATE CREATED AUTHOR AUTHOR'S ORGANIZ ATION 03/01/2023 [facility] DATE CREATED AUTHOR AUTHOR'S ORGANIZ ATION 03/23/2023 [facility] FOR RECORDS PERTAINING TO PATIENTS WHO ARE OR HAVE BEEN ENROLLED IN A CHEMICAL DEPENDENCY/SUBSTANCEABUSE PROGRAM, SOME INFORMATION MAY BE OMITTED. This clinical summary was aggregated from multiple sources. Caution should be exercised in using it in the provision of clinical care. This summary normalizes information from multiple sources, and as a consequence, information in this document may materially change the coding, format and clinical context of patient data. In addition, data may be omitted in some cases. CLINICAL DECISIONS SHOULD BE BASED ON THE PRIMARY CLINICAL RECORDS. [employer] provides no warranty or guarantee of the accuracy or completeness of information in this document.
[2023-04-17 10:16] LABS: Basophils Percent Auto 0.4 % (0.2-2.0); Eosinophils Absolute Auto 0.2 10^3/uL (0.0-0.7); Eosinophils Percent Auto 3.5 % (0.9-7.0); Hematocrit 32.6 % (36.0-48.0); Hemoglobin 10.5 g/dL (12.0-16.0); Immature Granulocytes Abs Auto 0.02 10^3/uL (0.00-0.03); Immature Granulocytes Pct Auto 0.4 % (0.0-0.5); Lymphocytes Absolute Auto 0.9 10^3/uL (1.2-3.8); Lymphocytes Percent Auto 20.1 % (20.5-60.0); Mean Corpuscular HGB Conc 32.2 g/dL (29.9-35.2); Mean Corpuscular Hemoglobin 31.4 pg (26.7-34.0); Mean Corpuscular Volume 97.6 fL (81.0-99.0); Monocytes Absolute Auto 0.2 10^3/uL (0.3-0.8); Monocytes Percent Auto 4.3 % (1.7-12.0); Neutrophils Absolute Auto 3.3 10^3/uL (1.4-6.5); Neutrophils Percent Auto 71.3 % (43.0-75.0); Platelet Count 169 10^3/uL (150-450); Red Blood Count 3.34 10^6/uL (4.20-5.40); Red Cell Distribution Width 13.4 % (11.0-15.0); White Blood Count 4.6 10^3/uL (4.0-11.0)
--- NOTE | 2023-04-17 10:17 | PM.PRESUREVA ---
History of Present Illness History of Present Illness Chief complaint: hammertoe right foot, lesion plantar nerve Narrative: Patient presents for preadmission testing. The patient reports right toe deformities and foot pain. She denies any trauma or injury. She states she has a burning sensation in her 2nd and 3rd toes but no numbness, tingling, weakness, or any other complaints. She states the meloxicam does give her some relief and she feels better when she is barefoot. Review of Systems ROS Narrative REVIEW OF SYSTEMS: Negative except as stated in HPI, ten or more systems reviewed. Constitutional: No fever , chills, weakness ENT: No sore throat or epistaxis Cardiovascular: No edema, chest pain, palpitations, or activity intolerance Respiratory: No shortness of breath, cough, or wheezing Gastrointestinal: No abdominal pain, constipation, diarrhea, or vomiting Genitourinary: No dysuria or hematuria Neurological: No numbness, tingling, weakness, or headache Psychiatric: No mood changes [facility] Medical History (Updated 04/17/23 @ 10:16 by Bessy Gunn NP) Patent foramen ovale ?Q21.12 - Patent foramen ovale (ICD-10) Anxiety ?F41.9 - Anxiety disorder, unspecified (ICD-10) Mitral valve regurgitation ?I34.0 - Nonrheumatic mitral (valve) insufficiency (ICD-10) Varicose vein of leg ?I83.90 - Asymptomatic varicose veins of unspecified lower extremity (ICD-10) Depression ?F32.A - Depression, unspecified (ICD-10) COVID-19 (03/03/23) ?U07.1 - COVID-19 (ICD-10) Headache ?R51.9 - Headache, unspecified (ICD-10) Transient ischemic attack ?G45.9 - Transient cerebral ischemic attack, unspecified (ICD-10) Kidney stones ?N20.0 - Calculus of kidney (ICD-10) Heartburn ?R12 - Heartburn (ICD-10) Neck pain ?M54.2 - Cervicalgia (ICD-10) Toe pain ?M79.676 - Pain in unspecified toe(s) (ICD-10) 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, unspecified lower limb (ICD-10) Hammertoe ?M20.40 - Other hammer toe(s) (acquired), unspecified foot (ICD-10) Hallux valgus ?M20.10 - Hallux valgus (acquired), unspecified foot (ICD-10) Atrial septal defect ?Q21.10 - Atrial septal defect, unspecified (ICD-10) S/P transesophageal echocardiogram ([facility]) ?Z98.890 - Other specified postprocedural states (ICD-10) S/P extracorporeal shock wave therapy ?Z98.890 - Other specified postprocedural states (ICD-10) Hypertension ?I10 - Essential (primary) hypertension (ICD-10) Hypothyroid ?E03.9 - Hypothyroidism, unspecified (ICD-10) Surgical History (Updated 04/17/23 @ 09:45 by Bessy Gunn NP) History of eyelid surgery (02/2023) ?Z98.890 - Other specified postprocedural states (ICD-10) H/O cone biopsy of cervix ?Z98.890 - Other specified postprocedural states (ICD-10) History of colonoscopy ?Z98.890 - Other specified postprocedural states (ICD-10) History of radiofrequency ablation (RFA) of nerve of cervical spine ?Z98.890 - Other specified postprocedural states (ICD-10) History of section ?Z98.891 - History of uterine scar from previous surgery (ICD-10) H/O foot surgery ?Z98.890 - Other specified postprocedural states (ICD-10) Family History (Updated 04/17/23 @ 09:44 by Bessy Gunn NP) Other Family history of hypertension Family history of lung cancer Family history of myocardial infarction Family history of stroke Suicide Social History (Updated 04/17/23 @ 09:32 by Bessy Gunn NP) Within the past year, how often did you have a drink containing alcohol: 2-3 times a week Smoking status: Never smoker Second hand tobacco smoke exposure: Yes Non-prescribed substance use: denies use Highest level of school completed/degree received: Master's degree Meds Home Medications and Allergies Home Medications Medication Instructions Recorded Confirmed Type bupropion HCl 150 mg tablet,12 hr 150 mg PO Q12H 04/17/23 04/17/23 History sustained-release carvedilol 12.5 mg tablet 12.5 mg PO Q12H 04/17/23 04/17/23 History cholecalciferol (vitamin D3) 50 2,000 unit PO DAILY 04/17/23 04/17/23 History mcg (2,000 unit) capsule clopidogrel 75 mg tablet 75 mg PO DAILY 04/17/23 04/17/23 History cyclobenzaprine 10 mg tablet 10 mg PO Q8H PRN muscle spasm 04/17/23 04/17/23 History duloxetine 20 mg capsule,delayed 20 mg PO DAILY 04/17/23 04/17/23 History release enalapril maleate 20 mg tablet 20 mg PO Q12H 04/17/23 04/17/23 History isosorbide mononitrate 30 mg 30 mg PO DAILY 04/17/23 04/17/23 History tablet,extended release 24 hr levothyroxine 25 mcg tablet 25 mcg PO DAILY 04/17/23 04/17/23 History (Synthroid) lorazepam 0.5 mg tablet 0.5 mg PO Q8H PRN anxiety 04/17/23 04/17/23 History meloxicam 15 mg tablet 15 mg PO DAILY 04/17/23 04/17/23 History multivitamin (Daily Multi-Vitamin 1 tab PO DAILY 04/17/23 04/17/23 History tablet) nifedipine 30 mg tablet,extended 30 mg PO DAILY 04/17/23 04/17/23 History release 24 hr simvastatin 20 mg tablet 20 mg PO DAILY 04/17/23 04/17/23 History vitamin K2 100 mcg capsule 100 mcg PO DAILY 04/17/23 04/17/23 History Allergies Allergy/AdvReac Type Severity Reaction Status Date / Time codeine Allergy Anxiety Verified 04/17/23 09:29 erythromycin base Allergy Verified 04/17/23 09:29 Penicillins Allergy Hives Verified 04/17/23 09:29 prednisone Allergy Rash Verified 04/17/23 09:29 Exam Narrative Exam Narrative: Constitutional: Awake, alert, comfortable, well-appearing, nontoxic, interactive, vital signs as charted Head: Normocephalic, atraumatic Neck: Supple, normal appearance, normal range of motion, no meningeal signs, no lymphadenopathy Respiratory: No respiratory distress, breath sounds clear Cardiovascular: Regular rate and rhythm, strong and regular heart tones Musculoskeletal: Right foot obvious hallux valgus deformity, hammertoe deformity of toes two and three, good capillary refill, sensation intact Skin: No rashes or induration, no lesions, only visible skin inspected Neuro: No neurological deficits, normal sensation Psychiatric: Oriented ?3, normal affect Assessment and Plan Assessment and Plan (1) Toe pain: (2) Lesion of plantar nerve: (3) Hammertoe: (4) Hallux valgus: Plan Right condylectomy of lateral 2nd toe, arthroplasty 3rd toe, capsulotomy of 2nd and 3rd metatarsal phalangeal joints and neurolysis 2nd intermetatarsal space scheduled with Dr. López 05/01/2023.
[2023-04-17 10:53] LABS: Anion Gap 13.2; BUN Creatinine Ratio 17.6; Calcium 8.4 mg/dL (8.5-10.1); Carbon Dioxide 26.1 mmol/L (21.0-32.0); Chloride 105 mmol/L (98-107); Estimated GFR (African America >60 (>=60); Estimated GFR (Non-African Ame 53 (>=60); Glucose 107 mg/dL (74-106); Potassium 4.3 mmol/L (3.5-5.1); Sodium 140 mmol/L (136-145)
[2023-04-17 11:00] LABS: Partial Thromboplastin Time 25.1 sec (22.3-36.2); Prothrombin Time 10.6 sec (9.0-11.6)
== END 2023-04-17 09:09 | disposition home or self-care (01) ==
LOC: PST 09:10
PROVIDERS: Visit Provider Podiatrist Foot & Ankle Surgery
DX: Z01.810 Encounter for preprocedural cardiovascular examination (principal); Z01.812 Encounter for preprocedural laboratory examination; Z01.818 Encounter for other preprocedural examination; M20.41 Other hammer toe(s) (acquired), right foot; G57.61 Lesion of plantar nerve, right lower limb
CPT/HCPCS: 80048; 85025; 85610; 85730; 93005; G0463

== ENCOUNTER 2023-05-01 06:17 | Day surgery (SDC) | payer MEDICARE, SELFPAY ==
[2023-04-17 09:59] VITALS: BP 105/50; PULSE 67; RESP 14; TEMP 36.2; O2SAT 98; BMI 27.9
[2023-05-01] VITALS (17 sets, daily range): BP systolic 128–162; BP diastolic 54–77; PULSE 65–76; RESP 12–20; TEMP 36.6; O2SAT 88–100; BMI 28.3
--- OUTSIDE RECORDS SUMMARY | 2023-05-01 06:21 | XMS_ITS | CCD ---
Author Name Unknown Address [address] [place] [address] Organization [facility] Care Team Providers Care Salesperson Handbags Name Role Phone Jason Mcclelland Unavailable Steve Ortega Unavailable Della Vera Unavailable ALONDRA, DR PEGGY Turner Primary Care Unavailable RICHA FIGUEROA Consulting Unavailable RICHA FIGUEROA Attending Unavailable RICHA FIGUEROA Admitting Unavailable AMADO, DR ROLANDO Hemphill Consulting Unavailable SAMSADAYNA Attending Unavailable SAMDAYNA ROWLAND Admitting Unavailable ALONDRA, DR PEGGY Turner Primary Care Unavailable RICHA FIGUEROA Consulting Unavailable KEN, DAYNA Consulting Unavailable AGUBOSIM, CLIFF Consulting Unavailable [...] Unavailable WEST, DR ROLANDO Hemphill Consulting Unavailable LESLYE GUIDRY Consulting Unavailable CHAO, LESLYE Attending Unavailable CHAO, LESLYE Admitting Unavailable CHAO, LESLYE Admitting Unavailable ZIEBER, DR SMITH Stearns Consulting Unavailable CHAO, LESLYE Attending Unavailable CHAO, LESLYE Consulting Unavailable JORDAN, DR SMITH Stearns Consulting Unavailable RICHA FIGUEROA Attending Unavailable RICHA FIGUEROA Admitting Unavailable RICHA FIGUEROA Consulting Unavailable RICHA FIGUEROA Attending Unavailable RICHA FIGUEROA Admitting Unavailable WEST, DR ROLANDO Hemphill Consulting Unavailable RICHA FIGUEROA Consulting Unavailable RICHA FIGUEROA Consulting Unavailable RICHA FIGUEROA Attending Unavailable HIGHLRICHA SINGER Admitting Unavailable Eisenstein, Ansley Attending Unavailable Eisenstein, Ansley Primary Care Unavailable Eisenstein, Ansley Admitting Unavailable [place] 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, Kary Mendoza Attending U namita Steele MD, Vee Sarabia Attending Sylwia lablaurel [place] 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, Kary Mendoza Attending U namita Steele MD, Vee Sarabia Attending Sylwia Steele MD, Vee Sarabia Attending Sylwia lable [place] 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, Kary Mendoza Attending U navailable [place] 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, Kary Mendoza Attending U navailable [place] 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, Kary Mendoza Attending U navailable Eisenstein, Ansley Primary Care Unavailable Eisenstein, Ansley Primary Care Unavailable NataprJune hardin Attending Unavailable Triaprawira June Admitting Unavailable Eisenstein, Ansley Primary Care Unavailable Enrike Rosado Attending Unavailable Alonzo Gene Swapnil Admitting Unavailable DebenedettiRomina Admitting Unavailable Eisenstein, Ansley Primary Care Unavailable Romina Vizcaino Attending Unavailable Eisenstein, Ansley Primary Care Unavailable PhoenixKary M Attending Unavailable [place], Kary M Admitting Unavailable Eisenstein, Ansley Primary Care Unavailable [place], Kary M Admitting Unavailable [place], Kary M Attending Unavailable Eisenstein, Ansley Primary Care Unavailable [place], Kary M Admitting Unavailable [place], Kary M Attending Unavailable Eisenstein, Ansley Primary Care Unavailable Phoenix, Kary M Admitting Unavailable [place], Kary M Attending Unavailable Eisenstein, Ansley Primary Care Unavailable PhoenixKary M Attending Unavailable Eisenstein, Ansley Referring Unavailable [place], Kary M Admitting Unavailable VEE STEELE Attending Unavailable Eisenstein, Ansley Primary Care Unavailable VEE STEELE F Admitting Unavailable KINDVEE De Guzman Attending Unavailable VEE STEELE F Admitting Unavailable Eisenstein, Ansley Primary Care Unavailable Eisenstein, Ansley Primary Care Unavailable Nixon Rosas Attending Unavailable Nixon Rosas Admitting Unavailable Eisenstein, Ansley Primary Care Unavailable Heather, Ziad Attending Unavailable Heather, Ziad Admitting [facility]available [facility] Unavailable PhoenixKary lambert Admitting Unavailable PhoenixKary lambert Attending Unavailable [facility] Unavailable PhoenixKary Attending Unavailable PhoenixKary lambert M Admitting Unavailable VEE STEELE Attending Unavailable VEE STEELE Admitting Unavailable [facility] Primary Care Unavailable Allergies Allergy Classification Reported Allergen(s) Allergy Type Date of Onset Reaction(s) Facility (8 sources) Codeine; Translations: [codeine] Drug Allergy Unknown [facility] Repository (8 sources) Erythromycin; Translations: [erythromycin] Drug Allergy Unknown [facility] Repository (7 sources) penicillAMINE Drug Allergy Unknown [employer] Other (8 sources) predniSONE; Translations: [predniSONE] Drug Allergy 1 Unknown [facility] Repository (2 sources) Codeine Drug Allergy [facility] Repository (2 sources) Erythromycin Drug Allergy [facility] Repository (2 sources) Penicillin Drug Allergy [facility] Repository (2 sources) predniSONE Drug Allergy [facility] Repository (1 source) Penicillins; Translations: [penicillins] Propensity to adverse reactions to drug (disorder) [facility] Repository Medications Current Medications Medication Drug Class(es) [...] Onset: 04-23-2021 Episodic Other aftercare (1 source) community marketing manager (current) use of antithrombotics/a ntiplatelets; Translations: [LEVERS LACE MACHINE OPERATOR ANTITHROMBOT/ANTI PLATLETS] Onset: 04-23-2021 Episodic Other aftercare (1 source) Other assurance manager (current) drug therapy; Translations: [OTH SKILLED NURSING CURRENT DRUG THERAPY] Onset: 04-23-2021 Episodic Other [...] Range Facility Outside Recordson 03-22-2023 Outside Records [id number]#[id number] TGTIFF [facility] Outside Recordson 03-08-2023 Outside Records [id number]#[id number] GTIFF [facility] Progress Note - Provideron 1 05-09-2022 Progress Note - Provider [id number]#1.00OT [facility] Coding Summaryon 03-01-2023 Coding Summary HTMLBase 64 MmxdslywXHa0qFv+PGhlYWQ +MZ5LUMXnZ24qvXDrkT0aM9 NMTElOSywgQVBQTElOSyIgb iIvOO4gtNBvFAIs IC8+RM8fSPNmOsfusHUgz4X 2fIA7Z02wei2mTYkvdNT1TL DdRcRobuvmi1hskSk3OEdxV mluOyBt SWWpdM76OTG2fU05Zg02eAD eiHJkl3vujWh7NdIlCZLmKB X5jUliWIbia8UtJAGsC18th GPap0M1 BKLowMwejRDwLqTzrRG8xY2 yCUpnvnbdi0vwcmjkTat1fp 10wFRwn2I7wDB1W0BfvjP8K GJvbGQg DzmbpBKOrU7qvyfud7hashh xBmNnCXBsALn5YJw6TBQtfE gzBjWiSQ70OZS2HCBffdFuV 2FsLWFs eRllAgE8y1Q7Mr6DK9IDAcl zD3EGISSEDRsmxVO+PC90cj 45O5SgCtlfGqd1USGwITK0f IU2tA0y OHFpGOtiq2A4fPC1M9IormW oxc0wu9cpKTEcCOkwV63asA Qji1W1LNKhrYU1SRPkgAygA iBzaG93 Oyc+CPLbuGtgo6VnKqoiu0b gh0pqoBa9XlknTHMflwYyjR jyZTL6z6ZcDk3jDWHlfSA6h PR7vC4n KwQpHaW0MEuqH890BlEocYQ pNqjiL36aK3YmgHH+PHRyPj a1SIEkqIonGM9lK9LpCCWpc mctbGVm vUlrFM0wSNRsybcfKAZzqA1 wMRMnR8l1HkDxYsQ0ZShcP2 TnZYHijdpfNk59hX4cNdXmK jQ9EPmn Z7LyazN5BCPjfONrGZkvLTL 2N57ic0A2MFCkVUWtRET1nH H0cU1khIqncnxyjDXzfByer mVydGlj GLuqNVurI539LRDccDxcRhM vZGluZyBEYXRlOiAgMTEvMj kvMjAyMzwvdGQ+LTAzPDF7e WxlPSAn pDFrUAuaOz5tyWntuUagLH4 gNBNzbnqsBBWtdU0wJAQjbU AjnUcxSH8mNGHgrykms796M iAxMHB0 CNOzmXGvK2JreC5tMkKyHKB xLKFwQ1WlaBKrPPvcQ330XS knPkD4TOKozqAkG2YoVVHbl WduOiB0 r9M9Uw1Tk7BfhoiaI2AujBR eJkNeOtctQZr4D8CrKatsyC I+ZI23UAYhEO04JGr6GYE0h WxlPSdi OLGgG5FnwT1rWpQqWQUuGOM kOyc+PHRhYmxlIHdpZHRoPS njXZXlKmYwvGzzVX8vEy4xL GVyLWNv kFddmSQbDkSjr8noBVAyYJm fCI9owKxfF0ShaLJ1VCWgy9 k9Vo92B04fP0PckGI+PGNvb VM0bQT0 tC6yUpCdYfY1PPfqK778ZuF ueBEpOkrin8tpv9csoBd3Sb R7IKUmofFvjZrdUDP3q5WqP m53D20i IHdpZHRoPSIxNSUiIHZhbGl ftv0fqN5gCp8+TCSkySZ2mE A7zV0fTmRpIcF0EUmnS465M nRvcCIv Jecan1ubl5ougWe9HdWsUZB gmaFrvMioSIH0f3KiEz58J0 IixOcbm3JzYkf0wg51oJTck 7P4sOR5 X8RuJBAgnbhlrQKklEzbKE6 yXLJadnnbEIIxbH9cAFYdH0 g0HtYgGiZ6CKbxB5PszcY2Z GJvbGQg BMXzzADKsI0dokowy6cgisf yMwLfSWIbNYk1KSq0CECxhE qzHtJcCNA3TcO7GZD9lHAhb A8pfPlq xfpfcQ9kHwy+WDX1wJTqzAY OXP9dFbvgwOG+TGBoNJI0xU jdRFytGUAzkL6aOMKjU1m9K iAwLjA1 PPpjJ6WuybF3KLDxgJFmXJA kwBJUcF9quhnjw7yfyqaaFi YyCPKnPFo4PFj6IQNgpVnuG iBsZWZ0 KuX6PEK3hFNndJ5meRvywjg dkU4rRgj+TurceIpjYOS6WH x6Y2AoEin6IWCbzMxjGD3jz GFkZGlu Ss6tcSsfmYxkIM5dVRDzlln ju484MgYjy2lrALYigCWrZQ ioDNN2X78gt0E4ETNgDDSpP GA8lGK5 cF6wsKcjzqhobSAhkNcenwI ajSxoUYhqXHoyP493WUPboI fuOjMfHRh9M7QmLhy9XLAek CwuWM3u mQRpOSzlBw1pyDrtbPxtKZ2 yAYPwyginv957VrMum5xbPJ NkyYFeYIjgZJV2N67gy7I5H CMwMDAw REK2aAQ3xC6guSupahipbLJ mdDsgdmVydGljYWwtYWxpZ2 82EPRbzJdvUlYtoKa8O3RaX hg3MHLh gUwoGE6vhKOgYTdiOc9etXk dfGhkTF2jOJZfsgkvm273Cs Cqc6poJXQolNQoUNckZLY5D 36wq9G8 HLXwIQUnNEJ5mIR6wZ7phIw nbjogbGVmdDsgdmVydGljYW fzHLqiH001APDdmCdbVjBzp GllbnQg MUveZHx9Z5NpDgwwfPP+PC9 3VBEjHD03iGNjvZXrw3rczY v7WdUbYSPbEZA1hSgxJLdtb 3JkZXIt P83ryZHbj9E9VKIkoSxmyVQ cUlQaiFN4eY6rBTjuxbnnl9 kdubogGozio7qqis03sI36Z 29sIHdp ZHRoPSIzMCUiIHZhbGlnbj0 tyP5tJd8+TVLlqRH5wNK8cM 7jJFBwDkR1SPhhS854FiPie CIvPjxj z3ulp2exfLw2LoZ5PITmerO txNhePXB4m1RyZe70Q87bHF dpZHRoPSIyMCUiIHZhbGlnb g2lrU5e Ii8+XPTqaVC3eNR9gZ5nSmT uSeU6INyjZ578QeSnqALxSw idI74bQ5ReqUO+LYPwEdb4L CBzdHls GE6dcRNzPNexGm8vZLA6MzJ bVtImNXdkX6TvFJHkmihbkl otcRQ8ELDkBUTjgW11Qy2ri DogMTBw rYACwG5rwxyqr7ttgvfmHvP uDDOlBEk6MKq1EYNfdRtvNd XqAUS4LpG6ZZC8yIQonM4op Glnbjog jO5aI9CoBQIqlupvFt52zP8 gNoEtBkP8XIwbCdw+V0hJVF ZwOYXXUSuOTNYMRXk3X8IeZ ch9WMXs sPoiWT0xjYCbSRvkTq1olIb csFvrFX0tXMYebxcfBNHmaN 0kRDDpzDLjoAocZC6bRRVoa muet638 QgLrPFT5BHTjmYZnO9VpcT6 jGwVnSBGyTUPyW2EfpZAkAN tgN657QIrjTyR3CRKluxAyL 2FsLWFs zSmuHiO1j3K6Qs3pWZ1nPE3 cKMK1DG38BM59lPVti3N1xH D1E3VvDZQscvedbhscyTG4X DAuMDUw fO42cHPpCVidYl1mt4C4n12 3CRRrPCVxyQ61Vs6xfUbcTG MdnHBElD7tyjilq6bwfzlrB zAwMDAw YYp5TMq8AHFcwLhyOrBuSKL 9DiO1GFW2oZSrwP3dsFxuyz txmR3fAbb+CrIvSPSaiuF8D 1RiVde9 UOCbuItxOF2ijLPnMSeaNj1 leXjzcBupIS3pKPMzhdckYJ JvmO7aVBPisWMjoStdQY1kL TBpbjtm v718AfCvHOI0IMUoyVBeA1C lnP0vRcKwJPCvHLRqI5UssU FlFBwoY422OQkzLjQ4YLNmp hToG9Xd SZRlqQtsVpQ3z4J9Px6PZF9 CWRE9T4QwSij2IWYloMjaRV 3hpZQoRGgmBy2gkJxwdUsfX V2eSVHx gxmdDLXzjQ2cZTPtqCBioLl jMD9kNXFzgqwdi799WmYyFA L5XOKooOYbA9GhiG1aHbMeT DAwMDAw H2ZxcIGlBTyfF142RUrwEqL 6BZRpiuKnE1DeRUTsoYrvMs L2p0X5Xo5VMVfkxCH+PC90c j46D4Qf KnqvFle9IXMpAZQ2qGG1nS2 iZJAmNHkua1M7jHV5A6Zfmk Hmxa9do1beCYXxQTcfQ42hw GLbe1I7 GKAlgNQ4AAAcaHnlKxOboA3 3Oyc+TSOwkEkjd4VpQflwh5 pqo3dtdTt4CxKnUJBtxzAde WduPSJ0 i4JoQf86T28oAOhcDOZwTDH fLHXqSMZqzNdvrz8wgU4yCa 8+DVEnsAY3nTZ7nI0bJlWcG sO5XSkp O072RtRsjDQeAtkxh3hmj3k upFl3TxLgBPSuvwDfpTyuBQ Q2y7MoBx18W1IsiIdpr6FfJ pc4qn78 oSQrh5B5sEN0G3XdAFIehma dmFGpkTnrXE1gEGRkyavhWY MxuU0pFXVaW2g8ZpZsHkP9N GiqF3Nq cdY6VXGftRPbZBSigBDGfD5 ypepkm9mmnkdeKsXcMIBkXJ a0PHy0XPUrvAqwWvAfLRH3W yY0SAH6 fAKkcX2tjYzfkcvxhH8uTgz +ALx7h4eiwQNhVC7tbNJ5AF 18ST25zUIxc3X9cNU3P1RaH GRpbmct syjgqAP1ENHdMKLdkN40Vq5 riVefJe7mRLXnRSN1BLMleV FtR2FmdL4tPtZhHGPwGLNzZ 3RleHQt HHapB254DRyvWnL0KKMopzJ nP7LaRLNjoMuxGiT7h5A4Qw 5VFK56UJ73JX80eNGqf7K0p IV0C9Qo VXGynqqhsttxsQL4BKLmBLS kpS74Ta0joTfeWi7vXVCiRF Y2EHSzqONvX4LfjR2yYuWzB DAwMDAw Q1KrqFLiSPpvT370NFoxCgS 6OLUdxiEvM4EnDKCvfDtkFb S4e3D4Dg1SCl52DT90IP26x AGal7E4 gWY1Y3XbVKCesflyhufwnED 7SDHxLFDixH54Yr5qhDnbTh 3lKYSsQRZ9HJEbcWKyZ0Cqk X5yWhGz VNQzSKAaX0XvvEQoTRpaO29 4QYmqKqN8QDPlbuOaC3VhSS UmbOffJaK2q0L2Vr9GXRuem pf8U8Kj PjwvdHI+VA35MFJvWW75fMX knDTbb1ksnJy8XoOyIQOiUH V5zVbrJBlzn3NjAUMhL30ws HTyo3R2 IGN (more content not included)... [facility] Coding Summaryon 02-08-2023 Coding Summary HTMLBase 64 HbankacfJXv2cIs+PGhlYWQ +BB4UHVAlL06kwYLkuF6dD6 NMTElOSywgQVBQTElOSyIgb sAcEP9bwKGpSDAh IC8+OD4mCXTsYqqszYIsi1C 9aIJ6O49gme7hURknoMY3BN UjQxFoihqyg0rsmHz9RAbdJ mluOyBt ETJslE24JTC4jM52Yk78mVN rnVVtr6tooQq8AfBoFESpJN E3vTdjPDhyj3AwCVCgQ63ha EEod8E4 JKQyhCcbnGYqZaCgrDZ6yR8 yJFokuyfee0jajexyXpa7ai 72nTLnt3G8cKR0I0ZmhjW6Q GJvbGQg UmqfbUHSbH8hxrqmp8fkhok gSmEfXNRuEBw7LDl1DJOrlK tsFwQuLM97YUK3HFHkubHrC 2FsLWFs jGwqXqM1x0M1Xc4CC9HSDdr bI9CCJLHZDOzodZH+PC90cj 51W4DjRnpaNap6MJZuEFU0n EO9qV9z EWMkLIomd4P8fLS5N6DqegW ack8ti4ibJCAhKFotK57cvF Agk7Y1TWSvqHU3ZYFlsGecT iBzaG93 Oyc+VUZfiNoxw7SwFetnf5p nn4dozEw8AnodDJUixmKwuG ciLQZ4p0PwKt7oBZQmuZX1k DO3lN8t ZhDoApS4EJkkE946UoHttAL pEajaF18tN3CkcXQ+PHRyPj r1FYMnyIgfQK0wP3PlMXCkw mctbGVm aQmjEF5lMSBbvenxLAPpvS4 pUGNcG6j0XuRpCpB8FLyrN6 HeHUWbxykaUw97uJ3jVyJmL jM5WQcf U7UscgJ1PMYsxPGcQXgyPDW 2F04bz0A2AQYfRKYdHAQ0tU Y7tA3ovBdibdcokVTbpJyri mVydGlj WWibTHtsQ943HUZyeNyhLzZ vZGluZyBEYXRlOiAgMTEvMD gvMjAyMzwvdGQ+KUJsRRB6k WxlPSAn rBSrDRrtPq2qgKhhfYprNS4 gRQPvjfnqNIGnhD6sRBIqoM UhxXypIA2jGGMfopumg827D iAxMHB0 CRBlfWWlA0JrlV1lJdQzPPV zBVZhW8CnxJCzUPikO253GH caDzE9XARaxsVmA3LcTYYqf WduOiB0 b7D7Sz2Uc5MtjnqcW7VfaRE uMfToMhiyWTa7C7JqChrmbZ I+XW08BWJuAL29PJa6OQT5d WxlPSdi HCXdH2IgvH7zTmSmRIQcXGB kOyc+PHRhYmxlIHdpZHRoPS uvFTAgOxRhfUnfVY4rMa1mU GVyLWNv xTigwRLvSfXiz2hrUHDdNCj yLF6nzHkgS3LraOW0DMLhb2 v1Wy98J82uJ7OgrEA+PGNvb HU6kZB8 qU5xJbDgNbO8SCphW768RrL jaAIcVazse9ctj9juwMx4Wl Q9AESiqvVuyHqxOOH8w2MiG y21N47w IHdpZHRoPSIxNSUiIHZhbGl xpk5lwZ3jCp5+PEWsePN9zS Z4cY0iYvQpWeJ4MWlvK509T nRvcCIv Impjg5ftp5yhzOb8HhCsUIL iuxXtaRuvBUD3t7ZvUc74H6 XewOhkd5FdGeq5xm51qVZuy 2K4sDA4 I7PtMVGjixrmmHNrfXysLI5 pYJAjmhrvNDThvG4zWWVzQ8 a2HaKqKwZ4ASwtF7WwolQ8X GJvbGQg WYTjqLJSdN5lvwyqv2qyddf qJhUeGQHjPSf0VJs4NQYzxP jdRsGwJUF1QyO4FJB1yYMmc B3igKpp wkdtpD6yRgf+RBX2sFLxyEN UQG9bKeuqePO+IRReRSI5uO dqAYzxYPEptR3jPYDyI7d5O iAwLjA1 LZddH7KltmD0HFFokEIaESM reKDXkY1bbedlm9xiwfroRr KyEZWbJXq5MHf8PBVpzDxlB iBsZWZ0 ZaM2BKW2pJHebF6bqZmlrne gvQ1bGfd+BqzwfMzxOBK7DG r4M1PtRiq2ACSprMctOH0zt GFkZGlu Ho1apGbclJjqKH1tNHAwhtb su900QxBav2ltEQIqwAEuFT mpJHS3M95yy0F0CNChEQJmT LG4uSG3 oH7rkFqwxitbtVCnxTiyyiJ ydGnhBCvdKMdtG362FMTvrT vrGhJtAQi3V4CpPes8EIZmh WwmZH6c yPEvPHbtUj0ilHleaIwjMW3 kJIVqzxmcm532NlPmb3gbRI SxwDVtYBasYWL6M05kh7R1J CMwMDAw DII2aKI6lX2zoXomeyqgaXA mdDsgdmVydGljYWwtYWxpZ2 33QKEviZvcKvOjyDy6C8TxD kl6TTPi jSupAM1wrHIrULleDw1odLf djXgyKZ4cXXGxpgmxc194Jv Nwf6hwTQAtwKIaJYiwHHN5H 33fj6O9 BNWrSVPlQOO0oIY4mP9lsYq nbjogbGVmdDsgdmVydGljYW wbQHrrE124ZNJvvZvpNvCmm GllbnQg CCzhJWw0K9CvSzogmLP+PC9 6VKMsAF46zTLkgXMqn5jxeJ q8SuAxOXQxVGC1iTkdZArki 3JkZXIt B37scGDza9D4LLKccQudpKI yMeLccZM5bC2xKWosbunyw0 jjweomUreyi6nipn80aE70X 29sIHdp ZHRoPSIzMCUiIHZhbGlnbj0 ujC8bRl4+OSEdcTO0uDE0nY 8jQOAcIxY2NWghG176SsCrx CIvPjxj c3dkm2dtzTn5YuX0WGLlofF ypQmpQSN5t9ZlHh26R66kTE dpZHRoPSIyMCUiIHZhbGlnb o3hfB6w Ii8+JUHueTG4yYJ1xP8hJqZ eAnK0TRzqE972PmQgoZLfVd vtE95oL5VchTO+UGIxZnv2C CBzdHls ZG5hqXDxNVrhWu9sLQI9BaO vRlRmLMguA2SuNSKruuzkyr lsmDD4WCIdRYAluA13Dh9sj DogMTBw cGQQcT1bgeycz8foixvyRhZ zJNBhGWq1PQz8HIVgcOhfRb ErVVG5CtU4GAB9uKDswO2re Glnbjog zJ2uR0YlOMCpcincYd75yL7 oKlYtXpR2EJklLie+V0hJVF OrKLMQFEoBXHPEKZp6W6DtS pi8SPCm mQvlPW5obRGuJRwqCy9kiWe lqUrjWJ5rQJIszeufQSQdjY 4cUNBkwODzdHshHG4hQZBzi kvnb515 XjRkADL4LJMdaCLzA8LagH9 gXjBxEGSdTEGlT3SqxWOzAG rcN991PRuaIsZ1NTWpxqQtI 2FsLWFs lEckOmO0v4J8Qh0qUE8jBU1 aDUX7MF38SR87fMNka4S7dJ J5P3BnKOUbpbyoapfybVP2F DAuMDUw yV17gAUjIGxjDs5ws6A2s03 5UVNzKPEmvZ07Ud0baSwxZF MujFTNoA1jnsper9tetwtcS zAwMDAw CXe8IAb7DAPrgTygPsJfHUT 4DtX4QJT5dINuaQ2icKmujz whaT6yTzm+AlFdBGOzlyO0H 7PmKdn1 LLGwjEqcPB5prKAyXBoaPq3 aaHljdKcfRI4fEPOovmqoVL QgwL2fCDKzeSEpdGnsHA8iQ TBpbjtm p187UwHrFJY6MSZcuDIiO0D onX9dNuEqEYVlXSGaM1PjoG LsAHfrB629JOmhDlH3WFAyi zFzV7Xq JDGaxGleRtW9n8B2Qb2MIR2 MSXF0V6DqFdd2QJOlfHytHX 7wkGJeEJtzZp9hxWtavMwmL M1uSZWm vknkEMFanG7wEHIfbDVvjPe jZK3sEHGjrwhot825ZsXkTL A5FJGldWBpH5HxuM9tOiVuP DAwMDAw N1AdwYHsTTbyW020LOuvLlW 0UVTqguJfK8FgEECfaUvwWw D1d8O5Mv5BGEqfaIT+PC90c i15O5Qy VnowXda5NUGuITX7iYX7aM3 eQCRsDMays9B5qNX0M8Hmxd Ayxk0ys3whSTOdJRspD36fk WMda4L5 JRGkgOE8OHZxjFmsInCwxL3 3Oyc+HPZetIkwx0OtPoxoo6 wax8nvbCq0GyKqTEVhthQuw WduPSJ0 k6WcNr78X89tKMwyFDIjPKS oWUSrAUSqiIffqf7tyD6yBl 8+YKAosYV6bEY4jN8cHaVwZ tM2WIpw F825ZoCwpYXiYcmkw0ebr3n ikDp0TkIzXYCnthWodCuvWI G1p0XhXw48B8GfcTipy6QsC fn8mv41 tBIsr4I3bDT3A3SrRJQdoar ozMFxgYtjHC3eEHDywzquQP PvcG2oRFFeI7t3RjYuTmH3R VmlI1Od prZ6SHExiKLdOWEyxEKTbN2 kbpnka8mhgoodMgOpFSZdOY f9EDx9JRDspRczKcMwKJA1Z vA3LLB3 iMOtzL4poPlrvxcwqW4uXsl +MEa3w0jycCLfCV5udIZ4WD 69XY90zSRdp6F5bWW2J7KbK GRpbmct eccjiRR5EBIdCAPzbF72Js1 wnSphNo2vFNSaZJD6CYObhB NcV4BlwU9uWjVxGOEyEYFbA 3RleHQt NJptK492NUccDkD0BPKdnoO nE5GpAWKviIedOvR3f1U2Ea 8ELM42VJ98JN06lXCjt9J4u QB0Y7Ft LGZuaadlnktxfFU1KUGkEPK ajU14Je3amYygKn1oIVWzGP U5QBRppOCdW0UsoG6zRjUqN DAwMDAw U7HkgVQuCIauB280XIxbMiC 4RMBpcjEkJ6FzQNDvlEhhZf R7u0O9Mu2ZLd38YL26UX91g XUwh6D7 gFT5Y7ClYFEfdvugvoaraME 3YNHqOFFhgF77Ux6snMmtFv 8kGFBkFHL4BBHhaZMmH0Kfy K3tVqKk NGRsOFQhL1OqjGIiLEuiO41 8XQsqWcT7GBSkhtGuM6QcOD JhvGhkTjN1n3L1Da1EMMosz ra1B7Lm PjwvdHI+FI97GYLeUG57oFC nhTJrx0wliKt2HlCnWPLaAO F1kYxaGXcob9EzLZVvC61ms WJya2Y9 IGN (more content not included)... Normal [facility] .Auto Diff 02-07-2023 Auto Cameron % 4 % Normal 04-14 [facility] Comment on above: Performed By: #### 7 [id number], [id number] ####[facility] (DEFAULT)[address] [place] [id number] Baso Abs# 0.0 x10 Normal 0.0-0.2 [facility] Comment on above: Performed By: #### 7 [id number], [id number] ####[facility] (DEFAULT)[address] [place] [address] 63359 Basophils/100 WBC (Bld) 0.6 % Normal 0.2-2.0 [facility] Comment on above: Performed By: #### 7 [id number], [id number] ####[facility] (DEFAULT)[address] [place] [address] 01701 Eos Abs# 0.1 x10 Normal 0.0-0.4 [facility] Comment on above: Performed By: #### 7 [id number], [id number] ####[facility] (DEFAULT)[address] [place] [address] 14444 Eosinophils/100 WBC (Bld) 3.6 % Normal 0.9-4.0 [facility] Comment on above: Performed By: #### 7 [id number], [id number] ####[facility] (DEFAULT)[address] [place] [address] Lymph Abs# 0.7 x10 Low 1.3-2.9 [facility] Comment on above: Performed By: #### 7 [id number], [id number] ####[facility] (DEFAULT)[address] [place] [address] Lymphocytes/100 WBC (Bld) 19 % Normal 14-48 [facility] Comment on above: Performed By: #### 7 [id number], [id number] ####[facility] (DEFAULT)[address] [place] [address] Cameron Abs# 0.2 x10 Normal 0.0-0.8 [facility] Comment on above: Performed By: #### 7 [id number], [id number] ####[facility] (DEFAULT)[address] [place] [address] Neut Abs# 2.8 x10 Normal 1.5-9.2 [facility] Comment on above: Performed By: #### 7 [id number], [id number] ####[facility] (DEFAULT)[address] [place] [address] Neutrophils/100 WBC (Bld) 72 % Normal 44-88 [facility] Comment on above: Performed By: #### 7 [id number], [id number] ####[facility] (DEFAULT)[address] [place] [address] CBC w/ Auto Diffon 3 Erythrocyte distribution width (RBC) [Ratio] 12.6 % Normal 11.5-15.0 [facility] Comment on above: Performed By: #### 7 [id number], [id number] ####[facility] (DEFAULT)[address] [place] [address] Hematocrit (Bld) [Volume fraction] 34.0 % Normal 33.7-40.4 [facility] Comment on above: Performed By: #### 7 [id number], [id number] ####[facility] (DEFAULT)[address] [place] [address] Hemoglobin (Bld) [Mass/Vol] 11.7 g/dL Normal 11.3-15.9 [facility] Comment on above: Performed By: #### 7 [id number], [id number] ####[facility] (DEFAULT)[address] [place] [address] Man Diff? Auto Invalid Interpretation Code [facility] Comment on above: Performed By: #### 7 [id number], [id number] ####[facility] (DEFAULT)[address] [place] [address] MCH (RBC) [Entitic mass] 32 pg Normal 24-34 [facility] Comment on above: Performed By: #### 7 [id number], [id number] ####[facility] (DEFAULT)[address] [place] [address] MCHC (RBC) [Mass/Vol] 34 g/dL Normal 26-37 [facility] Comment on above: Performed By: #### 7 [id number], [id number] ####[facility] (DEFAULT)[address] [place] [address] MCV (RBC) [Entitic vol] 95 fL Normal 81-100 [facility] Comment on above: Performed By: #### 7 [id number], [id number] ####[facility] (DEFAULT)[address] [place] [address] Platelet 216 x10 Normal 138-427 [facility] Comment on above: Performed By: #### 7 [id number], [id number] ####[facility] (DEFAULT)[address] [place] [address] Platelet mean volume (Bld) [Entitic vol] 8.1 fL Normal 6.3-10.2 [facility] Comment on above: Performed By: #### 7 [id number], [id number] ####[facility] (DEFAULT)[address] [place] [address] RBC 3.58 x10 Low 3.70-5.30 [facility] Comment on above: Performed By: #### 7 [id number], [id number] ####[facility] (DEFAULT)[address] [place] [address] WBC 3.9 x10 Normal 3.5-10.5 [facility] Comment on above: Performed By: #### 7 [id number], [id number] ####[facility] (DEFAULT)[address] [id number] Provider Orderson 02-07-2023 Provider Orders [id number]#1.00 OTGTIFF Normal [facility] Coding Summaryon 02-03-2023 Coding Summary HTMLBase 64 MxwzvwrjMLi1rAz+PGhlYWQ +JX6DMOVsN72zrUJtvI2hO9 NMTElOSywgQVBQTElOSyIgb cFeRO7hoVAyKGJn IC8+PU8hKVTrBlkegJOfo7O 3qRW9C74tpk7fRPmxvBT2SY MfAqFdekpcw5zkmXp8SOmfB mluOyBt BIHqfY10EGI3jO49Jp37pHM xaNQtj9nawBw5UtIvJXDfOU U9nBjmFHhzg6JlSHCsW55ru GGsu0Z9 BLYwxRfuvKBgXbPayUG8qN7 rUYnxqqzvn5qgieqyMar8lk 92rZThs9P4vTA5C4ZfujW9Z GJvbGQg UjumbLRMtB4hykrhg4uadrb yZtBbWOMvGHj9GKb3EGPmhD yqCrRpUK00JBZ2GZOcrxXmF 2FsLWFs iCzcMtD6e0L7Vu3VH7RHGpf xC8JLHWNVYVkuzQV+PC90cj 80X2NpPumtLbd1BULxOGD8c KO8dY0b URXqUEpmx5F8pRP1D0GpdsE guj0yb9nkEWZzRNhhC95bcT Kqe7O0GWOmhMW1WUItqEfqM iBzaG93 Oyc+ZKXqcCzum4TyRcpzt3j lv6gijCr0IncxVQBmkkJnwR rlLUS0f3WbLv7pDYDsuYV8b CC5aL5v TqSzGxJ5GUhmR094DzHnzRW xHbndD85zI1DpwRZ+PHRyPj s1HGKwjDuoHK7cH2TyYQIxy mctbGVm kBwaIK2lPWNykzliHOLqwA0 nZNNpD9j9WyXlFbS0IXmtN1 LlWHBvjifmDm16bI5yEbLgZ nZ6SNyh B5PmgmC2TYEwtWOtNTunXBG 7Z67ua9R9XUTsWDBrLBU2hO V8uQ1riKhirsjmyRBgfErie mVydGlj KSwyFBqhM332LUIebQsjIhY vZGluZyBEYXRlOiAgMTEvMD MvMjAyMzwvdGQ+LFZwDKA7r WxlPSAn pRWdCCgcEn9ngRygyEmkWM4 tGKWyseiwATRzgV6rJNBlxS LwiQtzWU0sDAXagtflm520W iAxMHB0 DVFegPPlX4ZhsI9yLaKdBMY vZMHvA8LvuIMpTPqqQ236QW ncNaJ6VBLqvzFkO1PnPRUzj WduOiB0 h1A4Eb3Ed1SvaubtX9JlpNU pQlNjOpadJKv0L4YuMrbsvA I+KR71LMJpPU65AOr6AGJ4a WxlPSdi PYXrO7GbvZ5bTeLvJMPpYVC kOyc+PHRhYmxlIHdpZHRoPS hpGVBpMfNayRsrZT0oZc6mY GVyLWNv yZlsgQGoGlCsi7ciNUIbFOv hZH2fgQirO4EbrKS2ZIBgt7 b0Ed21P12aF2AtlTS+PGNvb FS8kIV9 wB8zLsDvOsP3JZabK439PuN uhTUqVsvjk1ekb8bdhKi9Mt G5CDSegxNolJkrJNQ7o2XwG j25X56h IHdpZHRoPSIxNSUiIHZhbGl spw4xzK1tCb7+TJFvaVY0kZ C2lR9uYvKsGxA6CYgxT594T nRvcCIv Lxfdr2fkz3ksbDr7FjKgXDK bmwKjyIzhSIY4f3QdQd65A1 VpdMltx8JtCnj5et09aRNqu 8V1rJS1 N4NnCBLubfbxuGBfgUfzQG7 cFPXeijcrRKVdlQ3cBQLnJ3 h7DhCeCeM1CEqcE4UihkP7O GJvbGQg TEXaxCJIdA2clbdoh6udvql zNgEpLXDfIHk6AXw3RQDepS tdWjOmPWF3UcX1NIN5kXRqx B9yeLfa bnincG8fGpt+SIM9yJDjaUY RME5aCpbbtPL+BRUaSQV8cK qeEXpyIYQxnO5oHPDaA5p3P iAwLjA1 GHvlJ5ZoruX6NIHsxKOcUWF tfIOPfG1wamyim5zvopjvEu CyBXAvTXc0LBr1DHJabSuzZ iBsZWZ0 GeI1ADM7eIUxfI4vvNbeelf muL6rZnb+RoawcQwrOFJ9FZ r4Y4ByRne1PVUlbVelWV0ox GFkZGlu Gi2zeMpuwQwjND5qLRQnixg xv983KlIqs3ccBYRpaGAxKA gjCMJ3M66le6T6LWKeLCXtH XS8zRM8 mK6qrMohcaafkLDfyDdcgeL kcNchGGhoXZwaZ357ZPCilH miXvLgSNp7K7GdKzb4BWJji LcdNC6e iWVdXHeqLs2eqRnrbDqmRP4 mADJjcunec962BwZul3aoOG ZbqFUoHMxmKQA3J92zb7A5G CMwMDAw CFB1aSR7pS8itVxvnaexvNP mdDsgdmVydGljYWwtYWxpZ2 89TXAioOokGsQpeFx8O9OyN um8XJRr xBknIN6zgOPgZQbuPb1upZw ozJrgCT8sRBIipjlxn660Wb Vgf3uzXSMxvMNpXKkmHWW6X 79ot4T8 VZGcWIJyTDH9lBG4bL9niEi nbjogbGVmdDsgdmVydGljYW rsQAkrB888XZZepEvdEoQbd GllbnQg DQalRKp4F1BtOgabqBK+PC9 9RUBeRX26kNKfgBUaf9buvZ m9BiEhVDNhEIA5sUhyEIiex 3JkZXIt G80gfHAul7Q3RESupFzibJW nBqStlHS7sH4aJOdsqivuv7 nrjtiuDemwt8wzeu94fO41O 29sIHdp ZHRoPSIzMCUiIHZhbGlnbj0 gyY9uCx3+GZUrvWV7hLB3dN 0oWREqKeG8IEjeJ517SxHrh CIvPjxj l3syc3jhpCm3ByO5WASbnfT psLntXTE1v6KmWz99O07sLI dpZHRoPSIyMCUiIHZhbGlnb d3ijC1i Ii8+WICfpBW3vAY2mN9tUfM lDmF2MNebU528UjSjlGHqWf lbR98sY5ZwbAD+GNSySoa2J CBzdHls WT8lxDKjRKupRv3sERD4YsX aOoTeXTxdM0WzFHBkodzgaq bqaJV9SQKtXBYndR72So8fh DogMTBw zJTDfH5nbjmfs5iykmzwSaQ hJOObWLg4LXp0ASDhhIkeRo VaANH0BfE9ZIU7vXPojG0sm Glnbjog sU2yW3IuRBQisiyoLg91oT2 bGlGwKoH2LYwcDmw+V0hJVF RaFLGHJAdXSSWLNMx9R6YvE kf8PXWc pWrsEQ2ghYGzBCmmLa9hrBj iyVefNB2hIKCyrtnjINVreS 3kFFWfjILdkBccCR7zFADtf xvvw891 OxEuADG8UCHduETjG1FooE4 aAnKzQYRjZXPcE8JwvNPzZL jrX377VZkcSkY4OZKideOcM 2FsLWFs wHhyAiX0a8Y4Yd8uNY1dBN6 hRFA1FV38LM32jORyp1E7tX V3N8RgEAUtvsbyodlyfES9Z DAuMDUw zD06jMMcNOfkJl9en3J9a39 9NZHwURXapM00Uc9spYqrNK NdoCVZkF9ygnxxk6oxuwmcY zAwMDAw NVm5QUo7XONjhLfgUvCuOSH 3FmR3WWS2pVTavU3miLihec bzvD1fNvh+MbTrSKEgejB2Z 7BxZlm0 SLEotLouHF9xaKUuDWqhWh2 fvSdzmOuvCD1lEQQcmwjwPN MxmT7pSVCqmIPoeMjuQY0sT TBpbjtm t591HlMnWIX6ROPkzIDrX1G wbC5iQnVgDIJlFUAsS7IzjS MlXEucO762GAboFiT2WRCqd dYwC6Vj BHEvzHooRgU7r3M2Rx6GWU5 ZTJF3R4IqWeq9AUAweMsyLI 1mlUMvZZmmOk2phYyyeTjaM L0nVTIg kftnHQQvdD9xXYCtcRXsnJx zJZ3tTLTkrhshf999YsUyLE A4HEGznMQyC2QgqW7pPuNoV DAwMDAw B5XmdJVsQTegW225CIsgNsN 1KGVtlvLgX5XrWDIreRhkNf G1t5U9Jm5WNOnejBT+PC90c u53G7Km JellMqg4HSTdRJQ6iDX4rV3 rDHMuMQnei7T2jMA6N5Okwt Tgmw9kw1miFODhWJalC32oq BKgf9B7 KWNrfEE0XKFpyDntRnIomP2 3Oyc+IKEzzYetz5IiPxaxh0 yvc8lnpQj0OoTtSXCbgaHxq WduPSJ0 q8QkYu83Q06uIHejXDXxVLS dPRLqMLXoiYdjtb7vzE7oVo 8+PTFxwBY4wBB2dQ6zAvLpT bC6HKxo M855DtYoqGIwKnzjh0bog8o qvWf9OhYzGHVbhwJvjEuhRH H2n8HoAi01N6PhtXcrd6MsO yv7zc76 eCIfr4N9pYZ2F5WtYJVyxxs tfLTurCanHY9lCWFqrystDK XacN5eBWEuD2k7PrCpHrU5G GwbO7Mh pvN6NZSjaJGuZSSkiSJXfF0 vxqqip3kxxhxtJsPrHZNxRA l3NDv8KGOpjBudLxNmFYZ4E aT3XSZ1 uSBjtY3hnInxymwqrX7dMkc +STw0z7wabRSfZH2dbUV8XL 51LI26nFJtq1X4hOW6V5QdK GRpbmct rkiotFF5ALFfCMBewR13Xr8 yyCfeCc5oYTTrFQV1CPKwgH FuW0BhaN0xElPuCASyAVQmA 3RleHQt XAunL765VJafYgG0QUCjsjT zX6OkTCLzqPpmPcM7g3B9Jl 8OYN52JK41ZO66jYFtm2E1t UJ8C1Ti GWXvyatgkulyzWZ2QYQcLOY yyJ52Oc5hhUoqMk7gNZTdQT F0SRMbvXIiK1GhgZ0rTsJnV DAwMDAw D5RppORfCYsmC285MNonWbH 4IDOcyjFlS2BkADQylJmwIi R4o2I6Jc1DDu27RT53DK60y QOsg7O7 oZV4Z0HzYEMopssumsfgaSC 1HFUtSYGaeV16Ek9nsXhzKs 8rXRLyRVZ8POObiDRbU0Mpa P4nTdYp HLNnXHVpS2BzlIBwCZlkJ83 4UAcdOuM8SBAidiHaM1DrGI OktNuqVmE5r3Y1Ie4UGSnec pr2T9Xs PjwvdHI+WA35LFLhYN76jTX qqEXft7uzjId1NtFhLTYoHW L5jIewWPhmw6UiVBDjF12cw FSei7E9 IGN (more content not included)... [facility] ED Clinical Summaryon 2022 ED Clinical Summary [facility] ? Urgent Care [address] [place] [id number] Clinical Summary PERSON INFORMATION Name: ALVARADO BRITT Age: 77 Years Sex: FEMALE : 1945 MRN: Acct#: Visit Reason: Skin problem; HIVES Arrival: 01/28/2023 15:18:39 Discharge: 01/28/2023 15:53:00 LOS: 000 00:35 Check In: 01/28/2023 15:18:39 Checkout: 01/28/2023 15:53:00 Address: [address] [place] [id number] PCP: Ansley Houser AWNING MAKER AND INSTALLER PROVIDER INFORMATION Provider Role Assigned Unassigned BALJIT ALBERTO ED PA 01/28/2023 15:19:52 Leslye Apple COMMODITIES CLERK Nurse 01/28/2023 15:21:58 VITALS INFORMATION Vital Sign Triage Latest Temperature Tympanic Temperature Temporal Artery Pulse Rate O2 Sat 96 % 96 % Respiratory Rate Blood Pressure /80 mmHg /80 mmHg MEDICAL INFORMATION Medications Given: Allergy Information: penicillins; predniSONE; erythromycin; codeine PHYSICIAN DOCUMENTATION DISCHARGE INFORMATION: Discharge Disposition: Home Discharge Location: Home PATIENT EDUCATION INFORMATION Instructions: Drug Rash Follow-Up: With: Address: When: Ansley Houser [address] [place] [address] [facility] (1) Within 1 to 2 [...] verbalizes understanding of instructions given Comment: [facility] ED Patient Summaryon 023 ED Patient Summary [facility] ? Urgent Care [address] [place] [address] PATIENT DISCHARGE INSTRUCTIONS Patient Information Name: ALVARADO BRITT Age: 77 Years Date of : 1945 Reason For Visit: Skin problem; HIVES Arrival Time: 01/28/2023 15:18:39 Primary Care Physician: Ansley Houser AWNING MAKER AND INSTALLER Attending Physician: Comment: Patient Education With: Address: When: Ansley Houser [address] [place] [address] [facility] () Within 1 to 2 [...] Follow these instructions at home: ? Take jgxu-xvc-rwsiqgv and prescription medicines only as told by [...] cool compress to relieve itchiness. ? Take okce-dsq-klnavww antihistamines, as recommended by your health care [...] provider. Document Revised: 08/30/2021 Document Reviewed: 08/30/2021 [employer] Patient Education ? 2022 [employer] Medication Information: The exam and treatment you received today in the [facility] Emergency Department were for an urgent problem and are not intended as complete care. It is important for you to follo (more content not included)... [facility] Urgent Care Note- Provideron 01-28-2023 Urgent Care [...] tongue, throat. Denies taking anything for this fooe-sli-fjmfqzc. States that she has had a rash [...] history): All Problems Depression / SNOMED CT 72462252 / Confirmed HTN (hypertension) with goal to be determined / SNOMED CT 5080797278 / Confirmed HLD (hyperlipidemia) / SNOMED CT 23692632 / Confirmed Essential hypertension / SNOMED CT 29867090 / Confirmed Non-rheumatic mitral regurgitation / SNOMED CT 966427705 / Confirmed Objective CONST: -Well-developed well-nourished. -Acute distress: No -Vitals: reviewed. SKIN: -Gross abnormalities: Maculopapular type rash over the patient's entire body, EYES: -EOM intact, KELLY: -Sclera conjunctiva: Unremarkable. ENT: -[place] and moist, uvula midline tolerating oral secretions without any problems. No tripoding or hot potato voice appreciated NECK: -Supple (pzoi-bm-cflip): non-tender. CARD: -Rate and rhythm: Regular RESP: -Respiratory effort and chest excursion with respirations: Normal -Breath sounds equal bilaterally: Clear -Wheezes: No -Rales: No EXT: Gross appearance and use of all four extremities: Unremarkable NEURO: -Patient: alert -Oriented to: person, place and time. -Appearance and judgment: appropriate. Impression and Plan Assessment and Plan: Diagnosis: Drug rash (QMF42-DZ L27.0). Orders Orders Pharmacy: loratadine 10 mg [...] [Verified on: 01/28/2023 16:00 EDT] BALJIT ALBERTO [facility] Urgent Care Recordon 023 Urgent Care Record [facility] ? Urgent Care [address] [place] [address] PATIENT DISCHARGE INSTRUCTIONS Patient Information Name: ALVARADO BRITT Age: 77 Years Date of : 1945 Reason For Visit: Skin problem; HIVES Arrival Time: 01/28/2023 15:18:39 Primary Care Physician: Ansley Houser AWNING MAKER AND INSTALLER Attending Physician: Comment: Visit Diagnosis: Diagnoses This Visit Drug rash (L27.0) Skin problem ([id number]) If you received any narcotics, sedation, or [...] documents With: Address: When: Ansley Houser [address] [place] [address] Business (1) Within 1 to 2 days [...] and treatment you received today in the [facility] Urgent Care were for an urgent problem and are not intended as complete care. It is important for you to follow up with a doctor, nurse practitioner, or physician?s wet process miller head assistant for ongoing care. If your symptoms become [...] so we can reach you if necessary. [facility] has provided you with a complete list of medications post discharge. Please inform your radio interference supervisor/provider of your visit and for further instruction on these medications. Any specific questions regarding your chronic medications and dosages should be discussed with your primary care physician(s) and/or pharmacist. [facility], [address], [place] [id number], [phone] loratadine (loratadine 10 mg oral tablet) 1 [...] Blood Pr (more content not included)... [facility] Progress Note - Nursegloria 10-2 Progress Note - Nurse Called patient and left voicemail requesting a call back. Notified patient was calling to clarify the relief that she had from her previous injection. [Electronically Signed on: 01/27/2023 13:08 EDT] Yelena Small RN [Verified on: 01/27/2023 13:08 EDT] Yelena Small RN [facility] Outside Recordson 01-18-2023 Outside Records [id number] [facility] Coding Summaryon 01-16-2023 Coding Summary HTMLBase 64 LwazklniENq9xZa+PGhlYWQ +TV5GDVSlQ52txSEzrV1rH5 NMTElOSywgQVBQTElOSyIgb kHnMX5qfIAyJFTc IC8+YM5eOLTnIfvjuIKzh1O 0cUR4B76xbz0mWMaofHJ0IW UqJoPfmsynb9kxdQp6VKilJ mluOyBt DLRwuM26DDG0xU08Bb02iVK eeSSkx3urmJa0WrLmBUMpBJ G8iXewYWsbc5MeIZZaD99uf IMjq8F0 EGTqsJnhdWOzZiVcuNC1zS9 dJWblgwfml4dsvujfYbc2ib 49yUTxv2L0tJP2P8JchtD2Q GJvbGQg TprrqFYDrC9wsaufe4myzaf zEkYhGNFmTHt8KAj6LCHtzX tuMvObTP76RRD6VVRnumBjU 2FsLWFs aNroAtT9h9E2Zg7WD6HMBlw oU7LFPQRKAOguiPY+PC90cj 46D1PtKqkdSof8IMOqNGV8q OA8xX7q DTQgIDffh8H8dCF3V4MrisB irj3gk0usSBOhGBisQ08ojE Pqg2F3FABgkCV6OWHcbOyfF iBzaG93 Oyc+TAHqrXwgp4JuDrjvf9f vk3whyQa8IqqlXQGwceQhsP oqKUF5d9KaOg3fQCMarXD8i BK4rW2y BbEzGdT9VJnvG491PtCrsHI wCsgfY52gF6JuzEG+PHRyPj n1SDYgxSfgMC7cR5ChANMml mctbGVm fUapWC5oCCKrfnsiFXCzyN9 qMUUpK6m4FpGeTbA3RClmE7 EtCJWawesdWp02sL8xMnPoC vC8UQya N2ZusnM6ZTBuoSIqADjdXCZ 9L06fm7W8AAYcKFAwDTS8eY M7kP8zdWujqjawxSBztFpzw mVydGlj DOcgJLkcZ764QGLfxYmhJuF vZGluZyBEYXRlOiAgMTAvMT YvMjAyMzwvdGQ+FQSwUNG0a WxlPSAn qUDzELyaIr8qbGupkQdzDC7 zRBJoqwloJJZskU0wGBQrwI PlfBkqCY3rKRCpgpnsm789R iAxMHB0 HEFlrORcV4AwqC1sBhGwSZI yEXGxN8HtgTUjARygF768RV caGdH0BCFfsyGoQ3TzKPNue WduOiB0 u3E1Yt5Je2XwdvoiI6VenAF xGmOzIebgMAq4D1KrXkbxxK I+BW91RRDcNQ14JNn4WUM4m WxlPSdi TZOlP1PmxX1oGjMuDVWjWAU kOyc+PHRhYmxlIHdpZHRoPS kcQIFiAiKhdHxoOD2hRl7vG GVyLWNv lRgjiEIbKgXeq4hcLMApODd yVA0ueJdgW5YrsVT2LBUez3 q2Vp60A38tB5OhvNG+PGNvb GS5tYB0 tU6oDrZaWjW2JAsiT999PfQ wtBDtRalcp4cey0oczOs0So O3LXUiagFkpPlyVZC0l8SzH y41T67s IHdpZHRoPSIxNSUiIHZhbGl ujv9ixQ1hCy5+EDCoaGU3cY F2fN4nUpSmQtB7CMwuT613Q nRvcCIv Yklvd8hac5pnxKf1TyVhZIE pdzFctMlbJBB7k6YtFz57N2 KdqPyji8ArHef1fw94iTWdc 2H4dZQ3 O3CfMYVeheuvdJWwrGonQM5 kWCPwatiyBAKxiD9yHTLlW1 u9TyOuQgX5YSboO2MuzmV7G GJvbGQg NKQblOEXgI7jhhjrz0aaohb gVeDnVVVaPNc9JIk0SWXmsT ejJlYqXQI9FuP1VPB3jZObg T9nlCsb rdwwpW5tWib+NGG3sDIlsLR OEZ9iVlcqdGE+GKQbLTK0xI thBQudXNAazA7gKZLkW8u1Q iAwLjA1 CMewM6ZdpvN2AILbiJKfPYW soDYPdL6vviqex8abnuaqVo QrGYIaMGa6KNc9SJSgsWdwQ iBsZWZ0 FmK2YNG6oZIlgZ2ywNhudkz fuK0jTjh+GszjeWlxUPJ0KA o4Y3PuThh9YSHgjZdoZG4qi GFkZGlu Sm4cxUxslOboEP8dCMDcztm lc187LgXlx1btNEGmoLRrCV grJXS7F13kz1P7GTYnFGItH YR8lBS6 qV8kkRwkxqxodXMqxGqeipB idJudDXjvZIocA389RTOlrC icZfHiNVb9O2SeTps2GAKco YhuGN5u dTSlJPopSn4qwEapfAlfZC2 iPZXcfoxuy460BvVmv2trDP AcvRPuERmdGVI0P49bg6E6I CMwMDAw TBU7rKX7pP8hcTgtdxvphKQ mdDsgdmVydGljYWwtYWxpZ2 87WHRilIdrIkCcfOa2V7FrB qj1SVHs cUbgOC5emERtCNklPm2fxQm jwKicMC8sGHExvfvwz380Xv Ccm0tuOCKsbEMkPTpgJQT9O 03rr7T3 JKBuZNOdPCW8kNO5bM2pcGg nbjogbGVmdDsgdmVydGljYW ifGHkhS520LWMacYwiBsJcl GllbnQg JQjyROi8K5RnOmetwXP+PC9 6KJSfCN74nAKsoDLrp5eubB z0UrGcSZOoYXH1nQmoZXept 3JkZXIt Q14gsJZmz4P2BAEjvXbnsSQ zJsHqqMZ9wT0sOHpestdmt6 bktsikRsygr9dhpn33tX96X 29sIHdp ZHRoPSIzMCUiIHZhbGlnbj0 yoV4vEr1+GKKihTU7nGD5uH 9uWRGoLtF9RVcyP711VbJie CIvPjxj k1tja3fwlEb7LbU6CYPqhhA pfFqjGLT3r9KpRf92Q34tMB dpZHRoPSIyMCUiIHZhbGlnb j8ziN0u Ii8+IBJxfEU8aGX9uK3aUuB mTuH5PWwfT278RaNkgKWxUp eqS75fN0GmeOZ+ODTzJrr5T CBzdHls MA0aoAKyNNxrAx4tEAE6GyE tLgPcVYgqM8ItIPBxepijfe dolIU0FOOgOFRplD81Sv9aq DogMTBw hQZWvN3eoqdoj7kmolnvTvO pYMJnSFc9ZHv5JZKowSvlCn ClLIV7CdA8DBO0rXAzxG8rw Glnbjog tX2iB4LyVPLtmcekQq58nQ0 iGeRbJjC3ACycBsr+V0hJVF AxHCHLMXsDRPGSIQx7B6WhK or2PQEw vDzqDW0ysVKvYJlcNg4vcNw cnKrtHO4qFDUkbpliAUVvmU 3zLTKukYXucYbdHA8gMIVnh bpqg959 ApYaVGZ0VWLeiXGpP6IzfF5 vItEmFFNyNKXkI0KvsHOtGY iwE227VUhzHqH2FVCnmtKuO 2FsLWFs fVcuAdR6l3T3Xg0kUK7gYD9 wNIA7IA10TV44cZHkm6T6jH Y8E5FsRUZgoqoyepvvtXU6D DAuMDUw pT51kXJaXXwcWs4db1H5s31 8EUEkLJFswM32Jg1qrJcpQA JqbNPRkI2chhgcg2mscaumH zAwMDAw YTa2AEe8IEBgfUtuCxZqDEU 5GmA5HZN6zDQpkC4hrOjnho ncaI5mJit+OxQuKLVpjpE8J 3FtNlt5 CEVywNasTL3gzNFkDLszTc1 zmMqfpGjeFZ3bPVMrdcegYS StvI4wEZAvwKCfnKfqOO8bK TBpbjtm b268ApGqVNP2NGYfpPBmC0K etA8sWzGhBWBvEBVpT2HqbM TmZRchS035ZXmiFnU5JQGno fHaB9Ce QMMhoNxqHkT4b7E3Re4TAR6 EBZU7S6IcJxc6CQRkoNtrCV 6riPVmLAcjXm1soBkbyEgaK G7aQOSy tfiuRHBenM7iIUOrwEGkkDv rDZ9dSSBuhhhxe126WbLzER U1TRJvcLNyC3ByxT2mPqUdV DAwMDAw S6YfjOSzKPseA419PJxgMwU 9UQNdxeXtR7ChRENpuCrzAt V9k1N4Xh3EHEimP4PaO8Oxq TwvdGQ+ PP43hz57T9BdJombQby3CVN pMQE8nXT8gL6zDVRpNFvci9 M5uLK3C8DpyiGfec8yc0lpS XBzZTog T77gpFHdj9L6ZPMafLB2COQ rpBovOzYzvD68Eqr+PGNvbG rka3UoWcfqs9csl5tcaGn1V jMwJSIg fmLspVenJVN2y6LqBl22W45 sIHdpZHRoPSIzMCUiIHZhbG ybdu6ulD3vJa1+BMQgmYF7g AN4dK5z KtTvTuB8MNxkK300BqJtgQL dVehlr7kjt3nlxDb0XkSdYW ZgxfIxkCweGJA6r4NiBx99K 2NvbGdy w7BwZej2ge03zCNay0C8lHT 6O1KqXFMmbzfhaKOjxHwlYX 6xHRKlcctlCPOdbN0iWLLuW 2g0XySe TnT4KSbyT8ZnjjK5CYGuwNS eEBUcmQWWmV1bzkwct1zcgs zfNvYtBPZkFFi4XUf6QXPtm WduOiBs JDH5HlB5PGW6sUTjmC1tyOn ymbxmrZ6lKzq+VVc3b7exvA KlGU7ytQN6JJ82NZ77eZDdh 6C6mXJ4 J9DtFEBzriseiwtctUD1YTW wTYMfnC95Au8knDukIo7bXO YhZMC0DWPjfKDxA6GdaK0vD iAjMDAw MUDnU3DtwSLiXFgvM747EGu fPqG2NFRckiYbM9JaVJWovQ yvByX2g5V3Pe1DXV85YY43I E94jPCo c1Z9rHT9E6ZrXJKhcgenjvm jmNL1GDNuBMAnsP09Lc8mpE mgMw4zSASqWGK1SBKhdWTcU 2JpzV2d WqCeOVYsZMRbX1JgyLRoEZb sK308UHgoKzV1FWEqgqAmW9 PwQPZzkOelQnX4b1F9Nd6ED r42YK78 CP18sSWye0U8nRH2H3WtUBL nmxetwjjyoJX6GTStMZEeuM 13Fa1qdSnuKo5mHLMuKPZ4Z FRpbWVz U4WghZ5cNvEfCRQpAPKhB5Q raHQdBYwzN261KVgqOgQ5MQ GfxsRtF3EbOVZubJalTaH0p 9Q8Ia8L QWqruji0J9YcOrmjdQM+PC9 4HOEuEM82tPDhuSLbo6kozV n0DlWuFKUmRPA0rJqrYMcna 3JkZXIt Y29 (more content not included)... [facility] Consent Formson 01-16-2023 Consent Forms [id number]#[id number] GTIFF [facility] Progress Note - Nurseon 01-01 Progress Note - Nurse Pt called monday afternoon stating some relief from injection earlier in the day but not alot, neck muscles remain tight, pain above ear is gone [Electronically Signed on: 01/16/2023 06:55 EDT] Leslye Naranjo LPN [Verified on: 01/16/2023 06:55 EDT] Leslye Naranjo LPN [facility] Inpatient Patient Summaryon 01-13-2023 Inpatient Patient Summary [facility] [address] [id number] Patient Discharge Instructions Name: ALVARADO BRITT : 1945 Patient Address: [address] [place] [address] Primary Care Provider: Name: Ansley Houser NP After you are discharged if you find you have any questions, please, call [phone] ext [phone] to speak to a nurse. Discharge Diagnosis: Prescription Information: If you have been given a prescription for narcotics, seek immediate medical attention if you have any difficulty breathing or any sudden status changes such as confusion and sleepiness. If you or anyone you know is experiencing suicidal thoughts, mental health, alcohol and/or drug addiction problems; contact the [facility] 24/10 Crisis Hotline -Text 4HRSP gw 325982. If you received any narcotics, sedation, or [...] business decisions or sign any legal documents [facility] would like to thank you for allowing [...] tablet) 1 tab(s (more content not included)... [facility] Intraoperative Record MAGR Intra-Op Record Summary Primary Physician: VEE STEELE MD Finalized Date/Time: 01/13/23 14:00:06 Pt. Name: ALVARADO BRITT/Sex: 1945 FEMALE Med Rec #: [id number] Physician: VEE STEELE MD Financial #: [id number] Pt. Type: D Room/Bed: / Admit/Disch: 01/13/23 [...] Role Performed Scrub Personnel Surgeon - Primary Automobile Repair Service Estimator Time In 01/13/23 12:38:00 01/13/23 12:38:00 01/13/23 [...] RN CT ARRT (R) ARRT Role Performed Gear Generator Set Up Operator Gear Generator Set Up Operator Automobile Repair Service Estimator Time In 01/13/23 12:38:00 01/13/23 12:38:00 01/13/23 12:38:00 Time Out 01/13/23 12:44:00 01/13/23 12:44:00 01/13/23 12:44:00 Procedure Medial Branch Medial Branch Medial Branch Block(Left) Block(Left) Block(Left) Last Modified By: Aimee Grijalva RN, Diane RN Kokinda, Diane RN 01/13/23 12:44:00 01/13/23 12:44:00 01/13/23 12:44:00 Entry 7 Case Attendee Nikia Warren MA Role Performed Automobile Repair Service Estimator Time In 01/13/23 12:38:00 Time Out 01/13/23 [...] Agents (Im.270) 2% Chlorhexidine Prep By Keny QUARRY SUPERVISOR OPEN PIT, Ellyn QUARRY SUPERVISOR OPEN PIT Gluconate and 70% CSFA Isopropyl Alcohol Prep Area (Im.270) Neck Prep Area Details Left, (more content not included)... [facility] Preoperative Record MAGR Pre-Op Record Summary Primary Physician: VEE STEELE MD Finalized Date/Time: 01/13/23 12:46:09 Pt. Name: NICKALVARADO./Sex: 1945 FEMALE Med Rec #: [id number] Physician: VEE STEELE MD Financial #: [id number] Pt. Type: D Room/Bed: / Admit/Disch: 01/13/23 [...] Denies pacemaker/defib. deines sleep apnea. Finalized By: Zehra Chau RN Document Signatures Signed By: Zehra Chau RN 01/13/23 12:46 [facility] Patient Handouton 01-13-2023 Patient Handout [facility] Outside Recordson 01-06-2023 Outside Records [id number] [facility] Progress Note - Provideron 1 Progress Note - Provider [id number]#[id number] [facility] Coding Summaryon 01-05-2023 Coding Summary HTMLBase 64 OtpttayiBWa6cDc+PGhlYWQ +CB7XJECcU24tcSBjiS4eF3 NMTElOSywgQVBQTElOSyIgb sBsRR7bxVPcJUZf IC8+WS5mMNLbIbpmlRFfv4Y 4fEG9R71oir2vJLapkOR3HB LbKeWfrrrzh3gdxVm2WFtjO mluOyBt BTWivY91QUC9zK22Ao87xEB osCFcb0omwXe9NgJiCIDrBG A1cGubFJbgq8GnBZAhR21re NXfg3G7 BREvhPxiiTVcQgMwqGR9sT6 fPMoavjmyi1etrrnjHjr1gt 45sEGbq3F6xYO5F5MljwK3S GJvbGQg IhbwiFXItD5hptwzb0qxfft nHfZzOAOdKOp5KDs3PTMvzF urIqCgKP47OGN2BFEchlNxF 2FsLWFs dGugXoP7l8Z7Kf6QF6VOWdu mZ3HWWKGGCBlujXE+PC90cj 54J6IiGjsdRuh1ZGWtPMF7a MH8lD9l ZELePSjhj7C0jMV2B7YipjM lno0fp4owYHPyZLzwM15yjC Etz2J5PKTcgSV5LAZnlYwdP iBzaG93 Oyc+GWSslWyne5PkNvaqn7y ih6lqaBp3YylhTCClrhPjoC znOGP6h4AeYz8eKLRpvER7d QQ1yA9b KzDkUnA6YSdsF900HxHqdLJ dZqqmE74aM7QtxKR+PHRyPj a5XCDlrSjyOW7uE2HlKGWqe mctbGVm hUpiLJ3yYNUhmbjsRNOhpP0 kCQYeH1o6WcIjXgX2NXfiE8 MmNFXeodlhHz14mJ6yBvUqJ bD8INbw Y2BecuJ9KVAfoFRzXOzuABP 3N21da6F8KJBmOOMsXSD5tO E9yQ8ezUttiqmljVJqqIfld mVydGlj UAeuIColN160EBKblNjoMhW vZGluZyBEYXRlOiAgMTAvMD UvMjAyMzwvdGQ+VDRdSRG6a WxlPSAn bVLtWNqyNs4nfWizrKhuTX2 cGXHzqwugLODefR7dKJCevX KbhHmmMA3zXKYrtudvh054C iAxMHB0 AYGbiJPmP9DegW4dWhOwBAC vZQVsX1FotLLiEJouV101BJ ghFbY7DKQvlwOsJ6YyCXGbn WduOiB0 x0T1Cf3Kt1DlmeseB9RlkBP aWdUyRhvuJBg6T2ScIsnveH I+ON85ANTiOI66TZn4OCL4j WxlPSdi ANRoK3MrxD1eSzTfBPFgOOW kOyc+PHRhYmxlIHdpZHRoPS anIXHrPyZcvJjbQO8qYt3cC GVyLWNv iWdloLWwGsOxt5emYCPdNNe rVH0boJltM6OmvHJ8MVGfl0 r4Yh00K18kA0UaiBU+PGNvb YZ4oSC7 xZ7gFeXdEjB9CHmhX263KgT cjHVxNzeyw9kwq1rjwDl9Dd L1UGDnyqMwtNtgQZQ0r9ZaS k34Q52s IHdpZHRoPSIxNSUiIHZhbGl swo2uvO6oKy0+XLKixGB8kK S5wI9nJqEiOaY3NGbqE627W nRvcCIv Kvjdj3nuc4qniVx8UtZtZGK smzObiDaaVLC1o4ZzJs17C4 PtmAvfy3WcBlw7ff46tLWvd 7I4iHJ6 H7TbOOYgfogwgHGyzGcjWA2 nMUNuwlkmKKFpiL6bPPOjU3 u5OpAaEwF0BTlwY2YbdoX9E GJvbGQg WVXizMWHtS8wbkuhd6xksui cOdWsONMoBBz3MQl0XQKzqQ blKlYnNZC7PxQ2KLF6iQGeb H5gaTuz esrcwR6wYbm+VKN5eUKyyDM YWS7gAcqotND+VLDeKNQ7vW yyRIvlBKGmwY1uHIWmM5v9A iAwLjA1 BCppV4NficR9XXIpwPDmWDL xwSNGuY1wyqawy1xofonhIq MlIEFtBHl5OTq5IKZmqLywB iBsZWZ0 UmB7QRU3zNHjcQ2cvMurbhp fyI9pCob+UdslwCqyJDQ9GI r7S4SqFhr0FHSavPffQS7kr GFkZGlu Cd3lzLliwRhnBL1dDOWkrki wz475UaTry4baWNMofGYcNZ mjMUP7I94oo7D2CYGeSHMmD HO7bKZ1 uM2vwXxetacvdIZtpUkcxrP ytSagKMnzZSkjQ308ZEPftN yjTbEgYVa8K1JoRad1XSYtx LdoZU0q tYOsLNwdUc9axCbdsHlrAC2 mJKAjoqype054MfClm6ubZT GfyVZkHXguFKS7J38lp7H5T CMwMDAw CBK6jEF8qA5zoDriinbeiYV mdDsgdmVydGljYWwtYWxpZ2 34IMMhoYdxZxIbaTt6T6ZsD xl7TVWb oRmvAC8imOVjPDnuHt5rdMx ojUxeEN2lDXRrfsiar908Na Rpz3cbCBUsrTNoKDlpKYR2R 31aa8U4 QJPhNFKfZID5gFG4tO9aeOz nbjogbGVmdDsgdmVydGljYW pgVGxpZ109IBHwaFusLlGla GllbnQg YJmpOVn1X9VhRopnpSP+PC9 9FVJmXT77vQYypAJte2vjaG r6ZeJgQGZyODZ9dEspQKuih 3JkZXIt F93inSDhl5O2VAShgGkuqJC ePpUlzCP1vU1jQOcygnnfb5 tbpnphFhzlm2jkwb09zI98Z 29sIHdp ZHRoPSIzMCUiIHZhbGlnbj0 sdF8iZb5+QRSlvXD9lJD6eL 3iXUKyIgP5JUvpQ622XjTih CIvPjxj r2xwq6eolTs7QsD7YDDnjpW rnJipCJF0c9KcPs18V13nOX dpZHRoPSIyMCUiIHZhbGlnb g5enF1v Ii8+KDFzaDL4pIK6dM7vDaT vKxP7FEgjX213HqFrqLXwBc pjR60sM8CdtIZ+CSTjGxq1D CBzdHls EY2glSZeXObcEl8aXHX4CuI sDyIsOWvqU3BuHBRjdbseqc yvqRU4IQKySNVovO21Eo7yh DogMTBw rQLSdL0hgqwpo7bdkxzpIkL yDFDiNCw8UNe5AKPfhAuqXh LwZHH7HuQ0AIB5rOJivE0sn Glnbjog pS4sK0PvUMLexxchVh57gJ6 cKcQpMuD7LWhxTwt+V0hJVF EiZFDJAInRZRDPNSg5Q3ZtE hc2QSSn rGzhMQ0keUZcOPpjXl9pkLk szUrqTH7pYFTkrpohWDKjbN 2wGEKkpLKlpLqkDO5fIHXgs hxai294 XlGjRKD2KGJudXYaT4FwfT7 dLyKcPYBeMXPwB8BwcCOuMB ezW453IUkuMiL1JLHxvvSvA 2FsLWFs cGwfCdO1k9S3Qh5lJM4yDK7 lPKT3AI06QG88eHQld7V9fV L7P5TeHZScpuxcsnopjCD8T DAuMDUw mV14sGQjFPmoFb4ss6H4j12 1MGAbLKBlaU16Md9ohMdkLD QagKNEfE5mhsdrz6etbnhjF zAwMDAw YTh1BDm9CEFiuVxyNtEuCUA 0SeH7ACA5zJGnyZ4cxTsefv ywlB5kZqm+JqBvZJDmrmF4S 3XyQzo1 DRWozNhsPM8qnRYlWSddRp1 mvHqsgBfcTV1uSJUanaqlRM RszZ0jZFOreZIbwOjxCZ3uR TBpbjtm x682PxYgVGG5XUNxiBIoK2Z flJ4kKpUlETSeTLNeO9BceF ZjQUviR200HXdgUdU2ZGShh cUdS3Kp FAMwkPmoKeN1e2T8Sg0GYR8 AUOW8G6QuPej2GYUqiFlfGC 6cgUOrAEhwTz3rpMqubKqjP L1pZZRq ylxxEMFbiC2eUXYweRDxsDd lRK8pMFWobpetm015WeUgUL W0KOJhiXSoU7EiyF8lOqEwX DAwMDAw V8JhiKNmUVsaS632XNnrKtZ 0ZDXbmdRtF9LpUKWihMdmFb G7d3M2Hv1BWGresWX+PC90c u54Q8Qa FtxuOdx8IQShIXO8nUV0kO9 wJZIsFMcrw8S5pCS1Y8Uksa Qnnl3ax0ebHMAiZMfzG10zg AWfb1Z0 UANwfWS9TTXdbOyvNdOwcY9 3Oyc+QOBkbYvhn7DoBvysx2 zcp6fpgKi1RzNiZRLykhMeh WduPSJ0 u6YmBf84G16hMZthIPByOTH nWIGaRQBytXvctu7lbA6xAg 8+VYYeeWF0zQP6nE4hTpNgU dE1LTax Z348FuZhpORhKmvxi6vqm6n aqXt1VoPhXBRbkxGykUjjJO A1w6VaAy20W2ZjvSwcv9ZcS mc9ju61 gYUpm5P1tTZ2S8AeTAJgdjo tmMBolBhgBN0sKRArzyelKB NicO0oJLKuU9m5TcIuHsK0W YzmC4Dt nqD4JWEqlDTwURXbkTODuQ2 wxvlrs6ilphikOhFnBVScMH a0WZf4UCZiwXikJvCxZTA1U dV3URK4 tRPedH3mgAlgpdowiJ0cXpq +GZf8e5cjxSExWU2vaGB6CV 27DU42nRZcn7S8aQU9B0NvP GRpbmct pbyrjOL9MJTnUBTfeZ53Wm9 jrIzvZm0mGRRkFRU7XPKadA ObN2GdmI4iFvYyQOCdIYPdI 3RleHQt UEgtA031XTuaOvY3GDAiskG gJ7ReLLGazRmcWfQ0y5X5Af 0ZAX78KT36BS35uHPhh9J1r AW1F8Ll QZHghdijyiydqVS1TJGzDQW jjY40Vq6igTtnVa4mURDcXI X5DDJhvHXrL9XnkK1gTdRdX DAwMDAw S8ZkzFMxEEtjF335TFabJvG 5VUOxduRzG3YoKUKxcZspXr N1y1M7Qq2VEx90KN68JK92x SIlu8V4 wQK3W2KwSLIbgjafihsemPA 6RYRsVKMllZ27Au5mbGwzRi 4rQUNrZEZ2PTYecCLfU5Ado Q8hHyXw RAYjFTKyY7EumGHuKVptF96 3AIyfYcX4UHGkmcGcM5VrPB CtaAeqAsF1t8N0Ov9XGRryc tk3L4Em PjwvdHI+JN50XUBsVD80xJE ryJHbh8fvxFf4MuQgIQTqRN S9gKraVFttj8NeOQJiV24ci WJtt1G3 IGN (more content not included)... [facility] Coding Summaryon 12-27-2022 Coding Summary HTMLBase 64 HzmfdwerURe3dPx+PGhlYWQ +SK9DIZNyP05wnQImeX6sJ8 NMTElOSywgQVBQTElOSyIgb uVwPC4xmHUjAUKn IC8+FJ4jLGBgPpjbwLXzz7G 1fGC3K18zev9yLZfzcPU5ZL FpYeLjihoxh5wkeSv7VZepK mluOyBt PVGkhK76VRP7rW52Ag84xSS tzIAam6nbrFo8BxAbIPZsWY Z2gIqcBQdpa8HaYYGmR52in GIul7X3 XIMimBfdqNTsNyYaiIF5fH2 bPWxfdqgjb1idnqrgEzu1ap 69oEXaz3M8mRU7N2BflxZ7V GJvbGQg CamdaHTCzK7kqjlrr1eedpk nOdOqSXXkKYj0MVf4VSBeaP jzIuBxTR94JMR5ALNqwiDcZ 2FsLWFs kFsiPcB0c0E7Gi5IR1QQNsv pD7TYCCKWGFgsuQU+PC90cj 74I7DxYbkwHfz2YZVdLQN6b XM0vP8l AYBgXMjym7I7gLW1W6OxobW dwy9ji1hrEQDxLAerN52siE Vqn9Z0ILLegPX8THWggDntR iBzaG93 Oyc+HVCjeJewj4JjNujgg0s yw5jjoRt7GzcrKFVxwdJesA nkUPL1s0MyQf9hGBYriNR6u IR5lA5o LeGvWmC2RLpgJ663OvDxdQG hOfpnZ07cG6QgpAZ+PHRyPj y4JTNdsKctMF3pX2LzYGYym mctbGVm iXmlTO2eUZTrlcrxHZXvkM5 nUPMdN5m4NjMdVjC7DKamQ3 SaAJGkrjjiOh92qN7vLdBiK aE3AMca S7EpoaR3MSUfwVYbKAhhIQS 4O11yl0D6YLYnYDUgEPV2oH R9dJ2ixDtejjqhmEKmvRiyn mVydGlj AXcpDCcpO790ALWnqUjdQlU vZGluZyBEYXRlOiAgMDkvMj YvMjAyMzwvdGQ+NLEpQVM5l WxlPSAn xBGcAHksSv4hnIvviNvsMX0 tAPVmgeslFWChwP9qVSPgnE LfpXlyJM9oGQOdmlvmx444A iAxMHB0 FRNfsVBoX7SuuH5vBjIaERC uMYHkL4IliRYfSHwgK411UU aqSxK0SORwulSjY4XgFDUhq WduOiB0 d7B8Ak8El5RncgsyM1LzkTN sCdQeAhbiSAd6X6OqTrtagT I+MY94OSBxWZ67EHd0RQA3s WxlPSdi YNHdX7AgkZ9tXiYgNXFyGPE kOyc+PHRhYmxlIHdpZHRoPS ljSDSqIoNpiHqeXB5xFn7hL GVyLWNv pXqvhTRdNsGux4tvMZNqIKt qVU6jaLhuN5LvoCP4NJQwu9 c7Qi94K63aB5MseWK+PGNvb PL3aFW8 kA1aTvPwYuQ9PLpbG149MrM xlCTqRprhc6zcw0kdfZn7Hr D6WCSnugPcjXokUDB9t9JjT z10V98j IHdpZHRoPSIxNSUiIHZhbGl iiz9njL1qBk7+EJHjaJE0rA A0zV7iYuJzZpE6UJlvH544J nRvcCIv Rwuwl1tyr8zeiKf2GfXnMRR plvNvxCmjXMR0t3EzEs98J7 EolRnrh3PxVdg7lz16eHIpr 1I9uZK2 Q8YcXLHyqryohVDghMhsOW8 rCDKdatjrSYLixM7kMPDwP3 k7HjKuByR0CBvfJ4EfqrB7B GJvbGQg TQNkxIUEzE7oufxaq0pultl wYkOvORVzDUk5PCj9JZBupL xjYmPfSPJ3JiW6DKG8gVVok O0trTkd sznoqY5oNxd+LXU2qMGzuED WGJ5xEmfbdYG+WRVjZNU6hN kiZPrcIDIkzM8aCNQoJ6r6O iAwLjA1 EZnjX4NjfdQ1ZKSqrBQxOLY ypIQIsX4udaqyw5qxtodoWk GhYGOmRRp7LVz4OORyhDpiV iBsZWZ0 TjN8YWX1xUBltS6uoZlicgu kcI4mGfx+ZixbdCezMTO7HT r9L8GsAyo2DFKysTmuCZ6mg GFkZGlu Rx8cbSfxtJasLY1kVDCojpe ad608QkDcf8wuMHBtzMKpJO vvYAW4K71bh4F1DSTvLCRnQ YQ7eLR8 eR4fyAezibkfvGLtmReqtdE jkAziIIqpCDcbS792ORQutX euUqRzNVx4O9OhHau9ZWBno FvmKT6h uVIxKVkpXg5rbBsjfWmqSN6 rJQHzqxolw048SlTkc5grRU RpqGCiZRzhQUU5C07nl6K0B CMwMDAw FZF0rMN3fS3wfCwzwzgvzUY mdDsgdmVydGljYWwtYWxpZ2 93NAZtjUiiWuEaaMz1W9JbM ya3CCKo nNiwUS9qdSPkHZuxZp4sbEv ivBjnCH9qWMOtjkjog321Qu Tna1caJMEruYNrCGrdFPK9U 46au5H0 LGRwWOPbBVE7eCH9pD1luWq nbjogbGVmdDsgdmVydGljYW kpISpeP920PUIrkOohSiRdz GllbnQg NMfaKQu1Z7PpQmgsgOX+PC9 5LJPtNV63aHDbsBGvz8qumG k3AnHnABYwTMV4aKtwDPrpc 3JkZXIt K70bqGUxm1Q2QNUwaWjroKT kQfQbpPM1aJ5fTQtuxmkwq1 sychxhKnlxa0jehg68jU90I 29sIHdp ZHRoPSIzMCUiIHZhbGlnbj0 tvO4vWq6+KXZhbET7qBB1mV 8mMFYtEiI2DExqF582PeAdy CIvPjxj o9hsa2pgmSp8GiI3YULsucS jzHtyHUL0d8MyBg65M15zIL dpZHRoPSIyMCUiIHZhbGlnb n9seS4k Ii8+VNLsiVS2kOE5pO6sSyB zBgT9PEvaI188MjUppOEzLr ndQ05iO7XwaUC+WZUqNim0N CBzdHls PG5czVDnBUqoLu8rCVV4AlY mZbXyQQsuL9EuCSChxlyova bltZY2KWXkMNYevT61Gc3to DogMTBw sWHHgD1jivnhz6rfyxlvDuA tGEJtDOi0QLc4XKHtcUpwJh DrCHZ5RbS8YEN4eBIxvN6bn Glnbjog kY7bM8OeBXDmctrzXa33bB0 cZwYrDzN6GFmwEjn+V0hJVF BsYLRMCZqJOORONSp8U5VyS lk3VNSf oBahOB0clYChWXgjFi8yyVc lbFllXL5aXWOfsmbmHHAkgD 2aSYJefGFysZukFY2uDFWkx gfjl446 HsIhGIS6BLFzkBMxQ5EqvQ1 jNzYyYEBqSNOaT6FnpDNjAG vsG529BNykBdU7GYBwplEjR 2FsLWFs uIgpHkW2l4B2Qi0fPU7lKZ8 nLPQ3BQ50TD76hYSrg5D6tB G6J6HrTXHbdpknoulrvPW5A DAuMDUw xN36pCNzPMaiNc0as9A4p71 3JNVbYWXonR68Jv5avSyaFE AzpXZJwH8pfuucq3ftgrqpD zAwMDAw ZRo3LKa9GODptOhgYeVfKLK 3ZrV0LRZ2aQCfwM0jwBxrkd csmA6vVpa+XjHzGJCdrhE5D 1EdLkx7 IASfnHuhFZ2zcIMqHGblGv9 yjBauiBahQC8jUZAcuapgTD JckT1vWINsqLMabGsxEO8fY TBpbjtm b529FaRvAUM2FBIjrYXjS3K kzJ3dIdMzNIMeJAZoX9JhnI FvKLhrG856BFtcSlR8VPTab pXvY6Ki UCSedDdhCgZ4h3N5Bi6BVR5 LGPU7S9YyHqp5NGNimGjoGD 8goIOyKNriKu5deWyonXtqT Z1fRFGl vwesZARpqI5kYQNssHSqgEh kLG0xZBNfjwage102VnXsYF Q3IEQyoZPnF1RecQ2aZwEnW DAwMDAw W4ZchPYxTFbsQ470TRgnFqK 7ZXWsprYyO1JeYFYqoIeiXg C0h7S3Bz0AAZzecMZ+PC90c r71U7Ls FcvsOio1YJSpJGO8cPH4cN8 uIQYlPNgjf1I4uRG7E2Tyta Mbym5zo9avLWSrUJsoV63mx BAbb7T9 QONxqKA9VFCuqBfbSdTatN6 3Oyc+MAPjeCwvg1DgXcyfz6 olu9ukdXl3XsNiONFspsZtx WduPSJ0 d9OuHy82W12cRUpgHPWtYWW nGHWxRYWiaLwbbr4riT8qMd 8+PBEspNJ8rMJ9mT5qYtSuD mX9DFob J274HdZpbRVgXlwof7iny4g ckDo4YuHpXMLwzhCpyVtaHK I4v7HaMd05Z2DohNois4FoI dn2xy00 vHOon5U5oRQ3I6PnHIXpvgl wzBJhcPayMP1qULEqkiluQW HkfO2xZZJfU7k8NrXhOpF7Q HduJ7Ol bvR7AZMkbNCpVROkiWXEqY0 qevecs2lpxxddLiYoISMlHB s4SVn7ECSbqYgoTeGuCPA0S uO3OJB8 mCCtkT5xbEucablyoE7yXck +SHt7s4hzoGTgIS4ckSD7CI 82ZS44jAIeg6G8cBZ8J9UvB GRpbmct baghwQH6RGFwDNMdpO56Jw0 rpGeiZo2pFHKoOKN7WOYloX CwN4RmuN6oLyKnZURgGIEdM 3RleHQt HKfjQ109CVtmVfL9PKYqedS hS9LjBMUunNjxQgJ0k6D4Tz 5MXQ70AT45WG91eDEfe8K1n IO4C4Lx FNIqiiwdgczujKR6ZZYoUUX jiV71Rv3qmAhmOs3aJKPsPN Z5MNJndDFaP0KemO3aNiUtV DAwMDAw U5TgfLEqAQdkR404IFwuKcK 7JXJrkkWfE8LnPQIcgHfwZc W3i5K9Ha7NDp25FN97KQ64y KAzn8A2 xKL3Z4SeJUSyxddcsclpzYK 3HONxTZUtnA40Eq7ldBuxRj 7cGBYaEWC4PYYajCBfD1Yjz H9iDyWt XORdZMQzE3RrdBInFEjdM32 6TOlwDfV2ASRmerJcE8WiIL QpjSpmEkZ9p5A7Ve8NTKusf ke3T3Pv PjwvdHI+GV55SQJpGJ02oSN xnEZvw8lulHr8KvKfGNXqGO X7bAboTQnvj0XvVGVvH23lo CXnm2M8 IGN (more content not included)... [facility] Rad - MRI Reporton Rad - MRI Report [id number]#1.00OT GTIFF [facility] MRI Spine Cervical w/o Contr essence 12-23-2022 [...] Dwaine Marinelli DO 12/26/22 10:38 a Technologist: [facility] Outside Recordson 12-21-2022 Outside Records [id number]#1.00O TGTIFF [facility] Coding Summaryon 12-15-2022 Coding Summary HTMLBase 64 DtapyxsdJFn1cAr+PGhlYWQ +EO4JLBMxJ11naZSowG5cM0 NMTElOSywgQVBQTElOSyIgb eXgCU5ahYHsAPPn IC8+WY8tCURiTqklxLVpi1W 7bCJ5O83qyc8vBIpiqUZ9LE WdMgLmwlzzr8ktaTb2JMswF mluOyBt FQSelS41LZH8lN45Gr45fOK ppDGkn5mkwSn4EhMxGXCwAB D7eDsaNBfwv4OoHTQfN34lx LJfz2B8 OFWuqArbwBSzDwPnlIM7iH7 kXTtmgscrs8jisikoUxb1xn 83lYFue4W5uYE4A2BjbvU2R GJvbGQg ZxlzwZWFyS4jnhibc8zmxst yXlYdQPSeAAu5XXl4NMDfzB bgKiIeIS53SQQ9XUJiiqDfE 2FsLWFs qWkjFxT8b3H3Vn2XW8FTPew lU9RTBEUQTJweqVK+PC90cj 71Z9DyHqhuKqg4LWPeEAY4j YB0aX0k PTDvXEupi3K5rMH1S2DpyqG hij3uf4elBLDyHFryH77qmR Aax9S7YZOevXP0XIVozXtqT iBzaG93 Oyc+JWOeaYhwi0NuXxxny2y dq8lfkDq2AcdbFVTqowNxgM zoFWA9y7CoFm0rYXJdqIE0o QA0cB4m ZpUkCfU4WBmqD854ZvTphHE qSuatC82lS0MkxOA+PHRyPj l7HJTtyZbgGO1nE5JzXTZev mctbGVm eNjkGZ3iLDTdnqwwYSVyvR9 mWYKfZ6s2GqJxNmX8UXatY2 CqBSSrbbvvMt07qL6fSoUkD bH1HZub E4NndyY6OQKkmZOiLAsdPBS 9I84oj1S9RYCtGNCrYLW1oA R5jT6loTazrvwknYVeyBkgy mVydGlj KOraAMqcC385RBPhyDbpEcL vZGluZyBEYXRlOiAgMDkvMT QvMjAyMzwvdGQ+RAJcPFH2b WxlPSAn vHMcAHjbWq0yjIjnxAabBO9 xEVKwfozuHPFhaM1lCOWthL BuaIcvYD9iJOJwdupgp789G iAxMHB0 PTJqmQEzR2IhyI5zPiSqNAI zPQAiK8VobMCsVYolT045NP akQrI2HMCzgrKoO2PsRPLom WduOiB0 d7X1Cv1Jj8GetousD0TgxNM jJyWaXtyqWOl9A7CgRamyhN I+TB35RJDrHY35OHm0GNQ6m WxlPSdi KAIwP8IsdR9vYeHnDHYpUWY kOyc+PHRhYmxlIHdpZHRoPS msPXJfXpSvkItnQN6kFm7mA GVyLWNv oIgchGVpJoHib9frUWXoXLv xAZ5usRtcD2GpeIR6MRNen9 o2Fw00A35wR3XznLW+PGNvb JC6gDV6 pD8yFxUeEyY8CCwsU567PoC szSHbRrfhd6lua2yhnZy4Su C9RZEwsaNnqZkaPGL8o3AjY l72A56p IHdpZHRoPSIxNSUiIHZhbGl zqe3dqP0cPu4+XZIfwRV7qG K5rB0nPbTtPyJ3FUdyT212H nRvcCIv Xmtyg2atx8yxxNt4IaTwMYV wkzLsmGvdNPL6p2SoBr61C1 MnkEocy5KhOrt5sn26wTWpe 0K0nNR0 R4TjVAWmbnlptZGyfBxwZN5 fJYCqtfxtYYDgeR7zNYMqF3 k6RbYrSmD9OCwdO2ZaiaO4Z GJvbGQg BAGamSUUjM9colfka7dvqqm uJkZvJCHeXHu8GFx5GZVvhJ paSdElVCK5NgD6WVU0zSYlb K5wyBwq xibpnV8fDaa+JYT9kDVvzBJ ZDV3wGxihqEL+AFCoLEA0iS otTFmjGOBpmP8lEHPlL0e7X iAwLjA1 ZAmtN6BxlzO9VVLhqMYpAQW avVWSmH5jasesw4gxzyaxUn AfRUZbHMg5NGo4KNPibImvM iBsZWZ0 ShT4IEN3rSMycA1iyRovbwm hvH5eBbk+DamqwWfvOCR8GD u9Y2NwXgo5ETUihKxaDS6jy GFkZGlu Vy7szRgxyRjvUR3cMZDdooy sa477AlZiv1sjRJWwaHRkNI rgTXG8S22jf5K0CCMtQHQvA DL8dDO3 bA0wqPoulewbnJKmgVsrgrR rkKsfUHedPLipH852KTJczG kzVaIkLIk0R1HrXkh5IRNnc BqhJO7u qJQeDQlpXa4zkHbrfGbsTC7 mYJRftbufa172ZqGsj5yuXE NchNDeKXmmNTT9O17kz9V2E CMwMDAw QGJ1kME5oN6pyCoaonhruMH mdDsgdmVydGljYWwtYWxpZ2 34MQWugZkfDdSnoUm7J1XmR qn4GQJl hOhfMD7iyECaIThzYt9neHx lnVbfQU7rKEImqkcol337Kn Rkg5hgJDUkoVIrLIzmIJY5Y 92up7J7 HOToXZYfAGI6wPS2qZ6naHi nbjogbGVmdDsgdmVydGljYW jyBFqpJ002NKJpcQzkEhKdh GllbnQg XOgqPXf4S5MxYnqpeBN+PC9 1FUPbDH13kLResOCkr9xiyW r9TbOdOEAlSUN4iWohPAyfy 3JkZXIt F94ytKIqb2N6BZOfwTxdhXV xStKllSO7yT5mSWagmbsmy4 yhiqyjKxtic1pryd37uA40J 29sIHdp ZHRoPSIzMCUiIHZhbGlnbj0 wnF1yVm1+NOElcPG4lMJ7hZ 4xGFVrXuL7HJjcP892XjIbz CIvPjxj o0iyh4zzyJp7VgR4FNTlzbD zxKqcSUC1t6QoSj27V25hMN dpZHRoPSIyMCUiIHZhbGlnb c4itM5n Ii8+GGAnxPP8vGC2iL7wXqD cAwA7MAooB719DhXyiHXsOf doN51iG3FgtIQ+WWKmWzl5W CBzdHls IT7vkYAbEHcnFz4wKBN3PmB cVxJwXNlyB3JyTQJinqubfr tppVQ6YUWuNFYzpN46Qs3cq DogMTBw sUACsY5yiwxjd7ovnjbjVkY eTINcPRk8KCk9RFPoiXtbBp KbTZN9GvR7RYS9uHKusP1rp Glnbjog vC0vO4EfRKOkoolnKb33aT4 pAzXzUbU3CQkwFjm+V0hJVF OwKRINNKfRLSBCNYu0B4ZtR fm2IXCo sRluGM9rbUOdZOwyVr7pmLg jfTryGH2mSBJyygbaJHEmvS 3eMDYbdELkvFqgRY1sLGJqv nykf374 NiPyWXD7HIVxlCDcL7RicM6 uGrNhQMFyLFDaR2ZleHNqBZ emV061WEtdCeE5DNGknbTaF 2FsLWFs eJlbOpJ8p6A0Zo0yCP7aTK7 kUYU3KJ03WC78zZYki3F7hD O0V2LzENKwjkfoeecbyZP9A DAuMDUw dD47cEKiWCudHf4me6V5f91 1MPZfFKAnbM57Xj9sfVrzFU WztDBGvU8ihnfod1jcxgqeM zAwMDAw WBo1TXm4JUDgpLczDbVrPNH 2NfK8NDJ1tXZcsT0avRocwk mfhP0jTqj+MpIsEMSroeO7F 5JeTbn1 GYLuuZbaHP7glVNlGWemDr1 iyAzexHwvDF6aYINhcwwfSV JsnG2yBKFlfPSapTkwEU4yK TBpbjtm o700QdExEJD6IGOuhBVzT2C vvT1hArOqYINcOADcD6NfpO HxOQhwY639FEgxRjE5OLSuj aMsP1Th VFZzuJylAaG0h2B9Nw4WNP8 SSIZ2I6LfBki2LVFxlAnuBZ 6bhXJeQAaaOl1hfShykHmrU M9eQIGb gzseWAUdcU6lEHJhzCZuhHf sQB9tBKWagxuus942QpUwDH L1PXYtuADhP0IphB4jOqJsU DAwMDAw I2ZauRJjNUhlL416EAdkPoN 4EJHzxkNhW0DjIWZxwUanJg M0s4T9Dz3MZNyusXJ+PC90c m94T3Uc EwyjXww5YCHvSAS5tZC4iU5 fRJKxKAqgy9Q7jBU1E9Ahws Nqcu5sy3tbBAPjJYcwJ25ys EDpw7I9 LUSdwYA0WWPlbRdvRyLplM0 3Oyc+VGUitLtyv0QcNwfuw5 yoe4ovgDh1LmZlPZZdvbYbe WduPSJ0 m0KjZf82R80vPVrrBGVvGXV tUZFcFWYqfLkpey5kdD0sOi 8+KGZriRO0cDF9qT2oTwArC bZ7RPdd S194BwHflMPvYffqv4ivp0h abSx3VrGsOUZrncAomPkoJE I8l5ZpQq42U5YsaFoeu7PjS yi0gf36 qENbh0F7vEA8K2CpLWEzvlf ovPBjdYufRU1zLPDlaytmDH HeoV8uEFOkI1g6ZcUlHuT9R JxuF0Ku ldY4MZBgqBNeZVMirMBAqC5 ohrkqu8dxfkkoWvYdEATbFL m9ZFa2LIKxlLypQlXvHYJ9L sX7SDX3 oKBuzP2rrHezzmxfhJ2fZyc +FBt1w6wsySNoUK9yvUA4EW 96DU40gVYbs2M1sRC6L1YjJ GRpbmct pktlrDS8CDUrEYTqoH49Vg4 yqGeqCy1kBGStGJR2OEBvxF CeF5TgjQ8wWmHeRCFvMIPvA 3RleHQt WGewN260HGanWcO8PHOxkgL uL7JyKUBfcJeaLvY5p2O5Pf 2AJE66VW53ZA58iJPdg8I4l UO9R9Me HYEmuftlupnzlKF2QEYmFCH zbX74My5zkJobKv3rEJXnPY Z9IWFsmTBnE1LxtL9sRmPoF DAwMDAw W2BxtVRfIVtaM654FSibZyV 6EGFzmpUtP1DqIMXnhLicZo P5q4M2Vc6JKq94DX82OM63t YTkx6R5 bZP6Y7WkOHGindjqjqbtfPO 3DRZyYRJrtR33Hh9egAneWn 1oAHWjAHO9JTEyyOChU9Bdu O2sBnMe AMChLUQoR1TttEBvAThpA36 8ENgvOtG9LVKnzsFvO9UlQJ RzeEbzEhB0g9L1Ch7GRSwad rp5Z6Fo PjwvdHI+ZA26GUZnXU39cBC ugFMcp6nwpGh4EtSfXVSoLT N6nApdZQxnu1EhLUNaT98xv YPrx7E3 IGN (more content not included)... [facility] Progress Note - Provideron 0 12-12-2022 Progress Note - Provider [id number]#1.00O [facility] Coding Summaryon 12-08-2022 Coding Summary HTMLBase 64 QvlqgxmrHJa4sLj+PGhlYWQ +GL9LYIOdU17wgVJabX4gI3 NMTElOSywgQVBQTElOSyIgb jRmWF6kuMAmMWDy IC8+HP5nAEVuWhjgwKOrj8T 3uGR3M50eww7pOVxkdEW7II CjXvPzfxhwx2dmiRz9WPdyS mluOyBt JWYzaH41UUI0eL87Td50tSS feKPal8mmfDw5VyCpEYMgCD P9jTcqNLzfg4TyICIzN82gm TAis6U2 GUXmaVsbwBLvXvOlyUW2rU2 kSYhqbdzac3jjylqyAks0vb 67lFFsj1Z0rDO6I4PwzxQ0B GJvbGQg HcksuIWFsW0mtyrzv3nhzwk dCfEyCHExMOs7OCz2DRYvrF hoWyMfLY16GBV3LSAysjZuD 2FsLWFs iXflEhQ2s8C3Mg2AG4GIMbj gH1NJXVJALUmuyQP+PC90cj 58G9JcKqhpGql9KQAtRRP2i SG3vJ4f CASrEGokk5P4xBF5G0CisxG mpj5ot6tuCFPgWIveC62hpB Hdu9M5KGZppML5REDmzDsgD iBzaG93 Oyc+XGJulTwkb4WgDemsy4i wk3dvlXk8GpuyDJEilmUubQ tjYCT7y8AfLt5sQIGugUX1e MP2aC6s TsShKfK6NFjyT082IaZssJZ fKhalA23gL5YweOS+PHRyPj y3NRIqbButQO3zJ3YvMCOii mctbGVm gZrkXZ5lPAHdeazsNWKgjT8 hMIIvK8l6YnJfQuM9UAjvE0 BpLKYnhtjhAd36dD7wHzZkT lB6TTid S4StjoH1HKLexUZkEOfdXZG 2S78kc9P7GXWqIJWgNOB0eI Q5pA4yzTwlgturzHHgvYrkp mVydGlj MSksHBwyN414HWYhmCdkGiY vZGluZyBEYXRlOiAgMDkvMD cvMjAyMzwvdGQ+QMLqKZF5x WxlPSAn iSEaYQlqFv5cjYqzsAkyMC0 oZYDmfmpdSEWcoV6uAAWyeJ UziSrzMA2sNODcdsgck168J iAxMHB0 ILPhkKWvX2TyaT8vRsPbNBI rCWVyW2EfnVKdXIoeC453ZM afQoA2COMfnqUsC6ZiSEXfy WduOiB0 j0A2Fy9Ju6VpeolyR7EkqUX aJvKjFeccVVs1U4AzOwuvwL I+MK72IBImTK20YCi9USY7v WxlPSdi RYViJ7ZyhC1aLeTsSDDaLDO kOyc+PHRhYmxlIHdpZHRoPS irLOJiDvHnqJbjQD8eJq3bH GVyLWNv nIrduGZeGkZhy9mvRIYjKNw nBW5xtYslK4BnnSF8HTQuy3 i6Eb29V75pM8CaiZC+PGNvb PB7rBQ2 gL4hOsOfLjL9YUaaM907CvV axVRoNjyls7axp3yptKj1Aw B7ZKKzceSytGeeUJQ5j4WcD v13H03q IHdpZHRoPSIxNSUiIHZhbGl ygy6ukD6xKi5+TPQxtYU0oH V0aH3eZfHmNeU8WLpkC326F nRvcCIv Svbxq4hru3sjdWt3HzOvPHF ixjByySjsPDY3q6GoWl37B4 MotQpdt6DzWvk1jp42lRDnk 7E2vPV3 Q2AzVWTmswepcCXrqCsgKE2 hTYSarspkKMQcqY0dVLYzC2 g0NxXnXvZ8DHvgH1KnuiX8Z GJvbGQg RWKntRKTzI2clwytk1sbusn nSvNcTTEgKBc9ZBf1HWOiaZ zcHlRjLHF2EdR0PTH1cDXpm U5ydBxg ogvjtC4dSbt+WQO7fLKzwAJ YXI2oKmjnfLP+JXAaXAH7qR maUCyjRQUcxL7cSYQyI2m8W iAwLjA1 HAsmD6GcupN2FQLciSCjAVY fiORXrV8fjmkdv5ewchxySa WlUVYlCIo3JGv3DRAplVvjH iBsZWZ0 DiW8HUJ2kORvtQ6jwRndhvb awJ3jSvv+VpckoClyPNR9UQ r5B3AyGmn2OJTluBsvBO5se GFkZGlu St4ypOyjzMmrXX2lHDLmywn vc228LtFjr9jaNTOikURtKY yeDIT0D24qi6R6SAUkDWJxV PU9aUB6 mV6hbYqqyplpyMRonVkpxlT wuYmjPQumDGajY206PZZnjD egZxVzYOv7S0TdTrx8IPWqu AnxLC4u pFDyYQfaOm8ztMgzeVnkPQ0 nHHCsjeqep521SdTqb6jgLR WmbTSvMPfpWUO4Z03qi2B4X CMwMDAw JOF1lGB6aD8cyNxcxlffoNI mdDsgdmVydGljYWwtYWxpZ2 19AFWbxEfjUyAyrMz0H0BjN ss9XVDb zDcvFU5znWBmMYkoAb3wdZg svZltJK8zKWIrriyin395Ze Ijs7xbKQDtaFXdMZytPTD5K 11at6S1 GJKnTSJpKKT9pLS6cX9vbUi nbjogbGVmdDsgdmVydGljYW mdDGsnG758QINmzBtiNrVix GllbnQg AKecQGs6M0QxFhsiiWJ+PC9 1FOAnKL75eDGybWXot8kyvJ s5SsHlQFOdWNX9bPtqVEelv 3JkZXIt L47ugNPss6P2VMPnlUqapHH yIlTkfVO8gW3eRJunmblrg7 shztrbUzvxo0kyfv52zM06N 29sIHdp ZHRoPSIzMCUiIHZhbGlnbj0 lcR6aQz7+GLFqcEP0tGF2iT 3nRZMwZbO8PZhhL151MySbt CIvPjxj q1loq0xizNu2BqV1EKZkinA ylOmqOBF8c1FkAw24G59eEO dpZHRoPSIyMCUiIHZhbGlnb e6qtD9z Ii8+IUStqVK9aYK9kU0uPlC lZiR2JPfzT031JuSyaFXeEs xkB90nW2TreTA+NLMaGmp0V CBzdHls BF8mcZMiKUwgJu9mTKI5PuQ vVvFuTEqeO3NnVQSiqxbsrj yaiDA1IXHbNXTdcD27My3vo DogMTBw lSQUiQ2oghubt2hhglxjKwM sKVKgDJc1ZCq5DJHdnKpwLr GnUJG5XuR5WXG2gPCgnB4ew Glnbjog qQ8oI4HqIIOiujcmAa51zQ9 vTaXlRdJ7QYrxAlj+V0hJVF ViKCKMBIeMKXJPBYv3E7MpE pm7KWBa fVxsQY8ozRZqROidXg2lcAf dcCarGT1hWRHxeuefXFDntI 5zVEGyhGDclStdPV6kXUJqy ebon336 CeBmUAO7EQRfhPKtE7FddJ5 dMyWqMZVnPEGvG5UfuQWhRK cwY147DNssJhX0WCRqgmQuO 2FsLWFs vIobHdK8c8X3Jh5mBS3sKF0 lVYE1QA63NQ57yTLxv2U9fM C8Q0JfWGNugydvjcivpAW6D DAuMDUw yH30jKHxPEnvDc6cy1L6s34 3NCAbXIYqrA02Nc0zcByhJJ KjdJMSsV0boamdz5axvcczV zAwMDAw ICs5VSv2QVXtxAknRrYlCPJ 5VbW7OTM5tJHysA0pwQfiza lwxB5uIsh+VeBjXIQrryJ4F 1ZjTmd1 ILYdlLdgZI6cjUWsFFurFf5 jvEapaRnhUH7dBAGwlysoFU GgfV5iUPJicCLnoCvlCO7sF TBpbjtm e562WzMvHCT3YXSosIWyR4H stZ4vDkFmIXPiJHDbI9TtsY HwVVmtB516GTadEbM5VQStr qXwA1Bm LHVylScuSsP8p8E0Ni8XYU0 ANLZ1A0LzBur7OMNtzHizGJ 0lpZRdFApxKd8rjUhmuFazL H6yOYNw jxqxGFOknG2bXDXihFVjbXl dEE3oJUMuulnsz681CyOuVJ R2MAHyxSUrX0UfrV5hQyNlY DAwMDAw O4ErwJFrINrtN652NLnvVjB 6OWKcobZtR9XrKQByaSlcWb S5i4P3Qd0BMTseM7RnR2Mur TwvdGQ+ ER80mj49W7NtZdzhKnd2ONS sSIZ0iIE8yE7wZBNkQVehk8 Q8fWI2I9SgveWkbh4ec5dmT XBzZTog D03tdCRtk3K6MGCxmQN3JCE grMneFmFpwE51Tts+PGNvbG bwi7GdGptnx3gow6kfaFu5D jMwJSIg ruSckHtvYBL9z3TzJc51P88 sIHdpZHRoPSIzMCUiIHZhbG zola3ydC6uAy2+TMJaeFS1h VG2pK3u FkUrVqA6KWtgN667LdHdjMS hZawte1jnv0vtsVi0XxDiQB McmmGfpPzwMKB2h4CtUg21Q 2NvbGdy i9CgUmz0rn93lZAbe6I7fFE 7Z4VnBBElxbquoYUhcUzdPU 7vAXPyccfdWZZtpQ9dONQvS 6n5GzLe IaL9GYybV5OkyjH0IJLshLZ lMQGidDTHaM2wmmnys7uvod ysMnPvUNAlPOj4KPy8IYUsi WduOiBs BJY0ScV6HYA9rJWwgD4xaKs nvdjzjP6rKtv+JHt9t3lqyD SjAS7rqYP5QF88BX24jNLkg 5P2uFU1 O1NaTBYuglmferuhlUH3UHE vBMYgjN56Nu0zzRnrDl3sSL DkDEF8XVNeaRCmJ4BxbI9oP iAjMDAw AVKfM0HdtVUkCSaxW442TKs xSoD2BYUlzzGsC8KgKGTumZ qqOzL8x8L5Rv3SBO01NX91X M15sMKi p5C5rCT3P6BoMENfdfcinca ogSE9BYFvXFQqoU64Ym2tfY ksBc6eTRZbUHG1HYWlvEXaT 3YtcC5l GnVcKPThPTVzD7XlrLSxIOo fF483HJtpLaC7GDDsepOtD6 RcIWEdsVkpIpL1k5C1Id0IC w04LD74 VQ30sMCij7K4jIH4T1QlPPG mywfnoujmyZG2FVTpQWTtyH 06Es7hsEmlRl2vGXThGTB7S FRpbWVz C2XwmN5gJgNrJJQzEVIuL4L uzHUhTTykS338JNlrEzS4LE KyxaIjP3IiPJBznDxyNvZ7h 9G1Ad6T YWynnlg8F7BiDorvlQJ+PC9 3TFZwGP99dACnoTEta9odjN e1BuHzERBkYIU2gQqvZOgim 3JkZXIt Y29 (more content not included)... [facility] Progress Note - Nurseon Progress Note - Nurse Pt called because she is having increased pain in her neck, appointment scheduled for 12/08 @ 9:45am [Electronically Signed on: 12/07/2022 09:40 EDT] Leslye Naranjo LPN [Verified on: 12/07/2022 09:40 EDT] Leslye Naranjo LPN [facility] Consent Formson 12-06-2022 Consent Forms [id number] TGTIFF [facility] MAGR Intraoperative Recordon 12-06-2022 MAGR Intraoperative Record MAGR Intra-Op Record Summary Primary Physician: VEE STEELE MD Finalized Date/Time: 12/06/22 07:44:41 Pt. Name: NICKALVARADO/Sex: 1945 FEMALE Med Rec #: [id number] Physician: VEE STEELE MD Financial #: [id number] Pt. Type: D Room/Bed: / Admit/Disch: 12/02/22 [...] Barbara RN Role Performed Surgeon - Primary Automobile Repair Service Estimator Automobile Repair Service Estimator Time In 12/02/22 09:14:00 12/02/22 09:14:00 12/02/22 09:14:00 Time Out 12/02/22 09:23:00 12/02/22 09:23:00 12/02/22 09:23:00 Procedure Medial Branch Medial Branch Medial Branch Block(Bilateral) Block(Bilateral) Block(Bilateral) Last Modified By: Zarina Chacon RN, Erica RN Baumer, Erica RN 12/02/22 09:21:13 12/02/22 09:21:13 12/02/22 09:21:13 Entry 4 Entry 5 Entry 6 Case Attendee Nikia Warren MA, Regina CSFA QUARRY SUPERVISOR OPEN PIT Keny QUARRY SUPERVISOR OPEN PIT, Ellyn QUARRY SUPERVISOR OPEN PIT CSFA Role Performed Automobile Repair Service Estimator Scrub Personnel Scrub Personnel Time In 12/02/22 09:14:00 12/02/22 09:14:00 12/02/22 09:14:00 Time Out 12/02/22 09:23:00 12/02/22 09:23:00 12/02/22 09:23:00 Procedure Medial Branch Medial Branch Medial Branch Block(Bilateral) Block(Bilateral) Block(Bilateral) Last Modified By: Zarina Chacon RN, Erica RN Baumer, Erica RN 12/02/22 09:21:13 12/02/22 09:21:13 12/02/22 09:21:13 Entry 7 Entry 8 Case Attendee Jessica Howell Kellie N RT (R) ARRT Role Performed Gear Generator Set Up Operator Gear Generator Set Up Operator Time In 12/02/22 09:14:00 12/02/22 09:14:00 Time [...] to chemic (more content not included)... Normal [facility] Inpatient Patient Summaryon 12-02-2022 [place]patient [place] [address] Patient Discharge Instructions Name: ALVARADO BRTIT : 1945 Patient Address: [address] [place] [address] Primary Care Provider: Name: Ansley Houser NP After you are discharged if you find you have any questions, please, call [phone] ext [phone] to speak to a nurse. Discharge Diagnosis: Prescription Information: If you have been given a prescription for narcotics, seek immediate medical attention if you have any difficulty breathing or any sudden status changes such as confusion and sleepiness. If you or anyone you know is experiencing suicidal thoughts, mental health, alcohol and/or drug addiction problems; contact the [facility] 24/10 Crisis Hotline -Text 3NOZM jm 264771. If you received any narcotics, sedation, or [...] business decisions or sign any legal documents [facility] would like to thank you for allowing [...] Activity Restrictions: (more content not included)... [facility] MAGR Preoperative Record MAGR Pre-Op Record Summary Primary Physician: VEE STEELE MD Finalized Date/Time: 12/02/22 12:53:24 Pt. Name: ALVARADO BRITT /Sex: 1945 FEMALE Med Rec #: [id number] Physician: VEE STEELE MD Financial #: [id number] Pt. Type: D Room/Bed: / Admit/Disch: 12/02/22 [...] Signed By: Eleni Hu RN 12/02/22 12:53 [facility] Progress Note - Nurseon 09-0 Progress Note - Nurse Pt called stating that she has about 50% relief of pain in neck from her injection this morning. She does state some neck stuffiness noted but pain is better [Electronically Signed on: 12/02/2022 12:35 EDT] Leslye Naranjo LPN [Verified on: 12/02/2022 12:35 EDT] Leslye Naranjo LPN [facility] Controlled Substances Agreem entson 11-23-2022 Controlled Substances Agreements [id number] TIFF [facility] Progress Note - Provideron 0 11-23-2022 Progress Note - Provider [id number] TIFF [facility] Coding Summaryon 11-21-2022 Coding Summary HTMLBase 64 QwhzioqgUFc5bTn+PGhlYWQ +WE3TDHJpW71qnGAczM8wJ4 NMTElOSywgQVBQTElOSyIgb sLgCF8xwPEeXXXo IC8+RJ8oWUXiAjeibGTyk5Y 1rXD9W21cac3kNUlthLY4LQ XtPbIzndzcy1ylsOc8VUaeE mluOyBt JROucX65DGR8yT28Ao40eMR xsDTro6rizJl0LuBiKVYdNO W5iUdqAOayd2RiKHDwZ40nv MCng4Q1 BHDqrOoqkCQkHyExmPF7mT6 lAPdlagszn8vbrwstSbg4qm 87kGDzq1O5eHM2Y9DllvD1L GJvbGQg LxyzfLHAjY4lcvoka0nsxln sXtSnXIZcZMk3IQp9FSGvcS wcFyWjGV49VNZ0MUCtroJiR 2FsLWFs yEebVaF5a9T3Eu2OD6CBDhc nQ7QBHEXHCOeuiPM+PC90cj 32Y1TbPctgAjs9VYCxBCR9w CR9uI0w GZZsVHivb0X9bYO4L0KsyrF rqy5ry3tfIZOwGTvpA72seB Qjn2B7SNKkwUV4UCBqxPwtZ iBzaG93 Oyc+BSSiaQxoj0FpGaoch0g mk8xvyLk1KtxxZDTnjuHkyG tqJSP9q2FuPz6vXUHetTR8f ZB7rM0m WzByBoD6DCguE000UsTnrQZ tXvnqU25eZ7XteIV+PHRyPj h2LKIkiZarCD2sF8EvRKGfs mctbGVm eUdoMQ4nAMWdzobhBPWjlR9 fMAXuK6x4SfJoFaH0HYbcK9 RoWMXrrxmkKm49qA0pJcSnL oL0VJsh Z5TdbkA3NTSgsRAtHPcrPSI 3G22tr7H0JBIdXVMqLTT0jT N0bP4zsApsrtbhuEJjoIzds mVydGlj QGrzZWdaA314NYHvfRktSnM vZGluZyBEYXRlOiAgMDgvMj EvMjAyMzwvdGQ+JSZkYVP3m WxlPSAn hRWqIUtkJq2hyGoatNttFK8 mQIPwiqqrLNYbwD2yEDTxnS OzsEdpUK9gCJVhblcnf776K iAxMHB0 ZRSgyPQkB0GtzR2tUlUaYCX rFQKeG7ZbxAQuGTpwZ906EY agAgR5MBMghtJbQ5WdCKOna WduOiB0 w5C4Lq9Ts4WqrqudM3AmfRX qSqPxYgxaYLr0H8DqOcdkkD I+BN62GSAcWP44RNa0EYU9h WxlPSdi EYGcA0LfmS7vUkUfVEEfVPH kOyc+PHRhYmxlIHdpZHRoPS mzCTAbXwPhsNvrHO2dOa0yV GVyLWNv tQmjvCOcCbMeu1eoDOFtEJh jGP0ttQlnL8YcdZB2HRMin5 i2Yd82X40xB6JxkRL+PGNvb FZ1xJM7 lW0uSzCfNpY9GNexG469EgN xjQDkWrkyz9qrv6cixQz3Rh H8TINchcEumCjfUDN0u7IaX s80R14l IHdpZHRoPSIxNSUiIHZhbGl ior1khG2zLo1+ZKKawVS3cT G0aZ1sJeJbYjN6YWprZ697O nRvcCIv Bjqcf1brj3nhmAq9QxQzGVN oxsFcaDcmXKV7p8MmCr15D3 ZutQrmq4BbWbu7cx89nMMax 4D0bWJ5 V7WdBKSduoeeaJXpmMbwNM2 wQWIaceboMNRmmW2yLKZeT4 g9EkRcGnE9MIreD8GyteZ0K GJvbGQg YBEtcNMJgJ0tmbtiq8rgigs nLwUpCEPqJKd0SAq1TXOzbB htHwRfEOQ8WqV8UUU1mSSrp O6blVfy ciqtrT4xKji+BYN1kEUusWI SXF7pBakpgWZ+LMJkLPU4gY jcVMciAKFkjI0qQCErG6k4M iAwLjA1 KTyfO4RorgM5GNJwmWWhQAM cwDKZfB8mgzjju3tjeownRd KjJVWuQQx8LFu8CTRoiKleV iBsZWZ0 MoM4DAS2uVHtlW6uzGrzikj kfH9hNgd+FpgjrNptPSD8AU n2P3JmTez1VAFgeYptCC3uu GFkZGlu Xk9izHawlLbmCD7iVGUjpzg yo121ZlXkq9guXSPafNVzNY zjJVX1C12xu5I4XUHbTQKbC RH5zMT0 iX4ypFlmynnnzXWjuRslyiZ nxMsyNRgjOUpzC730QURqtG xsZkXwTWi0A4EcNph2VWHlx HtxCI2i hUXbFBraKo6ryXfsgMfyYN5 rPFBsyzybr470YwRva7hyTA CowIIfDQqjCNA2O57co6O6B CMwMDAw QGA4rOP8tS1upVtfqmfkmPG mdDsgdmVydGljYWwtYWxpZ2 94UDVobXayRbChjHj1V6BoA th7KNOx zIaiXR2miPYhTZfsHr7eqTc ycJsxLO6aUJPtiycct251Vz Dod1dpXOWqaRMzHQigZAJ8H 26fd6B8 IFPvWGKtIOP4rWC7xO7hhKc nbjogbGVmdDsgdmVydGljYW rtPIhiY954XHRnkQftSlUrz GllbnQg ANetQRb0J6HwUuhqeCZ+PC9 7ARFbFA83wTSfxEFtm9dbeJ b4KxYyRTTnCUK4sJyxQPqzq 3JkZXIt R94ekRHwc8O5UBUqjPjljMN wOqUqwHY1eJ2fJByebfvte2 yuwdndKazbm7lbgu35zK31O 29sIHdp ZHRoPSIzMCUiIHZhbGlnbj0 deU4xJu5+VIDphGI9uHY7uE 2bRVAeJeT5XIqhS595KgDpk CIvPjxj m7qxk8bsjOf1BeT9UOVhhoP stGgpHPM3o2VfKy29F20vAW dpZHRoPSIyMCUiIHZhbGlnb m3vtZ2w Ii8+HEMjsHC4rBJ2eF2wTrQ lUiQ2XAciI542PtVkyBOgVu raV69eC9DomPB+KEYyCwd0V CBzdHls JD5vnDKqNFrlXo4jFLD6EqG eZeLoVQdsM1FoINNazrlexm xcjIJ8MSGcGRFfsN57Ys5xt DogMTBw bJVNmZ1txwmvw8zplexpVxI jBVLeELe3THx2NUSlcCsdZj OgMXB6IqA6ZXK9bERzvI6ec Glnbjog nC5iP3UjWPPngyrmIk16cF4 eHrBvWaC3PLkhGfn+V0hJVF MuBAEIGXaMLPNGYQv6P5TvA br1QXYk qFnrDQ2lcYDgQDwcKq2jzEf fbAesXY5kZIFyuyemSLOteG 1bMIRxlBXhvQaqQZ0sJHXls hgnc013 CgMvEEB5OZZvtVSvY5GcaF1 hMfLuIXYpWTLmU0LueMVlOG mcG740WXmwEaF9NRFshiRaW 2FsLWFs sUhoUyF2k8W3Sc9jIO3dAM6 tUBU6SS20NL27bNCvv7N8rE Q9G9UqICJzynpddgvrjGL1Y DAuMDUw fI45fJRfFZtyPv7fz6X8t82 1HNUwJMTxzP88Qe7afGerNH BpkSTLeY0kgmcry7tbakxnK zAwMDAw BPk9GEo3YIQfoCtdHbMyIRY 2IfB6ZFZ4mIIqqE9kxYcwpb psyY9pYet+ZoNnUDPcqbL3D 5KlCdf2 JXFwnUzkLH1vcMGiZJrdGr5 yfOelbUtxYN9uASYlzvxeLT TxnG7jEWGsgQMjoNwrKZ1nP TBpbjtm i344KzVqFVU6SDBfrMIxR4G ohM6cXuNyHQHhKBSxL4KdsT BnKMpfB703DXknRjK9BBXbs bJxP0Gb FEXswXzfMlU2x8P5Po3GNA2 RCWH6I9UuAak0XYCxnXjpNP 7dkSBvXMzqJp3ohYamdNqpW W4nRFCx bhmtXFFbsA6sINWbcBDubMm zVA2pVCPvcrwtk137RgAaLD Z1SJQusCNlB8IgbT2dFnPhC DAwMDAw A3WgwDKlEHejA065QXrbMmB 6XDYdfaHwX5UvKUEtkRteCx G0f8V2Rl3BACtvsTW+PC90c i10M9Nn JillSch2XSJkKXO0vIO3yG9 hORLxVDrfy5V1pYE2E6Mayp Gbhx2xp2vyRYHeHTonI07jv WMzk6L4 JUGqnWT6MNEpuOskZsInyQ9 3Oyc+IMRkwTebr8VzQivlj0 pfi1wrvUg0PwJbCZGiptBkm WduPSJ0 r2CgLs55H16sVGciEYYfKRW nCASsXKLpuBefyq5rlJ1hKi 8+NGNpsDH4wTD9fY1dRlQyM tQ4WRid H857WcVsdODnMtjqr5cib6d imPb5YaTzEEOdwfJyjYnfOE E8q8SlAn04V7JfcMyqi0ZoG er3ro95 gMCpp1C0yAR5D4UxRPNgute koCLhdThxCD0ySMIeffcgPL AatD3gXKTcT0x4DpHmSnL4S AcmM3Tx sfJ3XEFmtXVvLHUmgKQWfG2 jmetbb7crowmwKgVpBTXcAY o3ZWc3DORjxKsfJeHvEBQ1F rX5QDB2 bFKxoG7swVycgdfswE8sVll +QIz8l2zksJZaBG3kiLK5LR 01PO72qHSwd5B9gZJ1L4HrI GRpbmct dmhvyQY9JKEvEUFbsL89Ud8 cqOsxJq1pYFEtCNS2MSUqcC VnT6BemX0hOxNjXXIlTPGpX 3RleHQt WHwvF009GYdxVxI8VNVlbdD jZ0RkUSAzlZutWfV6e5Y2Gl 1FCD70SV92CR50kHEvq7V9a YN9L2Ln WSHxousaqgvrlIB5HAEfFYG gtT74Wj9vvTbdEy7aCLJyBC K7FFAqvYGhV8PwxH9tBfIeW DAwMDAw A0QxyVBzHKfeM054TQhzRfC 1QFEkztXxY5CoBDJeoPjdUn S4w4F5Cw2TQn42IO53RF08d HKuv7G8 mDJ4W2MsKDObhcejqcrlsUB 5GRVgVOMdbB60Da0hrWgcOh 0lKSOyERQ9LDVqrGOyK0Ocu M3dCcNl GWPzGUPcX7ByiWWjMTgxZ29 7EPtvKjH0SSBrlbZyJ0IeZC MhqYciUiJ7r9E9Py1UXKqje zf5O0Ff PjwvdHI+MX70CVLlRF81qNN yiWWlf2nytDl3AeRlWCYiGE K6cLddOInza9RuXPBkK51ng IIoa8A6 IGN (more content not included)... [facility] Coding Summaryon 11-03-2022 Coding Summary HTMLBase 64 IkacojatNIf1uQo+PGhlYWQ +IM8RTKGwK01yoPJltN6kF3 NMTElOSywgQVBQTElOSyIgb cCbIS9hyXRtQWNi IC8+OX0pVSEoApyigRCul9L 2wZD3X56vvp2cPKtukML7RY FnIzZhwlots4kjtPg0MTckB mluOyBt UUJpdB07FUD0aQ31Xe48yPG meLEae2ewoXl5KqRzGIKiAJ C9fOmtCXfed4UtTFAvB11lh BIox0I7 BPQebBhdfDBoSwNagSE0xM4 wXPomycfgd5eegdhlPiu9uf 68uEPnv4L3uTD3R3IcdjX1W GJvbGQg AeeofCSCyT5pettns4guefp yPuNyBVIrYRb8XOp7XPPvtT klGkGnNC97ABB6UNCgolMaQ 2FsLWFs hIqhOoT0s6T1Ac2FA9TSLfr rX2ADPDODMWmuuAK+PC90cj 56R6GgCceoBnb0ZQXiINK6n RV6wP1m ORNlCDtfs2T1dWV4L3QlfjF tnj3ja9xgRTJdMVybY04ynG Koh8X8NIOpkXD2LJFrkRlnQ iBzaG93 Oyc+RRSraKvgf6HsExzjf7t pi6edoMy9UwcdLNUtodKpiS ykSTW8z4ErRw1uINRpcLC7w EW5cD3v HtEcRuM1KUceD119MwBjlOL sGuntG30kS8MviXW+PHRyPj x2YWQujUykYB4fF9SmBBSzi mctbGVm dPjpHF7hGLWzrmmnZASaeZ0 xHEEiK9x5EcNmCpQ3IEtgW1 NmSARjhcywFr93jQ8aLeSoS qQ5YMbm D7BtuaT7RQPemGHqTVqzXCA 6A04qj4W5MKMaDISpSLS3vH X4jT8goWccehirzKJfvTwda mVydGlj LDeiZHgxV318SPMeiCfyDqS vZGluZyBEYXRlOiAgMDgvMD MvMjAyMzwvdGQ+JSTdEQQ9w WxlPSAn fSMiVNnuEm8cxPilyPozRU6 tCXQgdnzsNXMkgJ8wWMJboC HpoYseUW8eKSWmgansv365R iAxMHB0 RJMufXWgH8FdgQ8pNjKcQJW eBROvW0JgkKVmFShnZ158FT euMaX5BPJjfgHiY3ItEOJmg WduOiB0 g6I1Qr9Zf2KyykwbQ6PasRO eVdGkBtruFBt0N4PxJmeqpG I+WV29KKOeBL40USa0HDZ7a WxlPSdi RCEmP8UnpD2mMvMnQWFoYAK kOyc+PHRhYmxlIHdpZHRoPS ejRPBuOrYrsLgbDP2uTx3tV GVyLWNv xVfweLFgLoQqy2tyYGGoOTw wWE6wvHjnT7IbyAO9XDWrv4 y9Dq03Y36iY1RzuSX+PGNvb ZM2iGQ6 dI7sBgCpFiC1FXjwC389HmU ehBZmLzfsa8etj4ccuAc8Xl K8EYVhigEutOwrLUQ3s7AoR m17F30w IHdpZHRoPSIxNSUiIHZhbGl fka4nhS3oZq8+PPDukRQ0pT J5cQ3fRcVnBaX9FCvjF106L nRvcCIv Vjeir4qlv9mvsPp4AtAeMTE fsuZxcWujCXU6e0NcEw25C9 LbjDvxt2GjTku3ft74kFEgx 0E4nEL6 D1RjPNNkpzktcGFzrPnsZF8 eGDSmpilzFTNzcC2iWEBcO5 k7AbFsHhM2KEhuK6XilrH7R GJvbGQg ZQXjaDRCnU4oevuwc3pfbba aWjVsVHFpGDo8PJm3QHOqnM ohPeCdKGT9KsR0XQH3hHWkr Z4cfSmw txtrwX3pOwt+SDZ6iKYocML SOE3yBerimPF+WTNaNNS6aN bbIObyUIIwhN1qUMGuF8t5Z iAwLjA1 AXsnJ7HqbxK1ELKkbCAuIER mwGDNvX8mijfbj2urklnfVo WkQRXuSZb1NKu2QCSsxVrnE iBsZWZ0 NeR1WEW0kPNryU9hiKdywcg zcB3cUmd+KjvnfTklELF5SS c8A1RoCyr0UKGnhRpoVV5so GFkZGlu Wn9rfRdmwBqxNT7iCXVjgkt ed391QkYdl3teVICzpGXaUV xvGOU1Q64kj8T2EXFeCZShU MZ7qZV6 kR4naGdebmthaXGybDxkrzC qfBnhQSxlOKqaZ856JVCkbV owMqHcKVo3J8ZsFfy8DZMky HteDL6v mIZaLTosFm2rmDfshGxsQY8 qDCDjvunfk404PtPrx4fyLE GphPBfMTwrDPG1B92zh1X3K CMwMDAw WSX8jWD6yL2mdPslrkokyLD mdDsgdmVydGljYWwtYWxpZ2 41IYRyiTyjXkHyxDo1A3QzL bh4KKTm cGybZG0cgWHzMKhjJx1hrGn snNkdVO8nZHNhlxaaw822Vj Mvh1smXPHafZJxFOepWOI8X 97nj3J3 WDCgOPBdTTW4lIJ9sF3ppHu nbjogbGVmdDsgdmVydGljYW jrMEgqQ199GMUnxOmpFtWmq GllbnQg MUumNIc8B9GwXnqdyMA+PC9 6WVAmVR02xYJbvZLil3pejS r8DaMbUGPiZEV2rXtvWGpno 3JkZXIt C94xgSKcu8V3OBDcpIzqoIQ aNcBliBM7gR9hZRjcucrot8 kaxibsDxwnr0kjhg37sZ26Z 29sIHdp ZHRoPSIzMCUiIHZhbGlnbj0 boN6jIj0+JRWcbWO1wBD2oI 3uPSBmHgV3HEybF353MeYtd CIvPjxj j3jpm9uauZy6StO5WEApbiT msQynPCH0x3VmOq31Y56rNW dpZHRoPSIyMCUiIHZhbGlnb r3sbX9f Ii8+JCYvlBJ7gZO3jM8aDwZ uHsZ3SBmfL123FxNjnYViHe wzP74kR5JepKE+PGKyXch4A CBzdHls GM1tcZOqGOqrNd7xZDJ9AtD qFiMaNKquK6PzCWOdxtbtou gslFT6XRAyUDUifJ27Qj3tu DogMTBw bLUAzP1smgssl1qffishWvX wMOWrCZm6MAq6FQKgnAoyCt JyKPM8BlI5HFB2yKKihL7cu Glnbjog kA6vQ9SzXKBznipqMq49mX3 uWoBlWcM1RImvTwe+V0hJVF BvJILGJEsALDFHCVm6U2NiD gz6SUNw jCjkFQ5jvZLmVDszYb4fbIy fxAmbDS8aXRKxkbpeBUNikH 5sIPPimSSliNstJP7iHXHhk dnuf272 EhJyGLS2JDLuoGAoW2XusI4 pIoNxCWQrXSCtF2RnrEFmRU ifR959EXecGaQ2OUEknvXmB 2FsLWFs pCcvIvR4c0P5Aj5rMY6kRG1 lKUP8HI05SF26oNPcy7G0zQ O0U2McJGWwleqzfrtbfOD1F DAuMDUw hN35eOMnXSqpIq2tk7J2s68 0NFRpYVTtaP05Sr7nwMawBV MwqXDDsZ0pzxfvc2udyyucY zAwMDAw SJg2ULe2QAKwrObkJuRpLUW 6YlH1JFA1lFKwmZ4pnPjdrk omlP4jPlx+PuBhOYYgrpO5Q 5AqUoa5 YETusJbdXX7obADmYLeaIq0 izVsdqPlrOZ2uXOUjphigFO TytN1fYYLdoYAxnIttXL5eV TBpbjtm i999MbRnDBV0YGIpzCYwK4O joX7iXzBuBYVdVRIeB2NowP CkHNwyE825NSdlKeY8GITqc nGrB4Xk BMDetUcjHnB4l0Y5Op1RPN3 QRZK2T3BoIzx1OQWmbWrtEM 7udFRqKTidXq5ewFjsrBicK P0nKAXx phtjTJAchV0jFNIdhBEnxYm fJL4dNHSriumxv568IbCxNC X6YTEujZHbL6RbeD5lAwZeS DAwMDAw H7RioOEsJYynV709OWtoGmG 3WSHhxfDvZ0EmUQNhqAkuXs Z0u3R9Pn4YNEsofOV+PC90c u20G4Ic MgkbNfj3AVVqDUT7lRK1bO1 aYCIgHHfvg7U2wXY2E4Fccq Bzou7jh7puKRZfBAdmN53hy RAon8O2 NVJavRG9NGAvsMogTqNfqL5 3Oyc+JLSxfKwvh5VoXzbxh2 jda4kzzFn6JgHaTEHbqlFsv WduPSJ0 a5SyQl12V80jQCjvGLMtPUF oUHAeRJJsxLxxdq2omR8wZf 8+JYQowVY4gAC9aM0wGiOfS lZ7IJzr Z612SmBnlINxYzlgz6jhj4v inLd6NyTtLZAocpUcwYdhFS M6g1ByBx43G5XsrInda1WoP tr9fg00 lUSod1Q8uSF7O0HzPYDamfk ruQMksKnyVJ5bQYXoetusIV AwcU2bSOVlO1d4LcRxJvC9L TlqN8Rk zsX8SJHjiPJyLDTjqAVTdC6 ixqlqd5ggbtmjXeTpOPVpGJ y8RCh7VIXsdEuvYuMhEYR5R fX5HEK4 xUVmfG2qjDuneklhaU1fDbu +YPg2m4sxuKFaLM5veAV6YW 64AO85gTEcw9F1oTS2V3ZgY GRpbmct ehyswOP5GPWnUHSyoW36Ks7 ioRnwBu3kBTOlLAC7KCIsqN WjG1McjN0sAtUhVDItPTZcA 3RleHQt DJqlX179SEerXfO4KWDcztR gR1NvAAJelAseXwV2a4Y6Na 9HYU10OQ88JB75vXLcz0S9t CH0J5Qw FVEnjaviqhkraDG3QBBaUDE mbR65Px8tpMjiBi6fYRBpAL N7GBMlvWYpH8ReqH3uLoZtK DAwMDAw P4CziAJpVAtgC202GJhoZyV 1PBXslhCfP5FwUUSaoZjfJp H5w3A6Ra8KKs48HG18EQ71m IUqv1O2 hGR6O2EmLFBoojmntlnzeIW 3ZWWdMYEfiI45Mw8zlPmdEk 2yECRgPRR9MGDppRBjR0Swz A2aKrJu BJQrYOLdH9YjmENkIUyxN25 6PSdgOpX1DFZoguTgH9WfNJ ZyvZdxXmI0f2M7Ti0VQDyvw ja7J0Yd PjwvdHI+PL50LIWvOF75jFF frIHlx9bodBq9EkLxOQSbQI S3oZacYKabh5TyLGQiD24xe KFaf1I9 IGN (more content not included)... [facility] Coding Summaryon 11-02-2022 Coding Summary HTMLBase 64 RozsgaayFLi6xKk+PGhlYWQ +RH8NRQUyN94vgOMejB5kZ0 NMTElOSywgQVBQTElOSyIgb lKfCA9aaOVrJAGs IC8+QG0vDHQmDiojaYDxx1U 0wEH7O05nbb5lBLlylAJ2BO HaMjDbaxjbm0kkzLv1NFykY mluOyBt SCAtxR35GGQ8aQ46Cm37pBI daVAti4zpcAm0RdNgTPHmUI B0mKcxCKiga2VwJLVbJ44sq DHif7V0 LJGgeTjmuKNcLlJjnOO7uL3 wCVdcbghyi5odfxodYzy0mq 36sSAqa5O8tNW5G6DrhcJ1N GJvbGQg PwrymIAArP5axyhuz0nfpsb wQuZzXWUyJBf0DCm6DCTccJ jgOzXzRS57MUG0RSZuqbLdP 2FsLWFs sZtyWoQ9i3J0Tb0XR6VHBhb yA5HPCZEHOPmlzYI+PC90cj 11R1RmOlqmMhb4ZTVeGVU4g WT9xO1o DESqPWkak9O2lEP9X5SpluX gry5zi2bbWGKiPRgtK17ciP Ukk4H4XVXzrLP9SQOwtKhiA iBzaG93 Oyc+TOSfcVxiv4ZqVgfko5b pp8kmfJy7AjcwSZXiwqGikS lhKPV2i8IjBq4tSAXfsSR1b WE8gT5b BmOaKwM7USrjX807DiAakIV jQekpF92bY3JswOG+PHRyPj t7EAByrWvrXG2iF3UyNWZnw mctbGVm oHzsDM0oGZXvctahVZAivX1 tHXBkI3l4ArKzMmC0OXnsE4 PrIOTmvnihPb85hF9zEfYuB gO0FTfq X7ZacgF3XRPnvUCrBRafCDY 8T17xa6U5EKBkQVItZLI3fX R9iJ5nrJshtdciiDEikPyse mVydGlj UAauHBgrQ569ZIWgyPotMmE vZGluZyBEYXRlOiAgMDgvMD IvMjAyMzwvdGQ+DEWpBRE4v WxlPSAn bBLvFBpvRn5coEofqWabCB8 kQZBemwrcKUMitF8wIBWpdZ EqqSuzRB0pBMLbaxibf779D iAxMHB0 PNOvcFWzS6BdsH6hOvRfMSW wAGFiT8RptLPlPNwxE095EF bwWmX6NQHiesQwA0KbMYHkk WduOiB0 h2O1Sx9Ks6WbkzxbK4SkiAC tKcRvZdkoIRf7Z9YfVsrykN I+LG14LLWgQT72MTe3KUL6d WxlPSdi TVWwC6OnjW2sHlLfZIXpQLX kOyc+PHRhYmxlIHdpZHRoPS wpVLIwBaVzdOwfRZ6xJr8dC GVyLWNv fTvcxRVgCxJyz8voUCQjBYu nKN4plMmhC4JlxTW4XTSgi0 d0Iq59X52xI1NpmEM+PGNvb AA9aII4 wX0gRvMsDyZ1UAbhO510UtT krCAsVizjt8ddq4uqjDd0Kt N1WGLyuvAumRgpCSS7q0QrM b61D12r IHdpZHRoPSIxNSUiIHZhbGl qiz5zyR6sRm8+WYXafEV0yL Z2yE8lUhSbXbR0OKyhK036I nRvcCIv Qfxbi7qpp3amtOw0ChMrCOE geqSboRgzVJV9d7GdHp23L4 ZvvWibh3GhEmh6eb71lZJrf 9V1jQN7 L1YePILxgptykNCbsNgyYC8 mRUPjizdcTUHmoL6sIXSlV2 q3PzYsBuU7VNltE8HkgjU4X GJvbGQg KHHcrQQBrW6ucoexv8npdyu rIeObIPGpDLn7RHu3CCJbtO frIdRePVU8RnT8CVU1oQJek W8qpWwr wvnzqI1zTqd+HHW8rEXwfAO KEH6cSsqgqYM+YBYjVCF3rH gaJZhvAMTqkS2rSARbB7y6P iAwLjA1 WVgcM4IrhsU9SEMziISwXXH woKRYhN9hudluh2puijqpTb SkJAOgCCb1DWi2ICMdlBjtJ iBsZWZ0 AmS7ORF5kCDtqV6zqKwwfpr mcH8rVyb+UicqlEukMVH8JI q1H1XoLwd0UWMqdUgoAR3bd GFkZGlu Wo4djSrwvIxgZN1lHBPjwbq gd182EoEai1efFNShaGBrQM kcOKZ6L14hr0G0DLLtOPFuR VD5uVY9 tE6miQnrwycxyGWumMwjhyI yhAglHZrrWIcdJ448WAGtxE snMrZcAXa9N8DuLxf1CHPlk ZedSR5f aAFhWTvpTa3zeGdzcCgrPO6 pIMXpmrbal068RdTte1qxSC QahQRaUOuvYJC2H20sp1M6A CMwMDAw YAR1nJD9oE2tyNxfxtbbxVD mdDsgdmVydGljYWwtYWxpZ2 39KOOesJxcDuFozTy8Q8UoU dv3WWFf eZglCB2pbAOtTPwnGh5gbYs bpRsbRY4qKEXteboiq497Yh Gsv3esWRYehPUpXOwbCAE3N 26ky3L9 NJQzIZRrYHL5yZA3vN6xhBf nbjogbGVmdDsgdmVydGljYW asXDfoR917ROWynNqjItFnh GllbnQg EXhdXPw9Q5NtAbmwuYU+PC9 0JELhRO50vAKhaQCep6uqoQ g2KnFoAHXgAWA3zFkuQHnjq 3JkZXIt B22ikQMqx1O2AQIdrOnwtYP cBhUreKW9cV2oQCbycfhvh1 fxzewsAdnlv2rcyt52eO29L 29sIHdp ZHRoPSIzMCUiIHZhbGlnbj0 ptI2rEa5+GLTkkDY8nGQ0gL 2iNKTxUhH6UZinS605OdQbt CIvPjxj x7jod5lbkLb4GsW7GMWlgrX erXvbBHH1f6TlHk25K17pRH dpZHRoPSIyMCUiIHZhbGlnb v7bfD3n Ii8+NDWmpPX8cYZ2oH0oAkH aHgM1QNczO276XfKlmZAoAt wwE97vO3NrhEW+UUEuRzc4G CBzdHls QQ7pwENhEPkqXr6wFXD2RoJ mTeObHEfxO6CuRUJprbdxyq qktYT6TYFxXQCgrS81Pz5uq DogMTBw gKKVdD1cfzkdp5bpckevIeS oOOTwZPp8XUh8LOHqcDekEg AeUDX2SuT3XGB5mNZmbJ5fw Glnbjog dD5dQ7DfJMZianovDi74mS6 dPdMfOtR0SMhvIbx+V0hJVF JaRANHWUzLMWPPPOh1I0ZnG dr1MWXr wYpiYM5snDMnCBgtUo5ilHk kcKjqMT3jDWOrxmekCQLopH 8aPHSkbOJhyQgnRC2dHEPof hkxr579 UjUxQCE3TZJkiGZzF8JanG5 nAoDhWJHtBTQxX5QudVYxMX lxN082PFupCoE2RABhipIhR 2FsLWFs qJuoQuA5c6N6Xq7dFG1nTX9 sUUR4IM66AN12cFBfk3W4mV G8O3EnGPTcpjdixlicgNR8F DAuMDUw jF90bWOvZZfvHt6hx7H8c09 5KNRzNODyfR64Xh4mvBioQI BmeXZHuJ7mtlfyx8ftanenN zAwMDAw VQu7YVb0DJJsqMmeYrUvRKL 8ZdA6YYN6eCOqgA0kdMwlya kfaO0wXfa+VsIkXDKatcN3W 1IxAwq6 HCCgtOrvJE8fsMYlCQbdTr6 pgOrfuSerZL3cHFFpjtagZQ GleE1nYEKodEUdbFvgEA6tN TBpbjtm d495LvMvEGU7VGGimPQjA1Z luG7fWwGlGEQlFBBrT5UtlT McBKwxY681OVsoFrG8GNXmh cRoW2Wh HSSdpDnkZpW5o5X1Oe1MHR3 TBYR5D0GnRfc4OIMgxYeaBI 3xmAUiKPgnBl4okGsbhYutO C0tAKCk cbdtQVFzwD4uRJTubTWswIm jYE3tGTUbbkpir560KqXbSX G6WQGplWXkK5XikG8iYhTvQ DAwMDAw F5MxgDYwYZjmI492ZLoiVoB 0QQWhugUqA8YkKAGzqCxhBi T8k0C0Av8XTUeouBR+PC90c m04R9Cz QeaoYjo2DVDoKBN1nMB5vA3 bLOGmXFgdg6R2pQV4V0Unkq Prse2et1qvBNXsBUkjR80wu PNgi0H3 BFCdkDR8LHFhhZanPgJkzF7 3Oyc+IFGsoJygd1AvLjftm1 boh5kcwCg7QuTuASSgeqCcq WduPSJ0 b8KhLn02O96gESdxTVGvXST bXVOzVCRwcWnrjm4ghR9xAv 8+IHPowTJ9qSA5cK3aXgZgK uF2PKag N174JoVemKKgStdzx4nom6a rtQa4DmTzRWThmvBldImkAY S9l4ZuTf16M7LttQbks7KxP vl0co10 cCWmt7M5qID5Y6DdUVQbhnx dsZYnaQksJA9sHADhltkyMJ GciD2gLJEpL7l4JqSsLwD7M YrtQ7Pc lrC9RGQurPMfGTAggNNAcP8 msglkb5ufzipdYyOhSNWwUT s3GBr9JFPniTmfUtZuJWV4Z dE3YEG2 hYMgqU7srEiogozikF1tItl +NEl0h4degIXtBI6uyXG3TF 92RH60jBNfi0M5zAD1J5WeC GRpbmct wdpfiFS9BFSpBBWmrE98Lh1 epUcgAh6oAVWmDZR3OMFppN ZyE3LoiX0yBdQgLTZlVDVxA 3RleHQt RPdlU413RRfwIaI8PGEekcA xK1IkLNGscJqsOdO9q5E7Jy 6ORA91PQ38EE73sTYtp5M2f VS9H5Gl KUUmxctsnrjmhVI1RCEyVOO goT90Ze7jsMyhEg9eZBIkJC S4GPUllRZcG9KxeN4pHvCgR DAwMDAw C2AduYZgPMhyW573ZWupGoB 5YHQozcOkT8OsDOGgeGmdOx Z9z4C8Wy5CKx06OY96SC41l ICno0F2 hIM2W3XjCLEehevqqcqihQB 0LJXrBXAesS69Cs4udFlpRv 1pJQBaMUZ4RSHxgSUzH2Jsi S7cNhTn MFYwORJsA8TdcVWaAAlvG94 3UJtvPdS7SBHsasFpC5MmIF GwhTnlOjX0c0U3Ig9EQQvwp xs3R1Qv PjwvdHI+AG81WQAkBU57zGM sfTLxw1dgxSn8XjBnBEBgDK P0pAsmTPhls0JcUGBdD14qs KYzj0B0 IGN (more content not included)... [facility] Coding Summary HTMLBase 64 OnlidmunRFh6xTb+PGhlYWQ +NX3YOPHpC55hfFBniU4nS4 NMTElOSywgQVBQTElOSyIgb dQzIO3szVFiPAFe IC8+SH2yXEAtFnrxiMUgy7X 7qUD1A48qsh8oGYnbtCG4UY IyLmTursfsb0lgdAd1IWrwM mluOyBt XOZtmI21BVL7bW09Fa39cRJ aiYKdm9zfoSz7NtDlRYYiYB X7cUrbBRhrb8BtPAItW00dk VHnn8G9 EXKwfVnibJWwNrVxgBE9oL7 wQDhyjmchu3kphbduHju8me 98jRHbv0O1nNR4Q9EoljL3Q GJvbGQg HongeHDJhF6vkwadi1xholg nHtRtMKOyXUq6KHb1PJClbY emKgOnPZ52YEI3KTSkuiQoI 2FsLWFs pBdiNrD9z1V8Wi9NU2CURcj yT9GBRZJEYEjchAJ+PC90cj 01G6LpWnprCpp2UGCpGDN3h YS6wG9u PIBiQApkm4F5vMB7Q3PgpyE rzm6qa1smDYXbYPiqG25hsM Aub0Y5AVWgrBM1VCCxjKnnG iBzaG93 Oyc+RYVkiPajb2JqDnkgl5t bm8foeFo4PfgzCIClaoKfbJ ihXVI9z4PlEz7nDWYeuBD6s TH5bV3i CaBkTjE9VNncZ371EdNotFU hKkudV46yD4LhuSK+PHRyPj x5JBYyaVytSJ6pH4WzPAUhw mctbGVm lRhiAV4xNCPluxxkXEElcJ6 zVVRcG2f3KwYvGvN0JBuiB7 SiJRCrlmmkIe27sO2mPwNmZ nM3NRoj X4WpkkQ2TANskLAsBXttXFV 8Z70kc5U5QUGsEJAkCHM2uT O5uH4esVdjsphyzTMwqTolv mVydGlj VNjnCGtwR905CWWjeLhgUkT vZGluZyBEYXRlOiAgMDgvMD IvMjAyMzwvdGQ+TJEuSAZ2a WxlPSAn nGZqDQksXt9jaXeqkZnfBR4 lQDInhxnkJLLjmD8oJBMgiV UrlZnoSV4nRTElinhil557Z iAxMHB0 YZRxdVAlH6PsyI8fJsEaSFV dYWNvZ0KcbVGeNXbuC064KS krIwM3RXYiisCgA7HvFOOeh WduOiB0 q3N1Wn7Gz9LwlnlcW8YpaFW sKcYaCusoXMl6G7WhGjqusE I+WT26DDWlSF46XCk2OOV1x WxlPSdi SGTnF8JyyL6sAeQfQFEqJLC kOyc+PHRhYmxlIHdpZHRoPS rkRONbZnJjtLayCP9uAx4dS GVyLWNv gUlysRYrZwFwx6rtDLXuEXe nRU6miNhsG7AhbNS0JRWqa1 j2Rd77N49yP4WzcSE+PGNvb YS1bKL5 nW4dOkVoWtJ0ACopF681CyL gbPWiOvxjj4frr8qzqVi5Po T6FXQufyWznCctSOQ4v4WcT t65L22v IHdpZHRoPSIxNSUiIHZhbGl vys3ieE8nJq6+ANRqkNZ2yX V4jH5kZgDqYfI5QVtjD874W nRvcCIv Ikozx2inp0oqaKe7ScZhRLS rxlZkmRehWPH2b7OoPs81E3 MnsXndl9LsMen2cw10mCTcv 1I8cVF4 K7ToCATiglcozDXwhVaiVT5 tQYRmpwknRZAhdY8qUGVfQ8 t8SeDvRaH0TCvjM2WamqE5M GJvbGQg VSMmlIAAbH8hkuqgj8wbmts tJkXkUPDcHMc8UNx1WXFfnS vcBnDnQWY0PxF6NSS1dOXjo L9zsCey xyritK4iIrt+DVY9xLPfbLM TED8jIcsygRD+VSKvGRE1qW ahBErxBJVjeH7mUXRxH1z8S iAwLjA1 IMknL5FctiV3WCEbrAOaOAY dkYBZeV7uhlwoi7rsyixpYl BoOJVfMAe1KWd5VIHmeJfdF iBsZWZ0 GzG2OOP5pYVagR4hcSpkmqc dcW1nRkk+XdmkmKsrXGE7OE m0I8DlFac0URKwaFbsAK2hh GFkZGlu Ze6uaZukwQuoTJ6fEUHjwwo zy251WsDeh9vyERSibKDoML uvBOD0U53fk7A7WNUtZPTmE QZ8hCD9 oA1vkEienotsyYJbsRzlkbT gvYqnOOyeNPpgQ302RNTepE zwAbGiGZc5J2BtEpe6IMNqb OwvMA8n qSMuVLriAb7pxRlhgEumSJ2 qYAIfklnns571RsLbq6lzQW TspBMqMAlaXLB6Z54ti7Y9K CMwMDAw QRF5tZM6cK3ejHudqpcmiVY mdDsgdmVydGljYWwtYWxpZ2 03ALEvyGeqQsVvfGz2I2UeQ lb3MBLl rRvtJF4nqMKwKUuhFo9phCp rpMouSI8sWKKwkihva417Xv Hrm6qrXEArcNFsFJikGJD5W 00hc0G8 BLRqMBGiAHK4eLP1oJ5rmZq nbjogbGVmdDsgdmVydGljYW ghTOzyU558XYPizCxkUsQay GllbnQg LTytQUi4S6TfTjuwcZZ+PC9 0JRDbZK66sWVxeLTdm0zrpF j3MdZbQDBvVEV6hZlhSDpra 3JkZXIt O31glWRnb8R7WTHmsGewdWX qLnPqbZN2vT5jEMmopwikx3 ohiodhGsxfg3xbsd00xQ69W 29sIHdp ZHRoPSIzMCUiIHZhbGlnbj0 jmI0oWq3+WJRteGB4uMK6cY 0fVKJuKxO1ATwsR384DqIlf CIvPjxj e5hwt6jeePn8DxF0TTPjufN hnIwqFFG8x7FlTt88R55hHC dpZHRoPSIyMCUiIHZhbGlnb d9rzG7l Ii8+PDKcxNL7qXT6eY9bQnD uYsZ3CRcrH174LrXxqNQuTv edB12yQ6XktEV+KWHzZjh2P CBzdHls QN7gkMZySYugLv0cRCA1OhN iHwXdZUiwQ9HePAVuwxgfxs fbtWD0YINrRXDqkF30Wh8vg DogMTBw jAFJsO9czildr2csnbyvSaN vZUNvQWu6LOx1TXNcpLwqOf VxPCK6EoX8NGR9hDTjyU5tg Glnbjog tD1hD4LzDXMfcempSm00pM9 iDoXlSxQ3NVesLpl+V0hJVF CkFSLDSXdOQKYCZYk8O1MeJ lg1VIRi iAgzSO8hmJUcGBumRo9fkRw ydIqaCE2vMVOwclrfVZJslJ 0vNJUbfNSlgZbyDY9lGVXxy ytaa321 DpJeAEN5YNEoyAQjW4IbqM8 fKkGjSLBsTBPqG5MylNTtQH hqA377RTllWnA6WIVtppJtR 2FsLWFs lPqmAcH5s7F4Ds0gSA3cYF8 vIGS3QT86KW37pTYga1M9bC B1D3ChWVGpyovahumsrVA7X DAuMDUw iL83rMJyLVqtLq7kp8R6o02 8LJViCRPcaK56Cv6uaVdrVP JrnBOMcV2xfuici5qukargZ zAwMDAw EQq9AGn4MIOgnOacVkQyMZB 1RtR2ECE0dYUlmQ0qpMvisr qxqB1nXvi+ZwTuNUMzzwP4A 9CbWkt8 BFDdjLlxBT4utIDeDOgzQm7 exDvggSxeWM9wCBLmcmofEF SarE1hGRRgjMBmzNjiST5cN TBpbjtm c053YpXyBGU4XBTzsOIkZ3I vmL4nJjNdHILyHDBmK2UjeO DrJWcaY788EBtrTzJ9MNGqz oLwC7Al WEVskMvaNiV6h3B8Sv6XYK1 RAWT2B5JkDnv2VNUylGqeHO 9mhVAiOPzfUm0mrEichOdeK Q3kTUOw vxisDAKmmQ0hEIXfoNRskZs sMG4uDFBpltomo225LoRlUN W4KUPwtLBcX0ZyhS5wIgWtM DAwMDAw Z5CcpRYxPWjhO810IDdhKrT 6DIPvpcPvZ4YsRGMxyDblFk U4f3G5Dr7DHNapE7QcJ2Qws TwvdGQ+ EP77ql33L3PxOhlpVfu2DGN bQVS5oFY3iL7cPGSyEBvol5 H0kRF1R3YsxjJcnd6ws0cmD XBzZTog H00ypSBlj1C1VBTbpJB0VZG bdOzqVmIggT83Xoq+PGNvbG rnf1XsRbpct7vkt7qjtJi3G jMwJSIg szBlhQttPWF2j0OmVm69M86 sIHdpZHRoPSIzMCUiIHZhbG agyy1owD1kGf8+DQVwgAM0d AN7dM7f HxDpMnD9LGfbD152KvFjzJF aFxcfa9kmb3krqFz4WrUxXI LjwvLpjYdvZTC0c9UqJn02C 2NvbGdy d4GyXgb9zc72gXVib7O1zEB 0V4OgXUTxevbseDJknKofQV 1rMUNfuczmTAGmxC9qBMOmJ 1k4PpGe WqO0OPahL9BnvrG1ZPNrgVV xLVLhcASPtH7treybu9nbec pwXaAxMVRnHPq1NQc2UVOdp WduOiBs BFE4ZbP0EHQ5nCVxsR3igAs pasrexL0wGjq+FFa2m3zplO DgQN0vdXR4GH31QP74cHSmz 0H6zOW3 T6RsMZSxkxecwwdkvTX5EUO pTSJauF64Cb8cuLarBn5oOE AsAIN4PCUvtMAqX9WrfN6rN iAjMDAw MLKqE7JlcRXjVKqqZ591YKl wEqJ7SFPxzbDmJ3TdMSAwaT fyMvM0t5R1Rq0OSO45FC05P U18oGUo k8D3zFK7Z6UwJBGbmscjnlw liLY6VSEuFROdoQ44Oj2wmO nuFd2xEORrIGA1WHVwfRAqK 6NtqR5e YxYoELYnQOIsQ9BqmIHmUDw mG043TCytWeK2HHOvhxDgU0 GjIEEupQwbPpK8q6A5Zh6TN f14KO32 OP58eMFyw2M0tKO2V0MkHUN eozpsomxxjPE4MXHpPHAxyB 00Ou6vbNmwBh2iSPKoVXJ1Y FRpbWVz C5RejE5kBxQtZXVzQZRgI5V gnVGzSKdyM031DWavBqX0PV YphhXgA6LcYYNytWciNfT0m 7L7Xa3K WKrfhsb6Z4ZhGgqeqJZ+PC9 0MRXuLE06fOSnxSIpg6vscM p5WnMcSPIaCMQ6qPtvLUvpa 3JkZXIt Y29 (more content not included)... [facility] Consent Formson 10-31-2022 Consent Forms [id number] IFF [facility] Coding Summaryon 10-28-2022 Coding Summary HTMLBase 64 MtsmynwiTNg3cYk+PGhlYWQ +SR1HXAYbQ63quXUypO0uF7 NMTElOSywgQVBQTElOSyIgb kJmNC8kjSYcJTVo IC8+NC9iJUWbGxsxwMSvo2N 8dFS1L07voo4mLBomvYF7RZ ElFjVwwtkfe0cwoYz8GXfgA mluOyBt QAJgeC48KHJ6uK65Bz61cLX wzZUgr5tujAy4VuXmWIJtNO G6fUpkOUfbc1CnUNBmM34zy KUrd1Q3 HVIcdPavcTWaDoXhmNQ5zQ6 oLIqrxlktw4yigpkwEuy6ox 97fHDzk5C9gOS5G2YkskA1W GJvbGQg AoyamZRNyO0fsveco2tfbdc nZlTjAKDuPTm3MIc4UGOdwU esNtHtMB00PMY4WWRpjvMrD 2FsLWFs iRooPjS2f2D2Nh5UP6DNMsn vN1BDRTFPWOawxFX+PC90cj 43P1UeXgtcOpx2HGTiNQJ2r GB4iY5i REZzGHafn2M8mHC8P5MgxiL lsf8wp6hmJQQkOFgtK43tnL Lud9B1OIOffWN8BNYjvNxdD iBzaG93 Oyc+YNVzaLncu4XuRsdsc3o xc5aqcQd6WsrzESPfxwKhjT nzOUZ2k3LcNm7lBBPueFD3e FU2kS0v QsIcEhB5FRxeH786QgShwRH cCpzhW30iB2SaoEX+PHRyPj h4NBXgyArpLM2qT1JdZYJpk mctbGVm oWmlUO3tEGSuisfhMTXcjO1 cITXnV6b4OhPfOhQ9OMxhQ8 TrYUGxbhmaLp45lA0iOoSzK iX9SYtf Q9WbmdM8PRDzkVOiIZcpTHG 2A42nb6I0SUIvVJVwSLA8yG P0qG6yfNujxpaegQYfnXkpi mVydGlj XVfsEFwyV545NPZnjTlkImK vZGluZyBEYXRlOiAgMDcvMj gvMjAyMzwvdGQ+MCFgJVM1u WxlPSAn bMTxJOohCi8scBapeItdOE8 xHPPjsgciIMQedF9fOOFbvN NmkGelHT5hRWNuzryuw286F iAxMHB0 FVZrqCLoN3JwqM0mMbFsMRF qIPWgO0FbrGFkZDagM315PE zgArW8UZEttoFvM7CtDLZuk WduOiB0 d3E6Vw6Jf4FrnepbM8WzyDE mDpXcIakkBCn1Q0GaVzofdK I+YD74WAGqSK52LHv6TCG9o WxlPSdi HCKiO7PpsN5nHeHlXJIjBKS kOyc+PHRhYmxlIHdpZHRoPS fvLNRnFjZmiEfyLP0aGa1tP GVyLWNv gOrmeAGfMrUtw8puTTXhNVp zWX8ifXygN8EhdGU6SJQcy8 p8Wa19T58gP9DshEF+PGNvb WO2gPG2 qW1tXnKbPmC2ETcqO517WnD vlIGzGjmeh1bxk7ztxYz1Vp D3ZJVltcPihHbtMTG8r6VvH g18O92x IHdpZHRoPSIxNSUiIHZhbGl brt8bdH2oOk3+BGMnuYA0wS U9jP9uJmQuGbH4XFreL691O nRvcCIv Fdqdg7eie3triDb9ZbSfIAV gcoUlrXeyEGA2f9SgDb36R4 OcuAccb0BfTfw7oq78oQLfd 7O8aFY4 Z5SmLMDloxjoaNWotYlsLA1 iGTWxuzgqGCIifR4dPXSwR6 y1DzXoXqE8HVvuF1TqtrW0L GJvbGQg LJPxpVUWzK0yppsgl4vxgzc aHsEbJHEuSAo1GKr2RENyzB kaNgGpFSJ8DkL5ZUH0cHSux R6wdPut wrkexJ4tPwe+CTR8nPPfuRS SNV7bBqhoaEV+LBZsQEL4jP qpKWzdXQKshN4wDZGdT3b4K iAwLjA1 JYaoS4ShrlK3NSAdnPLoSYL maNGVnA8rzwhky7bdimtrYh HpSYTcZGy8XYt5YQQkyDtrR iBsZWZ0 ZlR6DPV5eKCalY4tfWwpnnr vnP6gJhb+BlhbdXcjXFU6DA i4Z5LxSgs4GCZijRejYK1fx GFkZGlu Xi8dsRifwGdgGY3yPKJzytr gm679ZjTim7wsBKLbjSMhXP zsZXQ1Y10nn1O9SPNuEDRrT AT8xRA4 lG8knMsbtnbukKXluJdokdZ imRcnNDlqVTzlF107YXJcsP atOsOiWIi4T5ChNuk4IUNzl SvrUM5l gOZuUSmaJj9csJtorWjfXR7 vUYLdkfsuv493EqWss7yjQY IipFVjZLhxVKW9S19xk3Q6K CMwMDAw MLE8rEQ6aZ2nzBizsuthhYQ mdDsgdmVydGljYWwtYWxpZ2 48XKQtfZokAtZwcWd8P8CeV zj5ELFh hUaoED6ouSAiITpjTp3rhBm wqTkjGU2vGRMypvmec082Em Xpj3ngEBVncTSuVEhhASU6Q 77tu4C9 VMJcVJRoSTY0uYW5lQ3wqHw nbjogbGVmdDsgdmVydGljYW xsMSfyR372VJDzrEdhEpMmn GllbnQg RUrmLVl0V1FnJocbqMN+PC9 3SNYoFW92vMBuuQQwm8dykX r9LeEaXKXiWZN7iIydRHvkl 3JkZXIt R97dxWTqa1M3MORycUlvfDU tSgEboEH8mR4dCPpwhwwhd9 oqcjgkSpnez2iwnl22jY44S 29sIHdp ZHRoPSIzMCUiIHZhbGlnbj0 pvD4yKb1+VMPkcYY7xLN5uK 7hMVZqRfZ7MBxgT586VeFtg CIvPjxj c9dpo6lbbRx1LqR8IPCfcuA vsQrvCUL0l5XmJw23C11xMJ dpZHRoPSIyMCUiIHZhbGlnb d5euC3e Ii8+DXIlyUS1yYV6iT3tPtL oPrM7TXowO380ChGrhQGbDp vcH90hX2KysCN+UZYgVaq0F CBzdHls WH0rlTTbOOpuPf1hZQQ0AzV uEjJvPPmcZ4GyTNOgkgifsi bsrPY5HICxSBMjdX87Ws0vm DogMTBw tUJRhU1pebcvu0thsyosKlM yRRXuJYm0VEf7FXMejIozVf StFTH4SzI9RUT0pEIdeV7pt Glnbjog rY0sX0OoMVJrmbgqRh01lL1 nMhTkVaY8AEpmImh+V0hJVF RxHLOGUDdEAPXPIUy4H7QxY ws2DQGx pHxhOH1uuFLzFCauLf5vzQs geRioNM8qUTMgtbomQVCrlH 1zVTZftRYotXxxEE6qDCRfo agxg470 VyDrDIL4OXLhbIIjE0IvrS3 lMjYgTUDiBNDnW5OllSIvDV htN379CAhcIiU7BWXokaMlP 2FsLWFs kUwxYrX0x2E6Cq3jUD5cPO5 bMDD3FL00DZ51fNLtf4Y8tF U7K0RoUYYfdepwprddlTA2A DAuMDUw eG50mPBqGBghFs1yc9V8y32 9PWIhLPUqbX92Mu9tnUrwMO PdrDCCqO1oiwcbq1fzrbhkV zAwMDAw MZz3YOk1TXDkoBjpZsPeWCM 9AzE2JDA4bUOjjZ9dgJtqiu qqnA1rYju+CuVsQCXmlbE9P 5KzYxd6 MDGbpWghEJ6jlBAaGVzuTn3 qlNkfhSlfVR4bAEEkqsuaPD JfwC8kTMSfmYFkpLhjPX8wT TBpbjtm h270CaViQYP7MHYshSEtS3K xjF7mDxSlACPdRFSjN9VvbL PlXJraR330ZYtlZjI4TCXhy gQgS3Sr FICivMftRqN2j3G7Ky5ESJ8 SDYB8C3PrGxh6QUHzfHloGQ 5orENxIGrsOq7isUyriUzkU V2jRBZu gyuqKIFnkZ5oFWQqdLRjqUt tYK9gXAIpsuwgg817SdXbVG X9CFIjjRNhL4CbnG0yGdNoX DAwMDAw K1VrdXHoQLtqD606MFwtSrM 5NBXyqmIeA8FxZLJldUpgRq Z5b3V6Tr8ETZymeQK+PC90c i57Z9Wt XrhyMiu4AVEyCLC3vVN4pS7 yXVCiQFznq5P5qAL2I1Akzy Qall3vu4mbYATkURlkV47yd WXsi4G6 DBBjtFE5XRTaxTilQdZsaF8 3Oyc+PKQayXczx8BdDppud5 zvz3uwjQx1EfFbYSXbbfFbj WduPSJ0 r1EwHs78H48pPJigASTjODX kRYDxRDCrhDfapy7ytA0tEu 8+EIVfmLC3aYJ5uD4tHjKyY oG6SGod F839DcPbeLMzHsjji7njg6n izCc5BdSaGRKugrSroFxnWD B8t6CsDh67M2XlmAonq4WwL el6bk09 pVOfl3M9iTI3O6ZgOXCykbk vsQYlgVfmSY4uUCHyqhykLK UchN9yERCaE7h1WrFjVzZ0L ZzkI0Aw rdT7BPFcgNZuMSThhUAUfH7 bznkiv1votqiaObWfGLMgUA a9HDs9QWAvbNesDhXrNLL7S eK5TAD5 wVIdsE5bvNcurgssgZ0mWfo +GPe3z1beeJBfML6tqBC5FR 75WH39iRAsp4D7lAE9I2PmT GRpbmct hmtvySY3XDYfPOQrhX37Yr4 ioTzuGl0mDAYxYXJ2MUUfgB XbS2UgiJ7dKgYeETIiZRUjP 3RleHQt VZuqM882ILsrPdB5XYWgeeZ iB7PaNGIhfDnwPnZ4e0G2Ua 8POB28MW57EH02eSYmu7F0g JL4V9Mb YMHreeqjzpacyEZ4TPLzDOI txS50Ml9cwGfeWs7eDWPhVS A3FBOtsGJsV1EhqY0eXnFdY DAwMDAw Y8WcxDIjPUkeI163VUnaJoW 3VNKtxcUkV2SnCCAynAhaMv P6r1C5Jz5HTq76UV43AF18h AIuq4N1 cWA7T4RgHKPtuwkyhomlhBR 0EFXcREZbfK04Wg2drZyiAb 2pABCsEGT5JVTmjIUeY1Ydn G2bArLt QYOlJKGeW8TwaUEfGDygH90 8VEdfWfM5JUWcvkMrV5ZcZD NbqKflRuP7c1D9Fa4LOCvbc gd0L4Ma PjwvdHI+MZ43DQUgYJ09bRI gbBRjb2kvxJu3HbMoHWPkOK O5oShaNGwco4FqYAYxJ11ts JVoq3G6 IGN (more content not included)... Normal [facility] Inpatient Patient Summaryon 10-28-2022 [place] [address] Patient Discharge Instructions Name: ALVARADO BRITT : 1945 Patient Address: [address] [place] [address] Primary Care Provider: Name: Ansley Houser NP After you are discharged if you find you have any questions, please, call [phone] ext [phone] to speak to a nurse. Discharge Diagnosis: Prescription Information: If you have been given a prescription for narcotics, seek immediate medical attention if you have any difficulty breathing or any sudden status changes such as confusion and sleepiness. If you or anyone you know is experiencing suicidal thoughts, mental health, alcohol and/or drug addiction problems; contact the [facility] 24/10 Crisis Hotline -Text 4HOPE to 450508. If you received any narcotics, sedation, or [...] business decisions or sign any legal documents [facility] would like to thank you for allowing [...] Activity Restrictions: (more content not included)... [facility] Intraoperative Record MAGR Intra-Op Record Summary Primary Physician: VEE STEELE MD Finalized Date/Time: 10/28/22 08:19:15 Pt. Name: ALVARADO BRITT /Sex: 1945 FEMALE Med Rec #: [id number] Physician: VEE STEELE MD Financial #: [id number] Pt. Type: D Room/Bed: / Admit/Disch: 10/28/22 [...] Monica MA Role Performed Surgeon - Primary Automobile Repair Service Estimator Automobile Repair Service Estimator Time In 10/28/22 08:12:00 10/28/22 08:12:00 10/28/22 [...] CST, Mikaela Mccann CST, CST Role Performed Automobile Repair Service Estimator Scrub Personnel Scrub Personnel Time In 10/28/22 08:12:00 10/28/22 08:12:00 10/28/22 08:12:00 Time Out 10/28/22 08:20:00 10/28/22 08:20:00 10/28/22 08:20:00 Procedure Selective Nerve Root Selective Nerve Root Selective Nerve Root Block(Right) Block(Right) Block(Right) Last Modified By: Regina Shaw RN, Debra RN Myers, Debra RN 10/28/22 08:18:46 10/28/22 08:18:46 10/28/22 08:18:46 Entry 7 Case Attendee Jayant Butts RT (R) ARRT Role Performed Gear Generator Set Up Operator Time In 10/28/22 08:12:00 Time Out 10/28/22 [...] Syntegrity Prep Agents (Im.270) Povidone-Iodine Prep By Keny QUARRY SUPERVISOR OPEN PITEllyn CST CSFA Prep Area (Im.270) Back Prep Area Details B (more content not included)... Normal [facility] MAGR Preoperative Recordon 0 10-28-2022 MAGR Preoperative Record MAGR Pre-Op Record Summary Primary Physician: VEE STEELE MD Finalized Date/Time: 10/28/22 08:28:50 Pt. Name: ALVARADO BRITT/Sex: 1945 FEMALE Med Rec #: [id number] Physician: VEE STEELE MD Financial #: [id number] Pt. Type: D Room/Bed: / Admit/Disch: 10/28/22 [...] Signed By: Keysha House RN 10/28/22 08:28 [facility] Patient Handouton 10-28-2022 Patient Handout [facility] Mammo Screening 3D Bilate ral.on 10-27-2022 [place] Mammo Screening 3D Bilateral. CLINICAL HISTORY: Screening. [...] IS VERY IMPORTANT TO YOUR HEALTH. CURRENT [employer] GUIDELINES RECOMMENDS ANNUAL MAMMOGRAPHY BEGINNING AT AGE 42. THIS FACILITY USUALLY USES A REMINDER SYSTEM TO ENSURE ALL POSITIONS RECEIVED REMINDER NOTIFICATIONS AT THE TIME BASED ON THE RECOMMENDATIONS OF THIS EXAM. Final Signed (Electronic Signature): Smith Paredes MD 10/28/22 2:00 pm Technologist: TRACI Assessment: 1-Negative Recommendation: Normal interval follow-up [facility] Outside Recordson 10-26-2022 Outside Records [id number] IFF [facility] Release of Informationon Release of Information [id number]#1.00OTGT IFF [facility] Consent Formson 10-24-2022 Consent Forms [id number]#1.00OT [facility] Progress Note - Provideron 0 10-24-2022 Progress Note - Provider [id number]#1.00OT [facility] Provider Orderson 10-24-2022 Provider Orders [id number]#[facility] Release of Information [id number]#1.00OT [facility] BMP Standardon 10-21-2022 eGFR AA 59 mL/min/1.73m2 Invalid Interpretation Code [facility] Comment on above: Performed By: #### 1 [id number] #### [facility] (DEFAULT) [address] [place] [address] 35198 eGFR Non AA 48 mL/min/1.73m2 Invalid Interpretation Code [facility] Comment on above: Performed By: #### 1 [id number] #### [facility] (DEFAULT) [address] [place] [address] 25509 Anion gap [Moles/Vol] 11.6 mmol/L Normal 5.0-19.0 [facility] Comment on above: Performed By: #### 1 [id number] #### [facility] (DEFAULT) [address] [place] [address] 54939 Calcium [Mass/Vol] 8.8 mg/dL Low 8.9-10.3 [facility] Comment on above: Performed By: #### 1 [id number] #### [facility] (DEFAULT) [address] [place] [address] 23560 Chloride [Moles/Vol] 107 mmol/L Normal 101-111 [facility] Comment on above: Performed By: #### 1 [id number] #### [facility] (DEFAULT) [address] [place] [address] 84224 CO2 [Moles/Vol] 26 mmol/L Normal 21-32 [facility] Comment on above: Performed By: #### 1 [id number] #### [facility] (DEFAULT) [address] [place] [address] 31042 Creatinine [Mass/Vol] 1.10 mg/dL Normal 0.60-1.30 [facility] Comment on above: Performed By: #### 1 [id number] #### [facility] (DEFAULT) [address] [place] [address] 03594 Glucose [Mass/Vol] 91.0 mg/dL Normal 74.0-118.0 [facility] Comment on above: Performed By: #### 1 [id number] #### [facility] (DEFAULT) [address] [place] [address] 21684 Osmolality 280 mOsm/L Invalid Interpretation Code [facility] Comment on above: Performed By: #### 1 [id number] #### [facility] (DEFAULT) [address] [place] [address] 94080 Potassium [Moles/Vol] 4.6 mmol/L Normal 3.6-5.1 [facility] Comment on above: Performed By: #### 1 [id number] #### [facility] (DEFAULT) [address] [place] [address] 94055 Sodium [Moles/Vol] 140.0 mmol/L Normal 136.0-144.0 [facility] Comment on above: Performed By: #### 1 [id number] #### [facility] (DEFAULT) [address] [place] [address] 96790 Urea nitrogen [Mass/Vol] 17 mg/dL Normal 8-26 [facility] Comment on above: Performed By: #### 1 [id number] #### [facility] (DEFAULT) [address] [place] [address] 61662 Urea nitrogen/Creatinin e [Mass ratio] 15.4 mg/mg Normal 4.6-16.2 [facility] Comment on above: Performed By: #### 1 [id number] #### [facility] (DEFAULT) [address] [place] [address] 49883 Provider Orderson 10-21-2022 Provider Orders [id number]00[address] [facility] Provider Orderson 10-03-2022 Provider Orders [id number] [facility] US renal BIon 08-17-2022 US renal BI [facility] [place] [address] Ultrasound Report Signed Patient: Alvarado Britt MR#: [id number] 8 : 1945 Acct:[id number] Age/Sex: 77 / F ADM Date: 08/17/22 Loc: Room: Type: [facility] Attending Dr: Ansley LEI Ordering Provider: QUIQUE [...] Bass Jr., D.ONathan08/17/2022 4:02 PM Dictation Location: [place] [address] Tech: Dorinda Lua Transcribed By: [facility] 08/17/22 1602 Dictated By: Julius Bass Jr, DO 08/17/22 1602 Signed By: 08/17/22 1602 [facility] Coding Summaryon 08-09-2022 Coding Summary HTMLBase 64 DtnciqijVRl7dKw+PGhlYWQ +NK1CNOLrV58xlLLoiG5DN1 ySHY0VPOKWVZRFSW9FNC9do QH5MPomE7PyprXg NfeyjWYnBE28IZw5AXI8wCa rKLbdwU4ueOYbC8a3KaXiSR 56iT97DBsnSTDzRzQ4HxTig jsgbWFy L7vvZfJtmDSkPcg+PHRhYmx lIHdpZHRoPScxMDAlJyBzdH nfIX3aCu7dGMTeOKKdiZdwz HNlOiBj g0ruXURpEQbjMJ1gsFhdU2C rsEB7SKUgw5u5It85eOK+PH DcDRW3nQgeJGfww536TqWef 6utRNA3 tWDeLZbtNYH7I46pc7J3FSZ bDYIuKSL0yCZ1hM9fsQwewj etE8KwpTKwBxN7BZP0wMJmz G5qrMhd krcvwI4tKsb+F72PPE5GDPR CAU1MPem7M1PcFysotKJ+PC 38ARSnGD13mTNkzBHxy9ctw Bl6VpRd GFMbDUD7xEzyGKbzd3SsQUY vJ31rgEWlt3Q6VOBxaGjtnM LzIfMzjKD0mN4nPIafafusc 2hvdzsn Ivuqy5nvjc88vV13B26nZTn tRKRjQJU1YVKiTTSojTogev 6zhP3eFo9+GZowe5wkw5awx Yk6EhCg LITlmdPigIhmMOF3p7AoTu3 8X7WhnXcoy7OcCou1gc63rJ Wtz9W0vAU2CGaiYDAyuQ8aS WxlZnQ6 FEUmAvRezL26fQMdKNovVd2 cuPgnaZpyIB5hROIiochhJC UjxW7aPYNpsVSlnOpfLA2sR TBpbjtm x692CwHyYAO4CSXyzHEaD6J pkV9nKlDxSWMdAURsL1YzcF FaIWmnU443NEygMhD1JNSbl yMwN4Iz JMGzkLimZvK0u5U7Mw3Qn9O yuzbtIGG0XXvcQKA5DqC8Ur YgPfG7E0NhFtz6WPApsBshX W4pS3Dk HCDugwjvxrktrQN6RKJzHAN dpZ24xMWlFCeeYb9fc6U3j8 69ZGUrTHQjlA06Gj2toNkvB TBwdCBU uI5gfufqu2eneaqyAtCsESY rXKe7CRf9HGIgfPhiJsKpRW R7AtR1KNU5vKIciZ6jxImbg gsfsN0y Oyc+O62veA1lHMI0CKK4cxm sMOHplaWdME91YG59M4QtCp wvdGFibGU+PGRpdiBzdHlsZ S3eEsTd e9bwf1WmZYqsK6UqFTQySVz cPbq6PVUaCQU1pST3nC1jOC ZdEDenk5C3gCO4O1VfvpHkw w4xb2pd NUVxYErnN68wvVYrq1A4OCP rtRK5OQAfmPadHeVsrH11Vf c+BBBaaKdsu3CgIbrcn6qbm 8ximCa2 WvXgORRoziOemWbvZOC3o3G uHc74Y09wLTpvCCLxMIUbHA CkMTVvxErgnh5bxG9fUm5+P GNvbCB3 aIX5fY1lVOVwNjH6WOlxX45 2TnHftNGsFecuf6kli9kxbJ j5AyKfEORwyxPacVrbUIT4p 4XuYs61 F74sBPknISMfHWXfXYRiAGH stHjahe6myM2dXx1+PC9jb2 qpkk03eY04iQZ+GGFvDUD5h WxlPSdw LJJfwK0oZMwaYrR7IDUwWpN khD91hRTnERllQo0iuCnegK vpCZ1gRYOeuylde032PxNtu 2xkIDEw xDXcZAzvZIP6T92cw5H2MGR wIQYdMND6dYQ8rC6hnGqded ogbGVmdDsgdmVydGljYWwtY XkvU339 IHRvcDsnPlBhdGllbnQgTmF eABn5H0CnXtq3CTWdtRoeBB 1kgUUqASbmOx5daAkahOswD D8jXPLy kykdj920JwHtu0ytTEAtfWU aXNagAKZ4O72sv1M2UWGkRP NcWUM8uKG1jS8mqUgrrwitn GVmdDsg eoLkrJuzSNnoVXdvA323PRK anYxcRlFlavBdOVMhyLP7NB 30CO76yFIds0K2uOV8N9FsP GRpbmct fxjhnYM2YQHdOSWnyP36Vv2 vvFtbFv2sBDCeIGE1KOZcmT ApY7FxtM1dLgWuSKOaVUTwN 3RleHQt TMfgQ763TFcfLdE6AKDoqiM hZ1UyZUBqpAcoJbI6d8O3Ni 2HX3Z2TW91PZ40wRNle6T9z AM1H4Nb QUTrchfqscreqEB1YOHlMEV osB35Dj8xgPcjIj9yAUPdIR Y9GJIfmFGsI1CxpD9eRsRqP DAwMDAw Q9PcrGVzOOceK171NAqfUtJ 1MEMatmKeO1YqYVQlqGgnPk J9c3G9Jf0OUWs3HM11QS83m DTsi4N3 eHY2A2MzOMQodklzgyyeyLY 1DYSuCMPipM39Ot8wsLpiUw 9jXDYfKNI5KJRlxFSdH1Tju G5tKeVw JHQvOECgB8ZpdSSnWYvsT60 8TSvgUtW4TFOwtqNiD3UgDC ByjFixJfN5d1X4Ek5DKUCkD V26NRS5 mCC7IW07CX69H5NhEwbrnYL ibGU+PHRhYmxlIHdpZHRoPS yrTADmTxMzxNhpEY0eGf3kH GVyLWNv xByfpMCqJtKvz7ilONZaHTe qYY7bgTkkW7PgcKP0ZNAdr8 a5Af99P72cP5LdwNW+PGNvb BX7lOW3 uZ4qTzEgMiK0DJgyL287OpY wtJGpDulls3wza0ilvNq0Ac F2NOQgkpZigLrnGHP5i7JvA i39D74t IHdpZHRoPSIxNSUiIHZhbGl gmu4ozP8xTc6+CARzwIT9pT W8eL4xBkPwGkR4KOyqF016V nRvcCIv Uokhq2gin5xznTa3CyYlVPJ ecgLshKsyAAN8u4UtTe14U7 YgsQqxk9KzFgm4pa23jLPsj 4T9kFL4 B4AjEIIwwywobKDflTapZO8 dKWAfixfqJKBqgL2fCAXoJ4 n5KuUwRfM1IEwcO8DyrlQ5G DEwcHQg OEtbEMW8C01jo9D7SDWcVWS uTAL1gJE3tS7zmDffvxmqjE VmdDsgdmVydGljYWwtYWxpZ 246IHRv vFvjMPTqzU8pJVVteOBulMc jVZ8cUGDteufqRrbIAZFVFM JQWJFUOJQIXTIAIQ16YQ86k HTbp8B4 sFH5L6UyIUKhcrcxlshidIM 6KIYsQTCqyP14gUXxPMmqNe 4od3W6j306WLRpSMHbrK20C s0jeQbb CGTgyCBXvR5twflsy0drgha nPoFpWKNfHHx9LEw3RUZwaC nsFtSxJRD3YrM9AJZ8fJCfi P7bsWlf wtpylK3gRpv+MTEvMjgvMTk 0NzwvdGQ+QZNyQLX2xBzmYK tgCRTjgA5lLXCaN0z3BjQvB wD8ZOtx E8JdRKPdlyioAr59fB2uOeK mJyZ7VOivS9BpxwP5RMBfsL NxMByeAFR0M10dt9D3CEZzW DAwMDA7 vTG2iW4toEfmtyygwRZuwCx tfgHtrVstJMtwGWwkA787FU HxdLsjRmt7FSsxVTUoBN89R J55aUJa c5O8cJP6U9CwQDGyhhenutk mkXQ3UEKmYCRnuE13aBMtBR aaDz3kq3Q8b673ZSHpBUCgp E35Wx6o mJkdWUWduARPyC3nnuiav5h qugdqGxKeSGRqBYt2YYd5NV FprFgjToRyKHZ9XmU3EVU2m CXxaJ9q lBfbmtmdaU8bFxn+RkVNQUx NTV33KF55bTHlo4M7oXQ2Z6 WuICEmhrlutqjmcRD7CMHqZ DUwaW47 eNKsOPyzOc7ye1D3x136CJX tDSKjqX68Qi4mqQktXOLxjB HPcC1nvcqhr8munsqaDgNdM DAwMDt0 GZx1VBJncIwcPoDmODM9QlJ 9BNE7gMIdgC3wvDogqvjywL 9wOyc+VA1opplxgpX6HG54F Z75J4Ad PjwvdGFibGU+PHRhYmxlIHd pZHRoPScxMDAlJyBzdHlsZT 8sAg0fNJEvLUEaeTsuaMDoM gNaj0ps KQHmVLmdBZ0wePqaL0GuaVI 4ZKKgf8a3Am34B17bF1ZvxP A+GPYbwWB5vUM2lY3aSlAxQ bF8PHwv J721PxFukKBrOjeow6jhf3j jtKg2XhUtCRQgnbRaaGiyCM F7n4UfTp16C15qGDxwZCJfB SIyMCUi XTOasTquay0nqQ9fBb5+PGN jbHR6hLY9uY4yKfMvRuR5FM lsX128MjZtkXVuNuvzC17yA 3JvdXA+ NYSvHuw4OKFksKsvKI7xjAU eBChsFz6sDDX7CmJaTnTuCO tqI0YnVEQgncdclvgpsFN4E DAuMDUw eE88Vf8hoZuzMm1uQKXpJOQ 6QTYagWPvC7TwtT0hWlHwWE TpUFXbD4IimNYxGBpdB610C GxlZnQ7 CREvajFvP6VvVWAfnFjfPhR 2j1J4Yh0YgNnkcQZnJM0fMb PaLVs7A8DjZly7BQBuqJimH T5scZFf ZJzcRq6mcPfinGvxAW4aWBS vxviku902YnQnr3dpXPNgwE QnKSxzKUO9N73zu7G4OVOiF DAwMDA7 eWN7wW9qqDvzpcontXHpaSb byfIrmEqoFFowVLxjT241OQ MsgKbqTgWPVtr9N4HkKma3A CBzdHls YU1tvXHlTMqaPy8nzWlifSv hXM1iYJTmherqn850EpCrd5 sgXEOfoPIxNTztTEU3E93op 5M6ZMYm GHPsSAT9lNI9rI9rzAbeids gbGVmdDsgdmVydGljYWwtYW rcR593DOOypNvcMw4XXeg6B 7WdJiw4 BJLvvXalUU5vgBCzVRkbJl1 hiSuncVroKN4rDDHhxahir1 64FcKrl9nbIZAgpKOhRThbG AJ2S85q b2H8KNWdUZMcODJ0lXG5wE6 hbGlnbjogbGVmdDsgdmVydG fjHAhhORblH543PYJcjXwoQ lBheWVy OjwvdGQ+DC25jk87Q3CgZac zPgn1DXDiWLJ0eWN7gE8iCR YbXZvju4R6lLU8G8LvqqOdf p5qq1gh YXB (more content not included)... [facility] .Auto Diff 108-03-2022 Auto Cameron % 6 % Normal 1-12 [facility] Comment on above: Performed By: #### 7 987243, 47280409, 5123904875, 8564106872, 8621893911, 9025898, 9027758878 ####[facility] (DEFAULT)[address] [place] [address] 94956 Baso Abs# 0.0 x10 Normal 0.0-0.2 [facility] Comment on above: Performed By: #### 7 241358, 21521751, 8674252718, 2226334869, 6946211596, 6817288, ####[facility] (DEFAULT)[address] [place] [address] 26230 Basophils/100 WBC (Bld) 0.5 % Normal 0.2-2.0 [facility] Comment on above: Performed By: #### 7 109946, 59394849, 8792029289, , 6876986167, 2453075, ####[facility] (DEFAULT)[address] [place] [address] 86988 Eos Abs# 0.1 x10 Normal 0.0-0.4 [facility] Comment on above: Performed By: #### 7 719135, 50556975, 0584162922, , 7760730987, 0788496, ####[facility] (DEFAULT)[address] [place] [address] 60367 Eosinophils/100 WBC (Bld) 3.7 % Normal 0.9-4.0 [facility] Comment on above: Performed By: #### 7 673404, 74961142, 4914725760, 5355425110, 7553536395, 4832011, ####[facility] (DEFAULT)[address] [place] [address] 08690 Lymph Abs# 0.8 x10 Low 1.3-2.9 [facility] Comment on above: Performed By: #### 7 809143, 60147556, 1125301632, 8349095765, 5520032185, 3098000, 6545097046 ####[facility] (DEFAULT)[address] [place] [address] Lymphocytes/100 WBC (Bld) 27 % Normal 14-48 [facility] Comment on above: Performed By: #### 7 867475, 91347098, 4993498152, 1912075589, 8262983142, 1351620, 4456219452 ####[facility] (DEFAULT)[address] [place] [address] Cameron Abs# 0.2 x10 Normal 0.0-0.8 [facility] Comment on above: Performed By: #### 7 968908, 58747882, 1672994328, 2420500747, 9011511850, 4780308, 5479419575 ####[facility] (DEFAULT)[address] [place] [address] Neut Abs# 1.9 x10 Normal 1.5-9.2 [facility] Comment on above: Performed By: #### 7 236638, 08705662, 1570458497, 3448484985, 4471558812, 7363465, 7970548939 ####[facility] (DEFAULT)[address] [place] [address] Neutrophils/100 WBC (Bld) 63 % Normal 44-88 [facility] Comment on above: Performed By: #### 7 115734, 08856646, 1061918697, 2676543061, 5944646325, 1012530, 4911522995 ####[facility] (DEFAULT)[address] [place] [address] CBC w/ Auto Diffon 3 Erythrocyte distribution width (RBC) [Ratio] 13.6 % Normal 11.5-15.0 [facility] Comment on above: Performed By: #### 7 861219, 24415131, 7634375640, 1911676040, 6067006606, 6567147, 8614839284 ####[facility] (DEFAULT)[address] [place] [address] Hematocrit (Bld) [Volume fraction] 34.3 % Normal 33.7-40.4 [facility] Comment on above: Performed By: #### 7 744355, 95193776, 1790402243, 5570803334, 4239154398, 7137344, ####[facility] (DEFAULT)[address] [place] [address] 60535 Hemoglobin (Bld) [Mass/Vol] 11.6 g/dL Normal 11.3-15.9 [facility] Comment on above: Performed By: #### 7 759865, 59028306, 4978749039, 9620995082, 9656885467, 5712091, 1573858079 ####[facility] (DEFAULT)[address] [place] [address] 58327 Man Diff? Auto Invalid Interpretation Code [facility] Comment on above: Performed By: #### 7 074278, 49557852, 0634114330, 6317750293, 5283435536, 1912787, 9216101032 ####[facility] (DEFAULT)[address] [place] [address] 64753 MCH (RBC) [Entitic mass] 32 pg Normal 24-34 [facility] Comment on above: Performed By: #### 7 972245, 80148768, 1685039054, 0028304429, 3991128152, 6355664, 6139551865 ####[facility] (DEFAULT)[address] [place] [address] 93710 MCHC (RBC) [Mass/Vol] 34 g/dL Normal 26-37 [facility] Comment on above: Performed By: #### 7 052648, 26422917, 8037569744, 7659900183, 8707306534, 5563089, 3476124060 ####[facility] (DEFAULT)[address] [place] [address] 41342 MCV (RBC) [Entitic vol] 94 fL Normal 81-100 [facility] Comment on above: Performed By: #### 7 652159, 38330545, 6174996840, 9934086283, 0913900463, 2164453, 9938303655 ####[facility] (DEFAULT)[address] [place] [address] 14261 Platelet 154 x10 Normal 138-427 [facility] Comment on above: Performed By: #### 7 711843, 83833834, 6066960285, 3788643230, 3550040482, 3153805, 8181906087 ####[facility] (DEFAULT)[address] [place] [address] Platelet mean volume (Bld) [Entitic vol] 7.8 fL Normal 6.3-10.2 [facility] Comment on above: Performed By: #### 7 081921, 12336058, 0935725045, 8191958044, 8003666634, 6499019, 2833272367 ####[facility] (DEFAULT)[address] [place] [address] RBC 3.63 x10 Low 3.70-5.30 [facility] Comment on above: Performed By: #### 7 431198, 67159917, 1415715960, 5272039490, 9948520531, 4008379, 7901457045 ####[facility] (DEFAULT)[address] [place] [address] WBC 3.0 x10 Low 3.5-10.5 [facility] Comment on above: Performed By: #### 7 459080, 02063522, 7281601912, 7008153912, 0287117245, 4721773, 3757358076 ####[facility] (DEFAULT)[address] [place] [address] 00979 [facility] Standardon 08-03-2022 eGFR Non AA >60 Invalid Interpretation Code [facility] Comment on above: Performed By: #### 7 694256, 05199968, 1268095879, 9124051924, 0780081433, 0477693, 0844175074 #### [facility] (DEFAULT) [address] [place] [address] 35616 eGFR AA >60 Invalid Interpretation Code [facility] Comment on above: Performed By: #### 7 266590, 85873015, 9234780990, 8665469189, 0111303707, 2038941, 4412970783 #### [facility] (DEFAULT) [address] [place] [address] 37107 Albumin [Mass/Vol] 3.7 g/dL Normal 3.5-5.0 [facility] Comment on above: Performed By: #### 7 467803, 51658119, 2739987370, 0210204836, 8495944437, 1579817, 5675801353 #### [facility] (DEFAULT) [address] [place] [address] 81051 Albumin/Globulin [Mass ratio] 1.2 {ratio} Low 1.4-2.6 [facility] Comment on above: Performed By: #### 7 564103, 71489178, 0596446876, 7613753373, 7937009873, 1119536, 2530555628 #### [facility] (DEFAULT) [address] [place] [address] 86987 Alk Phos 39 IU/L Normal 32-91 [facility] Comment on above: Performed By: #### 7 455579, 57726619, 5867218218, 4942935178, 4716428192, 0463067, 2231834020 #### [facility] (DEFAULT) [address] [place] [address] 25089 ALT [Catalytic activity/Vol] 15.0 U/L Normal 14.0-54.0 [facility] Comment on above: Performed By: #### 7 542054, 84229935, 9017146915, 0077600529, 5551332457, 5697399, 9606634307 #### [facility] (DEFAULT) [address] [place] [address] 14284 Anion gap [Moles/Vol] 15.8 mmol/L Normal 5.0-19.0 [facility] Comment on above: Performed By: #### 7 560367, 53609803, 6618394933, , 3785584265, 6542421, 5991371988 #### [facility] (DEFAULT) [address] [place] [address] 96013 AST [Catalytic activity/Vol] 19 U/L Normal 15-41 [facility] Comment on above: Performed By: #### 7 809023, 76741665, 3725367317, 8286147114, 4637904728, 0292505, 2922405938 #### [facility] (DEFAULT) [address] [place] [address] 37611 Bili Total 0.6 mg/dL Normal 0.3-1.2 [facility] Comment on above: Performed By: #### 7 870330, 58396138, 1188515395, 3718973236, 0731182357, 6035538, 3443620717 #### [facility] (DEFAULT) [address] [place] [address] 93001 Calcium [Mass/Vol] 8.8 mg/dL Low 8.9-10.3 [facility] Comment on above: Performed By: #### 7 058447, 04332682, 3678738786, 3393864255, 0090322914, 8312816, 5310465217 #### [facility] (DEFAULT) [address] [place] [address] 19803 Chloride [Moles/Vol] 104 mmol/L Normal 101-111 [facility] Comment on above: Performed By: #### 7 164837, 48092176, 5436960740, 2580751155, 0891164635, 4961689, 0919712395 #### [facility] (DEFAULT) [address] [place] [address] 91969 CO2 [Moles/Vol] 25 mmol/L Normal 21-32 [facility] Comment on above: Performed By: #### 7 930685, 35730786, 3694026359, 1561990890, 0487533991, 4312846, [id number] #### [facility] (DEFAULT) [address] [place] [address] 32038 Creatinine [Mass/Vol] 0.87 mg/dL Normal 0.60-1.30 [facility] Comment on above: Performed By: #### 7 285800, 87144848, 2461669390, 1830137110, 9491765020, 8671062, 2060578904 #### [facility] (DEFAULT) [address] [place] [address] 00109 Globulin (S) [Mass/Vol] 3.0 g/dL Normal 1.5-4.3 [facility] Comment on above: Performed By: #### 7 637054, 99125229, 6436369452, 0256964719, 6937160131, 6005869, 4489508737 #### [facility] (DEFAULT) [address] [place] [address] 51996 Glucose [Mass/Vol] 89.0 mg/dL Normal 74.0-118.0 [facility] Comment on above: Performed By: #### 7 538476, 30571127, 9282153824, 8763084288, 3310037705, 9723459, 6395299705 #### [facility] (DEFAULT) [address] [place] [address] 38350 Osmolality 281 mOsm/L Invalid Interpretation Code [facility] Comment on above: Performed By: #### 7 832331, 45935002, 4302582182, 9278689012, 4735719117, 1544205, 5279226414 #### [facility] (DEFAULT) [address] [place] [address] 22732 Potassium [Moles/Vol] 3.8 mmol/L Normal 3.6-5.1 [facility] Comment on above: Performed By: #### 7 206176, 58491139, 6355086259, 8570175264, 5752924468, 8908822, 3215530253 #### [facility] (DEFAULT) [address] [place] [address] 17941 Protein [Mass/Vol] 6.7 g/dL Normal 6.5-8.1 [facility] Comment on above: Performed By: #### 7 304511, 35693906, 0506895657, 7296735083, 5645785480, 6513995, 9872062661 #### [facility] (DEFAULT) [address] [place] [address] 51450 Sodium [Moles/Vol] 141.0 mmol/L Normal 136.0-144.0 [facility] Comment on above: Performed By: #### 7 829015, 65293019, 6898553377, 2563765929, 4252296009, 3009469, 2269572477 #### [facility] (DEFAULT) [address] [place] [address] 93626 Urea nitrogen [Mass/Vol] 14 mg/dL Normal 8-26 [facility] Comment on above: Performed By: #### 7 371970, 07022344, 4209982387, 9854191316, 2060754412, 8204177, 6145789816 #### [facility] (DEFAULT) [address] [place] [address] 96949 Urea nitrogen/Creatinin e [Mass ratio] 16.0 mg/mg Normal 4.6-16.2 [facility] Comment on above: Performed By: #### 7 094484, 74059258, 0955533503, 0638320195, 0190926969, 8158873, 7703085994 #### [facility] (DEFAULT) [address] [place] [address] 56591 CRPon 08-03-2022 CRP 0.5 mg/dL Normal <=0.5 [facility] Comment on above: Performed By: #### 7 973575, 05154631, 4288618809, 0951478812, 1583905775, 3457404, 2839075833 #### [facility] (DEFAULT) [address] [place] [address] 95687 ED Clinical Summaryon 2022 ED Clinical Summary [facility] - Emergency Department [address] [place], [place] [id number] ED Clinical Summary PERSON INFORMATION Name: ALVARADO BRITT Age: 77 Years Sex: FEMALE : 1945 MRN: Acct#: Visit Reason: Abnormal diagnostic test; Dizziness; ABN LABS, LOW PLATELETS Arrival: 08/03/2022 12:11:34 Discharge: 08/03/2022 13:37:00 LOS: 000 01:26 Check In: 08/03/2022 12:11:34 Checkout:08/03/2022 13:37:00 Address: [address] [place] [address] PCP: Ansley Houser [employer]NING [employer]ER AND INST[employer]ER PROVIDER INFORMATION Provider Role Assigned Unassigned Nixon Rosas MD ED Provider 08/03/2022 12:12:30 Staci MILAN, Yelena Olsen ED Nurse 08/03/2022 12:25:12 VITALS INFORMATION Vital [...] Home PATIENT EDUCATION INFORMATION Instructions: Hypertension, Adult, [id number] Follow-Up: With: Address: When: Ansley Houser NP [address] [place] [address] Within 3 to 5 days DIAGNOSIS: 1:Elevated blood pressure reading Patient Understands: Yes - Patient/family/caregive r verbalizes understanding of instructions given Comment: Normal [facility] ED Note-Nursingon 08-03-2022 ED Note-Nursing Patient arrive to [facility] ED via private vehicle. Ambulated with a steady gait to ED room 4. Alert and oriented X4. C/O feeling dizzy. Patient reports she followed up with her PCP's office yesterday after a hospital admission for hypertension. States she had labs drawn at that time also. States she received a call this morning with instructions to go to the ED for abnormal labs. Normal [facility] ED Patient Summaryon 023 ED Patient Summary [facility] - Emergency Department [address] [place] [address]271 PATIENT DISCHARGE INSTRUCTIONS Patient Information Name: ALVARADO BRITT Age: 77 Years Date of : 1945 Reason For Visit: Abnormal diagnostic test; Dizziness; ABN LABS, LOW PLATELETS Arrival Time: 08/03/2022 12:11:34 Primary Care Physician: Ansley Houser NP Attending Physician: Nixon Rosas MD Comment: Visit Diagnosis: Diagnoses This Visit Abnormal diagnostic test ([id number]) Dizziness ([id number]) Elevated blood pressure reading (R03.0) The Pharmacy at [facility] is open Monday through Monday from [...] problems; contact the [facility] 24/10 Crisis Hotline -Text 0CBKQ wq [phone]. If you received any narcotics, sedation, or [...] With: Address: When: Ansley Houser NP [address] [id number] Within 3 to 5 days Medication Information: The exam and treatment you received today in the [facility] Emergency Department were for an urgent problem and are not intended as complete care. It is important for you to follow up with a doctor, nurse practitioner, or physician?s wet process miller head assistant for ongoing care. If your symptoms become [...] so we can reach you if necessary. [facility] Emergency Department has provided you with a complete list of medications post discharge. Please inform your radio interference supervisor/provider of your visit and for further instruction [...] 61.000 kg (more content not included)... Normal [facility] Extra Pinkon 08-03-2022 Tube Collected Yes Invalid Interpretation Code [facility] Comment on above: Performed By: #### 7 [id number], [id number], [id number], [id number], 5130960256, 2773846, [id number] #### [facility] (DEFAULT) [address] [place] [address] Coding Summaryon 08-02-2022 Coding Summary HTMLBase 64 XmiytwjpGYy5bDq+PGhlYWQ +MG6ZYFCtL07pzGEslK1XR9 eIIK0RXRBMCHINWA0LJL9st DS9MActV3MonfFi PhdpzHVpQI96UIb2NTN1lPy yUXkbdS4tvLZaQ5z2EbNaJA 97rQ57OVftSHLbTeX4VySid jsgbWFy O5krGbAgdUDfLpb+PHRhYmx lIHdpZHRoPScxMDAlJyBzdH vcVD7jMq0zPMLmEDJnkPdej HNlOiBj l0kcZJGdUSmvAP9dwKsrN4V fpJR1RPGgs5n8Qt41aHN+PH QjLRR5gYbwSQpaf467VhBai 0fjESW4 cACuSSvmFGY0C29uk6B2PMD nPOJgOGE2nPD6pY0uiVcgtj iwN1RhmXBdAkT5RII1lTMif Y8hmLil lirskP6qGur+N53FLC6ERBO TOX0GOyt3J1GuJtupeJJ+PC 74BPGwKY26zNBpjEMsr9hjq Nm6JpZk MGOlAOJ1tTalTKndp8LjNOR pP51rlFGlt5F0FVZxwEwsmH YwIrEwhVH6lI6kHQejwnnwb 2hvdzsn Urmlj1adoh67mQ04M37fHPa jQVOlPXF1OQBdKFNasPcwcz 2fhK9nVm1+CJbwm3sia3wmc Cz2BxKq UDBlcwXlhEvfLMZ3o4HrJp4 8X6EtvAeuy1UkWja5mh32xP Tfy8A2qPX9SXcvJRNcjH2gC WxlZnQ6 JPHtSbMgrQ09iHGeNYooQj0 rvHhgqPdwJZ5qDNXsfjiwWS EqhF1uFHVqkYVepLsqJZ9hX TBpbjtm b103TlXbTTM4IDAbkOMsW4E mkB1nSqMoKZAqURRmZ2AdkN OgBJnqK883YSaqOzS4PZWod bMqI7Xh ETFbwXtdLjA8x6U6Ck2Zu1R atwqgPGT4SPlqLFS2BxQiNn FqDnN7K0YsCzg0STMewAfzV C4nR0Uf MYLqihytyeeypUZ9EOJoTTC qcE21sFBbUSljWo1ak4O8k7 14JPAgWTRrcO46Hf6doGxsR TBwdCBU yL2fyrviz6hnehydDyOnFMY uFIr3RWg2NWErzPgaHdIrHX E8RcN5SSD2zFFjmR0rnLytf rtjzA6l Oyc+Q55roR7oJZX8DUD1qmg aMPFqqeHuBI73IT58O9KeEc wvdGFibGU+PGRpdiBzdHlsZ M9zPiAs g2uft5PeFVcfQ4MgWAStDVy kOgm4XHDmFOU9dSF0bV5eJC OdEFmot1U1aBH9D5FimnTmf d3pu1bj CSXqBOevU30tbVSuw1A3UTL viST8LERhySvmBcRqvI36Io c+YXYrxAqbz5UrGhdbu5dle 7izoOn8 MgCeKUGoglCveRiwAHV9l9V iQh24G24aHXvjPUKnQRLoJN ZnCUBsxKcjxz9esC5iCs3+P GNvbCB3 bDF8bN7iANAjTeI7QYtyG53 9NbGejPKhNtogi9xgs9tbiI z4KvZhYPDcseTrkJqdWAM1n 0LmXw05 D11gVNxdTQBjGWQdYGZsWKR yrAuiwn8izC8uIe9+PC9jb2 btul02fT31tEP+WDBtVSN7v WxlPSdw SKLxqV9zEYcfDxB1MHEuLbD igK37nUHnKCclJh0zxHhtxS xcWD4lZVVgkeuid186ZkWef 2xkIDEw hDJiFCmgCNG3K87ai9D1TQU eGTAiGDS8nJT3eH3ppMnyke ogbGVmdDsgdmVydGljYWwtY LbfE419 IHRvcDsnPlBhdGllbnQgTmF tQLu5I0RpLxg6KMUdwJpzHV 6oqEEtKCrjQa4caQjrdZbaC I5kTVNc ytwqg056TtDxv0acLPKqxDQ gCThpBAJ6H27ua8S0YZQcJF LuJHD3wPA5bT5cyJphbmzvg GVmdDsg xqKdfHkiYQmrRSotW019IZI wqZcqViHgodLpEUPlhJO6EP 41OB78sEYdy9A9jRF2V5XiC GRpbmct ntdtdRZ9WCNqYAUipW34Ry6 kiJriXn2mEFQgMLJ6PBUvyB BeD1CfoV3eZgVzXVQjMVDsB 3RleHQt UMeyS784THqpDhC2BQIxnvB tT1PsRVZnsLunJzH8h8A2Io 5IK3G3OH92AI33rRUlj5Y0h UX1C6La SEJlanrconfkdFV9OZFfWLV krZ98Ys2tyGceXf0qUJBzKE F3OUFhwDAhK3SmjF6jDsBlD DAwMDAw V5FlmSYhKAzyG708EJwtFhE 8GZRywhBjX2HfFKSnaBoxSz D9o3S9Vr8RZEa2NB35ZX58g ENgm7S5 nRC3J6UpGFXekgpaksxjaCO 9ORBlZSJgxF86Xo6sjEbrKl 1yNUXlHRA9ISWzfHCkG1Eqf Y3tFvTk GOYtBXAeZ9KvpZAxYJgqS42 6RTlwOdX6MITpgjWxA0BvLS GgdFqdUjQ2f1C1To0YQNImX T30LDF1 dMU3UY10ZQ79S1WcVmoxbZR ibGU+PHRhYmxlIHdpZHRoPS ihNUFiDnKwaTfzXK2nXx8cD GVyLWNv rWjkiRIqVfOta1ugMSVzRAe vQQ3djJbsC9QmuUP3MUCai7 e2Ev21L95qS1VxaEM+PGNvb NC7mFV6 eT4lKpQvQqC1BPhtT098DrT tqZAdUpdrm2dgk1ddhVh2Ga U8LVMxpjWjoPxyATT1k1CuK o87G29s IHdpZHRoPSIxNSUiIHZhbGl cuq4bsH8tQm3+JVJmeNR7rX F4pM7wKnDfOzP3RFumP473T nRvcCIv Timjy5dbd4fizGn0BjAoOAH gqlHhqDmoQLD5f7YkDu64L2 CofYsbf3LfZhr3rp65jYRpb 2E6oJB3 P2NjSFRzezlxoJYtvTfcGK7 fJRUhzubbRZKonZ5gJMKmC3 u6ZcVbBnR1URuvF3HwqeT8D DEwcHQg HPwvHGF3U38jc4X5HQKzGFU zOMN8gKG5mJ8icCmopdnzgG VmdDsgdmVydGljYWwtYWxpZ 246IHRv oKqoFXVjmF6yHPSliTPwuNs fCU8wEOBymlxsPinVGAAYHZ UCBJBEBGDWKZWVLK89DV15q QKum7A6 tUL8L4OkZMAzykjaoyiglLG 1AOBnMQEzpU48uKHhPPbySj 0zq4W1p819CAYySEKfwJ07V u0cgLhf JDSogUJCiR3jaqjyo0skrvu vMdOsIGPaIHx6UIx5SQLvuY fqFeTpFGD3FtO7JDV2vDCxs E8buOle ltnniV0lYkv+MTEvMjgvMTk 0NzwvdGQ+FSLkVBW3wDlgYQ osAVZihQ5gOLWiE7f5QbGiJ iZ2WGef S1JuJNCkmlzqCg19pW7aBuT bDvF1SAbtK3XirrD9HNHmqC VwGFgzMWZ4L53qv5U9YEZdQ DAwMDA7 jJL3jP4xlBtlisrijGRubPk kwwNjtNqnUXcgLPmgV787ZU MkxPlcCcl4DJyaDEOxTA90O X29yVSj i3M0nEV1H7LtSCHneipibjk vpDB4RVFyALZamF60lJHyDU irUc7pp4N9b809JCKdBPCsn D03Gi3b bAywFQPyfPLIkJ7nnvlko2q lyztpJbUuMOCgJJt0TVt1OJ VjeXtgUwAkZOU7ZxP7GXR3t AOuwN3u cAwhhmcvzU0pNmp+RkVNQUx PWT22JO09nDRrw5F3dBD5A1 CdNRTahnjbvopbjII8UDKtM DUwaW47 pTFcMOkpQh4ss7P0i162XMP oZQWlvD68Qa7gxCorPFFgoH ALcC8jopuky8vnqibcNsQvV DAwMDt0 ZLr8CEXihTteDpVlMQI5WoT 2HJU2xAIldN8mfYyqxpvqtE 9wOyc+L6EoSDQ5GRUpk746Y 3RkPjwv dHI+YG03CGRzHX41yHZuiDZ vd8mgrOq7TfFiBDRoKRS1zJ ixBEdji8JoJMHuV65ukZBal 4J7BNCv pScbuIPkLhHzrWZ8bY9mNBl dkwnha5cigmjrYbklj8safq 65eF04Q94gYZxbQYSmAJVlK CUiIHZh gKfhvw5moM2zWq8+PGNvbCB 2dNR4zI3cIvEmOtC2PKbpT3 54IgPghSQwPjvhv8uvu0cuj Pp8XiTz CMWrqqIflJjgTVZ7r8QnTl1 8P63xLMiuKGZlLBLfOCWsDM MitIsxsb8hfO6mCe4+PC9jb 1emsc82 rV65hPH+WBOpENY9sIbhPHo iGFQawC7lDIygTpW8KWGwXi XllJ65zVPuZFogHl6yoGbws GimDZ7p UQLstselr788ReKgw9wwXRS ieANeSKuzHFK2H03jg8S0MO FkSRTzLCC9uPY5uO5zyAcet jogbGVm jCghztWdgXtlDUgvFLbcG81 6PBRtwNxiVrFddSJfF4mlvu QVRU7rNzminHJ+RNXlIBJ0w WxlPSdw POMdtL6fBEJxR9f7VlRrAzS 7KVryQ7RqzbJ0TNNacNLnRS TfrPCSgI3srbdav0aftxevJ zAwMDAw WKw9XRx9BDHioRirXuVoOFJ 1GrE6ZVO5tCKexS7oxFzkre tfrG0dElc+RklOOjwvdGQ+P HRkIHN0 oGvcJSxxCVWudS9oLEOmJ3t 2GnAvMfB4FGpxJ6HhnpY0EB MukNSnGKFenNBRzT0mgyajq 2xvcjog TdWgWTDbQGa1BAb0OJDurRj cCjKuYQH7DyU1IZJ0mUSouZ 9ttShffrjxmL1lVhj+TVJOO jwvdGQ+ APCvDSY7nQvcUPknJOCexD9 yDORjN3u2NhOjDaD7TNsbU8 LufqS0OYBqrFHtIIUlpSBNj S5fscre f0tcyhkqGpCcHBNaQDb7WWv 8GQJovXclDdGnENR5RkW2BO T6sRAutA1rbVldmftifN4qM yc+UGF5 OEQ9XY99SP36W9WgNetegLZ ibGU+PHRhYmxlIHdpZHRoPS wcKLFjVhXrzUnhOU6kMw1nW GVyLWNv bGx (more content not included)... [facility] Consent Formson 08-01-2022 Consent Forms [id number]#1.00OTG TIFF [facility] Telemetry Stripson Telemetry Strips [id number] [id number]#1.00OT GTIFF [facility] .Auto Diff 1on 07-29-2022 Auto Cameron % 6 % Normal 04-14 [facility] Comment on above: Performed By: #### 1 [id number], [id number], 2936646406, 5522051, 1549239033, 6331797 ####[facility] (DEFAULT)[address] [place] [address] 89020 Baso Abs# 0.0 x10 Normal 0.0-0.2 [facility] Comment on above: Performed By: #### 1 5787845, 5209089221, 9122838818, 3529744, 1321606140, 5603061 ####[facility] (DEFAULT)[address] [place] [address] 90923 Basophils/100 WBC (Bld) 0.5 % Normal 0.2-2.0 [facility] Comment on above: Performed By: #### 1 4428680, 3656642369, 2469068039, 4188237, 3981566880, 2415855 ####[facility] (DEFAULT)[address] [place] [address] 05931 Eos Abs# 0.1 x10 Normal 0.0-0.4 [facility] Comment on above: Performed By: #### 1 1435897, 5074748019, 0094868022, 0776774, 0394650517, 8752725 ####[facility] (DEFAULT)[address] [place] [address] 34071 Eosinophils/100 WBC (Bld) 2.7 % Normal 0.9-4.0 [facility] Comment on above: Performed By: #### 1 8412026, 6460105369, 6547281060, 9755928, 0410436823, 1152137 ####[facility] (DEFAULT)[address] [place] [address] 90043 Lymph Abs# 0.9 x10 Low 1.3-2.9 [facility] Comment on above: Performed By: #### 1 3239482, 3442366343, 9985432077, 4339781, 8645904472, 6171282 ####[facility] (DEFAULT)[address] [place] [address] Lymphocytes/100 WBC (Bld) 28 % Normal 14-48 [facility] Comment on above: Performed By: #### 1 3645084, 1353748085, 4689872329, 2139690, 3849901091, 5429518 ####[facility] (DEFAULT)[address] [place] [address] Cameron Abs# 0.2 x10 Normal 0.0-0.8 [facility] Comment on above: Performed By: #### 1 6966367, 4260839885, 4756309488, 1094130, 1799120905, 9315233 ####[facility] (DEFAULT)[address] [place] [address] Neut Abs# 2.0 x10 Normal 1.5-9.2 [facility] Comment on above: Performed By: #### 1 7752366, 4425731144, 1972241297, 7786366, 3178238459, 9971280 ####[facility] (DEFAULT)[address] [place] [address] Neutrophils/100 WBC (Bld) 64 % Normal 44-88 [facility] Comment on above: Performed By: #### 1 7703374, 7138393455, 8379932030, 5298465, 0711465769, 3270576 ####[facility] (DEFAULT)[address] [place] [address] BNP.on 07-29-2022 Natriuretic peptide B (Bld) [Mass/Vol] 446.0 pg/mL High 0.0-100.0 [facility] Comment on above: Result Comment: BNP results greater than 100 pg/mL are considered abnormal and suggestive of patients with CHF. Higher BNP concentrations measured in the first 72 hours after an acute coronary syndorme are associated with an increased risk of , myocardial infarction, and CHF. Performed By: #### 1 7589026, 6105145911, 0469161559, 4032832, 4606877200, 1902870 ####[facility] (DEFAULT)[address] [place] [address] Natriuretic peptide B (Bld) [Mass/Vol] 401.0 pg/mL High 0.0-100.0 [facility] Comment on above: Result Comment: BNP results greater than 100 pg/mL are considered abnormal and suggestive of patients with CHF. Higher BNP concentrations measured in the first 72 hours after an acute coronary syndorme are associated with an increased risk of , myocardial infarction, and CHF. Performed By: #### 1 [id number], 1360733, 02911466, 8956336, 3665439658, 6983325778, 7245800 ####[facility] (DEFAULT)[address] [place] [address] 49903 CBC w/ Auto Diffon 3 Erythrocyte distribution width (RBC) [Ratio] 13.5 % Normal 11.5-15.0 [facility] Comment on above: Performed By: #### 1 9521817, 8955131085, 7273487481, 1017737, 5023987113, 9358143 ####[facility] (DEFAULT)[address] [place] [address] 40739 Hematocrit (Bld) [Volume fraction] 32.4 % Low 33.7-40.4 [facility] Comment on above: Performed By: #### 1 9506505, 8358428733, 8990781278, 1494545, 0221736666, 1412332 ####[facility] (DEFAULT)[address] [place] [address] 15451 Hemoglobin (Bld) [Mass/Vol] 11.2 g/dL Low 11.3-15.9 [facility] Comment on above: Performed By: #### 1 2505387, 1646440800, 5016252318, 0768311, 7215408801, 0996081 ####[facility] (DEFAULT)[address] [place] [address] Man Diff? Auto Invalid Interpretation Code [facility] Comment on above: Performed By: #### 1 6080459, 4941315403, 0399189135, 2109398, 0679383199, 6178226 ####[facility] (DEFAULT)[address] [place] [address] MCH (RBC) [Entitic mass] 33 pg Normal 24-34 [facility] Comment on above: Performed By: #### 1 9349861, 5464331143, 5615837594, 7690657, 2475611465, 4861427 ####[facility] (DEFAULT)[address] [place] [address] MCHC (RBC) [Mass/Vol] 35 g/dL Normal 26-37 [facility] Comment on above: Performed By: #### 1 5450568, 6536501944, 6357739726, 2274609, 6044771091, 7604003 ####[facility] (DEFAULT)[address] [place] [address] 02188 MCV (RBC) [Entitic vol] 94 fL Normal 81-100 [facility] Comment on above: Performed By: #### 1 6870353, 7172419445, 6298119819, 5493317, 8183880742, 0311724 ####[facility] (DEFAULT)[address] [place] [address] Platelet 145 x10 Normal 138-427 [facility] Comment on above: Performed By: #### 1 1335390, 5224231858, 2875658219, 6428058, 2774038213, 1672894 ####[facility] (DEFAULT)[address] [place] [address] Platelet mean volume (Bld) [Entitic vol] 7.8 fL Normal 6.3-10.2 [facility] Comment on above: Performed By: #### 1 4168434, 7670847379, 3410945491, 9255559, 7377436133, 8397692 ####[facility] (DEFAULT)[address] [place] [address] RBC 3.43 x10 Low 3.70-5.30 [facility] Comment on above: Performed By: #### 1 1987428, 1269414753, 2577256722, 2567983, 0727492215, 5853181 ####[facility] (DEFAULT)[address] [place] [address] WBC 3.2 x10 Low 3.5-10.5 [facility] Comment on above: Performed By: #### 1 3804667, 0006799583, 8427785101, 6171805, 3649108918, 1451825 ####[facility] (DEFAULT)[address] [place] [address] CMP Standardon 07-29-2022 Breakpoint Chem Normal [facility] Comment on above: Performed By: #### 1 5921752, 2612277355, 7694092152, 9523119, 5373135200, 5538170 ####[facility] (DEFAULT)[address] [place] [address] eGFR Non AA >60 Invalid Interpretation Code [facility] Comment on above: Performed By: #### 1 3140649, 5283864499, 9030396469, 5349897, 3746090135, 5610629 ####[facility] (DEFAULT)[address] [place] [address] eGFR AA >60 Invalid Interpretation Code [facility] Comment on above: Performed By: #### 1 2568424, 0090792578, 0512922015, 7069513, 2261124915, 6901461 ####[facility] (DEFAULT)[address] [place] [address] Albumin [Mass/Vol] 3.5 g/dL Normal 3.5-5.0 [facility] Comment on above: Performed By: #### 1 7670652, 2127579224, 8006415986, 8991745, 2298717602, 7804835 ####[facility] (DEFAULT)[address] [place] [address] Albumin/Globulin [Mass ratio] 1.4 {ratio} Normal 1.4-2.6 [facility] Comment on above: Performed By: #### 1 0671773, 9485434835, 4025162733, 0107923, 8405329845, 8723656 ####[facility] (DEFAULT)[address] [place] [address] 10302 Alk Phos 39 IU/L Normal 32-91 [facility] Comment on above: Performed By: #### 1 0884024, 9760500043, 2575253497, 3580058, 1539295929, 6938370 ####[facility] (DEFAULT)[address] [place] [address] ALT [Catalytic activity/Vol] 19.0 U/L Normal 14.0-54.0 [facility] Comment on above: Performed By: #### 1 9930592, 2477295981, 1757603082, 3440617, 7933740358, 5799924 ####[facility] (DEFAULT)[address] [place] [address] 56926 Anion gap [Moles/Vol] 12.2 mmol/L Normal 5.0-19.0 [facility] Comment on above: Performed By: #### 1 7247658, 2474586112, 1088277679, 5278618, 3166961330, 8334736 ####[facility] (DEFAULT)[address] [place] [address] 07799 AST [Catalytic activity/Vol] 22 U/L Normal 15-41 [facility] Comment on above: Performed By: #### 1 2518215, 4711563147, 8814254538, 6659143, 2529945752, 6466349 ####[facility] (DEFAULT)[address] [place] [address] 04157 Bili Total 0.9 mg/dL Normal 0.3-1.2 [facility] Comment on above: Performed By: #### 1 5825572, 4438921492, 5680947295, 0820093, 1803634791, 3712820 ####[facility] (DEFAULT)[address] [place] [address] 42550 Calcium [Mass/Vol] 8.4 mg/dL Low 8.9-10.3 [facility] Comment on above: Performed By: #### 1 6975561, 9574981720, 0381702166, 3252234, 4606233932, 8744824 ####[facility] (DEFAULT)[address] [place] [address] 16656 Chloride [Moles/Vol] 104 mmol/L Normal 101-111 [facility] Comment on above: Performed By: #### 1 1904314, 3636563598, 4586731063, 5427576, 6038313298, 6328921 ####[facility] (DEFAULT)[address] [place] [address] 65401 CO2 [Moles/Vol] 28 mmol/L Normal 21-32 [facility] Comment on above: Performed By: #### 1 8069725, 2783187112, 3147140770, 7306487, 5215011971, 9315848 ####[facility] (DEFAULT)[address] [place] [address] 44129 Creatinine [Mass/Vol] 0.90 mg/dL Normal 0.60-1.30 [facility] Comment on above: Performed By: #### 1 3321745, 0170198207, 2200594324, 2294410, 9863682333, 3851119 ####[facility] (DEFAULT)[address] [place] [address] 80745 Globulin (S) [Mass/Vol] 2.4 g/dL Normal 1.5-4.3 [facility] Comment on above: Performed By: #### 1 3453658, 2625323331, 2532936305, 8655413, 1560579193, 9560086 ####[facility] (DEFAULT)[address] [place] [address] 62756 Glucose [Mass/Vol] 123.0 mg/dL High 74.0-118.0 [facility] Comment on above: Performed By: #### 1 4966872, 3864324241, 9990542809, 2599815, 7200904813, 3430595 ####[facility] (DEFAULT)[address] [place] [address] 12347 Osmolality 283 mOsm/L Invalid Interpretation Code [facility] Comment on above: Performed By: #### 1 4619457, 1995028411, 7064630024, 4355107, 4979396037, 0165964 ####[facility] (DEFAULT)[address] [place] [address] 05531 Potassium [Moles/Vol] 3.2 mmol/L Low 3.6-5.1 [facility] Comment on above: Performed By: #### 1 8288512, 9432467952, 7626845509, 8287040, 0747345845, 7719439 ####[facility] (DEFAULT)[address] [place] [address] 06432 Protein [Mass/Vol] 5.9 g/dL Low 6.5-8.1 [facility] Comment on above: Performed By: #### 1 3502816, 5828294446, 9289282057, 9397743, 2298409753, 6360826 ####[facility] (DEFAULT)[address] [place] [address] 26943 Sodium [Moles/Vol] 141.0 mmol/L Normal 136.0-144.0 [facility] Comment on above: Performed By: #### 1 4817759, 9043935014, 5311678781, 6192707, 5877417696, 4219591 ####[facility] (DEFAULT)[address] [place] [address] 50319 Urea nitrogen [Mass/Vol] 14 mg/dL Normal 8-26 [facility] Comment on above: Performed By: #### 1 3261230, 5489759316, 1786411891, 7598327, 9441727484, 4605540 ####[facility] (DEFAULT)[address] [place] [address] 91378 Urea nitrogen/Creatinin e [Mass ratio] 15.5 mg/mg Normal 4.6-16.2 [facility] Comment on above: Performed By: #### 1 [id number], [id number], [id number], [id number], [id number], [id number] ####[facility] (DEFAULT)[address] [place] [address] ED Clinical Summaryon 2022 ED Clinical Summary [facility] Emergency Department [address] [place] [address] ED Clinical Summary PERSON INFORMATION Name: ALVARADO BRITT Age: 77 Years Sex: FEMALE : 1945 MRN: Acct#: Visit Reason: Chest pain; Chest pain; Trauma; CHEST PAIN, HYPERTENSION Arrival: 07/28/2022 19:18:28 Discharge: LOS: 000 04:45 Check In: 07/28/2022 19:18:28 Checkout:07/29/2022 00:03:43 Address: [address] [place] [address] PCP: Ansley Houser [employer] PROVIDER INFORMATION Provider Role Assigned Unassigned Jessa [...] DIAGNOSIS: Chest pain; Hypertension Patient Understands: Comment: [facility] ED Patient Education Noteon 07-29-2022 ED Patient Education Note Education Materials [facility] ED Patient Summaryon 023 ED Patient Summary [facility] Emergency Department [address] [place] [address] PATIENT DISCHARGE INSTRUCTIONS Patient Information Name: ALVARADO BRITT Age: 77 Years Date of : 1945 [facility]: [id number] Reason For Visit: Chest pain; Chest pain; Trauma; CHEST PAIN, HYPERTENSION Arrival Time: 07/28/2022 19:18:28 Primary Care Physician: Ansley Houser NP Attending Physician: Layla Romero MD Comment: Visit Diagnosis: Diagnoses This Visit Chest pain (R07.9) Chest pain ([id number]) Chest pain ([id number]) Hypertension (I10) Trauma ([id number]) The Pharmacy at [facility] is open Monday through Monday from [...] alcohol and/or drug addiction problems; contact the [facility] 24/10 Crisis Hotline -Text 3WNOJ kz 374459. If you received any narcotics, sedation, or [...] and treatment you received today in the [facility] Emergency Department were for an urgent problem and are not intended as complete care. It is important for you to follow up with a doctor, nurse practitioner, or physician?s wet process miller head assistant for ongoing care. If your symptoms become [...] so we can reach you if necessary. [facility] Emergency Department has provided you with a complete list of medications post discharge. Please inform your radio interference supervisor/provider of your visit and for further instruction [...] Viruses or (more content not included)... Normal [facility] Inpatient Patient Summaryon 07-29-2022 [place]patient [place] [address] Patient Discharge Instructions Name: ALVARADO BRITT : 1945 Patient Address: [address] [place] [address] Primary Care Provider: Name: Ansley Houser NP After you are discharged if you find you have any questions, please, call [phone] ext [phone] to speak to a nurse. The Pharmacy at [facility] is open Monday through Monday from [...] problems; contact the [facility] 24/10 Crisis Hotline -Text 4HQXH ba 218882. If you received any narcotics, sedation, or [...] business decisions or sign any legal documents [facility] would like to thank you for allowing us to assist you with your healthcare needs. The following includes patient education materials and information regarding your injury/illness. ALVARADO BRITT has been given the following list of follow-up instructions, prescriptions, and patient education materials: Follow-up Instructions With: Address: When: [place] [employer] [address] [id number] Comments: GAVE PATIENT BLUE CARD TO MAKE [...] with se (more content not included)... Normal [facility] Magnesiumon 07-29-2022 Magnesium [Mass/Vol] 1.97 mg/dL Normal 1.80-2.50 [facility] Comment on above: Performed By: #### 1 [id number], [id number], [id number], [id number], [id number], [id number] ####[facility] (DEFAULT)[address] [place] [address] Nutrition Noteon 07-29-2022 Nutrition Note Pt admitted [...] risk. Will monitor wts, intake and labs. [facility] Pharmacy Noteon 07-29-2022 Pharmacy Note I have [...] [Verified on: 07/29/2022 15:03 EDT] Isabella Hamilton [facility] Progress Note - Nurseon - Progress Note - Nurse patient discharged to home with via private vehicle. AVS provided and reviewed. [Electronically Signed on: 07/29/2022 15:44 EDT] Keyla Silva RN [Verified on: 07/29/2022 15:44 EDT] Keyla Silva RN [facility] Telemetry Stripson Telemetry Strips [id number] GTIFF [facility] TnI HSon 07-29-2022 Troponin I High Sensitivity 8.4 pg/mL Normal <=15.0 [facility] Comment on above: Performed By: #### 5 [id number] ####[facility] (DEFAULT)[address] [place] [address] Troponin I High Sensitivity 10.2 pg/mL Normal <=15.0 [facility] Comment on above: Performed By: #### 1 [id number], [id number], [id number], [id number], [id number] ####[facility] (DEFAULT)[address] [place] [address] Troponin I High Sensitivity 7.9 pg/mL Normal <=15.0 [facility] Comment on above: Performed By: #### 5 [id number] ####[facility] (DEFAULT)[address] [place] [address] US Echocardiogram Completeon 07-29-2022 US Echocardiogram Complete [...] foramen ovale. Alfredo Zhang DO JOB #: [id number] bk Final Dictated by: Alfredo Zhang DO Dictated DT/TM: 08/02/22 11:54 Signed (Electronic Signature): Alfredo Zhang DO 08/03/22 8:30 am Technologist: [facility] XR Chest 1 View Frontalon XR Chest [...] Dwaine Hanna MD 07/29/22 1:30 am Technologist: [facility] .Auto Diff 1on 07-28-2023 Auto Cameron % 4 % Normal 1-12 [facility] Comment on above: Performed By: #### 1 [id number], [id number], [id number], 0625142, [id number], [id number], 2322902 ####[facility] (DEFAULT)[address] [place] [address] Baso Abs# 0.0 x10 Normal 0.0-0.2 [facility] Comment on above: Performed By: #### 1 [id number], 0390127, 26846329, 4430402, 2854776125, 2341658753, 0467274 ####[facility] (DEFAULT)[address] [place] [address] Basophils/100 WBC (Bld) 0.7 % Normal 0.2-2.0 [facility] Comment on above: Performed By: #### 1 [id number], 0737090, 90215028, 9850197, 0940398099, 3587113112, 5298799 ####[facility] (DEFAULT)[address] [place] [address] Eos Abs# 0.1 x10 Normal 0.0-0.4 [facility] Comment on above: Performed By: #### 1 [id number], 6324601, 09692056, 2854297, 7476683985, 4836844441, 3898653 ####[facility] (DEFAULT)[address] [place] [address] Eosinophils/100 WBC (Bld) 2.9 % Normal 0.9-4.0 [facility] Comment on above: Performed By: #### 1 605374682, 4588926, 81212353, 1337509, 9375418411, 1493616714, 5815207 ####[facility] (DEFAULT)[address] [place] [address] Lymph Abs# 1.1 x10 Low 1.3-2.9 [facility] Comment on above: Performed By: #### 1 885512783, 4476144, 87903429, 0195465, 9633442146, 9172790343, 0645540 ####[facility] (DEFAULT)[address] [place] [address] Lymphocytes/100 WBC (Bld) 30 % Normal 14-48 [facility] Comment on above: Performed By: #### 1 942639258, 5982397, 78979137, 5925162, 7334085772, 6415366814, 1336738 ####[facility] (DEFAULT)[address] [place] [address] Cameron Abs# 0.2 x10 Normal 0.0-0.8 [facility] Comment on above: Performed By: #### 1 672755291, 4450502, 98402690, 3608577, 3951166972, 3852069050, 1632471 ####[facility] (DEFAULT)[address] [place] [address] Neut Abs# 2.3 x10 Normal 1.5-9.2 [facility] Comment on above: Performed By: #### 1 719588322, 7592763, 29330522, 6562927, 6860635311, 2605090011, 5592115 ####[facility] (DEFAULT)[address] [place] [address] Neutrophils/100 WBC (Bld) 62 % Normal 44-88 [facility] Comment on above: Performed By: #### 1 376886629, 6007001, 78320489, 6431532, 0484788584, 8213068462, 4024482 ####[facility] (DEFAULT)[address] [place] [address] CBC w/ Auto Diffon 3 Erythrocyte distribution width (RBC) [Ratio] 13.8 % Normal 11.5-15.0 [facility] Comment on above: Performed By: #### 1 [id number], 5600324, 50437615, 1496446, 0003996489, 7928862625, 0747007 ####[facility] (DEFAULT)[address] [place] [address] Hematocrit (Bld) [Volume fraction] 37.9 % Normal 33.7-40.4 [facility] Comment on above: Performed By: #### 1 695147824, 7340812, 31534737, 6803306, 1990246192, 8856795725, 4465058 ####[facility] (DEFAULT)[address] [place] [address] 28122 Hemoglobin (Bld) [Mass/Vol] 13.0 g/dL Normal 11.3-15.9 [facility] Comment on above: Performed By: #### 1 356035907, 8632578, 92067319, 3214600, 2141971160, 5622912281, 2260838 ####[facility] (DEFAULT)[address] [place] [address] Man Diff? Auto Invalid Interpretation Code [facility] Comment on above: Performed By: #### 1 [id number], 3126306, 89828240, 6789433, 9146975954, 7340601731, 9880751 ####[facility] (DEFAULT)[address] [place] [address] 13104 MCH (RBC) [Entitic mass] 32 pg Normal 24-34 [facility] Comment on above: Performed By: #### 1 332772942, 1670597, 32998462, 4247640, 2739334373, 7588490155, 1503543 ####[facility] (DEFAULT)[address] [place] [address] 40129 MCHC (RBC) [Mass/Vol] 34 g/dL Normal 26-37 [facility] Comment on above: Performed By: #### 1 321185303, 2862976, 22152730, 1032292, 3146890999, 5076793502, 5855639 ####[facility] (DEFAULT)[address] [place] [address] 13250 MCV (RBC) [Entitic vol] 95 fL Normal 81-100 [facility] Comment on above: Performed By: #### 1 071914621, 0297268, 89760577, 4100916, 0549957096, 2596907216, 1334198 ####[facility] (DEFAULT)[address] [place] [address] 76523 Platelet 183 x10 Normal 138-427 [facility] Comment on above: Performed By: #### 1 953311480, 4280389, 44009127, 6634219, 4557065111, 2319813381, 1032124 ####[facility] (DEFAULT)[address] [place] [address] Platelet mean volume (Bld) [Entitic vol] 8.0 fL Normal 6.3-10.2 [facility] Comment on above: Performed By: #### 1 643131850, 0755886, 46095703, 8392568, 6807250889, 1433719586, 2748627 ####[facility] (DEFAULT)[address] [place] [address] RBC 3.99 x10 Normal 3.70-5.30 [facility] Comment on above: Performed By: #### 1 039555537, 0972651, 81849916, 3610659, 5790634671, 8441788844, 8860843 ####[facility] (DEFAULT)[address] [place] [address] WBC 3.7 x10 Normal 3.5-10.5 [facility] Comment on above: Performed By: #### 1 497631648, 7403565, 15690104, 1834306, 9975796565, 9311887812, 3023777 ####[facility] (DEFAULT)[address] [place] [address] CMP Standardon 07-28-2022 Breakpoint Chem Normal [facility] Comment on above: Performed By: #### 1 638724342, 8607653, 77928653, 6134870, 0403669168, 5813101782, 0427456 ####[facility] (DEFAULT)[address] [place] [address] eGFR Non AA 55 mL/min/1.73m2 Invalid Interpretation Code [facility] Comment on above: Performed By: #### 1 985857169, 9887784, 13511552, 9601966, 3719419187, 6597400204, 9093805 ####[facility] (DEFAULT)[address] [place] [address] eGFR AA >60 Invalid Interpretation Code [facility] Comment on above: Performed By: #### 1 381514772, 7536213, 84032476, 1826397, 4950157526, 1956303173, 5648291 ####[facility] (DEFAULT)[address] [place] [address] Albumin [Mass/Vol] 4.0 g/dL Normal 3.5-5.0 [facility] Comment on above: Performed By: #### 1 437011454, 5621970, 41600310, 7331759, 8495917831, 5526993020, 1864701 ####[facility] (DEFAULT)[address] [place] [address] Albumin/Globulin [Mass ratio] 1.2 {ratio} Low 1.4-2.6 [facility] Comment on above: Performed By: #### 1 484426613, 9133278, 20153235, 6309865, 5572810630, 9912151674, 1704298 ####[facility] (DEFAULT)[address] [place] [address] Alk Phos 45 IU/L Normal 32-91 [facility] Comment on above: Performed By: #### 1 784433466, 8289976, 76710455, 5405298, 6435087071, 1587558531, 0926233 ####[facility] (DEFAULT)[address] [place] [address] 01275 ALT [Catalytic activity/Vol] 22.0 U/L Normal 14.0-54.0 [facility] Comment on above: Performed By: #### 1 292254844, 4478916, 11901708, 0328943, 6745061549, 5741536624, 9849202 ####[facility] (DEFAULT)[address] [place] [address] 95270 Anion gap [Moles/Vol] 16.5 mmol/L Normal 5.0-19.0 [facility] Comment on above: Performed By: #### 1 113570065, 9011720, 32455741, 5025409, 8823594425, 8902762919, 7688103 ####[facility] (DEFAULT)[address] [place] [address] 91772 AST [Catalytic activity/Vol] 28 U/L Normal 15-41 [facility] Comment on above: Performed By: #### 1 140759641, 1629859, 92564265, 5448752, 1317846121, 6524439343, 3586980 ####[facility] (DEFAULT)[address] [place] [address] 07615 Bili Total 0.5 mg/dL Normal 0.3-1.2 [facility] Comment on above: Performed By: #### 1 647433433, 9193976, 36122930, 7223726, 1916784348, 2151286532, 8747017 ####[facility] (DEFAULT)[address] [place] [address] 61977 Calcium [Mass/Vol] 9.3 mg/dL Normal 8.9-10.3 [facility] Comment on above: Performed By: #### 1 940329393, 0120256, 42176821, 9964818, 8629407845, 7430328708, 9934409 ####[facility] (DEFAULT)[address] [place] [address] 03490 Chloride [Moles/Vol] 102 mmol/L Normal 101-111 [facility] Comment on above: Performed By: #### 1 216584878, 0180896, 08664192, 6568882, 3697233730, 0859455715, 8690231 ####[facility] (DEFAULT)[address] [place] [address] 24310 CO2 [Moles/Vol] 25 mmol/L Normal 21-32 [facility] Comment on above: Performed By: #### 1 867576701, 7309117, 93704713, 6275841, 7544548442, 0274877552, 4549730 ####[facility] (DEFAULT)[address] [place] [address] 15436 Creatinine [Mass/Vol] 0.99 mg/dL Normal 0.60-1.30 [facility] Comment on above: Performed By: #### 1 753762108, 9442598, 47416674, 5240988, 0652308260, 7510604422, 7196103 ####[facility] (DEFAULT)[address] [place] [address] 73662 Globulin (S) [Mass/Vol] 3.1 g/dL Normal 1.5-4.3 [facility] Comment on above: Performed By: #### 1 256587939, 9162693, 64286911, 2381759, 3235603982, 5173014002, 5253547 ####[facility] (DEFAULT)[address] [place] [address] 37726 Glucose [Mass/Vol] 106.0 mg/dL Normal 74.0-118.0 [facility] Comment on above: Performed By: #### 1 251207455, 3897708, 85623397, 5531414, 9816913778, 3000509622, 7693096 ####[facility] (DEFAULT)[address] [place] [address] 30204 Osmolality 281 mOsm/L Invalid Interpretation Code [facility] Comment on above: Performed By: #### 1 782501723, 0664969, 57770770, 1188939, 2438046298, 1572100696, 9043255 ####[facility] (DEFAULT)[address] [place] [address] 26628 Potassium [Moles/Vol] 3.5 mmol/L Low 3.6-5.1 [facility] Comment on above: Performed By: #### 1 483292073, 5630041, 81446759, 9063934, 3042092874, 3401060615, 4126283 ####[facility] (DEFAULT)[address] [place] [address] 46752 Protein [Mass/Vol] 7.1 g/dL Normal 6.5-8.1 [facility] Comment on above: Performed By: #### 1 888148971, 7823788, 53821467, 8592023, 1726275314, 7780825279, 7158199 ####[facility] (DEFAULT)[address] [place] [address] 52914 Sodium [Moles/Vol] 140.0 mmol/L Normal 136.0-144.0 [facility] Comment on above: Performed By: #### 1 675520787, 7919776, 95189098, 3017712, 6664111483, 6746019810, 0512729 ####[facility] (DEFAULT)[address] [place] [address] 02388 Urea nitrogen [Mass/Vol] 15 mg/dL Normal 8-26 [facility] Comment on above: Performed By: #### 1 144377291, 2199260, 17489606, 3819853, 7666880838, 9494586335, 8865109 ####[facility] (DEFAULT)[address] [place] [address] 22226 Urea nitrogen/Creatinin e [Mass ratio] 15.1 mg/mg Normal 4.6-16.2 [facility] Comment on above: Performed By: #### 1 682045934, 9027334, 72750261, 3055887, 6819906739, 1119777432, 5147937 ####[facility] (DEFAULT)[address] [place] [address] 84157 D-Dimeron 07-28-2022 D-Dimer 0.29 mg/L FEU Normal 0.19-0.50 [facility] Comment on above: Result Comment: The INNOVANCE [...] Liver cirrhosis ? Performed By: #### 1 628611406, 9083756, 00961461, 0590668, 8850512780, 1526690554, 5933549 ####[facility] (DEFAULT)[address] [place] [address] 54712 ED Note - Physicianon 2022 ED Note [...] which she takes Plavix. 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 She was visibly relieved [...] recorded.. Surgical h (more content not included)... [facility] ED Note - Physician Patient: ALVARADO BRITT [...] on: 07/31/2022 23:59 EDT] Marco Jones DO [facility] ED Note-Nursingon 07-28-2022 ED Note-Nursing Dr. Jones gave writt en orders for medications and labs as ordered. Verified with Tosin Garcia RN. [facility] Lipaseon 07-28-2022 Lipase Level 36.0 IU/L Normal 22.0-51.0 [facility] Comment on above: Performed By: #### 1 [id number], 5772624, 76128515, 2510062, 5189804395, 7648001198, 9879600 ####[facility] (DEFAULT)[address] [place] [address] TnI HSon 07-28-2022 Troponin I High Sensitivity 7.1 pg/mL Normal <=15.0 [facility] Comment on above: Performed By: #### 1 372198946, 9984009, 65084495, 1249260, 6754324815, 2563573289, 6431697 ####[facility] (DEFAULT)[address] [place] [address] UA Ogcdv0la 07-28-2022 UA Bacteria None [facility] Comment on above: Order Comment: Urina lysis Microscopic order added on by [employer] system. Performed By: #### 5 8739185, [id number] ####[facility] (DEFAULT)[address] [place] [address] UA RBC 3-5 [facility] Comment on above: Order Comment: Urina lysis Microscopic order added on by [employer] system. Performed By: #### 5 [id number], [id number] ####[facility] (DEFAULT)[address] [place] [address] 88052 UA Squam Epi None Seen [facility] Comment on above: Order Comment: Urina lysis Microscopic order added on by [employer] system. Performed By: #### 5 8384237, [id number] ####[facility] (DEFAULT)[address] [place] [address] 62600 UA WBC 0-2 [facility] Comment on above: Order Comment: Urina lysis Microscopic order added on by [employer] system. Performed By: #### 5 8922062, [id number] ####[facility] (DEFAULT)[address] [place] [address] UA w Culture if Ind Standard on 07-28-2022 Breakpoint UA [facility] Comment on above: Performed By: #### 5 [id number], [id number] ####[facility] (DEFAULT)[address] [place] [address] Color (U) Yellow [facility] Comment on above: Performed By: #### 5 3846480, [id number] ####[facility] (DEFAULT)[address] [place] [address] Culture? Not Indicated Invalid Interpretation Code [facility] Comment on above: Result Comment: Resu lt created by rule GL_MAGR_ADD_UA_CULT Result created by rule GL_MAGR_ADD_UA_CULT Result created by rule GL_MAGR_ADD_UA_CULT1 Performed By: #### 5 [id number], [id number] ####[facility] (DEFAULT)[address] [place] [address] 01761 Glucose (U) [Mass/Vol] Negative [facility] Comment on above: Performed By: #### 5 [id number], [id number] ####[facility] (DEFAULT)[address] [place] [address] Ketones Ql (U) Negative [facility] Comment on above: Performed By: #### 5 3497425, [id number] ####[facility] (DEFAULT)[address] [place] [address] Micro? Indicated Invalid Interpretation Code [facility] Comment on above: Result Comment: Resu lt created by rule GL_MAGR_ADD_UA_MICRO Performed By: #### 5 [id number], [id number] ####[facility] (DEFAULT)[address] [place] [address] UA Bilirubin Negative Normal [facility] Comment on above: Performed By: #### 5 4525688, [id number] ####[facility] (DEFAULT)[address] [place] [address] UA Blood TRACE Abnormal NEGATIVE [facility] Comment on above: Performed By: #### 5 8110198, [id number] ####[facility] (DEFAULT)[address] [place] [address] UA Clarity CLEAR Normal CLEAR [facility] Comment on above: Performed By: #### 5 9069645, [id number] ####[facility] (DEFAULT)[address] [place] [address] UA Leuk Est Negative Normal NEGATIVE [facility] Comment on above: Performed By: #### 5 [id number], [id number] ####[facility] (DEFAULT)[address] [place] [address] UA Nitrite Negative Normal NEGATIVE [facility] Comment on above: Performed By: #### 5 0925305, [id number] ####[facility] (DEFAULT)[address] [place] [address] UA pH 7.5 Normal 5-8 [facility] Comment on above: Performed By: #### 5 4021125, [id number] ####[facility] (DEFAULT)[address] [place] [address] UA Protein Negative Normal NEGATIVE [facility] Comment on above: Performed By: #### 5 3367594, [id number] ####[facility] (DEFAULT)[address] [place] [address] UA Spec Grav 1.015 Normal 1.001-1.035 [facility] Comment on above: Performed By: #### 5 9876330, [id number] ####[facility] (DEFAULT)[address] [place] [address] UA Urobilinogen 0.2 mg/dL Normal 0.2-1.0 [facility] Comment on above: Performed By: #### 5 3826692, [id number] ####[facility] (DEFAULT)[address] [place] [address] Urine Source Clean Catch Normal [facility] Comment on above: Performed By: #### 5 [id number], [id number] ####[facility] (DEFAULT)[address] [place] [address] XR FOOT RENETTA MIN 3 VIEWSon XR [...] SMITH ORTEGA Date: 2021-05-25 15:[address] [facility]on SARS-CoV-2 (COVID-19) RNA DILIP+probe Ql (Unsp spec) Not detected Normal NOT DETECTED [facility] Comment on above: Result Comment: This test is not yet approved or cleared by the [place] FDA. When there are no FDA-approved or cleared tests available, and other criteria are met, FDA can make tests available under an emergency access mechanism called an Emergency Use Authorization (EUA). The EUA for this test is supported by the Social Work Specialist of Health and Human Service's (HHS's) declaration [...] consistent with SARS-CoV-2. Performed By: #### [facility] #### [facility] [address] [place] [address] Dr. Ricardo Mary PROF CHEM 8 (BAS METB)on Anion gap [Moles/Vol] 9.1 mmol/L Normal [facility] Comment on above: Performed By: #### B MP #### [facility] [address] [place] [address] Dr. Ricardo Mary Calcium [Mass/Vol] 9.1 mg/dL Normal 8.4-10.2 [facility] Comment on above: Performed By: #### B MP #### [facility] [address] [place] [address] Dr. Ricardo Mary Chloride [Moles/Vol] 105 mmol/L Normal 98-[address] [facility] Comment on above: Performed By: #### B MP #### [facility] [address] [place] [address] Dr. Ricardo Mary CO2 [Moles/Vol] 32.3 mmol/L Critically high 22.0-30.[address] [facility] Comment on above: Performed By: #### B MP #### [facility] [address] [place] [address] Dr. Ricardo Mary Creatinine [Mass/Vol] 0.99 mg/dL Normal 0.52-1.[address] [facility] Comment on above: Performed By: #### B MP #### [facility] [address] [address] [address] Ricardo Mary EGFR-AF GUINEAN >60 Normal >=60 [facility] Comment on above: Performed By: #### B MP #### [facility] [address] [address] [address] Ricardo Mary EGFR-NON AF GUINEAN 55 mL/min/1.73m2 Critically low >=[address] [facility] Comment on above: Performed By: #### B MP #### [facility] [address] [address] [address] Ricardo Mary Glucose [Mass/Vol] 96 mg/dL Normal 74-106 [facility] Comment on above: Performed By: #### B MP #### [facility] [address] [address] [address] Ricardo Mary Potassium [Moles/Vol] 4.4 mmol/L Normal 3.4-5.[address] [facility] Comment on above: Performed By: #### B MP #### [facility] [address] [address] [address] Ricardo Mary Sodium [Moles/Vol] 142 mmol/L Normal 137-145 [facility] Comment on above: Performed By: #### B MP #### [facility] [address] [address] [address] Ricardo Mary Urea nitrogen [Mass/Vol] 16.0 mg/dL Normal 7.0-17.[address] [facility] Comment on above: Performed By: #### B MP #### [facility] [address] [address] [address] Ricardo Mary Urea nitrogen/Creatinin e [Mass ratio] 16.2 mg/mg Normal [facility] Comment on above: Performed By: #### B MP #### [facility] [id number] Ricardo Mary Vital Signs Date Time Vital Sign Value Performing Clinician Facility 11-29-2021 12:30-0400 Body height 151.13 cm Steve Ortega Other [facility] Other 11-29-2021 12:30-0400 Body mass index (BMI) [Ratio] 26.21 kg/m2 Steve Ortega Other [facility] Other 11-29-2021 12:30-0400 Body weight 59.88 kg Steve Ortega Other [facility] Other 11-29-2021 12:30-0400 Diastolic blood pressure 80 mm[Hg] Steve Ortega Other [facility] Other 11-29-2021 12:30-0400 SaO2% (BldA) [Mass fraction] 97 % Steve Ortega Other [facility] Other 11-29-2021 12:30-0400 Systolic blood pressure 148 mm[Hg] Steve Ortega Other [facility] Other 10-28-2021 12:00-0400 Body height 151.13 cm Della Vera Other [facility] Other 10-28-2021 12:00-0400 Diastolic blood pressure 81 mm[Hg] Della Vera Other [facility] Other 10-28-2021 12:00-0400 Respiratory rate 18 /min Della Vera Other [facility] Other 10-28-2021 12:00-0400 SaO2% (BldA) [Mass fraction] 98 % Della Vera Other [facility] Other 10-28-2021 12:00-0400 Systolic blood pressure 171 mm[Hg] Della Vera Other [facility] Other 10-07-2021 16:15-0400 Body height 151.13 cm Steve Ortega Other [facility] Other 10-07-2021 16:15-0400 Body mass index (BMI) [Ratio] 27.2 kg/m2 Steve Ortega Other [facility] Other 10-07-2021 16:15-0400 Body weight 62.14 kg Steve Ortega Other [facility] Other 10-07-2021 16:15-0400 Diastolic blood pressure 72 mm[Hg] Steve Ortega Other [facility] Other 10-07-2021 16:15-0400 SaO2% (BldA) [Mass fraction] 99 % Steve Ortega Other [facility] Other 10-07-2021 16:15-0400 Systolic blood pressure 134 mm[Hg] Steve Ortega Other [facility] Other 09-20-2021 17:00-0400 Body height 151.13 cm Steve Ortega Other [facility] Other 09-20-2021 17:00-0400 Body mass index (BMI) [Ratio] 27.44 kg/m2 Steve Ortega Other [facility] Other 09-20-2021 17:00-0400 Body weight 62.69 kg Steve Ortega Other [facility] Other 09-20-2021 17:00-0400 Diastolic blood pressure 80 mm[Hg] Steve Jordan Other [facility] Other 09-20-2021 17:00-0400 SaO2% (BldA) [Mass fraction] 98 % Steve Ortega Other [facility] Other 09-20-2021 17:00-0400 Systolic blood pressure 150 mm[Hg] Steve Ryderky Other [facility] Other 09-01-2021 10:30-0400 Body height 151.13 cm Jason Stas Other [facility] Other 09-01-2021 10:30-0400 Body mass index (BMI) [Ratio] 27.6 kg/m2 Jason Mcclelland Other [facility] Other 09-01-2021 10:30-0400 Body weight 63.05 kg Jason Stas Other [facility] Other Encounters Encounter Date Encounter Type Care Provider Facility Start: 02-27-2023 End: 2023 ambulatory [facility] Facility:[facility] Start: 02-27-2023 End: [address] [facility] Start: 02-07-2023 End: 02-08-2023 ambulatory [facility] Facility:[facility] Start: 01-28-2023 End: 01-28-2023 ambulatory [facility] Facility:[facility] Start: 01-13-2023 End: 01-14-2023 ambulatory Vee Steele MD Facility:[facility] Start: 12-29-2022 End: 12-30-2022 ambulatory Kary Kelly Wolf [facility] Facility:[facility] Start: 12-23-2022 End: 12-24-2022 ambulatory [facility] Facility:[facility] Start: 12-08-2022 End: 12-09-2022 ambulatory Kary Kelly Phoenix 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 Facility:PM [facility] Start: 12-02-2022 End: 12-03-2022 ambulatory Vee Steele MD Facility:PM [facility] Start: 12-02-2022 End: 12-02-2022 ambulatory VEE STEELE Facility:[facility] Start: 11-17-2022 End: 11-18-2022 [facility] Start: 11-17-2022 End: 11-18-2022 ambulatory 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 Kelly Phoenix 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 Facility:PM [facility] Start: 10-28-2022 End: 10-29-2022 ambulatory Vee Steele MD Facility:PM [facility] Start: 10-28-2022 End: 10-28-2022 ambulatory VEE STEELE Facility:[facility] Start: 10-27-2022 End: 10-28-2022 ambulatory [facility] Facility:[facility] Start: 10-21-2022 End: 10-22-2022 ambulatory Romina Vizcaino Facility:[facility] Start: 10-19-2022 End: 10-20-2022 ambulatory Kary Kelly Phoenix 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 Facility:[facility] Start: 08-17-2022 End: 08-17-2022 ambulatory [facility] Facility:[facility] Start: 08-03-2022 End: 08-03-2022 Emergency department patient visit Ansley [place] Facility:[facility] Start: 07-28-2022 End: 07-29-2022 ambulatory [facility] Facility:[facility] Start: 03-16-2022 End: 03-17-[address] SMITH ORTEGA Facility:[facility] Start: 12-16-2021 ambulatory LESLYE Zuniga y:[facility] Start: 11-29-2021 End: 11-29-2021 ambulatory Steve Ortega Other [employer] Other Start: 11-29-2021 Office outpatient vi sit 25 minutes Steve Ortega [facility] Start: 11-18-2021 End: 11-19-[address] SMITH ORTEGA Facility:[facility] Start: 11-02-2021 End: 11-03-[address] SMITH ORETGA Facility:[facility] Start: 10-28-2021 End: 10-28-2021 ambulatory Della Vera Other [employer] Other Start: 10-28-2021 Office outpatient vi sit 15 minutes Della Vera [facility] Start: 10-14-2021 (Procedure) Short Steve Ortega [facility] Start: 10-14-2021 End: 10-14-2021 ambulatory Steve Ortega Other [employer] Other Start: 10-07-2021 End: 10-07-2021 ambulatory Steve Ortega Other [employer] Other Start: 10-07-2021 Office outpatient vi sit 25 minutes Stevemoo Ortega [facility] Start: 09-20-2021 End: 09-20-2021 ambulatory Steve Ortega Other [employer] Other Start: 09-20-2021 Office outpatient vi sit 25 minutes Stevemoo Ortega [facility] Start: 09-14-2021 End: 09-14-2021 ambulatory Steve Ortega Other [employer] Other Start: 09-14-2021 Telephone encounter Steve Ortega [facility] [employer] Start: 09-09-2021 End: 09-10-2021 ambulatory LESLYE GUIDRY Facility:[facility] Start: 09-01-2021 End: 09-01-2021 ambulatory Jason Mcclelland Other [employer] Other Start: 09-01-2021 Office outpatient ne w 30 minutes Jason Mcclelland [facility] Start: 07-08-2021 End: 07-09-2021 ambulatory LESLYE GUIDRY Facility:[facility] Start: 05-25-2021 End: 05-26-[address] SMITH ORTEGA Facility:[facility] Start: 05-04-2021 End: 05-05-2021 ambulatory RICHA FIGUEROA Facility:[facility] Start: 04-15-2021 Encounter for preprocedural laboratory examination [facility] Start: 04-12-2021 End: 04-14-[address] ROLANDO FISCHER Facility:[facility] Start: 04-08-2021 End: 04-09-2021 [facility] Start: 04-08-2021 End: 04-09-2021 Encounter for preprocedural laboratory examination [facility] Start: 04-04-2021 Encounter for preprocedural cardiovascular examination [facility] Start: 04-04-2021 Encounter for preprocedural laboratory examination [facility] Start: 03-29-2021 End: 03-30-[address] PEGGY CANTU Facility:[facility] Start: 03-29-2021 End: 03-30-2021 Encounter for preprocedural cardiovascular examination DR PEGGY CANTU Facility:[facility] Procedures Date Procedure Procedure Detail Performing Clinician Screening for malign ant neoplasm of colon Jason Mcclelland Other Payers Date Payer Category Payer Self-pay 2022 Unknown [id number] 2022 Unknown 1957 Medicare [id number] 2.1 6.840.1.390126. 1957 Unknown [id number] . .[id number] 1945 Unknown [id number] 2.16.84 0.1.164352.3.579.2.593 1945 Unknown [id number] 2.16.84 0.1.294802.3.579.2.593 1945 Unknown [id number] 2.16.84 0.1.966932.3.579.2.593 1945 Unknown [id number] 2.16.84 0.1.762498.3.579.2.593 1945 Unknown [id number] 2.16.84 0.1.989933.3.579.2.593 1945 Unknown [id number] 2.16.84 0.1.991412.3.579.2.593 1945 Unknown [id number] 2.16.84 0.1.059729.3.579.2.593 1945 Unknown [id number] 2.16.84 0.1.084775.3.579.2.593 1945 Unknown [id number] 2.16.84 0.1.975998.3.579.2.593 1947 Unknown [id number] 2.16.84 0.1.765955.3.579.2.593 1947 Unknown [id number] 2.16.84 0.1.660261.3.579.2.593 1947 Unknown [id number] 2.16. 840.1.445302.3.579.2.196 1945 Unknown [id number] 2.16. 840.1.943733.3.579.2.196 1945 Unknown [id number] 2.16. 840.1.001914.3.579.2.196 1945 Unknown [id number] 2.16. 840.1.018990.3.579.2.196 1945 Unknown [id number] 2.16. 840.1.520945.3.579.2.196 1945 Unknown [id number] 2.16. 840.1.057721.3.579.2.196 1945 Unknown [id number] 2.16. 840.1.008771.3.579.2.196 1945 Unknown [id number] 2.16. 840.1.152445.3.579.2.196 1945 Unknown [id number] 2.16.8 40.1.210964.3.579.2. 1945 Unknown [id number] 2.16.8 40.1.625532.3.579.2. 1945 Unknown [id number] 2.16.8 40.1.981881.3.579.2. 1945 Unknown [id number] 2.16.8 40.1.466980.3.579.2 1945 Unknown [id number] 2.16.8 40.1.457388.3.579.2. 1945 Unknown [id number] 2.16.8 40.1.381858.3.579.2 1945 Unknown [id number] 2..8 40.1.955289.3.579.2 1945 Unknown [id number] 2.16.8 40.1.380827.3.579.2 1945 Unknown [id number] 2..8 40.1.061301.3.579.2 1945 Unknown [id number] 2.16.8 40.1.160768.3.579.2 1945 Unknown [id number] 2.16.8 40.1.301613.3.579.2 1945 Unknown [id number] 2.16.8 40.1.759796.3.579.2 1945 Unknown [id number] 2.16.8 40.1.099472.3.579.2 1945 Unknown [id number] 2.16.8 40.1.372886.3.579.2 1945 Unknown [id number] 2.16.8 40.1.005724.3.579.2 1945 Unknown [id number] 2.16.8 40.1.848493.3.579.2.718 Unknown [id number] 2.16.8 40.1.025971.3.579.2.531 Social History Date Type Detail Facility Sex Assigned At [place] [email or web address] Other Clinical Notes 04-12-2021 to 01-28-2023 Note [...] Follow these instructions at home: ? Take vdgl-rdx-vwjbebp and prescription medicines only as told by [...] cool compress to relieve itchiness. ? Take uemu-jmj-wuijbsb antihistamines, as recommended by your health care [...] provider. Document Revised: 08/30/2021 Document Reviewed: 08/30/2021 [employer] Patient Education ? 2022 [employer] [facility] 01-16-2023 Note [id number] [facility] 01-13-2023 Note [facility] SURGERY Clinical Discharge Summary PERSON INFORMATION Name ALVARADO BRITT Age 77 Years 1945 Sex FEMALE Language Burmese PCP Ansley Houser NP Marital Status Med Service Pain Management Surgery Acct# Arrival 01/13/2023 11:52:04 Visit Reason CERVICAL PAIN Acuity LOS 009 02:15 Address: [address] [place] [address] Comment: PROVIDER INFORMATION VITALS INFORMATION Vital Sign [...] naltrexone 2 t (more content not included)... [facility] 01-12-2023 Note [id number]#1.00 OTGTIFF The history of present illness has been reviewed. There are no changes document. [Electronically Signed on: 01/13/2023 09:12 EDT] VEE STEELE MD [Verified on: 01/13/2023 09:12 EDT] EVE STEELE MD [Transcribed on: 01/12/2023 13:28 EDT] [facility] 12-06-2022 Note [id number] TGTIFF [facility] 12-02-2022 Note (Inserted Image. Coral ble to [...] to your first appointment after your procedure [facility] 12-02-2022 Note [facility] SURGERY Clinical Discharge Summary PERSON INFORMATION Name LAVARADO BRITT Age 77 Years 1945 Sex FEMALE Language Burmese PCP Ansley Houser NP Marital Status Med Service Pain Management Surgery Acct# Arrival 12/02/2022 08:03:51 Visit Reason CERVICAL PAIN Acuity LOS 009 18:20 Address: [address] [place] [address] Comment: PROVIDER INFORMATION VITALS INFORMATION Vital Sign [...] times a day. (more content not included)... [facility] 12-01-2022 Note [id number]#1.0 0OTGTIFF The history of present illness has been reviewed. There are no changes document. [Electronically Signed on: 12/02/2022 08:54 EDT] VEE STEELE MD [Verified on: 12/02/2022 08:54 EDT] VEE STEELE MD [Transcribed on: 12/01/2022 11:54 EDT] BK [facility] 10-31-2022 Note [id number] GTIFF [facility] 10-28-2022 Note [facility] SURGERY Clinical Discharge Summary PERSON INFORMATION Name ALVARADO BRITT Age 77 Years 1945 Sex FEMALE Language Burmese PCP Ansley Houser NP Marital Status Med Service Pain Management Surgery Acct# Arrival 10/28/2022 07:01:09 Visit Reason CERVICAL PAIN Acuity LOS 003 17:48 Address: [address] [place] [address] Comment: PROVIDER INFORMATION VITALS INFORMATION Vital Sign [...] extended release) 1 (more content not included)... [facility] 10-27-2022 Note [id number] TGTIFF The history of present illness has been reviewed. There are no changes document. [Electronically Signed on: 10/28/2022 08:09 EDT] VEE STEELE MD [Verified on: 10/28/2022 08:09 EDT] VEE STEELE MD [Transcribed on: 10/27/2022 13:25 EDT] [facility] 08-03-2022 Note Education Materials Cardiovascular Hypertension, Adult [...] doctor. This is important. Medicines ? Take hpmj-nin-tdhidat and prescription medicines only as told by [...] or numb. ? (more content not included)... [facility] 07-29-2022 Note Education Materials Cardiovascular Hypertension, Adult [...] doctor. This is important. Medicines ? Take kcea-tmf-txmotbo and prescription medicines only as told by [...] forces your h (more content not included)... [facility] 07-29-2022 Note [facility] Clinical Discharge Summary PERSON INFORMATION Name ALVARADO BRITT Age 77 Years 1945 Sex FEMALE Language Burmese PCP Ansley Houser NP Marital Status Med Service Observation Acct# Arrival 07/28/2022 19:18:28 Visit Reason Chest pain; Chest pain; Trauma; CHEST PAIN, HYPERTENSION Acuity LOS 000 14:59 Address: [address] [place] [address] Comment: PROVIDER INFORMATION VITALS INFORMATION Vital Sign [...] range between ( 1.3 and 2.9 ) Cameron Abs#: 0.2 x103/mcL -- Normal range between ( 0.0 and 0.8 ) Auto Baso %: 0.5 % -- Normal range between ( 0.2 and 2.0 ) Auto Cameron %: 6 % -- Normal range between [...] 14.0 and 5 (more content not included)... [facility] 03-17-2022 Note PROCEDURE: XR FOOT L T [...] authenticated by: SMITH ORTEGA Date: 2022-03-16 23:[address] [facility] 11-29-2021 Evaluation note Encounter Date Diagnosis Assessment [...] call the office if her symptoms return [employer] Other [id number] NotePROCEDURE: XR FOOT LT MIN 3 VIEWS [...] Electronically authenticated by: SMITH ORTEGA Date: 2021-11-19 07:47[facility]08-02-2022 NotePROCEDURE: XR FOOT LT MIN 3 VIEWS [...] Electronically authenticated by: SMITH ORTEGA Date: 2021-11-02 19:51[facility]07-28-2022 Evaluation note* Encounter Date Diagnosis Assessment Notes [...] - G89.29) Continue with current treatment plan [employer] Other [id number] Evaluation note* Encounter Date Diagnosis Assessment Notes [...] - G89.29) Continue with current treatment plan [employer] [facility] Other 06-20-2022 Evaluation note* Encounter Date Diagnosis [...] - G89.29) Continue with current treatment plan [employer] [facility] Other 06-09-2022 NotePROCEDURE: XR FOOT LT MIN 3 VIEWS COMPARISON: 07/08/2021 HISTORY: Pain in left foot FINDINGS: BONES:Stable fusion the first metatarsal-phalangeal joint with a dorsal plate and multiple screws. 2 screws through the head of the second metatarsal. Remote resection head of the second proximal phalanx. Degenerative changes with qamy-na-hgwu articulation of the second through fifth tarsometatarsal joints SOFT TISSUES:Negative. No visible soft tissue swelling. EFFUSION:None visible. OTHER: Negative. IMPRESSION: Stable postsurgical and degenerative changes Electronically authenticated by: ROLANDO FISCHER Date: 2021-09-09 12:52[facility]06-01-2022 Evaluation note* Encounter Date Diagnosis Assessment Notes [...] of the pain in the retromastoid region. [employer] Other 04-07-2022 NotePROCEDURE: XR FOOT LT MIN [...] Electronically authenticated by: SMITH ORTEGA Date: 2021-07-08 12:38[facility]02-01-2022 NotePROCEDURE: XR FOOT LT MIN 3 VIEWS [...] Electronically authenticated by: ROLANDO FISCHER Date: 2021-05-04 11:07[facility]01-10-2022 NotePROCEDURE: XR FOOT LT MIN 3 VIEWS [...] Electronically authenticated by: ROLANDO FISCHER Date: 2021-04-12 14:21[facility]01-10-2022 NotePROCEDURE: XR FOOT LT 2V COMPARISON: 10/22/2020 [...] Electronically authenticated by: ROLANDO FISCHER Date: 2021-04-12 14:13[facility] noteNo InformationNortAC[facility] Other History general Narrative - Reported* Type Description Date Medical History hypercholesterolemia Medical History Hypothyroidism Medical History chronic depression Medical History stroke Surgical History bunionectomy Surgical History kidney stone Surgical History ear drum repair Hospitalization History See Above [employer] Other Reason for Referral Reason *Waiting for appt Evaluate and Treat Possible Focal Injections Diagnosis 1 Occipital neuralgia of left side (M54.81) Referral Organization [facility] [place], operated by [facility] Ne urosurgery Referring Provider First Name Jason Referring Provider Last Name Stas Referring Provider Specialty Neurosurger y Referred Organization [facility] Pain Managemen t Referred Provider Steve Ortega Referred Address [address] [place] [phone] Referred Provider Specialty Pain Medicin e Referral [...] section and content) Referred Dr Alond[facility] Medicine Office Notesleft occipital nerve blockFOLLOW UP AFTER LEFT OCCIPITAL NBPLAVIX*LEFT GREATER & LESSER OCCIPITAL RFAFOLLOW UP AFTER LEFT OCCIPITAL RFA6 week follow up after occipital RFA INFORMATION SOURCE (unrecogn ized section and content) DATE CREATED AUTHOR 03/25/2022 [facility] DATE CREATED AUTHOR AUTHOR'S ORGANIZ ATION 09/09/2022 [facility] DATE CREATED AUTHOR AUTHOR'S ORGANIZ ATION 03/01/[address] [facility] DATE CREATED AUTHOR AUTHOR'S ORGANIZ ATION 03/23/2023 [facility] FOR RECORDS PERTAINING TO PATIENTS WHO ARE [...] BE BASED ON THE PRIMARY CLINICAL RECORDS. [employer] provides no warranty or guarantee of the accuracy or completeness of information in this document.
[2023-05-01 07:06] LABS: Glucometer 112 mg/dL (74-106)
[2023-05-01] MEDS: LACTATED RINGER'S SOLUTION 1,000 ML 50 ML IV (07:24)
[2023-05-01] MEDS: CLINDAMYCIN PHOSPHATE/D5W 900 MG/50 ML PIGGYBACK 100 MG IV (07:24)
[2023-05-01] MEDS: BUPIVACAINE HCL 0.5% PF 50 MG/10 ML VIAL INJ (07:57)
[2023-05-01] MEDS: LIDOCAINE HCL 1% 100 MG/10 ML MDV INJ (07:58)
--- NOTE | 2023-05-01 08:25 | PM.ORONB ---
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 Years ago she underwent bunionectomy and hammertoe pairs by an outside surgeon and has had recurrence. Despite her deformities her primary complaint is pain between the 2nd and 3rd toes which are rubbing together as well as in the 2nd intermetatarsal space. An MRI was obtained which did not show a neuroma but her clinical symptoms are consistent with nerve pathology. Due to failure to respond to nonsurgical care which involved shoe and activity modification, OTC pain medicine and topical pain medicine she wished to proceed with surgical intervention and I recommended above procedures. I outlined the potential risks and benefits and all questions were answered to her satisfaction. Intraoperative findings: prominence of the lateral condyle of the 2nd toe PIPJ with associated skin lesion. The 3rd toe contracture at the PIPJ in the sagittal plane. Dorsal contractures of the 2nd and 3rd metatarsal phalangeal joints with prominence of the metatarsal heads plantarly. Inflammation and scar tissue within the 2nd intermetatarsal space however the nerve did appear grossly normal. bone quality was soft and consistent with osteopenia/osteoporosis Procedure in detail: Patient was identified in pre op and consent was reviewed. Correct side and site were identified and marked. Pre-op antibiotics were started. Patient was brought to OR suite and place on table in a supine position. General anesthesia was administered. Tourniquet applied. Operative extremity was prepped and draped in usual sterile fashion. Formal time-out was performed and the foot/ankle were exsanguinated and tourniquet inflated. 10 mL of one percent lidocaine plain were injected proximal to the surgical site Dorsal incision was made over the 2nd PIPJ and a comminution sharp and blunt dissection gained access to the lateral condyle. Utilizing a rongeur and rasp the prominence of the lateral condyle was removed while keeping the extensor tendon intact. The PIPJ was fused. Surgical site was irrigated. An elliptical incision was created over the PIPJ of 3rd toe. Extensor tendon was incised and reflected to expose the PIPJ. Periarticular ligaments were released. Sagittal saw was use to excised the head of proximal phalanx. The site was irrigated with copious amounts of sterile saline. The extensor tendon was repaired with absorbable stitch and skin was closed with non-absorbable suture. incision was then placed over the 2nd metatarsal phalangeal joint and combination sharp and blunt dissection gained access to the joint which was released sharply as well as bluntly alleviating the contracture at the 2nd metatarsal phalangeal joint. The incision was then extended into the 2nd intermetatarsal space. Further dissection laterally to expose the capsule of the 3rd metatarsal phalangeal joint which was release in a similar manner both sharply and bluntly. Then meticulous blunt dissection through the interspace identified the intermetatarsal nerve which was then traced to the deep intermetatarsal ligament. Associated inflammatory tissue and scar was excised. The deep intermetatarsal ligament was released sharply and the nerve branches to the lateral 2nd toe and medial 3rd toe were dissected out insuring no further entrapment. Surgical site was irrigated with copious saline and the incisions were closed in layers. The tourniquet was deflated with a prompt hyperemic response a dry sterile dressing and surgical shoe were applied. Patient tolerated the procedure and anesthesia well was transferred to the recovery room with vital signs stable and brisk capillary refill to right toes. Postoperative plan: Discharge home under family's care Post op instructions provided verbally and written prescription(s) were placed in chart patient is to restart Plavix tomorrow weightbearing as tolerated in surgical shoe - may use walker for balance Follow-up in 1 week Implants: none Anesthesia: General-LMA Surgeon: Gabriel López Welding Specialist: Jose Lopez Estimated blood loss (mL): 10 Pathology: none sent Condition: stable Disposition: PACU
--- NOTE | 2023-05-01 09:01 | XR_ITS ---
[address] [address] Patient Name: ALVARADO ROMERO MRN: [id number] date: 1945 Sex: F Assigned Patient Location: [facility] Current Patient Location: [facility] Accession/Order Number: [id number] Exam Date: 05/01/2023 09:15 Report Date: 05/01/2023 09:39 At the request of: DAYNA PRUETT Procedure: XR foot RT min 3V EXAM: XR foot RT min 3V HISTORY: postop xr pacu COMPARISON: 02/18/2023 TECHNIQUE: 3 views Findings/impression: Stable surgical changes from prior osteotomy and screw repair of the first metatarsal and proximal phalanx. No acute fracture or dislocation. Mild to moderate degenerative changes of the intertarsal joint. Mild soft tissue swelling. Electronically authenticated by: TY HAINES Date: 05/01/2023 09:39
[2023-05-01] MEDS: TRAMADOL HCL 50 MG TABLET PO (09:15)
[2023-05-01 09:30] LABS: Glucometer 114 mg/dL (74-106)
[2023-05-01] MEDS: HYDROMORPHONE HCL 0.5 MG/0.5 ML SYRINGE IV (09:31)
--- NOTE | 2023-05-01 09:48 | PC.NURSE ---
05/01/2023 (9347) xray completed as ordered. Patient tolerated it well.
--- NOTE | 2023-05-01 09:52 | PC.NURSE ---
05/01/2023 (0935) O2 applied at 2l/min via nc. O2 sat 88% on room air.
== END 2023-05-01 10:50 | disposition home or self-care (01) ==
PROVIDERS: Visit Provider Podiatrist Foot & Ankle Surgery
PROC: (CPT 1470; principal; 2023-05-01 07:30)
DX: M20.11 Hallux valgus (acquired), right foot (principal); M20.41 Other hammer toe(s) (acquired), right foot; G57.61 Lesion of plantar nerve, right lower limb; M25.871 Other specified joint disorders, right ankle and foot; Z79.01 Long term (current) use of anticoagulants; G58.8 Other specified mononeuropathies; F41.9 Anxiety disorder, unspecified; I34.0 Nonrheumatic mitral (valve) insufficiency; F32.A Depression, unspecified; Z86.16 Personal history of COVID-19; Z86.73 Personal history of transient ischemic attack (TIA), and cerebral infarction without residual deficits; Z87.442 Personal history of urinary calculi; R12 Heartburn; I10 Essential (primary) hypertension; E03.9 Hypothyroidism, unspecified; Z79.899 Other long term (current) drug therapy; E78.00 Pure hypercholesterolemia, unspecified; I25.10 Atherosclerotic heart disease of native coronary artery without angina pectoris; I83.93 Asymptomatic varicose veins of bilateral lower extremities; M20.12 Hallux valgus (acquired), left foot; L84 Corns and callosities; B35.3 Tinea pedis; Z79.02 Long term (current) use of antithrombotics/antiplatelets
CPT/HCPCS: 28124; 28285; 64702; 36415; 73630; 82948; J0665; J0736; J1100; J1170; J1885; J2405; J2704; J3010